=== PATIENT | male | born 1940 | race Caucasian/White ===

== ENCOUNTER 2019-06-04 07:19 | Outpatient (CLI) | payer MEDICARE, SELFPAY ==
[2019-06-04 08:23] LABS: Anion Gap 11.6 mmol/L (7-16); Blood Urea Nitrogen 45 mg/dL (7-18); Calcium 9.6 mg/dL (8.5-10.1); Carbon Dioxide 28 mmol/L (21-32); Chloride 111 mmol/L (98-108); Estimated Glomerular Filt Rate 35; Glucose 118 mg/dL (70-99); Osmolality Calculated 314 mOsm/kg (285-295); Potassium 4.6 mmol/L (3.5-5.1); Sodium 146 mmol/L (136-145)
== END 2019-06-04 07:20 | disposition home or self-care (01) ==
LOC: CHSLAB 07:21
PROVIDERS: PCP Internal Medicine; Visit Provider Internal Medicine
DX: R79.89 Other specified abnormal findings of blood chemistry (principal)
CPT/HCPCS: 36415; 80048

== ENCOUNTER 2019-07-26 07:07 | Outpatient (CLI) | payer MEDICARE, SELFPAY ==
[2019-07-26 07:21] LABS: Appearance Urine Clear (Clear); Basophils Absolute Auto 0.04 K/mm3 (0.00-0.10); Basophils Percent Auto 0.6 % (0.0-1.0); Bilirubin Urine Negative (Negative); Color Urine Yellow (Yellow); Eosinophils Absolute Auto 0.22 K/mm3 (0.02-0.50); Glucose Urine UA Negative (Negative); Hematocrit 38.5 % (37.0-46.0); Hemoglobin 12.8 g/dL (12.4-15.3); Immature Granulocyte Absolute 0.05 K/mm3 (0.00-0.00); Immature Granulocyte Percent A 0.7 % (0.0-0.0); Ketones Urine Negative (Negative); Leukocyte Esterase Ur Negative LEU/UL (Negative); Lymphocytes Absolute Auto 1.95 K/mm3 (1.10-4.50); Lymphocytes Percent Auto 26.8 % (18.0-42.0); Mean Corpuscular HGB Conc 33.2 g/dL (32.0-36.0); Mean Corpuscular Hemoglobin 31.3 pg (27.0-31.0); Mean Corpuscular Volume 94.1 fL (78.0-102.0); Monocytes Absolute Auto 0.58 K/mm3 (0.10-0.90); Neutrophils Absolute Auto 4.4 K/mm3 (1.7-7.2); Neutrophils Percent Auto 60.9 % (50.0-70.0); Nitrate Urine Negative (Negative); Platelet Count Result 162 K/mm3 (150-420); Protein Urine 3+ (Negative); Red Blood Count 4.09 M/mm3 (4.70-6.10); Red Cell Distribution Width 14.6 % (11.6-14.4); Specific Grav Ur >= 1.030 (1.010-1.020); Urobilinogen Urine 0.2 mg/dL (0.2-1.0); White Blood Count 7.3 K/mm3 (4.8-10.8); pH Urine 5.5 (5.0-8.0)
[2019-07-26 07:28] LABS: Hemoglobin A1C 6.7 % (<5.7)
[2019-07-26 07:30] LABS: Add Urine Microscopic? YES; Bacteria Urine Trace /hpf; Blood Urine Trace-Intact (Negative); RBC Urine 0-2 /hpf (0-2); Squamous Epithelial Cell Urine Occasional /hpf (Few); WBC Urine 0-3 /hpf (0-3)
[2019-07-26 07:40] LABS: Creatinine Urine 109.13 mg/dL (40-278)
[2019-07-26 08:12] LABS: MALB Creatinine Ratio 366.5 mg/g (0-30); Microalbumin Urine Random > 400.0 mg/L
[2019-07-26 08:24] LABS: Alanine Aminotransferase 24 U/L (16-63); Albumin Level 3.2 g/dL (3.4-5.0); Alkaline Phosphatase 69 U/L (46-116); Anion Gap 11.5 mmol/L (7-16); Aspartate Amino Transferase 15 U/L (15-37); Bilirubin,Total 0.3 mg/dL (0.00-1.00); Blood Urea Nitrogen 36 mg/dL (7-18); Calcium 8.9 mg/dL (8.5-10.1); Carbon Dioxide 26 mmol/L (21-32); Chloride 114 mmol/L (98-108); Cholesterol 123 mg/dL (0-200); Estimated Glomerular Filt Rate 34; Ferritin 209 ng/mL (26-388); Glucose 105 mg/dL (70-99); HDL Direct 48 mg/dL (40-60); Iron 67 ug/dL (65-175); LDL Cholesterol Calculated 60 mg/dL (<130); Osmolality Calculated 312 mOsm/kg (285-295); Percent Iron Saturation 25 % (12-57); Potassium 4.5 mmol/L (3.5-5.1); Sodium 147 mmol/L (136-145); Triglycerides 74 mg/dL (0-150)
== END 2019-07-26 07:08 | disposition home or self-care (01) ==
LOC: CHSLAB 07:10
PROVIDERS: PCP Internal Medicine; Visit Provider Internal Medicine
DX: D50.9 Iron deficiency anemia, unspecified (principal); E11.65 Type 2 diabetes mellitus with hyperglycemia
CPT/HCPCS: 36415; 80053; 80061; 81001; 82043; 82728; 83036; 83540; 83550; 85025

== ENCOUNTER 2019-09-22 12:21 | Emergency (ER) | payer MEDICARE, SELFPAY ==
[2019-09-22 12:45] VITALS: BP 170/93; PULSE 66; RESP 16; TEMP 37.1; O2SAT 94
--- NOTE | 2019-09-22 12:55 | ED.EXTPRO ---
HPI - Extremity Problem General Chief complaint: Extremity Problem,Nontraumatic Stated complaint: L shoulder pain Source: patient Mode of arrival: ambulatory Limitations: no limitations History of Present Illness HPI Narrative: This 79-year-old has had discomfort in his left shoulder for the last several months. One week ago and got to the point where he had difficulty raising his arm. But over the last week he has been doing passive range of motion and has gotten full range of motion back. His pain is also dramatically decreased. This morning he noticed bruising in the anterior arm. Yesterday he worked in the [employer]. He denies new or unusual pain. He has not had this before. No numbness or tingling or weakness in his left arm. He denies history of bruising other than his forearms. Related Data Home Medications Medication Instructions Recorded Confirmed carvedilol 25 mg tablet 25 mg PO BID tablet 05/21/19 09/22/19 finasteride 5 mg tablet 5 mg PO DAILY 05/21/19 09/22/19 insulin aspart U-100 100 unit/mL 30 unit SUB-Q TID ml 05/21/19 09/22/19 (3 mL) subcutaneous pen insulin glargine 100 unit/mL 100 unit SUB-Q DAILY 05/21/19 09/22/19 subcutaneous solution losartan 100 mg tablet 100 mg PO DAILY 05/21/19 09/22/19 simvastatin 40 mg tablet 40 mg PO DAILY 05/21/19 09/22/19 tamsulosin 0.4 mg capsule 0.4 mg PO DAILY 05/21/19 09/22/19 Allergies Allergy/AdvReac Type Severity Reaction Status Date / Time No Known Allergies Allergy Unknown Verified 08/20/19 14:06 Review of Systems Musculoskeletal: Musculoskeletal: Reports no additional musculoskeletal complaints Hematologic/Lymphatic: Hematologic/Lymphatic: Reports no additional hematologic/lymphatic complaints [facility] Past Medical History Medical History COSME (dyspnea on exertion) Essential hypertension Hypersomnia VINCENT on CPAP PAD (peripheral artery disease) 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, 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 There is a meniscal shaped abrupt marking of where the bruising stops just above the biceps tendon Extrem: Other: there is minor tenderness over the left proximal 3rd of the left arm. He is tender over the lower anterior 1/3. He has equal abduction internal and external rotation of the left shoulder. There is no swelling. There is no tenderness of left forearm wrist or hand. He has 5+ biceps strength left. The biceps tendon and muscle is intact by palpatio Course Course Emergency Course: Patient is sure that he had some bleeding in the left proximal arm that has resulted bruising in the distal arm. He was encouraged to avoid exertion with this left arm, to return if he has new symptoms and to follow-up with Dr. Evans 3-5 days Vital Signs Vital signs: Vital Signs Temperature 37.1 C 09/22/19 12:45 Pulse Rate 66 09/22/19 12:45 Respiratory Rate 16 09/22/19 12:45 Blood Pressure 170/93 H 09/22/19 12:45 Pulse Oximetry 94 09/22/19 12:45 Temperature 37.1 C 09/22/19 12:45 Pulse Rate 66 09/22/19 12:45 Respiratory Rate 16 09/22/19 12:45 Blood Pressure 170/93 H 09/22/19 12:45 Pulse Oximetry 94 09/22/19 12:45 Discharge Plan
[2019-09-22 13:14] VITALS: PULSE 70; RESP 16; O2SAT 98
== END 2019-09-22 13:18 | disposition home or self-care (01) ==
PROVIDERS: Emergency Provider Family Medicine; PCP Internal Medicine
DX: S40.012A Contusion of left shoulder, initial encounter (principal)
CPT/HCPCS: 99281; 99282

== ENCOUNTER 2019-12-20 07:17 | Outpatient (CLI) | payer MEDICARE, SELFPAY ==
[2019-12-20 07:31] LABS: Appearance Urine Clear (Clear); Basophils Absolute Auto 0.08 K/mm3 (0.00-0.10); Bilirubin Urine Negative (Negative); Color Urine Yellow (Yellow); Eosinophils Absolute Auto 0.23 K/mm3 (0.02-0.50); Glucose Urine UA Negative (Negative); Hematocrit 41.8 % (37.0-46.0); Hemoglobin 13.4 g/dL (12.4-15.3); Immature Granulocyte Absolute 0.04 K/mm3 (0.00-0.00); Immature Granulocyte Percent A 0.5 % (0.0-0.0); Ketones Urine Negative (Negative); Leukocyte Esterase Ur Negative (Negative); Lymphocytes Absolute Auto 2.79 K/mm3 (1.10-4.50); Mean Corpuscular HGB Conc 32.1 g/dL (32.0-36.0); Mean Corpuscular Hemoglobin 30.9 pg (27.0-31.0); Mean Corpuscular Volume 96.5 fL (78.0-102.0); Mean Platelet Volume 10.6 fl (8.7-11.0); Monocytes Absolute Auto 0.56 K/mm3 (0.10-0.90); Monocytes Percent Auto 7.2 % (2.0-11.0); Neutrophils Absolute Auto 4.1 K/mm3 (1.7-7.2); Neutrophils Percent Auto 52.3 % (50.0-70.0); Nitrate Urine Negative (Negative); Platelet Count Result 170 K/mm3 (150-420); Protein Urine 2+ (Negative); Red Blood Count 4.33 M/mm3 (4.70-6.10); Red Cell Distribution Width 13.2 % (11.6-14.4); Specific Grav Ur >= 1.030 (1.010-1.020); Urobilinogen Urine 0.2 mg/dL (0.2-1.0); White Blood Count 7.8 K/mm3 (4.8-10.8); pH Urine 5.5 (5.0-8.0)
[2019-12-20 07:36] LABS: Add Urine Microscopic? YES; Blood Urine Trace-Intact (Negative); RBC Urine 0-2 /hpf (0-2); Squamous Epithelial Cell Urine Occasional /hpf (Few); WBC Urine 0-3 /hpf (0-3)
[2019-12-20 07:37] LABS: Bacteria Urine Trace /hpf
[2019-12-20 07:43] LABS: Hemoglobin A1C 6.9 % (<5.7)
[2019-12-20 07:46] LABS: Creatinine Urine 74.79 mg/dL (40-278)
[2019-12-20 08:24] LABS: MALB Creatinine Ratio 534.8 mg/g (0-30); Microalbumin Urine Random > 400.0 mg/L
[2019-12-20 09:18] LABS: Alanine Aminotransferase 28 U/L (16-63); Albumin Level 3.3 g/dL (3.4-5.0); Alkaline Phosphatase 86 U/L (46-116); Anion Gap 9 mmol/L (8-16); Aspartate Amino Transferase 11 U/L (15-37); Bilirubin,Total 0.3 mg/dL (0.00-1.00); Blood Urea Nitrogen 55 mg/dL (7-18); Calcium 9.3 mg/dL (8.5-10.1); Carbon Dioxide 24 mmol/L (21-32); Chloride 112 mmol/L (98-108); Cholesterol 138 mg/dL (0-200); Creatine Kinase 87 U/L (39-308); Estimated Glomerular Filt Rate 26; Ferritin 355 ng/mL (26-388); Free T3 2.29 pg/mL (2.18-3.98); Free T4 Free Thyroxine 1.03 ng/dL (0.76-1.46); Glucose 190 mg/dL (70-99); HDL Direct 41 mg/dL (40-60); Iron 74 ug/dL (65-175); LDL Cholesterol Calculated 60 mg/dL (<130); Osmolality Calculated 320 mOsm/kg (285-295); Percent Iron Saturation 31 % (12-57); Potassium 5.1 mmol/L (3.5-5.1); Prostate Specific Antigen 4.9 ng/mL (< OR = 4.0); Sodium 145 mmol/L (136-145); Thyroid Stimulating Hormone 1.57 uIU/mL (0.36-3.74); Total Protein 6.1 g/dL (6.4-8.2); Triglycerides 185 mg/dL (0-150)
== END 2019-12-20 07:18 | disposition home or self-care (01) ==
LOC: CHSLAB 07:20
PROVIDERS: PCP Internal Medicine; Visit Provider Internal Medicine
DX: I12.9 Hypertensive chronic kidney disease with stage 1 through stage 4 chronic kidney disease, or unspecified chronic kidney disease (principal); E11.22 Type 2 diabetes mellitus with diabetic chronic kidney disease; N18.4 Chronic kidney disease, stage 4 (severe); E78.2 Mixed hyperlipidemia; E04.2 Nontoxic multinodular goiter; D50.9 Iron deficiency anemia, unspecified; Z12.5 Encounter for screening for malignant neoplasm of prostate
CPT/HCPCS: 36415; 80053; 80061; 81001; 82043; 82550; 82728; 83036; 83540; 83550; 84153; 84439; 84443; 84481; 85025; G0103

== ENCOUNTER 2020-03-21 07:27 | Outpatient (CLI) | payer MEDICARE, SELFPAY ==
--- NOTE | ~2020-03-21 | CT_ITS ---
EXAMINATION: CT abdomen pelvis wo con DATE: 03/21/2020 08:40 INDICATION: Prostate cancer TECHNIQUE: Computed tomography (CT) of the abdomen and pelvis was performed without intravenous contr ast. Automated exposure control and iterative reconstruction technique were employed. Exam dose: 140 1.15 mGy-cm total exam DLP. COMPARISON: None. FINDINGS: There is mild discoid atelectasis or scarring in the lower lung zones. Normal heart size. Coronary artery calcifications. No pericardial or pleural effusion. Status post cholecystectomy. No bile duct or pancreatic duct dilatation. No hepatic or pancreatic space-occupying mass lesion or pancreatic calcification. There are calcified splenic granulomas. Normal splenic size. Normal morphology of the adrenal glands. No renal mass lesion is evident on this limited noncontrast examination. No urinary tract calculus or hydroureteronephrosis. There is atherosclerotic calcification of the abdominal aorta, celiac, superior mesenteric and renal arteries as well as iliac arteries. No abdominal aortic aneurysm. No intraperitoneal or retroperitoneal or pelvic mass lesion or adenopathy or ascites is evident. There is prostate enlargement. The urinary bladder appears unremarkable. Normal appendix. Numerous diverticula of the left and right colon; no CT evidence of diverticulitis. No bowel obstruct ion, bowel wall thickening, pneumatosis or intraperitoneal free air. Anterolateral right upper quadrant fat-containing abdominal wall hernia. Small fat-containing umbilical hernia. Diffuse idiopathic skeletal hyperostosis of the thoracic spine. Prominent multilevel degenerative dis ease of the lumbar and cervical spine. No suspicious osteolytic or osteoblastic lesions. IMPRESSION: Status post cholecystectomy Prostate enlargement Diverticulosis of left and right colon Right upper quadrant fat-containing abdominal wall hernia Small fat-containing umbilical hernia Reviewed, dictated and finalized at [facility]. Reviewed, dictated and finalized at [facility]. 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
[2020-03-21 08:15] LABS: Estimated Glomerular Filt Rate 20
== END 2020-03-21 07:28 | disposition home or self-care (01) ==
PROVIDERS: PCP Internal Medicine; Visit Provider Urology
DX: C61 Malignant neoplasm of prostate (principal); Z90.49 Acquired absence of other specified parts of digestive tract; N40.0 Benign prostatic hyperplasia without lower urinary tract symptoms; K57.90 Diverticulosis of intestine, part unspecified, without perforation or abscess without bleeding; K43.9 Ventral hernia without obstruction or gangrene; K42.9 Umbilical hernia without obstruction or gangrene
CPT/HCPCS: 74176

== ENCOUNTER 2020-06-02 07:41 | Outpatient (CLI) | payer MEDICARE, SELFPAY ==
[2020-06-02 08:02] LABS: Hemoglobin 12.1 g/dL (12.4-15.3)
--- NOTE | 2020-06-02 09:16 | ECG_ITS ---
SINUS BRADYCARDIA BORDERLINE ST-T WAVE ABNORMALITY- INFERIOR LEADS BASELINE WANDER- II, III, V5 BORDERLINE ECG Electronically Signed On 06-02-2020 15:13:06 CDT by Levi CASE
[2020-06-02 09:57] LABS: Anion Gap 7 mmol/L (8-16); Blood Urea Nitrogen 60 mg/dL (7-18); Carbon Dioxide 22 mmol/L (21-32); Chloride 116 mmol/L (98-108); Estimated Glomerular Filt Rate 22; Glucose 129 mg/dL (70-99); Osmolality Calculated 318 mOsm/kg (285-295); Potassium 5.7 mmol/L (3.5-5.1); Sodium 145 mmol/L (136-145)
== END 2020-06-02 07:42 | disposition home or self-care (01) ==
PROVIDERS: Anesthesiology; PCP Internal Medicine; Visit Provider Urology
DX: E11.9 Type 2 diabetes mellitus without complications (principal); D64.9 Anemia, unspecified; C61 Malignant neoplasm of prostate; I10 Essential (primary) hypertension; Z01.818 Encounter for other preprocedural examination
CPT/HCPCS: 36415; 80048; 85014; 85018; 87086; 93005

== ENCOUNTER → 2020-06-07 01:19 | Outpatient (CLI) | payer MEDICARE, SELFPAY ==
[2020-06-07 20:53] LABS: SARS-CoV-2 RNA PCR Negative
== END ==
PROVIDERS: PCP Internal Medicine; Visit Provider Urology
DX: Z01.812 Encounter for preprocedural laboratory examination (principal); Z20.822 Contact with and (suspected) exposure to COVID-19
CPT/HCPCS: C9803; U0003; U0005

== ENCOUNTER 2020-06-10 01:23 | Day surgery (SDC) | payer MEDICARE, SELFPAY ==
[2020-05-30 12:03] VITALS: BMI 31.1
--- NOTE | 2020-06-10 09:00 | WPDANESEPPF ---
Anes - Initial Pre Proc Eval Procedure: Operation Date: 06/10/20 10:15 Proposed Procedures p Insertion SpaceOAR Hydrogel System - Macho William MD Date/Time: 06/10/20 09:00 Surgeon: Macho William MD Pre Op Diagnosis: Prostate CA Patient Data Age: 79 Gender: M Height: 1.91 m Weight: 113 kg Allergies Allergy/AdvReac Type Severity Reaction Status Date / Time No Known Allergies Allergy Unknown Verified 06/10/20 09:05 Home Medications Medication Instructions Recorded Confirmed Type carvedilol 25 mg tablet 25 mg PO BID tablet 05/21/19 06/10/20 History finasteride 5 mg tablet 5 mg PO DAILY 05/21/19 06/10/20 History insulin aspart U-100 100 unit/mL 10 unit SUB-Q TID PRN ml 05/21/19 06/10/20 History (3 mL) subcutaneous pen losartan 100 mg tablet 100 mg PO QAM 05/21/19 06/10/20 History simvastatin 40 mg tablet 40 mg PO DAILY 05/21/19 06/10/20 History tamsulosin 0.4 mg capsule 0.4 mg PO DAILY 05/21/19 06/10/20 History cilostazol 50 mg tablet 50 mg PO BID #180 tablet 08/24/19 06/10/20 Rx insulin glargine 100 unit/mL 50 unit SUB-Q QPM ml 12/17/19 06/10/20 History subcutaneous solution albuterol sulfate 2 puff INHALATION Q4-6H PRN 05/30/20 06/10/20 History aspirin [Aspir-81] 81 mg PO DAILY 05/30/20 06/10/20 History ferrous sulfate 325 mg PO DAILY 05/30/20 06/10/20 History hydralazine 10 mg PO BID 05/30/20 06/10/20 History multivitamin [Multiple Vitamin] 1 tablet PO DAILY 05/30/20 06/10/20 History Patient hx anesthesia problems: none Family hx anesthesia problems: none PMFSH Past Medical History Medical History (Updated 06/10/20 @ 09:02 by Shar Bermudez MD) Arthritis COPD (chronic obstructive pulmonary disease) COSME (dyspnea on exertion) Dyslipidemia Edema of both legs Essential hypertension Hypersomnia Obesity VINCENT on CPAP PAD (peripheral artery disease) Prostate CA 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, with longterm current use of insulin pump Venous insufficiency of right lower extremity Ventricular ectopic beats Surgical History Surgical History History of cataract extraction History of cholecystectomy Family History Family History Father Family history of coronary artery disease Mother Family history of coronary artery disease Social History Social History Smoking packs per day: 3 Smoking cigarettes per day: 60.0 Years smoked: 15 Smoking pack-years: 45.00 Smoking status: Former smoker Smoking end date: 08/14/85 Alcohol intake: current Drinks per week: 1 Substance use: never Living arrangements: with family Additional living arrangements comments: Spiritual care concerns: No Anes - Eval Final PreProcedure Day of Procedure 06/10/20 09:00 Patient weight: obese Heart: regular rate and rhythm Lungs: clear to auscultation and normal air movement Airway: Mallampati scale class II Neurological: alert and oriented Last oral intake: >/= 8 hours ASA classification: III Emergent: no Anesthetic plan: proceed Anesthesia type and monitoring: general GIVS and LMA Informed Consent: The patient's anesthetic plan and its attendant risks and benefits were discussed with the patient/family/POA. Questions were solicited and answers provided to the satisfaction of the patient/family/POA.
[2020-06-10] MEDS: LACTATED RINGERS 1,000 ML 30 ML IV CONT (09:25)
[2020-06-10 09:27] VITALS: BP 149/54; PULSE 45; RESP 18; TEMP 36.5; O2SAT 99; BMI 31.2
[2020-06-10 09:27] LABS: Glucose Point of Care 76 (65-105)
[2020-06-10 09:44] LABS: Potassium 4.8 mmol/L (3.4-5.0)
--- NOTE | 2020-06-10 10:18 | WPDHPUPDATE1 ---
History and Physical Update Update Date/Time: 06/10/20 10:18 History and Physical has been reviewed, including an updated exam of the patient. There are NO changes in the patient's condition. Risks, benefits, and alternatives have been discussed and questions answered. Patient agrees to proceed with procedure. Proceed with space oar
--- NOTE | 2020-06-10 11:23 | PM.PROC ---
Procedure Note - Detailed Date of procedure: 06/10/20 Pre-op diagnosis: Prostate CA Post-op diagnosis: same Procedure performed: Transrectal ultrasound with space Oar placement Description of procedure: Patient is taken to the operative suite and correctly identified. Once anesthesia was obtained was placed in dorsal lithotomy position and prepped and draped usual sterile fashion. Transrectal ultrasound was then performed with the prostate visualized in both sagittal and transverse planes. Spinal needle was inserted into the perineum into the plane between the prostate and the rectum. Aspiration revealed no blood. 1 cc of saline was injected and there was good separation of the plane between the prostate and rectum. The space Oar mixture was then injected. Again there was very good separation with lifting of the prostate off the rectum. This was visualized in both planes. Patient tolerated procedure well without any complications taken recovery stable condition. Patient will follow-up a month's time after his radiation therapy is completed Anesthesia: MERISSAA Surgeon: Macho William MD Drains: No Packing: No Pathology: none sent Complications: No immediate complications Condition: stable Disposition: PACU
[2020-06-10 11:27] VITALS: BP 118/51; PULSE 42; RESP 16; O2SAT 95
[2020-06-10 11:55] VITALS: BP 139/52; PULSE 43; RESP 16; O2SAT 96
[2020-06-10 14:00] LABS: Glucose Point of Care 70 (65-105)
== END 2020-06-10 12:08 | disposition home or self-care (01) ==
PROVIDERS: PCP Internal Medicine; Visit Provider Urology
PROC: (CPT 55874; principal; 2020-06-10 10:15)
DX: C61 Malignant neoplasm of prostate (principal); J44.9 Chronic obstructive pulmonary disease, unspecified; I10 Essential (primary) hypertension; E11.51 Type 2 diabetes mellitus with diabetic peripheral angiopathy without gangrene; I87.2 Venous insufficiency (chronic) (peripheral); E66.9 Obesity, unspecified; Z68.31 Body mass index [BMI] 31.0-31.9, adult; Z96.41 Presence of insulin pump (external) (internal); Z79.82 Long term (current) use of aspirin; Z79.51 Long term (current) use of inhaled steroids; Z79.4 Long term (current) use of insulin; Z87.891 Personal history of nicotine dependence
CPT/HCPCS: 55874; 36415; 82948; 84132; A9270; C1889; J2405; J2704; J3010; J7120

== ENCOUNTER 2020-06-17 07:56 | Outpatient (CLI) | payer MEDICARE, SELFPAY ==
--- NOTE | ~2020-06-17 | MR_ITS ---
EXAMINATION: MR pelvis wo con INDICATION: Prostate cancer TECHNIQUE: Coronal SSFSE ARC, Axial and Coronal 2D FIESTA FatSat, Axial 3D T2 Cube, Axial SSFSE BH AR C, Axial 3D DualEcho BH, Axial SSFSE-IR Alvaro, Axial DWI b=600, Axial LAVA ARC, FAT:Cor LAVA-FLEX COMPARISON: CT, 03/21/2020 CONTRAST: None FINDINGS: There is an area of decreased T2 signal intensity with associated restricted diffusion in t he peripheral zone of the right prostate, likely corresponding to patient's known malignancy. There a re no pathologically enlarged pelvic lymph nodes. Postbiopsy material situated between the rectum and prostate. The bladder is normal. There are no dilated loops of bowel. IMPRESSION: 1. No evidence of metastatic disease. Signal abnormality in the right peripheral zone of the prostate likely reflects known malignancy. Reviewed, dictated and finalized at location [facility]. IMPRESSION: 1. No evidence of metastatic disease. Signal abnormality in the right periphera l zone of the prostate likely reflects known malignancy.
== END 2020-06-17 07:57 | disposition home or self-care (01) ==
LOC: ANHIMG 07:58
PROVIDERS: PCP Internal Medicine; Visit Provider Radiology Radiation Oncology
DX: C61 Malignant neoplasm of prostate (principal)
CPT/HCPCS: 72195

== ENCOUNTER 2020-07-17 07:55 | Outpatient (CLI) | payer MEDICARE, SELFPAY ==
[2020-07-17 08:24] LABS: Basophils Absolute Auto 0.03 K/mm3 (0.00-0.10); Basophils Percent Auto 0.7 % (0.0-1.0); Eosinophils Percent Auto 2.4 % (1.0-6.0); Hematocrit 34.2 % (37.0-46.0); Hemoglobin 11.2 g/dL (12.4-15.3); Immature Granulocyte Absolute 0.02 K/mm3 (0.00-0.00); Immature Granulocyte Percent A 0.5 % (0.0-0.0); Lymphocytes Absolute Auto 0.75 K/mm3 (1.10-4.50); Lymphocytes Percent Auto 18.3 % (18.0-42.0); Mean Corpuscular HGB Conc 32.7 g/dL (32.0-36.0); Mean Corpuscular Hemoglobin 31.7 pg (27.0-31.0); Mean Corpuscular Volume 96.9 fL (78.0-102.0); Mean Platelet Volume 11.1 fl (8.7-11.0); Monocytes Absolute Auto 0.39 K/mm3 (0.10-0.90); Monocytes Percent Auto 9.5 % (2.0-11.0); Neutrophils Absolute Auto 2.8 K/mm3 (1.7-7.2); Neutrophils Percent Auto 68.6 % (50.0-70.0); Platelet Count Result 105 K/mm3 (150-420); Red Blood Count 3.53 M/mm3 (4.70-6.10); Red Cell Distribution Width 13.6 % (11.6-14.4); White Blood Count 4.1 K/mm3 (4.8-10.8)
[2020-07-17 09:20] LABS: Appearance Urine Clear (Clear); Bilirubin Urine Negative (Negative); Color Urine Yellow (Yellow); Glucose Urine UA Negative (Negative); Hemoglobin A1C 6.3 % (<5.7); Ketones Urine Negative (Negative); Leukocyte Esterase Ur Negative LEU/UL (Negative); Nitrate Urine Negative (Negative); Protein Urine 3+ (Negative); Specific Grav Ur >= 1.030 (1.010-1.020); Urobilinogen Urine 0.2 mg/dL (0.2-1.0); pH Urine 5.5 (5.0-8.0)
[2020-07-17 09:28] LABS: Creatinine Urine 92.01 mg/dL (40-278); Sodium Urine Random 85 mmol/L (20-110); Total Protein Urine Random 229.3 mg/dL (0.0-11.9); Ur Ttl Prot Creatinine Ratio 2.49 mg/mg (0-0.20)
[2020-07-17 09:29] LABS: Alanine Aminotransferase 24 U/L (16-63); Albumin Level 3.2 g/dL (3.4-5.0); Alkaline Phosphatase 70 U/L (46-116); Anion Gap 10 mmol/L (8-16); Aspartate Amino Transferase 12 U/L (15-37); Bilirubin,Total 0.3 mg/dL (0.00-1.00); Blood Urea Nitrogen 49 mg/dL (7-18); Calcium 8.7 mg/dL (8.5-10.1); Carbon Dioxide 22 mmol/L (21-32); Chloride 115 mmol/L (98-108); Cholesterol 111 mg/dL (0-200); Creatine Kinase 124 U/L (39-308); Estimated Glomerular Filt Rate 26; Ferritin 267 ng/mL (26-388); Free T3 2.09 pg/mL (2.18-3.98); Free T4 Free Thyroxine 0.99 ng/dL (0.76-1.46); Glucose 99 mg/dL (70-99); HDL Direct 45 mg/dL (40-60); Iron 58 ug/dL (65-175); LDL Cholesterol Calculated 53 mg/dL (<130); Osmolality Calculated 317 mOsm/kg (285-295); Percent Iron Saturation 24 % (12-57); Phosphorus 4.1 mg/dL (2.6-4.7); Potassium 4.7 mmol/L (3.5-5.1); Sodium 147 mmol/L (136-145); Thyroid Stimulating Hormone 1.33 uIU/mL (0.36-3.74); Total Protein 5.9 g/dL (6.4-8.2); Triglycerides 63 mg/dL (0-150)
[2020-07-17 09:40] LABS: Add Urine Microscopic? YES; Blood Urine Trace-lysed (Negative); WBC Urine 0-3 /hpf (0-3)
[2020-07-17 09:41] LABS: Bacteria Urine 1+ /hpf; Mucus Urine Few /lpf; Squamous Epithelial Cell Urine Few /hpf (Few)
[2020-07-17 09:42] LABS: Erythrocyte Sedimentation Rate 35 mm/hr (0-20)
[2020-07-17 10:46] LABS: MALB Creatinine Ratio 434.7 mg/g (0-30); Microalbumin Urine Random > 400.0 mg/L
[2020-07-17 11:40] LABS: Eosinophil Urine 0 % (0-0)
[2020-07-20 03:18] LABS: Kappa\\Lambda Light Chains 1.63 (0.26-1.65); Lambda Light Chain 33.5 mg/L (5.7-26.3)
[2020-07-20 11:41] LABS: Complement Total CH50 >60 U/mL (31-60)
[2020-07-20 18:10] LABS: Parathyroid Intact 140 pg/mL (14-64)
[2020-07-21 18:46] LABS: Complement C3 113 mg/dL (82-185)
== END 2020-07-17 07:56 | disposition home or self-care (01) ==
LOC: CHSLAB 07:58
PROVIDERS: PCP Internal Medicine; Visit Provider Internal Medicine Nephrology
DX: E04.2 Nontoxic multinodular goiter (principal); I12.9 Hypertensive chronic kidney disease with stage 1 through stage 4 chronic kidney disease, or unspecified chronic kidney disease; N18.32 Chronic kidney disease, stage 3b; E11.22 Type 2 diabetes mellitus with diabetic chronic kidney disease; E11.65 Type 2 diabetes mellitus with hyperglycemia; E78.2 Mixed hyperlipidemia; D50.9 Iron deficiency anemia, unspecified
CPT/HCPCS: 36415; 80053; 80061; 81001; 82043; 82550; 82570; 82728; 83036; 83540; 83550; 83883; 83970; 84100; 84156; 84300; 84439; 84443; 84481; 85025; 85652; 85999; 86038; 86160; 86162; 86334

== ENCOUNTER 2020-07-21 08:16 | Outpatient (CLI) | payer MEDICARE, SELFPAY ==
[2020-07-25 20:52] LABS: Albumin 83 %; Creat 24 Hr 1.37 g/24 h (0.50-2.15); Measured Kappa Chains 7.98 mg/dL (<2.00); Pro/Creat Ratio 3292 mg/g creat (<=114); Total Kappa Chains 135.66 mg/24 h; Total Lambda Chains 59.5 mg/24 h
== END 2020-07-21 08:17 | disposition home or self-care (01) ==
LOC: CHSLAB 08:18
PROVIDERS: PCP Internal Medicine; Visit Provider Internal Medicine Nephrology
DX: N18.32 Chronic kidney disease, stage 3b (principal)
CPT/HCPCS: 86335

== ENCOUNTER 2020-07-29 08:43 | Outpatient (CLI) | payer MEDICARE, SELFPAY ==
--- NOTE | ~2020-07-29 | US_ITS ---
US retroperitoneal comp 07/29/2020 09:28 Procedure: Realtime transabdominal ultrasound of the kidneys and bladder. Indication: Chronic kidney disease stage III. History of prostate cancer. Comparison: No prior studies for comparison. Findings: Renal echotexture is normal bilaterally without hydronephrosis, contour deforming mass or r enal calculus. The right kidney measures 9.1 cm and left kidney measures 11.8 cm. Bladder within nor mal limits. Impression: 1: Unremarkable renal ultrasound. No stones, masses or hydronephrosis. Reviewed, dictated and finalized at location [facility]. Impression: 1: Unremarkable renal ultrasound. No stones, masses or hydronephrosis.
== END 2020-07-29 08:44 | disposition home or self-care (01) ==
LOC: CHSIMG 08:45
PROVIDERS: PCP Internal Medicine; Visit Provider Internal Medicine Nephrology
DX: N18.32 Chronic kidney disease, stage 3b (principal)
CPT/HCPCS: 76770

== ENCOUNTER 2020-10-29 08:10 | Outpatient (CLI) | payer MEDICARE, SELFPAY ==
[2020-10-29 08:27] LABS: Basophils Absolute Auto 0.04 K/mm3 (0.00-0.10); Basophils Percent Auto 0.8 % (0.0-1.0); Eosinophils Absolute Auto 0.15 K/mm3 (0.02-0.50); Eosinophils Percent Auto 2.9 % (1.0-6.0); Hematocrit 33.3 % (37.0-46.0); Immature Granulocyte Absolute 0.04 K/mm3 (0.00-0.00); Immature Granulocyte Percent A 0.8 % (0.0-0.0); Lymphocytes Absolute Auto 0.77 K/mm3 (1.10-4.50); Lymphocytes Percent Auto 15.1 % (18.0-42.0); Mean Corpuscular Hemoglobin 32.6 pg (27.0-31.0); Mean Corpuscular Volume 98.8 fL (78.0-102.0); Mean Platelet Volume 10.6 fl (8.7-11.0); Monocytes Percent Auto 7.8 % (2.0-11.0); Neutrophils Absolute Auto 3.7 K/mm3 (1.7-7.2); Neutrophils Percent Auto 72.6 % (50.0-70.0); Platelet Count Result 126 K/mm3 (150-420); Red Blood Count 3.37 M/mm3 (4.70-6.10); Red Cell Distribution Width 13.4 % (11.6-14.4); White Blood Count 5.1 K/mm3 (4.8-10.8)
[2020-10-29 08:34] LABS: Add Urine Microscopic? YES; Appearance Urine Clear (Clear); Bilirubin Urine Negative (Negative); Blood Urine Negative (Negative); Color Urine Light Yellow (Yellow); Glucose Urine UA Negative (Negative); Ketones Urine Negative (Negative); Leukocyte Esterase Ur Negative (Negative); Nitrate Urine Negative (Negative); Protein Urine 3+ (Negative); Specific Grav Ur 1.025 (1.010-1.020); Urobilinogen Urine 0.2 mg/dL (0.2-1.0); pH Urine 5.5 (5.0-8.0)
[2020-10-29 08:41] LABS: Bacteria Urine Trace /hpf; RBC Urine None seen /hpf (0-2); Squamous Epithelial Cell Urine Rare /hpf (Few); WBC Urine None seen /hpf (0-3)
[2020-10-29 08:45] LABS: Hemoglobin A1C 6.4 % (<5.7)
[2020-10-29 09:01] LABS: Creatinine Urine 102.05 mg/dL (40-278)
[2020-10-29 09:20] LABS: Alanine Aminotransferase 26 U/L (16-63); Albumin Level 3.2 g/dL (3.4-5.0); Alkaline Phosphatase 74 U/L (46-116); Anion Gap 7 mmol/L (8-16); Aspartate Amino Transferase 13 U/L (15-37); Bilirubin,Total 0.3 mg/dL (0.00-1.00); Blood Urea Nitrogen 42 mg/dL (7-18); Carbon Dioxide 26 mmol/L (21-32); Chloride 114 mmol/L (98-108); Cholesterol 118 mg/dL (0-200); Creatine Kinase 87 U/L (39-308); Estimated Glomerular Filt Rate 27; Ferritin 353 ng/mL (26-388); Glucose 82 mg/dL (70-99); HDL Direct 46 mg/dL (40-60); Iron 53 ug/dL (65-175); LDL Cholesterol Calculated 53 mg/dL (<130); Osmolality Calculated 313 mOsm/kg (285-295); Percent Iron Saturation 23 % (12-57); Potassium 4.7 mmol/L (3.5-5.1); Sodium 147 mmol/L (136-145); Total Protein 5.8 g/dL (6.4-8.2); Triglycerides 93 mg/dL (0-150)
[2020-10-29 09:48] LABS: MALB Creatinine Ratio 391.9 mg/g (0-30); Microalbumin Urine Random > 400.0 mg/L
== END 2020-10-29 08:11 | disposition home or self-care (01) ==
LOC: CHSLAB 08:12
PROVIDERS: PCP Internal Medicine; Visit Provider Internal Medicine
DX: E78.2 Mixed hyperlipidemia (principal); I12.9 Hypertensive chronic kidney disease with stage 1 through stage 4 chronic kidney disease, or unspecified chronic kidney disease; N18.4 Chronic kidney disease, stage 4 (severe); E11.65 Type 2 diabetes mellitus with hyperglycemia; D64.9 Anemia, unspecified
CPT/HCPCS: 36415; 80053; 80061; 81001; 82043; 82550; 82728; 83036; 83540; 83550; 85025

== ENCOUNTER 2020-11-07 08:51 | Outpatient (CLI) | payer MEDICARE, SELFPAY ==
[2020-11-07 09:11] LABS: Creatinine Urine 47.42 mg/dL (40-278)
[2020-11-07 09:24] LABS: Ur Ttl Prot Creatinine Ratio 5.27 mg/mg (0-0.20)
[2020-11-07 09:25] LABS: Total Protein Urine Random > 250.0 mg/dL (0.0-11.9)
[2020-11-07 09:59] LABS: Albumin Level 3.3 g/dL (3.4-5.0); Anion Gap 7 mmol/L (8-16); Blood Urea Nitrogen 46 mg/dL (7-18); Calcium 9.1 mg/dL (8.5-10.1); Carbon Dioxide 27 mmol/L (21-32); Chloride 113 mmol/L (98-108); Estimated Glomerular Filt Rate 28; Glucose 131 mg/dL (70-99); Osmolality Calculated 317 mOsm/kg (285-295); Phosphorus 4.3 mg/dL (2.6-4.7); Potassium 4.9 mmol/L (3.5-5.1); Sodium 147 mmol/L (136-145)
== END 2020-11-07 08:52 | disposition home or self-care (01) ==
LOC: CHSLAB 08:52
PROVIDERS: PCP Internal Medicine; Visit Provider Internal Medicine Nephrology
DX: N18.32 Chronic kidney disease, stage 3b (principal)
CPT/HCPCS: 36415; 80069; 82570; 84156

== ENCOUNTER 2020-11-13 09:42 | Outpatient (CLI) | payer MEDICARE, SELFPAY ==
--- NOTE | ~2020-11-13 | XR_ITS ---
EXAMINATION: XR chest 2V DATE: 11/13/2020 10:04 INDICATION: COPD presenting with dyspnea. TECHNIQUE: PA and lateral views of the chest were obtained. COMPARISON: Chest radiograph dated 11/27/2018 FINDINGS: Unchanged mild linear bibasilar atelectasis/scarring. No new airspace opacities, pulmonary edema, ple ural effusion or pneumothorax. The cardiomediastinal silhouette is normal. Mild to moderate thoracic spondylosis with bridging osteophytes at multiple levels consistent with diffuse idiopathic skeletal hyperostosis (DISH). IMPRESSION: 1. Unchanged mild bibasilar atelectasis/scarring. No acute cardiopulmonary disease. Reviewed, dictated and finalized at location [facility]. IMPRESSION: 1. Unchanged mild bibasilar atelectasis/scarring. No acute cardiopulmonary dise ase.
[2020-11-13 10:05] VITALS: PULSE 48; O2SAT 98
[2020-11-13 10:13] VITALS: PULSE 57; O2SAT 96
--- NOTE | 2020-11-13 10:24 | HOMEO2EVAL ---
Evaluation was performed at [facility] [place] Home Oxygen Evaluation RC: Home Oxygen (O2) Evaluation Start: 11/13/20 10:17 Freq: Status: Active Protocol: RPE Activity Type Activity Date Activity User E-Sign Co-Sign Detail Recorded Client Recorded Date Recorded By Document 11/13/20 10:05 BENNETT [id number] 11/13/20 10:24 SJB Document 11/13/20 10:13 SJB [id number] 11/13/20 10:24 SJB 11/13/20 11/13/20 10:05 10:13 Home O2 Evaluation Test Phase Resting Exercise Oxygen Delivery Room Air Room Air Pulse Oximetry (90-100 %) 98 96 Pulse Rate (60-100 beats/min) 48 L 57 L Activity Tolerance Good Rating of Perceived Dyspnea (PD) +1 Mild, Noticeable to the Participant but Not to an Observer Rate of Perceived Exertion (PE) 12 Ambulation Distance (feet) 675 Home Oxygen Evaluation Comments WILL BEGIN WALK PT WALKED PUSHING W/C ON ROOM AIR. WALKED APPROX 675 FT FAIRLY QUICKLY. AFTER 6 MINUTES OF THE WALK THE PT COMPLAINED OF SWEATING AND FEELING LIKE HIS BLOOD SUGAR DROPPED. HE HAD NOT ATE YET TODAY. PT HAD A SEAT AND SOMETHING TO EAT/DRINK AND FELT FINE. OTHERWISE SP02S WERE VERY GOOD DURING WALK. HR RANGED FROM 48-57. Treatment Charges O2 Evaluation - Outpatient
== END 2020-11-13 09:43 | disposition home or self-care (01) ==
PROVIDERS: PCP Internal Medicine; Visit Provider Internal Medicine
DX: R06.00 Dyspnea, unspecified (principal)
CPT/HCPCS: 71046; 94060; 94618; 94726; 94729

== ENCOUNTER 2020-11-25 10:05 | Outpatient (CLI) | payer MEDICARE, SELFPAY ==
[2020-11-25 11:12] LABS: Albumin Level 3.3 g/dL (3.4-5.0); Anion Gap 9 mmol/L (8-16); Blood Urea Nitrogen 47 mg/dL (7-18); Carbon Dioxide 27 mmol/L (21-32); Chloride 112 mmol/L (98-108); Estimated Glomerular Filt Rate 23; Glucose 128 mg/dL (70-99); Lactate Dehydrogenase 164 U/L (85-227); Osmolality Calculated 320 mOsm/kg (285-295); Potassium 4.7 mmol/L (3.5-5.1); Sodium 148 mmol/L (136-145)
[2020-11-25 11:20] LABS: Creatinine Urine 92.66 mg/dL (40-278); Total Protein Urine Random 234.5 mg/dL (0.0-11.9); Ur Ttl Prot Creatinine Ratio 2.53 mg/mg (0-0.20)
== END 2020-11-25 10:06 | disposition home or self-care (01) ==
LOC: CHSLAB 10:07
PROVIDERS: PCP Internal Medicine; Visit Provider Internal Medicine Nephrology
DX: N18.4 Chronic kidney disease, stage 4 (severe) (principal); D69.6 Thrombocytopenia, unspecified
CPT/HCPCS: 36415; 80069; 82570; 83615; 84156

== ENCOUNTER 2020-12-11 07:39 | Outpatient (CLI) | payer MEDICARE, SELFPAY ==
[2020-12-11 08:26] LABS: Anion Gap 9 mmol/L (8-16); Blood Urea Nitrogen 62 mg/dL (7-18); Calcium 8.7 mg/dL (8.5-10.1); Carbon Dioxide 26 mmol/L (21-32); Chloride 112 mmol/L (98-108); Estimated Glomerular Filt Rate 22; Glucose 111 mg/dL (70-99); Osmolality Calculated 322 mOsm/kg (285-295); Potassium 4.8 mmol/L (3.5-5.1); Sodium 147 mmol/L (136-145)
== END 2020-12-11 07:40 | disposition home or self-care (01) ==
LOC: CHSLAB 07:41
PROVIDERS: PCP Internal Medicine; Visit Provider Internal Medicine
DX: I12.9 Hypertensive chronic kidney disease with stage 1 through stage 4 chronic kidney disease, or unspecified chronic kidney disease (principal); N18.4 Chronic kidney disease, stage 4 (severe)
CPT/HCPCS: 36415; 80048

== ENCOUNTER 2021-05-06 07:45 | Outpatient (CLI) | payer MEDICARE, SELFPAY ==
[2021-05-06 09:53] LABS: Anion Gap 9 mmol/L (8-16); Blood Urea Nitrogen 53 mg/dL (7-18); Calcium 9.4 mg/dL (8.5-10.1); Carbon Dioxide 25 mmol/L (21-32); Chloride 110 mmol/L (98-108); Estimated Glomerular Filt Rate 22; Glucose 98 mg/dL (70-99); Osmolality Calculated 312 mOsm/kg (285-295); Potassium 4.6 mmol/L (3.5-5.1); Sodium 144 mmol/L (136-145)
== END 2021-05-06 07:46 | disposition home or self-care (01) ==
LOC: CHSLAB 07:47
PROVIDERS: PCP Internal Medicine; Visit Provider Internal Medicine
DX: I10 Essential (primary) hypertension (principal)
CPT/HCPCS: 36415; 80048

== ENCOUNTER 2021-05-25 16:07 | Emergency (ER) | payer MEDICARE, SELFPAY ==
--- NOTE | ~2021-05-25 | CT_ITS ---
EXAMINATION: CT brain wo con DATE: 05/25/2021 17:11 INDICATION: Generalized headache and weakness. TECHNIQUE: Computed tomography (CT) of the head was performed without intravenous contrast. The mA wa s adjusted according to patient size. Iterative reconstruction technique was employed. The dose-lengt h product was 681.00 mGy-cm. COMPARISON: None FINDINGS: No acute intracranial hemorrhage or extra-axial fluid collection. No hydrocephalus, mass, or herniation. No acute ischemic infarct. Unremarkable dural venous sinus attenuation. No acute osseous abnormality. The aerated spaces are clear. Mild atrophy. Mild chronic white matter change. Atherosclerotic intracranial calcifications. IMPRESSION: No acute intracranial process. Reviewed, dictated and finalized at [facility].
--- NOTE | ~2021-05-25 | XR_ITS ---
EXAMINATION: XR chest 1V portable DATE: 05/25/2021 17:11 INDICATION: Palpitations. Weakness. TECHNIQUE: A single frontal view of the chest was obtained. COMPARISON: Chest 2 views 11/13/2020, CT abdomen and pelvis 03/21/2020 FINDINGS: There is mild atelectasis versus scarring in the lower lung zones. No pleural effusion or p neumothorax. The heart size is normal. IMPRESSION: 1. Mild atelectasis versus scarring in the lower lung zones. Reviewed, dictated and finalized at location [facility].
--- NOTE | 2021-05-25 16:27 | ECG_ITS ---
Measurements Intervals [place] Rate: 51 P: 5 NM: 156 QRS: -9 QRSD: 112 T: 0 QT: 418 QTc: 385 Interpretive Statements SINUS BRADYCARDIA LOW QRS VOLTAGE IN EXTREMITY LEADS [QRS DEFLECTION < 0.5 mV IN LIMB LEADS] NONSPECIFIC T-WAVE ABNORMALITY ABNORMAL ECG Electronically Signed On 05-26-2021 17:49:11 CDT by Charles Lake M.D.
[2021-05-25 16:34] VITALS: BP 141/53; PULSE 51; RESP 20; TEMP 36.2; O2SAT 96
[2021-05-25] MEDS: SODIUM CHLORIDE 0.9% IV 1,000 ML 999 ML IV CONT (16:56)
[2021-05-25 16:57] LABS: Basophils Absolute Auto 0.04 K/mm3 (0.00-0.10); Basophils Percent Auto 0.7 % (0.0-1.0); Eosinophils Absolute Auto 0.13 K/mm3 (0.02-0.50); Eosinophils Percent Auto 2.4 % (1.0-6.0); Hematocrit 30.7 % (37.0-46.0); Hemoglobin 9.8 g/dL (12.4-15.3); Immature Granulocyte Absolute 0.02 K/mm3 (0.00-0.00); Immature Granulocyte Percent A 0.4 % (0.0-0.0); Lymphocytes Percent Auto 16.9 % (18.0-42.0); Mean Corpuscular HGB Conc 31.9 g/dL (32.0-36.0); Mean Corpuscular Hemoglobin 31.8 pg (27.0-31.0); Mean Corpuscular Volume 99.7 fL (78.0-102.0); Mean Platelet Volume 10.5 fl (8.7-11.0); Monocytes Absolute Auto 0.47 K/mm3 (0.10-0.90); Monocytes Percent Auto 8.8 % (2.0-11.0); Neutrophils Absolute Auto 3.8 K/mm3 (1.7-7.2); Neutrophils Percent Auto 70.8 % (50.0-70.0); Platelet Count Result 126 K/mm3 (150-420); Red Blood Count 3.08 M/mm3 (4.70-6.10); Red Cell Distribution Width 13.6 % (11.6-14.4); White Blood Count 5.3 K/mm3 (4.8-10.8)
[2021-05-25 17:14] LABS: Alanine Aminotransferase 21 U/L (16-63); Albumin Level 3.2 g/dL (3.4-5.0); Alkaline Phosphatase 63 U/L (46-116); Anion Gap 8 mmol/L (8-16); Aspartate Amino Transferase 14 U/L (15-37); Bilirubin,Total 0.4 mg/dL (0.00-1.00); Blood Urea Nitrogen 75 mg/dL (7-18); Calcium 8.9 mg/dL (8.5-10.1); Carbon Dioxide 23 mmol/L (21-32); Chloride 113 mmol/L (98-108); Estimated CRCL calculation 23 ml/min; Estimated Glomerular Filt Rate 18; Ethanol < 3 mg/dL (0-6); Glucose 130 mg/dL (70-99); Osmolality Calculated 322 mOsm/kg (285-295); Potassium 4.6 mmol/L (3.5-5.1); Sodium 144 mmol/L (136-145); Total Protein 6.3 g/dL (6.4-8.2); Troponin I 17.1 ng/L (0.00-60.4)
--- NOTE | 2021-05-25 17:43 | ED.ARRPALP ---
HPI - Arrhythmia/Palpitations General Chief Complaint: Dizziness Stated Complaint: pulse in head Time Seen by Provider: 05/25/21 16:09 Source: patient, RN notes reviewed and old records reviewed Mode of arrival: ambulatory Limitations: no limitations History of Present Illness complaint: skipped beats and palpitations Onset (ago): day(s) (30) Duration: now resolved Severity: mild Context: occurred during exertion Associated symptoms: shortness of breath (chronic, mild.) Treatments prior to arrival: beta-mikel (pt is on carvedilol with pulse usually in the 50s.) Related Data Home Medications Medication Instructions Recorded Confirmed carvedilol 25 mg tablet 25 mg PO BID tablet 05/21/19 12/15/20 finasteride 5 mg tablet 5 mg PO DAILY 05/21/19 12/15/20 insulin aspart U-100 100 unit/mL 10 unit SUB-Q TID PRN ml 05/21/19 12/15/20 (3 mL) subcutaneous pen losartan 100 mg tablet 100 mg PO QAM 05/21/19 12/15/20 simvastatin 40 mg tablet 40 mg PO DAILY 05/21/19 12/15/20 tamsulosin 0.4 mg capsule 0.4 mg PO DAILY 05/21/19 12/15/20 insulin glargine 100 unit/mL 50 unit SUB-Q QPM ml 12/17/19 12/15/20 subcutaneous solution albuterol sulfate 2 puff INHALATION Q4-6H PRN 05/30/20 12/15/20 aspirin 81 mg PO DAILY 05/30/20 12/15/20 ferrous sulfate 325 mg PO DAILY 05/30/20 12/15/20 multivitamin 1 tablet PO DAILY 05/30/20 12/15/20 hydralazine 50 mg tablet 50 mg PO BID tablet 12/15/20 12/15/20 cilostazol 50 mg PO BID 05/25/21 05/25/21 furosemide 20 mg PO DAILY 05/25/21 05/25/21 Allergies Allergy/AdvReac Type Severity Reaction Status Date / Time No Known Allergies Allergy Unknown Verified 12/15/20 13:07 Review of Systems Review of Systems: All systems reviewed & are unremarkable except as noted in HPI and below PMFSH Past Medical History Medical History Arthritis COPD (chronic obstructive pulmonary disease) COSME (dyspnea on exertion) Dyslipidemia Edema of both legs Essential hypertension Hypersomnia Obesity VINCENT on CPAP PAD (peripheral artery disease) Prostate CA 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, 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 Venous insufficiency of right lower extremity Ventricular ectopic beats Surgical History Surgical History History of cataract extraction History of cholecystectomy Family History Family History Father Family history of coronary artery disease Mother Family history of coronary artery disease Social History Social History Smoking packs per day: 3 Smoking cigarettes per day: 60.0 Years smoked: 15 Smoking pack-years: 45.00 Smoking status: Former smoker Smoking end date: 08/14/85 Alcohol intake: current Drinks per week: 1 Substance use: never Additional living arrangements comments: Spiritual care concerns: No Exam Const: General: no acute distress and alert Nutritional Appearance: well nourished Orientation/consciousness: patient oriented x3 Limitations: no limitations HENMT: Head: normal to inspection Ears: external ears normal, TM's normal bilaterally and EAC's normal Mouth: Yes moist mucous membranes Eyes: Conjunctivae: conjunctivae normal Pupils: Equal, round and reactive pupils present EOM: EOMs intact bilaterally Neck: Neck: normal visual inspection and no lymphadenopathy Chest: Chest palpation & inspection: normal inspection of the chest Resp: Effort & Inspection: normal respiratory effort Auscultation: clear to auscultation bilaterally Cardio: Rate: regular rate and bradycardic Rhythm: regular rhythm GI: GI Palp: Yes Soft to palpation and No Tenderness to palpation present (GI) Auscultation: normal bowel sounds : General: Yes no CVA tenderness Male General Exam: Yes normal external exam
[2021-05-25 17:48] LABS: Add Urine Microscopic? YES; Appearance Urine Clear (Clear); Bilirubin Urine Negative (Negative); Blood Urine Negative (Negative); Color Urine Light Yellow (Yellow); Glucose Urine UA Negative (Negative); Ketones Urine Negative (Negative); Leukocyte Esterase Ur Negative (Negative); Nitrate Urine Negative (Negative); Protein Urine 2+ (Negative); Urobilinogen Urine 0.2 mg/dL (0.2-1.0)
[2021-05-25 17:56] LABS: Bacteria Urine None seen /hpf; RBC Urine 0-2 /hpf (0-2); Squamous Epithelial Cell Urine None seen /hpf (Few); WBC Urine 0-3 /hpf (0-3)
[2021-05-25 18:00] LABS: Amphetamine Screen Urine Negative (Negative); Barbiturate Screen Urine Negative (Negative); Benzodiazepines Screen Urine Negative (Negative); Cannabinoid Screen Urine Negative (Negative); Cocaine Screen Urine Negative (Negative); Methadone Screen Urine Negative (Negative); Opiate Screen Urine Negative (Negative); Phencyclidine Screen Urine Negative (Negative)
[2021-05-25 18:49] VITALS: BP 162/55; PULSE 51; RESP 20; TEMP 36.3; O2SAT 96
== END 2021-05-25 18:50 | disposition home or self-care (01) ==
PROVIDERS: Emergency Provider Emergency Medicine; PCP Internal Medicine
DX: R00.2 Palpitations (principal); Z79.899 Other long term (current) drug therapy; J44.9 Chronic obstructive pulmonary disease, unspecified; E78.5 Hyperlipidemia, unspecified; I10 Essential (primary) hypertension; E11.9 Type 2 diabetes mellitus without complications; Z79.4 Long term (current) use of insulin; Z87.891 Personal history of nicotine dependence
CPT/HCPCS: 36415; 70450; 71045; 80053; 80307; 81001; 84484; 85025; 93005; 96360; 99284; J7030

== ENCOUNTER 2021-06-01 09:26 | Outpatient (CLI) | payer MEDICARE, SELFPAY ==
--- NOTE | ~2021-06-01 | US_ITS ---
EXAMINATION: US carotid duplex BI DATE: 06/01/2021 10:07 INDICATION: Carotid stenosis TECHNIQUE: Grayscale, color Doppler, and pulsed Doppler images of the cervical carotid arteries were obtained. The degree of vessel stenosis is placed in one of the following categories: normal, <50%, 5 0-69%, >=70% but less than near-occlusion, near-occlusion, or total occlusion. Note that percent sten osis relative to normal distal artery lumen diameter is indirectly measured from velocity measurement s as described by Zohaib, et al. Radiology 2003; 229:340-346. COMPARISON: None. FINDINGS: RIGHT: The right common carotid artery (CCA) peak systolic velocity (PSV) is 108 cm/s. The right internal ca rotid artery (ICA) PSV is 111 cm/s. The right ICA end-diastolic velocity (EDV) is 16 cm/s. The right ICA/CCA PSV ratio is 1.0. Grayscale and color Doppler images yield an estimate of <50% diameter reduc tion from plaque in the ICA. The external carotid artery (ECA) PSV is 162 cm/s. There is antegrade fl ow in the right vertebral artery. LEFT: The left CCA PSV is 97 cm/s. The left ICA PSV is 105 cm/s. The left ICA EDV is 21 cm/s. The left ICA/ CCA PSV ratio is 1.1. Grayscale and color Doppler images yield an estimate of <50% diameter reduction from plaque in the ICA. The ECA PSV is 232 cm/s. There is antegrade flow in the left vertebral arter y. IMPRESSION: 1. <50% stenosis in the right internal carotid artery. 2. <50% stenosis in the left internal carotid artery. Reviewed, dictated and finalized at location [facility].
[2021-06-01 09:42] LABS: Basophils Absolute Auto 0.04 K/mm3 (0.00-0.10); Basophils Percent Auto 0.8 % (0.0-1.0); Eosinophils Absolute Auto 0.13 K/mm3 (0.02-0.50); Eosinophils Percent Auto 2.7 % (1.0-6.0); Hematocrit 32.5 % (37.0-46.0); Hemoglobin 10.3 g/dL (12.4-15.3); Immature Granulocyte Absolute 0.01 K/mm3 (0.00-0.00); Immature Granulocyte Percent A 0.2 % (0.0-0.0); Immature Reticulocyte Fraction 14.4 % (2.0-16.52); Lymphocytes Absolute Auto 0.94 K/mm3 (1.10-4.50); Lymphocytes Percent Auto 19.5 % (18.0-42.0); Mean Corpuscular HGB Conc 31.7 g/dL (32.0-36.0); Mean Corpuscular Hemoglobin 31.6 pg (27.0-31.0); Mean Corpuscular Volume 99.7 fL (78.0-102.0); Mean Platelet Volume 10.4 fl (8.7-11.0); Monocytes Absolute Auto 0.42 K/mm3 (0.10-0.90); Monocytes Percent Auto 8.7 % (2.0-11.0); Neutrophils Absolute Auto 3.3 K/mm3 (1.7-7.2); Neutrophils Percent Auto 68.1 % (50.0-70.0); Platelet Count Result 137 K/mm3 (150-420); Red Blood Count 3.26 M/mm3 (4.70-6.10); Red Cell Distribution Width 14.3 % (11.6-14.4); Reticulocyte Percent 1.05 % (0.50-1.50); Reticulocytes Absolute 0.03 M/mm3 (0.02-0.1); White Blood Count 4.8 K/mm3 (4.8-10.8)
[2021-06-01 09:43] LABS: Occult Blood Negative (Negative)
[2021-06-01 09:43] LABS: Occult Blood Negative (Negative)
[2021-06-01 09:43] LABS: Occult Blood Negative (Negative)
[2021-06-01 09:51] LABS: Creatinine Urine 100.24 mg/dL (40-278); Ur Ttl Prot Creatinine Ratio 1.43 mg/mg (0-0.20)
[2021-06-01 10:57] LABS: Albumin Level 3.4 g/dL (3.4-5.0); Anion Gap 8 mmol/L (8-16); Blood Urea Nitrogen 68 mg/dL (7-18); Calcium 9.1 mg/dL (8.5-10.1); Carbon Dioxide 25 mmol/L (21-32); Chloride 116 mmol/L (98-108); Estimated Glomerular Filt Rate 21; Ferritin 283 ng/mL (26-388); Glucose 57 mg/dL (70-99); Iron 60 ug/dL (65-175); Osmolality Calculated 325 mOsm/kg (285-295); Phosphorus 4.4 mg/dL (2.6-4.7); Potassium 5.1 mmol/L (3.5-5.1); Sodium 149 mmol/L (136-145); Vitamin B12 911 pg/mL (193-986)
[2021-06-03 19:50] LABS: Red Blood Cell Folate 762 ng/mL RBC (>280)
[2021-06-04 09:09] LABS: Parathyroid Intact 171 pg/mL (14-64)
== END 2021-06-01 09:27 | disposition home or self-care (01) ==
LOC: CHSIMG 09:28
PROVIDERS: PCP Internal Medicine; Visit Provider Internal Medicine Nephrology
DX: R51.9 Headache, unspecified (principal); I65.29 Occlusion and stenosis of unspecified carotid artery; N18.4 Chronic kidney disease, stage 4 (severe); D69.6 Thrombocytopenia, unspecified; D64.9 Anemia, unspecified
CPT/HCPCS: 36415; 80069; 82272; 82570; 82607; 82728; 82747; 83540; 83970; 84156; 85025; 85046; 93880

== ENCOUNTER 2021-06-06 08:08 | Outpatient (CLI) | payer MEDICARE, SELFPAY ==
--- NOTE | ~2021-06-06 | MR_ITS ---
EXAMINATION: MR brain/brain stem wo con DATE: 06/06/2021 09:41 INDICATION: headaches TECHNIQUE: Magnetic resonance imaging (MRI) of the brain and brainstem was performed without intraven ous contrast. Sequences included sagittal and axial T1-weighted SE, axial diffusion-weighted FS EPI A SSET, axial T2*-weighted GRE, axial T2-weighted FLAIR Propeller, and axial T2-weighted Propeller. Pos tcontrast axial and coronal T1-weighted SE was obtained. Apparent diffusion coefficient (ADC) maps we re created. COMPARISON: None. FINDINGS: No abnormal restricted diffusion to suggest acute ischemic infarct. No MRI evidence of hemorrhage or extra-axial collection. No suspicious foci of susceptibility to suggest prior intraparenchymal hemorr maile. Mild scattered white matter hyperintensities. Mild generalized parenchymal volume loss. Ventric les are not enlarged. Basilar cisterns are patent. Bilateral lens replacements. Normal flow voids are preserved. Aerated spaces are clear. IMPRESSION: 1. Mild chronic white matter changes, otherwise normal MR brain findings. Reviewed, dictated and finalized at location [facility].
== END 2021-06-06 08:09 | disposition home or self-care (01) ==
PROVIDERS: PCP Internal Medicine; Visit Provider Internal Medicine
DX: R51.9 Headache, unspecified (principal); I65.29 Occlusion and stenosis of unspecified carotid artery
CPT/HCPCS: 70551

== ENCOUNTER 2021-06-09 08:36 | Outpatient (CLI) | payer MEDICARE, SELFPAY ==
--- NOTE | 2021-07-02 11:44 | WPDHOLTEREM ---
Holter/Event Monitor Holter/Event Monitor Date of procedure: 06/09/21 Holter/Event Procedure: Event Monitor Indications: Palpitations Conclusion: 1. 17 days event monitor between 06/09/21-07/02/21. There are 40 available transmissions for analysis. 2. Underlying rhythm is sinus rhythm. HR range 38-120 bpm; average HR 57 bpm. HR at 38 bpm was on 06/13/21 at 00:19. 3. There are occasional premature supraventricular complexes with total burden of 1%. No supraventricular tachycardia. 4. There are frequent premature ventricular complexes with total burden of 11%. No ventricular tachycardia. 5. No significant pauses greater than 2 seconds. 6. Patient reports 6 episodes of symptoms of skipped beat, heart racing which demonstrate sinus rhythm, HR range 55-66 bpm with 3 out of 6 episodes with PVC's.
== END 2021-06-09 08:37 | disposition home or self-care (01) ==
LOC: CHSCARD 08:38
PROVIDERS: PCP Internal Medicine; Visit Provider Internal Medicine
DX: R00.2 Palpitations (principal)
CPT/HCPCS: 93270

== ENCOUNTER 2021-06-17 07:51 | Outpatient (CLI) | payer MEDICARE, SELFPAY ==
[2021-06-17 08:14] LABS: Creatinine Urine 96.34 mg/dL (40-278); Sodium Urine Random 60 mmol/L (20-110)
[2021-06-17 08:24] LABS: Albumin Level 3.4 g/dL (3.4-5.0); Anion Gap 7 mmol/L (8-16); Blood Urea Nitrogen 66 mg/dL (7-18); Calcium 9.3 mg/dL (8.5-10.1); Carbon Dioxide 24 mmol/L (21-32); Chloride 112 mmol/L (98-108); Estimated Glomerular Filt Rate 19; Glucose 65 mg/dL (70-99); Osmolality Calculated 313 mOsm/kg (285-295); Phosphorus 4.5 mg/dL (2.6-4.7); Potassium 5.4 mmol/L (3.5-5.1); Sodium 143 mmol/L (136-145)
[2021-06-19 12:06] LABS: Parathyroid Intact 150 pg/mL (14-64)
== END 2021-06-17 07:52 | disposition home or self-care (01) ==
LOC: CHSLAB 07:54
PROVIDERS: PCP Internal Medicine; Visit Provider Internal Medicine Nephrology
DX: I12.9 Hypertensive chronic kidney disease with stage 1 through stage 4 chronic kidney disease, or unspecified chronic kidney disease (principal); N18.4 Chronic kidney disease, stage 4 (severe)
CPT/HCPCS: 36415; 80069; 82570; 83970; 84300

== ENCOUNTER 2021-07-08 19:50 | Emergency (ER) | payer MEDICARE, SELFPAY ==
--- NOTE | ~2021-07-08 | XR_ITS ---
EXAMINATION: XR chest 1V portable Exam Date/Time: 07/08/2021 20:45 CDT HISTORY: SOB with weakness Comparison: 05/25/2021. RESULT: Lines, tubes, and devices: None. Lungs and pleura: Senescent changes, otherwise clear. Cardiomediastinal silhouette: Stable cardiomediastinal silhouette. Other: No acute osseous or upper abdominal finding. IMPRESSION: No acute cardiopulmonary process. Reviewed, dictated and finalized at location K.
[2021-07-08 20:05] VITALS: BP 169/57; PULSE 60; PULSE 61; RESP 24; TEMP 36.7; O2SAT 96
--- NOTE | 2021-07-08 20:28 | ECG_ITS ---
Measurements Intervals [place] Rate: 58 P: 40 [place]: 180 QRS: -46 QRSD: 106 T: 69 QT: 394 QTc: 390 Interpretive Statements SINUS BRADYCARDIA VENTRICULAR PREMATURE COMPLEXES LEFT AXIS DEVIATION BASELINE ARTIFACT- I, III, AVR, AVL, V4 BORDERLINE ECG Electronically Signed On 07-09-2021 6:35:22 CDT by Levi Garcia D.O.
[2021-07-08] MEDS: FUROSEMIDE INJ 100 MG/10 ML VIAL 80 MG IV PUSH (20:41)
[2021-07-08 20:43] LABS: Basophils Absolute Auto 0.03 K/mm3 (0.00-0.10); Basophils Percent Auto 0.7 % (0.0-1.0); Eosinophils Absolute Auto 0.13 K/mm3 (0.02-0.50); Hemoglobin 9.6 g/dL (12.4-15.3); Immature Granulocyte Absolute 0.01 K/mm3 (0.00-0.00); Immature Granulocyte Percent A 0.2 % (0.0-0.0); Lymphocytes Absolute Auto 0.78 K/mm3 (1.10-4.50); Lymphocytes Percent Auto 17.7 % (18.0-42.0); Mean Platelet Volume 10.6 fl (8.7-11.0); Monocytes Absolute Auto 0.48 K/mm3 (0.10-0.90); Monocytes Percent Auto 10.9 % (2.0-11.0); Neutrophils Percent Auto 67.5 % (50.0-70.0); Platelet Count Result 136 K/mm3 (150-420); Red Cell Distribution Width 14.1 % (11.6-14.4); White Blood Count 4.4 K/mm3 (4.8-10.8)
[2021-07-08 21:02] LABS: Alanine Aminotransferase 17 U/L (16-63); Albumin Level 3.4 g/dL (3.4-5.0); Alkaline Phosphatase 70 U/L (46-116); Anion Gap 7 mmol/L (8-16); Aspartate Amino Transferase 12 U/L (15-37); Bilirubin,Total 0.3 mg/dL (0.00-1.00); Blood Urea Nitrogen 71 mg/dL (7-18); Calcium 8.8 mg/dL (8.5-10.1); Carbon Dioxide 22 mmol/L (21-32); Chloride 110 mmol/L (98-108); Estimated CRCL calculation 23 ml/min; Estimated Glomerular Filt Rate 19; Glucose 134 mg/dL (70-99); Osmolality Calculated 310 mOsm/kg (285-295); Potassium 6.2 mmol/L (3.5-5.1); Sodium 139 mmol/L (136-145); Total Protein 6.5 g/dL (6.4-8.2); Troponin I 12.6 ng/L (0.00-60.4)
[2021-07-08 21:17] LABS: Add Urine Microscopic? YES; Appearance Urine Clear (Clear); Bilirubin Urine Negative (Negative); Blood Urine Negative (Negative); Color Urine Light Yellow (Yellow); Glucose Urine UA Negative (Negative); Ketones Urine Negative (Negative); Leukocyte Esterase Ur Negative (Negative); Nitrate Urine Negative (Negative); Protein Urine 1+ (Negative); Urobilinogen Urine 0.2 mg/dL (0.2-1.0); pH Urine 5.5 (5.0-8.0)
[2021-07-08 21:22] VITALS: BP 165/66; PULSE 56; RESP 20; O2SAT 97
[2021-07-08 21:22] LABS: Bacteria Urine Trace /hpf; RBC Urine 0-2 /hpf (0-2); Squamous Epithelial Cell Urine Rare /hpf (Few); WBC Urine 0-3 /hpf (0-3)
[2021-07-08] MEDS: DEXTROSE 50% 25 GM/50 ML SYRINGE IV PUSH ×2 (22:08→23:32)
[2021-07-08] MEDS: INSULIN HUMAN REGULAR (*BKC) 100 UNITS/ML 11 UNITS IV PUSH (22:09)
[2021-07-08] MEDS: SODIUM CHLORIDE 0.9% IV 500 ML 999 ML IV CONT (22:11)
[2021-07-08] MEDS: SODIUM CHLORIDE 0.9% IV 1,000 ML 150 ML IV CONT (22:38)
[2021-07-08 23:22] LABS: Alanine Aminotransferase 18 U/L (16-63); Albumin Level 3.2 g/dL (3.4-5.0); Alkaline Phosphatase 66 U/L (46-116); Anion Gap 7 mmol/L (8-16); Aspartate Amino Transferase 13 U/L (15-37); Bilirubin,Total 0.3 mg/dL (0.00-1.00); Blood Urea Nitrogen 72 mg/dL (7-18); Calcium 8.7 mg/dL (8.5-10.1); Carbon Dioxide 22 mmol/L (21-32); Chloride 112 mmol/L (98-108); Estimated CRCL calculation 23 ml/min; Estimated Glomerular Filt Rate 19; Glucose 68 mg/dL (70-99); Osmolality Calculated 311 mOsm/kg (285-295); Sodium 141 mmol/L (136-145); Total Protein 6.1 g/dL (6.4-8.2)
[2021-07-08 23:24] VITALS: BP 166/55; PULSE 60; RESP 20; O2SAT 97
--- NOTE | 2021-07-08 23:28 | ED.GENADULT ---
HPI - General Adult General Chief complaint: Unspecified Stated complaint: SWELLING IN LEGS Time Seen by Provider: 07/08/21 19:54 Source: patient, family and RN notes reviewed Mode of arrival: ambulatory Limitations: no limitations History of Present Illness MD complaint: bilateral leg edema to knees x 1 day. no acute SOB or chest pain Onset (ago): day(s) (1) Location: lower extremity Radiation: non-radiation Severity: moderate Pain Consistency: other (pain-free) Relieving factors: none Exacerbating factors: none Associated symptoms: denies other symptoms Related Data Home Medications Medication Instructions Recorded Confirmed carvedilol 25 mg tablet 25 mg PO BID 05/21/19 07/08/21 finasteride 5 mg tablet 5 mg PO DAILY 05/21/19 07/08/21 insulin aspart U-100 100 unit/mL 10 unit subcut TID PRN 05/21/19 07/08/21 (3 mL) subcutaneous pen (Novolog Hyperglycemia Flexpen U-100 Insulin aspart) losartan 100 mg tablet 100 mg PO QAM 05/21/19 07/08/21 tamsulosin 0.4 mg capsule 0.8 mg PO DAILY 05/21/19 07/08/21 albuterol sulfate 90 mcg/actuation 2 puff inhalation Q4-6H PRN Dyspnea 05/30/20 07/08/21 aerosol inhaler aspirin 81 mg tablet,delayed 81 mg PO DAILY 05/30/20 07/08/21 release ferrous sulfate 325 mg (65 mg 325 mg PO DAILY 05/30/20 07/08/21 iron) capsule,extended release multivitamin 1 tablet PO DAILY 05/30/20 07/08/21 cilostazol 50 mg tablet 50 mg PO BID 05/25/21 07/08/21 furosemide 20 mg tablet 20 mg PO DAILY 05/25/21 07/08/21 amlodipine 5 mg tablet 5 mg PO BID 06/15/21 07/08/21 insulin detemir U-100 100 unit/mL 50 unit subcut DAILY 07/08/21 07/08/21 (3 mL) subcutaneous pen (Levemir FlexTouch U-100 Insulin) Allergies Allergy/AdvReac Type Severity Reaction Status Date / Time No Known Allergies Allergy Unknown Verified 06/15/21 13:19 Review of Systems Review of Systems: All systems reviewed & are unremarkable except as noted in HPI and below [facility] Past Medical History Medical History Arthritis COPD (chronic obstructive pulmonary disease) COSME (dyspnea on exertion) Dyslipidemia Edema of both legs Essential hypertension Hypersomnia Obesity VINCENT on CPAP PAD (peripheral artery disease) Prostate CA 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, 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 Venous insufficiency of right lower extremity Ventricular ectopic beats Surgical History Surgical History History of cataract extraction History of cholecystectomy Family History Family History Father Family history of coronary artery disease Mother Family history of coronary artery disease Social History Social History Smoking packs per day: 3 Smoking cigarettes per day: 60.0 Years smoked: 15 Smoking pack-years: 45.00 Smoking status: Former smoker Smoking end date: 08/14/85 Alcohol intake: current Drinks per week: 1 Substance use: never Additional living arrangements comments: Spiritual care concerns: No Exam Const: General: cooperative and no acute distress Nutritional Appearance: well nourished Orientation/consciousness: patient oriented x3 Limitations: no limitations HENMT: Head: normocephalic and atraumatic Ears: hearing grossly normal bilaterally, external ears normal, TM's normal bilaterally and EAC's normal General nose exam: Normal external nose present and Normal nares present Face and sinus: normal facial exam and sinuses nontender Mouth: Yes Normal oral and palatal mucosa present, Yes lip normal, Yes tongue normal, Yes oropharynx normal and Yes moist mucous membranes Throat: posterior oropharynx normal Eyes: General: appearance normal, both eyes and all related structures Visual Mcpherson: normal visual mcpherson by confrontation Alignment and Posi
[2021-07-08 23:54] VITALS: BP 157/89; PULSE 60; RESP 20; TEMP 36.6; O2SAT 96
== END 2021-07-08 23:55 | disposition home or self-care (01) ==
PROVIDERS: Emergency Provider Emergency Medicine; PCP Internal Medicine
DX: R60.0 Localized edema (principal); E87.5 Hyperkalemia; E11.51 Type 2 diabetes mellitus with diabetic peripheral angiopathy without gangrene; I73.9 Peripheral vascular disease, unspecified; I87.2 Venous insufficiency (chronic) (peripheral); I10 Essential (primary) hypertension; J44.9 Chronic obstructive pulmonary disease, unspecified; G47.33 Obstructive sleep apnea (adult) (pediatric); E78.5 Hyperlipidemia, unspecified; C61 Malignant neoplasm of prostate; M19.90 Unspecified osteoarthritis, unspecified site; Z79.4 Long term (current) use of insulin; Z96.41 Presence of insulin pump (external) (internal); Z87.891 Personal history of nicotine dependence
CPT/HCPCS: 36415; 71045; 80053; 81001; 84484; 85025; 93005; 96361; 96374; 96375; 96376; 99284; J1815; J1940; J7030; J7040

== ENCOUNTER 2021-07-17 12:48 | Inpatient (IN) | payer MEDICARE, SELFPAY ==
[2021-07-17] VITALS (8 sets, daily range): BP systolic 146–168; BP diastolic 54–73; PULSE 44–50; RESP 18–20; TEMP 36.3–36.4; O2SAT 96–99; BMI 32.5
--- NOTE | ~2021-07-17 | CT_ITS ---
EXAMINATION: CT abdomen pelvis wo con DATE: 07/17/2021 15:51 INDICATION: Lower abdominal pain and tightness. TECHNIQUE: Computed tomography (CT) of the abdomen and pelvis was performed without intravenous contr ast. Automated exposure control and iterative reconstruction technique were employed. The dose-length product was 1339.18 mGy-cm. COMPARISON: CT abdomen and pelvis 03/21/2020 FINDINGS: The visualized portions of the lung bases demonstrate small pleural effusions and mild atel ectasis and chronic lung disease. There is a 4 mm nodule in right lower lobe, probably benign. There is honeycombing in paraspinal right lower lobe. The heart size is normal. There are coronary artery c alcifications. There is a small pericardial effusion. The liver is normal. Calcifications in the sple en are consistent with old granulomatous disease. There are changes of cholecystectomy. The pancreas and adrenal glands are normal. There is mild atrophy of the kidneys. The prostate is mildly enlarged. There are brachytherapy seeds in the prostate. There is diverticulosis of the colon without evidence of diverticulitis. The appendix is normal. There is a ventral hernia containing fat in right upper q uadrant. There is a small volume of ascites. There are no pathologically enlarged lymph nodes. There is severe lumbar spondylosis. IMPRESSION: 1. Small volume of ascites. 2. Small pleural effusions. 3. Small pericardial effusion. 4. Ventral hernia containing fat in right upper quadrant. Reviewed, dictated and finalized at location A.
--- NOTE | ~2021-07-17 | NM_ITS ---
EXAMINATION: NM lyssa stress w perfusion DATE: 07/20/2021 12:08 INDICATION: Chest pain. TECHNIQUE: Rest images were obtained following intravenous administration of 10.6 mCi Tc99m tetrofosm in (Myoview). The patient was infused intravenously with Lexiscan (regadenoson). Then, 34.5 mCi Tc99m tetrofosmin (Myoview) was administered intravenously, and stress images were obtained. Data was denita nstructed into short axis and horizontal and vertical long axis SPECT images. Gated SPECT images were also obtained. COMPARISON: CT abdomen and pelvis 07/17/2021, myocardial perfusion imaging 01/16/2018 FINDINGS: There is a moderate-sized, mild, fixed defect involving apical to basal inferior wall of le ft ventricle. There is subdiaphragmatic activity and attenuation artifact affecting the inferior wall . No reversible perfusion defect to suggest ischemia. There is no segmental wall motion abnormality. Left ventricular ejection fraction measures 56%. IMPRESSION: 1. No definite infarct or ischemia. The fixed defect in the inferior wall is likely secondary to jj fact from subdiaphragmatic activity and body attenuation. 2. Normal left ventricular ejection fraction measuring 56%. Reviewed, dictated and finalized at location A. IMPRESSION: 1. No definite infarct or ischemia. The fixed defect in the inferior wall is li [place] secondary to artifact from subdiaphragmatic activity and body attenuation. 2. Normal left ventricular ejection fraction measuring 56%.
--- NOTE | ~2021-07-17 | XR_ITS ---
EXAMINATION: XR chest 1V portable DATE: 07/20/2021 05:50 INDICATION: Shortness of breath. TECHNIQUE: A single frontal view of the chest was obtained. COMPARISON: Chest 2 views 07/17/2021 FINDINGS: There is mild atelectasis versus scarring at the lung bases. No pleural effusion or pneumot horax. The heart size is normal. IMPRESSION: 1. Mild atelectasis versus scarring at the lung bases. Reviewed, dictated and finalized at location A.
--- NOTE | ~2021-07-17 | XR_ITS ---
EXAMINATION: XR chest 2V DATE: 07/17/2021 13:32 INDICATION: Shortness of breath. Fluid retention. TECHNIQUE: Frontal and lateral views of the chest were obtained. COMPARISON: Chest single view 07/08/2021, CT abdomen and pelvis 03/21/2020 FINDINGS: There is no pneumonia or pneumothorax. There are tiny pleural effusions. The heart size is normal. IMPRESSION: 1. Tiny pleural effusions. Reviewed, dictated and finalized at location A. IMPRESSION: 1. Tiny pleural effusions.
--- NOTE | 2021-07-17 13:04 | ECG_ITS ---
Measurements Intervals [place] Rate: 45 P: 26 OH: 185 QRS: -21 QRSD: 126 T: 48 QT: 418 QTc: 363 Interpretive Statements SINUS BRADYCARDIA WITH OCCASIONAL VENTRICULAR PREMATURE COMPLEXES MODERATE INTRAVENTRICULAR CONDUCTION DELAY [110+ ms QRS DURATION] ABNORMAL ECG COMPARED TO ECG 07/08/2021 20:42:31 INTRAVENTRICULAR CONDUCTION DELAY NOW PRESENT Electronically Signed On 07-17-2021 17:18:21 CDT by Miguel Ángel Covarrubias M.D.
[2021-07-17 13:20] LABS: Basophils Percent Auto 0.8 % (0.2-1.2); Eosinophils Absolute Auto 0.1 K/mm3 (0-0.3); Eosinophils Percent Auto 1.9 % (0-4.4); Hematocrit 33.4 % (42.0-52.0); Hemoglobin 10.3 g/dL (14.0-18.0); Immature Granulocyte Absolute 0.02 K/mm3 (0.00-0.031); Immature Granulocyte Percent A 0.4 % (0-0.5); Lymphocytes Absolute Auto 0.78 K/mm3 (0.9-3.2); Lymphocytes Percent Auto 14.9 % (18.3-44.2); Mean Corpuscular HGB Conc 30.8 g/dl (32-36); Mean Corpuscular Hemoglobin 31.6 pg (26-34); Mean Corpuscular Volume 102.5 fl (80-100); Mean Platelet Volume 10.4 fl (7.4-10.4); Monocytes Absolute Auto 0.5 K/mm3 (0.1-0.6); Neutrophils Absolute Auto 3.8 K/mm3 (1.3-6.7); Platelet Count Result 132 k/mm3 (150-375); Red Blood Count 3.26 M/mm3 (4.6-6.20); Red Cell Distribution Width 14.4 % (11.5-14.5); White Blood Count 5.2 K/mm3 (4.5-10.0)
[2021-07-17 13:31] LABS: Alanine Aminotransferase 16 U/L (6-50); Albumin Level 3.9 g/dL (3.5-5.1); Alkaline Phosphatase 60 U/L (38-126); Anion Gap 7 mmol/L (8-16); Aspartate Amino Transferase 21 U/L (17-59); Bilirubin,Total 0.5 mg/dL (0.2-1.3); Blood Urea Nitrogen 62 mg/dL (9-20); Calcium 9.1 mg/dL (8.4-10.2); Carbon Dioxide 22 mmol/L (22-30); Chloride 118 mmol/L (98-107); Estimated CRCL calculation 30 ml/min; Estimated Glomerular Filt Rate 25; Glucose 66 mg/dL (65-110); INR 1.3; Potassium 5.5 mmol/L (3.4-5.0); Prothrombin Time 15.3 Seconds (11.1-14.7); Sodium 147 mmol/L (137-145)
[2021-07-17 13:32] LABS: Partial Thromboplastin Time 30.6 SECONDS (22.3-36.8)
[2021-07-17 13:43] LABS: NT Pro B Type Natriuretic Pept 838 pg/mL (5-100); Troponin I 0.016 ng/mL (0.000-0.034)
--- NOTE | 2021-07-17 14:11 | ED.SOB ---
HPI - SOB/Dyspnea General Chief Complaint: Shortness of Breath/Dyspnea Stated Complaint: ABD SWELLING Time Seen by Provider: 07/17/21 13:57 History of Present Illness HPI Narrative: 80 y/o male presents to the ER today for worsening shortness of breath over the past 3-4 weeks. He feels like he has fluid retention. He says his abdomen has been getting larger. He has had swelling in his legs. He denies any cough or chest congestion. No fever or chills. He denies having any chest pain. No n/v/d. He complains that he is not urinating very much. He is able to void but only having small amounts. He does not feel like his bladder is full or distended. He is established with Dr. Garcia for cardiology. He has CKD and sees Dr. Arredondo for nephrology. Related Data Home Medications Medication Instructions Recorded Confirmed carvedilol 25 mg tablet 25 mg PO BID 05/21/19 07/08/21 finasteride 5 mg tablet 5 mg PO DAILY 05/21/19 07/08/21 insulin aspart U-100 100 unit/mL 10 unit subcut TID PRN 05/21/19 07/08/21 (3 mL) subcutaneous pen (Novolog Hyperglycemia Flexpen U-100 Insulin aspart) losartan 100 mg tablet 100 mg PO QAM 05/21/19 07/08/21 tamsulosin 0.4 mg capsule 0.8 mg PO DAILY 05/21/19 07/08/21 albuterol sulfate 90 mcg/actuation 2 puff inhalation Q4-6H PRN Dyspnea 05/30/20 07/08/21 aerosol inhaler aspirin 81 mg tablet,delayed 81 mg PO DAILY 05/30/20 07/08/21 release ferrous sulfate 325 mg (65 mg 325 mg PO DAILY 05/30/20 07/08/21 iron) capsule,extended release multivitamin 1 tablet PO DAILY 05/30/20 07/08/21 cilostazol 50 mg tablet 50 mg PO BID 05/25/21 07/08/21 furosemide 20 mg tablet 20 mg PO DAILY 05/25/21 07/08/21 amlodipine 5 mg tablet 5 mg PO BID 06/15/21 07/08/21 insulin detemir U-100 100 unit/mL 50 unit subcut DAILY 07/08/21 07/08/21 (3 mL) subcutaneous pen (Levemir FlexTouch U-100 Insulin) Allergies Allergy/AdvReac Type Severity Reaction Status Date / Time No Known Allergies Allergy Unknown Verified 06/15/21 13:19 Review of Systems Constitutional: Constitutional: Denies chills, Denies fatigue and Denies fever(s) Eyes: Eyes: Denies no additional eye complaints, Denies change in vision and Denies photophobia ENT: Denies dizziness Cardiovascular: Cardiovascular: Denies chest pain, Denies rapid heart rate and Reports slow heart rate Respiratory: Respiratory: Denies cough, Reports dyspnea and Denies wheezing Gastrointestinal: Gastrointestinal: Denies diarrhea, Denies nausea and Denies vomiting Genitourinary: Genitourinary: Reports as per HPI Musculoskeletal: Musculoskeletal: Denies back pain, Denies myalgias and Denies arthralgias Neurologic: Denies vertigo, Denies dizziness, Denies syncope and Denies headache(s) Psychiatric: Psychiatric: Denies anxiety and Denies depression Endocrine: Endocrine: Denies fatigue Hematologic/Lymphatic: Hematologic/Lymphatic: Denies easy bleeding and Denies easy bruising PMFSH Past Medical History Medical History Arthritis COPD (chronic obstructive pulmonary disease) COSME (dyspnea on exertion) Dyslipidemia Edema of both legs Essential hypertension Hypersomnia Obesity VINCENT on CPAP PAD (peripheral artery disease) Prostate CA 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
--- NOTE | 2021-07-17 15:46 | PM.CNCAR ---
Assessment and Plan Assessment and plan (1) COSME (dyspnea on exertion): Code(s): R06.00 - Dyspnea, unspecified Status: Acute Assessment and Plan: Obtain echo. Will need to diurese with Lasix 40 mg IV daily, but monitor kidney function and electrolytes. (2) VINCENT on CPAP: Code(s): G47.33 - Obstructive sleep apnea (adult) (pediatric); Z99.89 - Dependence on other enabling machines and devices Status: Acute (3) Essential hypertension: Code(s): I10 - Essential (primary) hypertension Status: Acute Assessment and Plan: High. Decrease Coreg 3.125 mg BID due to bradycardia. Increase Hydralazine 50 mg TID. (4) Dyslipidemia: Code(s): E78.5 - Hyperlipidemia, unspecified Status: Acute Assessment and Plan: On Pravastatin. (5) Generalized abdominal fullness: Code(s): R19.8 - Other specified symptoms and signs involving the digestive system and abdomen Status: Acute Assessment and Plan: Hospitalist will check abdominal CT scan. (6) Bradycardia: Code(s): R00.1 - Bradycardia, unspecified Status: Acute Assessment and Plan: Due to Carvedilol. History of Present Illness History of Present Illness Consult date/time: 07/17/21 15:46 Reason for consult: Bradycardia. 80 yr old man who is my regular cardiology patient presents to ER due to sob. He has a history of diastolic dysfunction VINCENT on CPAP, PAD, hypertension, dyslipidemia, DM, CKD stage III-IV. Reports in recent weeks he noted progressive COSME walking from one room to the next and increased abdominal girth and some edema of legs. He has COSME at walking about 1 block. He also has sciatica and limited by left hip pain. He is wearing compression stockings. Denies chest pain, sob, orthopnea, PND. CARDIOVASCULAR PROCEDURES ECHO/MUGA: Echo (EF 55-60%, mild LVH, grade II diastolic dysfunction.) - 12/11/2017 ELECTROPHYSIOLOGY: 06/09/21 17 days event monitor shows sinus rhythm, HR range 38-120 bpm; average 57 bpm, HR at 38 bpm was at 00:19; 1% PAC's and 11% PVC's. 05/25/21 EKG: Sinus bradycardia at 51 bpm, low voltage in limb leads. 06/02/20 EKG: Sinus bradycardia, borderline ST-T wave in inferior leads. Holter (24 Hour monitor: Sinus rhythm, HR range 38-83 bpm; average 52 bpm; 234 PAC's, 10 bigeminy, 3 trigeminy, 27 couplets; 2,048 PVC's, 5 couplets, 145 trigeminy.) - 12/06/2017 STRESS TESTS: MPI (Lexiscan myoview: Negative for ischemia.) - 01/16/2018 VASCULAR: 06/01/21 Carotid duplex: <50% stenosis bilaterally. PRAVIN (PRAVIN normal bilaterally.) - 02/03/2018 Ao w/ Runoff CTA (Mild scattered arterial sclerosis without stenosis.) - 12/16/2017 Carotid Duplex (<50% bilateral ICA; minimal plaques.) - 12/09/2017 OTHERS: 11/13/20 PFT: Mild obstruction. Sleep Study (At least mod VINCENT.) - 01/16/2018 Reason For Visit: ABD SWELLING Review of Systems Review of Systems: All systems reviewed & are unremarkable except as noted in HPI and below Constitutional: Constitutional: Reports as per HPI, Denies chills, Reports fatigue and Denies fever(s) Cardiovascular: Cardiovascular: Reports as per HPI, Denies chest pain, Denies irregular heart rhythm, Reports leg edema and Denies lightheadedness Respiratory: Respiratory: Reports as per HPI and Reports dyspnea on exertion Gastrointestinal: Gastrointestinal: Reports as per HPI, Denies abdominal pain and Reports bloating Genitourinary: Genitourinary: Reports as per HPI and Denies dysuria Musculoskeletal: Musculoskeletal: Reports as per HPI Neurologic: Reports as per HPI, Denies dizziness and Denies syncope [facility]LY [facility], [facility] Past Medical History Medical History Arthritis COPD (chronic obstructive pulmonary disease) COSME (dyspnea on exertion) Dyslipidemia Edema of both legs Essential hypertension Hypersomnia Obesity VINCENT on CPAP PAD (peripheral artery disease) Prostate CA 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, with l
--- NOTE | 2021-07-17 16:54 | ADMGEN ---
This patient, Zach Kasper, was admitted to Medical Room 347-. Patient/family oriented to hospital policies and general routines including ID bracelet, bed and alarms, visiting hours, pain management, procedures, bathroom and other care routines, personal items, smoking policy, room service/diet, and visiting hours. Information on how to activate the Rapid Response Team has been discussed. Patient/Family are encouraged to report perceived risks to care and to ask questions if they do not understand what they are told or what they should do.
[2021-07-17 16:58] LABS: Glucose Point of Care 79 mg/dl (65-105)
--- NOTE | 2021-07-17 17:02 | PM.IMHP ---
H&P: HPI History of Present Illness Date/Time: 07/17/21 17:02 Chief Complaint: Shortness of breath Narrative: Mr. Kasper is a 72-year-old gentleman who presented emergency room with complaints of increasing shortness breath over last month. Patient states that at 1st he was only having dyspnea on exertion and over the last few days he has noticed that he is unable to dress himself without becoming short of breath. Patient denies any chest discomfort, lightheadedness, dizziness, syncopal, or near syncopal episodes. Patient denies any palpitations. Patient states he does feel extremely fluid and feels like his abdomen is larger than normal. Patient states that he does have edema to bilateral lower extremities, but has not changed recently. Patient states he does wear compression stockings to help with the edema. Patient states he believes he has gained 10 lb over the last month, although he is unsure. Patient states that he did see his primary care provider recently with these complaints, and his Proscar as well as cilostazol were both discontinued. Patient states he has had no change in status since the discontinuation of these medications. Patient states he does have a known history of bradycardia his heart rate typically runs in the 50s. Patient's CT also has a known history of COPD and had been on Trelegy MDI in the past, but he discussed with his doctor he not feel that it was helping any so he stopped the medication. Patient has a known history of COPD, hypertension, obstructive sleep apnea, peripheral arterial disease, hypertension, diabetes mellitus, and chronic kidney disease. Patient states he does follow with Dr. Arredondo for his chronic kidney disease. Last echo Doppler was performed at outside facility was performed on 12/30/2017 that showed left ventricular size is normal, left ventricular systolic function was normal with left ventricular hypertrophy. Review of Systems Review of Systems: A 12 point review of systems was completed patient all pertinent positive and negative per HPI the remainder are unremarkable. 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 Venous insufficiency of right lower extremity Ventricular ectopic beats Surgical History Surgical History History of cataract extraction History of cholecystectomy Family History Family History Father Family history of coronary artery disease Mother Family history of coronary artery disease Coronary artery disease Social History Social History Smoking packs per day: 3 Smoking cigarettes per day: 60.0 Years smoked: 15 Smoking pack-years: 45.00 Smoking status: Former smoker Smoking end date: 08/14/85 Alcohol intake: current Drinks per week: 1 Substance use: never Additional living arrangements comments: Spiritual care concerns: No Meds Home Medications and Allergies Home Medications Medication Instructions Recorded Confirmed Type carvedilol 25 mg tablet 25 mg PO BID 05/21/19 07/08/21 History finasteride 5 mg tablet 5 mg PO DAILY 05/21/19 07/08/21 History insulin aspart U-100 100 unit/mL 10 unit subcut TID PRN 05/21/19 07/08/21 History (3 mL) subcutaneous pen (Novolog Hyperglycemia Flexpen U-100 Insulin aspart) losartan 100 mg tablet 100 mg PO QAM 05/21/19 07/08/21 History tamsulosin 0.4 mg capsule 0.8 mg PO DAILY 05/21/19 07/08/21 History albuterol sulfate 90
[2021-07-17 20:00] LABS: Anion Gap 5 mmol/L (8-16); Blood Urea Nitrogen 65 mg/dL (9-20); Calcium 8.8 mg/dL (8.4-10.2); Carbon Dioxide 22 mmol/L (22-30); Chloride 118 mmol/L (98-107); Estimated CRCL calculation 30 ml/min; Estimated Glomerular Filt Rate 25; Glucose 139 mg/dL (65-110); Potassium 5.8 mmol/L (3.4-5.0); Sodium 145 mmol/L (137-145)
[2021-07-17 20:25] LABS: Glucose Point of Care 138 mg/dl (65-105)
[2021-07-17] MEDS: CALCIUM GLUC 1,000 MG/NS 50 ML 1,000 MG/50 ML BAG 100 MG IVPB (22:07)
[2021-07-17] MEDS: SODIUM POLYSTYRENE SULFONONATE 15 GM/60 ML BTL 30 GM PO (22:07)
[2021-07-18] VITALS (16 sets, daily range): BP systolic 124–200; BP diastolic 45–80; PULSE 46–66; RESP 16–22; TEMP 36.2–37.2; O2SAT 93–96
--- NOTE | 2021-07-18 | ECHO_ITS ---
Patient Info Name: Zach Kasper Age: 80 years : 1940 Gender: Male Ht: 74 in Wt: 254 lbs BSA: 2.48 m2 HR: 54 bpm BP: 170 / 80 mmHg Technical Quality: Poor Exam Date: 07/18/2021 8:34 AM Exam Location: [facility] Pulmonary Exam Room: 347 Patient Status: Inpatient Admit Date: 07/17/2021 Staff Ordering Physician: Levi Garcia DO Jack Tamp Operator: Leticia Del Cid RDCS Attending Provider: Azam Johnson MD Referring Physician: Jose MCKINNON; Exam Type: CA echo dop color flow w con Study Info Indications - SANTY HX/O CKD Complete two-dimensional, color flow and Doppler transthoracic echocardiogram is performed with contrast to opacify the left ventricle and to improve the deliniation of the left ventricle endocardial borders. Contrast/Agitated Saline Contrast/Ag. Saline: Definity Amount: 2.00 ml Administered By: Leticia Del Cid [facility] Existing IV Access: Yes IV Access Condition: patent with no signs of infiltration Reason for Poor Study: patient body habitus Summary 1. Left ventricular chamber dimension is moderately enlarged. 2. Definity contrast administered improved wall motion interpretation. 3. Left ventricular systolic function is normal, estimated at 55-60%. 4. The left ventricular diastolic function is grade I diastolic dysfunction. 5. E/e' 14 is mildly elevated. 6. Left atrial chamber dimension is mildly enlarged. 7. Right atrial chamber dimension is mildly enlarged. 8. There is mild aortic valve sclerosis. 9. Moderate pulmonary hypertension, estimated pulmonary arterial systolic pressure is 55 mmHg. 10. Dilated inferior vena cava with >50% collapse upon inspiration consistent with elevated right atrial pressure, 10 mmHg. 11. There is small circumferential pericardial effusion. Left Ventricle E/e' 14 is mildly elevated. Definity contrast administered improved wall motion interpretation. Left ventricular chamber dimension is moderately enlarged. Left ventricular systolic function is normal, estimated at 55-60%. The left ventricular diastolic function is grade I diastolic dysfunction. Right Ventricle Right ventricular chamber dimension is normal. Right ventricular systolic function is normal. Left Atria Left atrial chamber dimension is mildly enlarged. Right Atria Right atrial chamber dimension is mildly enlarged. Aortic Valve The aortic valve is trileaflet. There is mild aortic valve sclerosis. There is no aortic valve stenosis. There is no aortic valve regurgitation. Pulmonic Valve There is no pulmonic regurgitation. Mitral Valve There is no mitral valve stenosis. There is no mitral valve regurgitation. Tricuspid Valve There is no tricuspid valve regurgitation. Moderate pulmonary hypertension, estimated pulmonary arterial systolic pressure is 55 mmHg. Pericardium/Pleural There is small circumferential pericardial effusion. Inferior Vena Cava Dilated inferior vena cava with >50% collapse upon inspiration consistent with elevated right atrial pressure, 10 mmHg. Aorta The aortic root size at the sinus of Valsalva is normal. Left Ventricular Outflow Tract Name Value Normal LVOT 2D LVOT Diameter
[2021-07-18 05:23] LABS: Basophils Percent Auto 0.8 % (0.2-1.2); Eosinophils Absolute Auto 0.1 K/mm3 (0-0.3); Eosinophils Percent Auto 2.3 % (0-4.4); Hematocrit 31.8 % (42.0-52.0); Hemoglobin 9.8 g/dL (14.0-18.0); Immature Granulocyte Absolute 0.01 K/mm3 (0.00-0.031); Immature Granulocyte Percent A 0.2 % (0-0.5); Lymphocytes Absolute Auto 0.73 K/mm3 (0.9-3.2); Lymphocytes Percent Auto 15.1 % (18.3-44.2); Mean Corpuscular HGB Conc 30.8 g/dl (32-36); Mean Corpuscular Hemoglobin 31.5 pg (26-34); Mean Corpuscular Volume 102.3 fl (80-100); Mean Platelet Volume 10.4 fl (7.4-10.4); Monocytes Absolute Auto 0.5 K/mm3 (0.1-0.6); Monocytes Percent Auto 11.2 % (2.6-8.5); Neutrophils Absolute Auto 3.4 K/mm3 (1.3-6.7); Neutrophils Percent Auto 70.4 % (45.5-73.1); Platelet Count Result 126 k/mm3 (150-375); Red Blood Count 3.11 M/mm3 (4.6-6.20); Red Cell Distribution Width 14.3 % (11.5-14.5); White Blood Count 4.8 K/mm3 (4.5-10.0)
[2021-07-18 05:38] LABS: Alanine Aminotransferase 17 U/L (6-50); Albumin Level 3.4 g/dL (3.5-5.1); Alkaline Phosphatase 61 U/L (38-126); Anion Gap 5 mmol/L (8-16); Aspartate Amino Transferase 20 U/L (17-59); Bilirubin,Total 0.4 mg/dL (0.2-1.3); Blood Urea Nitrogen 61 mg/dL (9-20); Carbon Dioxide 20 mmol/L (22-30); Chloride 122 mmol/L (98-107); Estimated CRCL calculation 30 ml/min; Estimated Glomerular Filt Rate 25; Glucose 115 mg/dL (65-110); Magnesium 2.9 mg/dL (1.6-2.3); Phosphorus 4.1 mg/dL (2.5-4.5); Potassium 5.5 mmol/L (3.4-5.0); Sodium 147 mmol/L (137-145)
[2021-07-18] MEDS: SODIUM POLYSTYRENE SULFONONATE 15 GM/60 ML BTL 30 GM PO (06:36)
[2021-07-18 07:35] LABS: Glucose Point of Care 127 mg/dl (65-105)
--- NOTE | 2021-07-18 07:48 | PM.PNCARD ---
Progress Note: A&P Assessment and Plan (1) COSME (dyspnea on exertion): Code(s): R06.00 - Dyspnea, unspecified Status: Acute Assessment and Plan: Obtain echo. Will need to diurese with Lasix 40 mg IVx1, and on Lasix 20 mg PO daily, but monitor kidney function and electrolytes. He has hyperkalemia related to CKD and Losartan. Consider adding HCTZ and decreasing Losartan. Nephrology consulted. (2) Bradycardia: Code(s): R00.1 - Bradycardia, unspecified Status: Acute Assessment and Plan: Probably due to beta blockade. Decrease Coreg 3.125 mg BID. (3) Essential hypertension: Code(s): I10 - Essential (primary) hypertension Status: Acute Assessment and Plan: High. Increase Hydralazine 50 mg TID. (4) Dyslipidemia: Code(s): E78.5 - Hyperlipidemia, unspecified Status: Acute Assessment and Plan: On Pravastatin. Subjective Date/time seen: 07/18/21 07:48 Reports COSME with walking to restroom. No chest pains. Exam Const: General: cooperative, healthy appearing and comfortable Nutritional Appearance: obese Resp: Auscultation: clear to auscultation bilaterally, no crackles, no rales, no rhonchi and no wheezes Cardio: Jugular venous distension: no JVD Rate: bradycardic Rhythm: regular rhythm Heart sounds: no murmurs Peripheral pulses: dorsalis pedis present GI: GI Palp: No abdominal tenderness and Yes Soft to palpation Neuro: General: oriented to person, oriented to place and oriented to time Extrem: Right lower extremity: edema Left lower extremity: edema Other: Trace to mild edema of legs Objective Data Vital Signs Vital Signs: Vital Signs - 24 hr 07/17/21 12:59 07/17/21 14:15 07/17/21 14:52 Temperature 97.3 F L Pulse Rate 49 L 44 L 50 L Respiratory Rate 20 18 Blood Pressure 155/54 H 165/67 H Pulse Oximetry 96 99 Oxygen Delivery Room Air Room Air 07/17/21 16:02 07/17/21 16:06 07/17/21 16:57 Temperature 97.3 F L Pulse Rate 49 L 46 L Respiratory Rate 18 20 Blood Pressure 168/63 H 146/64 H Pulse Oximetry 99 99 96 Oxygen Delivery Room Air 07/17/21 19:35 07/17/21 20:00 07/17/21 20:00 Temperature 97.6 F Pulse Rate 45 L 48 L Respiratory Rate 18 Blood Pressure 155/73 H Pulse Oximetry 97 Oxygen Delivery Room Air 07/18/21 00:00 07/18/21 00:43 07/18/21 04:00 Temperature 97.8 F Pulse Rate 50 L 50 L 46 L Respiratory Rate 18 Blood Pressure 158/70 H Pulse Oximetry 96 Oxygen Delivery 07/18/21 05:43 07/18/21 06:32 Temperature 97.2 F L Pulse Rate 48 L 48 L Respiratory Rate 16 Blood Pressure 170/80 H Pulse Oximetry 96 Oxygen Delivery Intake/Output Intake/Output: Intake & Output 07/15/21 07/16/21 07/17/21 07/18/21 23:59 23:59 23:59 23:59 Intake Total 290 300 Output Total 425 Balance -135 300 Meds/Results Medications: Active Medications Generic Name Dose Route Start Last Admin Trade Name Freq PRN Reason Stop Dose Admin Albuterol 2 puff 07/18/21 05:52 Albuterol Sulfate (*Sp) Aerosol 1 Puff INHALATION Q4-6H PRN Dyspnea Amlodipine Besylate 5 mg 07/18/21 09:00 Amlodipine Besylate 5 Mg Tablet PO DAILY [facility] Aspirin 81 mg 07/18/21 09:00 Aspirin 81 Mg Enteric Tablet PO DAILY [facility] Carvedilol 3.125 mg 07/18/21 08:00 Carvedilol 3.125 Mg Tablet PO BIDWM [facility] Enoxaparin Sodium 40 mg 07/18/21 09:00 Enoxaparin 40 Mg/0.4 Ml Syringe SUB-Q DAILY [facility] Ferrous Sulfate 324 mg 07/18/21 08:00 Ferrous Sulfate 324 Mg Tablet PO DAILY@0800 [facility] Finasteride 5 mg 07/18/21 09:00 Finasteride 5 Mg Tablet PO DAILY [facility] Furosemide 20 mg 07/18/21 09:00 Furosemide 20 Mg Tablet PO DAILY [facility] Hydralazine HCl 50 mg 07/18/21 08:00 Hydralazine Hcl 50 Mg Tablet PO Q8HR [facility] Insulin Glargine 50 units 07/18/21 09:00 Insulin Glargine (*Bkc) 100 Units/Ml SUB-Q 08/17/21 08:59 DA
[2021-07-18] MEDS: INSULIN GLARGINE (*BKC) 100 UNITS/ML 50 UNITS SUB-Q (08:11)
[2021-07-18] MEDS: FUROSEMIDE INJ 40 MG/4 ML VIAL IV PUSH (08:13)
[2021-07-18] MEDS: FINASTERIDE 5 MG TABLET PO (08:14)
[2021-07-18] MEDS: hydrALAZINE HCL 50 MG TABLET PO ×3 (08:14→20:16)
[2021-07-18] MEDS: ENOXAPARIN 40 MG/0.4 ML SYRINGE SUB-Q (08:14)
[2021-07-18] MEDS: FERROUS SULFATE 324 MG TABLET PO (08:14)
[2021-07-18] MEDS: ASPIRIN 81 MG ENTERIC TABLET PO (08:15)
[2021-07-18] MEDS: TAMSULOSIN HCL 0.4 MG CAPSULE 0.8 MG PO (08:15)
[2021-07-18] MEDS: amLODIPine BESYLATE 5 MG TABLET PO (08:16)
[2021-07-18] MEDS: carvediloL 3.125 MG TABLET PO ×2 (08:16→17:08)
[2021-07-18] MEDS: PRAVASTATIN SODIUM 20 MG TABLET 40 MG PO (08:16)
[2021-07-18] MEDS: MULTIVITAMINS THERAPEUTIC TAB (*BKC) 1 TABLET PO (08:16)
[2021-07-18] MEDS: LOSARTAN POTASSIUM 100 MG TABLET PO (08:16)
--- NOTE | 2021-07-18 08:30 | PM.IMPN ---
Progress Note: A&P Assessment and Plan (1) COSME (dyspnea on exertion): Code(s): R06.00 - Dyspnea, unspecified Status: Acute Assessment and Plan: Etiology of shortness of breath is not quite clear at this time. Patient is not hypoxic on room air. Patient's chest x-ray does show tiny pleural effusion. Cardiology as well as Nephrology have been consult and appreciate further recommendations. Cardiology has requested an echo Doppler performed. Cardiology did also state that possible Lasix may need to be given. Would like input from Nephrology since patient is hypernatremia neck at this time. Patient's CT of abdomen and pelvis did show honeycombing in the paraspinal right lower lobe which could be indicative of idiopathic pulmonary fibrosis. If no other etiology can be found pulmonology may need to be consulted for further recommendations. Cardiology had ordered 1 dose of furosemide 40 mg IV, transition to 20 mg daily oral (2) Generalized abdominal fullness: Code(s): R19.8 - Other specified symptoms and signs involving the digestive system and abdomen Status: Acute Assessment and Plan: Patient did have a CT of the abdomen and pelvis performed that showed small volume ascites, small pleural effusions, and small pericardial effusion. (3) COPD (chronic obstructive pulmonary disease): Code(s): J44.9 - Chronic obstructive pulmonary disease, unspecified Status: Acute Assessment and Plan: Patient states he had been on trilogy MDI previously, but did stop because he did not feel any benefit from it. Patient did have PFT performed on 11/19/2020 that showed mild obstructive lung defect with insignificant response to bronchodilator. (4) VINCENT on CPAP: Code(s): G47.33 - Obstructive sleep apnea (adult) (pediatric); Z99.89 - Dependence on other enabling machines and devices Status: Acute Assessment and Plan: Will continue with patient's home CPAP. (5) Bradycardia: Code(s): R00.1 - Bradycardia, unspecified Status: Acute Assessment and Plan: Cardiology has been consult and appreciate further recommendations. Pending TSH with reflex drawn to evaluate for hypothyroidism. Cardiology decreased Coreg to 3.125 mg b.i.d. cardiology also recommended decreasing losartan and adding hydrochlorothiazide pending from Nephrology (6) Chronic kidney disease: Code(s): N18.9 - Chronic kidney disease, unspecified Status: Acute Assessment and Plan: Nephrology has been consult and appreciate further recommendations. Patient's creatinine is improved from previous laboratories. (7) Hyperkalemia: Code(s): E87.5 - Hyperkalemia Status: Acute Assessment and Plan: Monitor serum electrolytes Nephrology has been consulted (8) Anemia: Code(s): D64.9 - Anemia, unspecified Status: Acute Assessment and Plan: Orders for an iron panel, folate and B12 Monitor hemoglobin. Patient seems baseline appears to be 12 (9) Hypernatremia: Code(s): E87.0 - Hyperosmolality and hypernatremia Status: Acute Assessment and Plan: Nephrology has been consulted, monitor serum electrolytes (10) Hypermagnesemia: Code(s): E83.41 - Hypermagnesemia Status: Acute Assessment and Plan: Continue to monitor Subjective Date/time seen: 07/18/21 08:30 Interval history: Patient is alert and oriented this morning. Significant other at bedside. Patient denies any chest pain or shortness of breath. He is not on oxygen supplementation. Patient did receive 40 mg of IV furosemide with good urinary output. Patient continues to have 1+ pitting edema to bilateral lower extremities right greater than left. Patient reports that his right leg is significantly large and any other due to steel plate implant. Cardiology has been consulted for further evaluation, pending echocardiogram. Patient will be transition 20 mg of furose
[2021-07-18 08:51] LABS: Iron 44 ug/dL (49-181)
[2021-07-18] MEDS: PERFLUTREN LIPID MICROSPHERES 1.5 ML VIAL DILUTED TO 10 ML TOTAL VOLUME IV PUSH (08:55)
--- NOTE | 2021-07-18 08:56 | IVDEFINITY ---
Prior to administration of IV Definity the patient was educated on the risks and benefits of the imaging enhancing agent including potential adverse side effects. The patient verbalized understanding. Allergies were verified. No exclusion criteria were identified and at least one of the following inclusion criteria were met: 1) physician request, 2) patient technically difficult to image (per the [place] [employer] guidelines of two or more segments not discernable within the apical view), or 3) questionable left ventricular function. ?
[2021-07-18 09:00] LABS: Percent Iron Saturation 17 % (20-50)
[2021-07-18 11:31] LABS: Glucose Point of Care 123 mg/dl (65-105)
--- NOTE | 2021-07-18 12:11 | P.CONNP_ITS ---
Assessment and Plan Assessment and plan (1) Chronic kidney disease, stage IV (severe): Code(s): N18.4 - Chronic kidney disease, stage 4 (severe) Status: Acute Assessment and Plan: * baseline creatinine seems to run ~ 2.2 - 2.8mg/dl in the last year * however, it has been as high as 3.3mg/d in the past * based on outpatient evaluation, this is due to hypertension and diabetes with some contributions from age and VINCENT * continue to follow in the context of diuresis (2) COSME (dyspnea on exertion): Code(s): R06.00 - Dyspnea, unspecified Status: Acute Assessment and Plan: * partly related to volume overload but imaging also suggests pulmonary fibrosis present which could be a contributing factor * continue diuresis as tolerated * Cardiology recommendations noted * Echo pending (3) Hypernatremia: Code(s): E87.0 - Hyperosmolality and hypernatremia Status: Acute Assessment and Plan: * this is present in the context of mild fluid overload * agree with potenttial options of HCTZ or perhaps chlorthaldone use * this may help with LE edema and decrease sodium level (since both are thiazide diuretics) * increasing free water intake may also help improve sodium but could worsen volume status.... (4) Hyperkalemia: Code(s): E87.5 - Hyperkalemia Status: Acute Assessment and Plan: * as noted by admission labs * would expect use of loop diuretics (and thiazide diuretics) to help control * add low potassium to diet * seems reasonable to decrease ARB and add thiazide diuretic to see if that helps (5) Bradycardia: Code(s): R00.1 - Bradycardia, unspecified Status: Acute Assessment and Plan: * medication adjustments noted Cardiology * follow trend of pulse/heart rate (6) Essential hypertension: Code(s): I10 - Essential (primary) hypertension Status: Chronic Assessment and Plan: * known chronic issue * BP running on this high side currently * consider titrating hydralazine dose (7) Diabetes: Code(s): E11.9 - 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s Status: Chronic Assessment and Plan: * follow accuchecks * glycemic control Will continue to follow. History of Present Illness Reason for Consult Consult date: 07/18/21 Reason for consult: chronic renal failure Chief Complaint Chief complaint: CHF, CKD, Hyperkalemia, Fluid Overload History of Present Illness Narrative: The patient is 72-year-old male with a past medical history as outlined below who presented to [facility] Emergency room due to shortness of breath. The patient states that he has been having issues and problems with shortness of breath over last month. Initially, the shortness of breath was only with exertional activities but over the last few days he has noticed that he is having shortness of breath with simple activities of daily living as well as at rest. He reports no chest pain, lightheadedness, dizziness, or palpitations. Furthermore, he does also feel that he has more fluid on him than usual p articularly in his abdominal area as it seems to be somewhat more distended than usual. He does have bilateral lower extremity edema but this does not appear to be significantly different than baseline. He thinks that he may have gained about 10 lb over the last month he has not completely sure any believes this is all fluid weight. For all these reasons, he presented to the ER for further evaluation Workup and evaluation yeni
--- NOTE | 2021-07-18 12:11 | PM.CNNEP ---
Assessment and Plan Assessment and plan (1) Chronic kidney disease, stage IV (severe): Code(s): N18.4 - Chronic kidney disease, stage 4 (severe) Status: Acute Assessment and Plan: baseline creatinine seems to run ~ 2.2 - 2.8mg/dl in the last year however, it has been as high as 3.3mg/d in the past based on outpatient evaluation, this is due to hypertension and diabetes with some contributions from age and VINCENT continue to follow in the context of diuresis (2) COSME (dyspnea on exertion): Code(s): R06.00 - Dyspnea, unspecified Status: Acute Assessment and Plan: partly related to volume overload but imaging also suggests pulmonary fibrosis present which could be a contributing factor continue diuresis as tolerated Cardiology recommendations noted Echo pending (3) Hypernatremia: Code(s): E87.0 - Hyperosmolality and hypernatremia Status: Acute Assessment and Plan: this is present in the context of mild fluid overload agree with potenttial options of HCTZ or perhaps chlorthaldone use this may help with LE edema and decrease sodium level (since both are thiazide diuretics) increasing free water intake may also help improve sodium but could worsen volume status.... (4) Hyperkalemia: Code(s): E87.5 - Hyperkalemia Status: Acute Assessment and Plan: as noted by admission labs would expect use of loop diuretics (and thiazide diuretics) to help control add low potassium to diet seems reasonable to decrease ARB and add thiazide diuretic to see if that helps (5) Bradycardia: Code(s): R00.1 - Bradycardia, unspecified Status: Acute Assessment and Plan: medication adjustments noted Cardiology follow trend of pulse/heart rate (6) Essential hypertension: Code(s): I10 - Essential (primary) hypertension Status: Chronic Assessment and Plan: known chronic issue BP running on this high side currently consider titrating hydralazine dose (7) Diabetes: Code(s): E11.9 - 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s Status: Chronic Assessment and Plan: follow accuchecks glycemic control Will continue to follow. History of Present Illness Reason for Consult Consult date: 07/18/21 Reason for consult: chronic renal failure Chief Complaint Chief complaint: CHF, CKD, Hyperkalemia, Fluid Overload History of Present Illness Narrative: The patient is 72-year-old male with a past medical history as outlined below who presented to [facility] Emergency room due to shortness of breath. The patient states that he has been having issues and problems with shortness of breath over last month. Initially, the shortness of breath was only with exertional activities but over the last few days he has noticed that he is having shortness of breath with simple activities of daily living as well as at rest. He reports no chest pain, lightheadedness, dizziness, or palpitations. Furthermore, he does also feel that he has more fluid on him than usual particularly in his abdominal area as it seems to be somewhat more distended than usual. He does have bilateral lower extremity edema but this does not appear to be significantly different than baseline. He thinks that he may have gained about 10 lb over the last month he has not completely sure any believes this is all fluid weight. For all these reasons, he presented to the ER for further evaluation Workup and evaluation emergency room demonstrated the patient to be hemodynamically stable and routine blood tests demonstrated that his renal function was actually relatively stable in comparison to his last ER visit. His chemistry was significant though for mild hypernatremia and a mildly elevated potassium level. Given his electrolyte abnormalities and concerns that his symptoms may be related to a CHF exacerbation if not just simple volume overload
[2021-07-18] MEDS: hydroCHLOROthiazide 25 MG TABLET PO (14:56)
[2021-07-18 16:50] LABS: Glucose Point of Care 125 mg/dl (65-105)
[2021-07-18 20:45] LABS: Glucose Point of Care 139 mg/dl (65-105)
[2021-07-19] VITALS (12 sets, daily range): BP systolic 162–174; BP diastolic 59–76; PULSE 43–81; RESP 16–20; TEMP 36.3–36.5; O2SAT 95–97
[2021-07-19] MEDS: hydrALAZINE HCL 20 MG/ML VIAL 10 MG IV PUSH (00:54)
--- NOTE | 2021-07-19 02:15 | ECG_ITS ---
Measurements Intervals [place] Rate: 51 P: 58 [place]: 181 QRS: -25 QRSD: 100 T: 0 QT: 406 QTc: 377 Interpretive Statements SINUS BRADYCARDIA WITH OCCASIONAL VENTRICULAR PREMATURE COMPLEXES BORDERLINE LEFT AXIS DEVIATION [QRS AXIS < -20] NEW LINE NONSPECIFIC ST T-WAVE CHANGES NO CHANGE COMPARED TO PRIOR TRACING Electronically Signed On 07-19-2021 8:58:38 CDT by Evelyne Ba M.D.
[2021-07-19] MEDS: MORPHINE SULFATE (*CRX) 2 MG/ML INJ 1 MG IV PUSH (02:30)
[2021-07-19 02:40] LABS: Anion Gap 6 mmol/L (8-16); Blood Urea Nitrogen 56 mg/dL (9-20); Calcium 8.9 mg/dL (8.4-10.2); Carbon Dioxide 21 mmol/L (22-30); Chloride 117 mmol/L (98-107); Estimated CRCL calculation 31 ml/min; Estimated Glomerular Filt Rate 26; Glucose 78 mg/dL (65-110); Potassium 4.4 mmol/L (3.4-5.0); Sodium 144 mmol/L (137-145)
[2021-07-19 02:54] LABS: Troponin I 0.064 ng/mL (0.000-0.034)
[2021-07-19] MEDS: hydrALAZINE HCL 50 MG TABLET PO ×3 (05:29→21:41)
[2021-07-19 07:32] LABS: Glucose Point of Care 81 mg/dl (65-105)
--- NOTE | 2021-07-19 08:01 | PM.PNCARD ---
Progress Note: A&P Assessment and Plan (1) COSME (dyspnea on exertion): Code(s): R06.00 - Dyspnea, unspecified Status: Acute Assessment and Plan: Echo shows EF 55-60%, grade I diastolic dysfunction (E/e' 14), mod pulm hypertension with RVSP 55 mmHg. Received one dose of Lasix 40 mg IV, and on Lasix 20 mg PO daily, but monitor kidney function and electrolytes. He has hyperkalemia related to CKD and Losartan. Increase Losartan 50 mg daily and HCTZ 50 mg daily to control BP. Nephrology following. Slight troponin elevation of .06 and .07 which could be due to hypertension with CKD, diastolic dysfunction, or new CAD since stress test in 2018. Obtain [place] in AM. (2) Bradycardia: Code(s): R00.1 - Bradycardia, unspecified Status: Acute Assessment and Plan: Stable, mainly more bradycardic in 40's bpm while sleeping which is OK. Probably due to beta blockade. Decreased Coreg 3.125 mg BID. (3) Essential hypertension: Code(s): I10 - Essential (primary) hypertension Status: Chronic Assessment and Plan: High. On Hydralazine 50 mg TID, increase Losartan 50 mg daily and increase HCTZ 50 mg daily. (4) Dyslipidemia: Code(s): E78.5 - Hyperlipidemia, unspecified Status: Acute Assessment and Plan: On Pravastatin. Subjective Date/time seen: 07/19/21 08:01 Reports COSME improving. No chest pains. Exam Const: General: cooperative, healthy appearing and comfortable Nutritional Appearance: obese Resp: Auscultation: clear to auscultation bilaterally, no crackles, no rales, no rhonchi and no wheezes Cardio: Jugular venous distension: no JVD Rate: bradycardic Rhythm: regular rhythm Heart sounds: no murmurs Peripheral pulses: dorsalis pedis present GI: GI Palp: No abdominal tenderness and Yes Soft to palpation Neuro: General: oriented to person, oriented to place and oriented to time Extrem: Right lower extremity: edema Left lower extremity: edema Other: Trace to mild edema of legs Objective Data Vital Signs Vital Signs: Vital Signs - 24 hr 07/18/21 12:00 07/18/21 16:00 07/18/21 16:10 Temperature 97.9 F 98.9 F Pulse Rate 60 65 Respiratory Rate 16 16 Blood Pressure 124/45 L 197/58 H 160/70 H Pulse Oximetry 96 93 Oxygen Delivery 07/18/21 12:00 07/18/21 16:00 07/18/21 20:00 Temperature 98.0 F Pulse Rate 53 L 58 L 61 Respiratory Rate 22 H Blood Pressure 200/63 H Pulse Oximetry 96 Oxygen Delivery 07/18/21 20:00 07/18/21 20:00 07/18/21 20:33 Temperature Pulse Rate 65 Respiratory Rate Blood Pressure Pulse Oximetry 96 Oxygen Delivery Room Air Room Air 07/18/21 20:15 07/18/21 20:45 07/18/21 22:30 Temperature 98.0 F Pulse Rate 61 Respiratory Rate 22 H Blood Pressure 200/63 H 180/72 H 183/58 H Pulse Oximetry 96 Oxygen Delivery 07/18/21 23:42 07/18/21 23:43 07/19/21 00:00 Temperature Pulse Rate 47 L Respiratory Rate Blood Pressure 180/60 H 178/56 H Pulse Oximetry Oxygen Delivery 07/19/21 02:00 07/19/21 02:15 07/19/21 04:00 Temperature Pulse Rate 52 L 43 L Respiratory Rate 20 Blood Pressure 173/62 H 173/62 H Pulse Oximetry 97 Oxygen Delivery 07/19/21 05:27 Temperature 97.6 F Pulse Rate 50 L Respiratory Rate 18 Blood Pressure 166/59 H Pulse Oximetry 97 Oxygen Delivery Intake/Output Intake/Output: Intake & Output 07/16/21 07/17/21 07/18/21 07/19/21 23:59 23:59 23:59 23:59 Intake Total 290 2420 550 Output Total 425 Balance -135 2420 550 Meds/Results Medications: Active Medications Generic Name Dose Route Start Last Admin Trade Name Freq PRN Reason Stop Dose Admin Albuterol 2 puff 07/18/21 05:52 Albuterol Sulfate (*Sp) Aerosol 1 Puff INHALATION Q4-6H PRN Dyspnea Amlodipine Besylate 5 mg 07/18/21 09:00 07/18/21 08:16 Amlodipine Besylate 5 Mg Tablet PO 5 mg DAILY [facility] Administratio
--- NOTE | 2021-07-19 08:06 | PM.IMPN ---
Progress Note: A&P Assessment and Plan (1) COSME (dyspnea on exertion): Code(s): R06.00 - Dyspnea, unspecified Status: Acute Assessment and Plan: Etiology of shortness of breath is not quite clear at this time. Patient is not hypoxic on room air. Patient's chest x-ray does show tiny pleural effusion. Cardiology as well as Nephrology have been consult and appreciate further recommendations. Cardiology has requested an echo Doppler performed. Cardiology did also state that possible Lasix may need to be given. Would like input from Nephrology since patient is hypernatremia neck at this time. Patient's CT of abdomen and pelvis did show honeycombing in the paraspinal right lower lobe which could be indicative of idiopathic pulmonary fibrosis. If no other etiology can be found pulmonology may need to be consulted for further recommendations. Cardiology had ordered 1 dose of furosemide 40 mg IV, transition to 20 mg daily oral Hydrochlorothiazide has been initiated patient would benefit from a pulmonary function test on an outpatient basis-he should follow with a employee communications coordinator (2) Generalized abdominal fullness: Code(s): R19.8 - Other specified symptoms and signs involving the digestive system and abdomen Status: Acute Assessment and Plan: Patient did have a CT of the abdomen and pelvis performed that showed small volume ascites, small pleural effusions, and small pericardial effusion. (3) COPD (chronic obstructive pulmonary disease): Code(s): J44.9 - Chronic obstructive pulmonary disease, unspecified Status: Acute Assessment and Plan: Patient states he had been on trilogy MDI previously, but did stop because he did not feel any benefit from it. Patient did have PFT performed on 11/19/2020 that showed mild obstructive lung defect with insignificant response to bronchodilator. patient was strongly encouraged to follow with a employee communications coordinator as an outpatient patient is and receive a PFT (4) VINCENT on CPAP: Code(s): G47.33 - Obstructive sleep apnea (adult) (pediatric); Z99.89 - Dependence on other enabling machines and devices Status: Acute Assessment and Plan: Will continue with patient's home CPAP. (5) Bradycardia: Code(s): R00.1 - Bradycardia, unspecified Status: Acute Assessment and Plan: Cardiology has been consult and appreciate further recommendations. Pending TSH with reflex drawn to evaluate for hypothyroidism. Cardiology decreased Coreg to 3.125 mg b.i.d. cardiology also recommended decreasing losartan and adding hydrochlorothiazide pending from Nephrology (6) Chronic kidney disease: Code(s): N18.9 - Chronic kidney disease, unspecified Status: Acute Assessment and Plan: Nephrology has been consult and appreciate further recommendations. Patient's creatinine is improved from previous laboratories. (7) Hyperkalemia: Code(s): E87.5 - Hyperkalemia Status: Acute Assessment and Plan: Monitor serum electrolytes Nephrology has been consulted (8) Anemia: Code(s): D64.9 - Anemia, unspecified Status: Acute Assessment and Plan: Orders for an iron panel, folate and B12 Monitor hemoglobin. Patient seems baseline appears to be 12 (9) Hypernatremia: Code(s): E87.0 - Hyperosmolality and hypernatremia Status: Acute Assessment and Plan: Nephrology has been consulted, monitor serum electrolytes (10) Hypermagnesemia: Code(s): E83.41 - Hypermagnesemia Status: Acute Assessment and Plan: Continue to monitor Subjective Date/time seen: 07/19/21 08:06 Interval history: Patient doing well this morning. Oxygen. Continues have bilateral lower extremity edema. Potassium WNL. Cord was decreased by Cardiology yesterday. Hydrochlorothiazide 50 mg daily initiated. Losartan and hydralazine continued. Patient's blood pressure is mildly elevated. Although he
[2021-07-19 08:23] LABS: Basophils Percent Auto 0.4 % (0.2-1.2); Eosinophils Absolute Auto 0.1 K/mm3 (0-0.3); Eosinophils Percent Auto 1.9 % (0-4.4); Hematocrit 32.2 % (42.0-52.0); Hemoglobin 10.1 g/dL (14.0-18.0); Immature Granulocyte Absolute 0.01 K/mm3 (0.00-0.031); Immature Granulocyte Percent A 0.2 % (0-0.5); Lymphocytes Absolute Auto 0.78 K/mm3 (0.9-3.2); Lymphocytes Percent Auto 14.9 % (18.3-44.2); Mean Corpuscular HGB Conc 31.4 g/dl (32-36); Mean Corpuscular Volume 101.9 fl (80-100); Mean Platelet Volume 11.6 fl (7.4-10.4); Monocytes Absolute Auto 0.6 K/mm3 (0.1-0.6); Monocytes Percent Auto 10.7 % (2.6-8.5); Neutrophils Absolute Auto 3.8 K/mm3 (1.3-6.7); Neutrophils Percent Auto 71.9 % (45.5-73.1); Platelet Count Result 129 k/mm3 (150-375); Red Blood Count 3.16 M/mm3 (4.6-6.20); White Blood Count 5.2 K/mm3 (4.5-10.0)
[2021-07-19 08:29] LABS: Alanine Aminotransferase 17 U/L (6-50); Albumin Level 3.4 g/dL (3.5-5.1); Alkaline Phosphatase 63 U/L (38-126); Anion Gap 4 mmol/L (8-16); Aspartate Amino Transferase 19 U/L (17-59); Bilirubin,Total 0.4 mg/dL (0.2-1.3); Blood Urea Nitrogen 56 mg/dL (9-20); Carbon Dioxide 22 mmol/L (22-30); Chloride 117 mmol/L (98-107); Estimated CRCL calculation 31 ml/min; Estimated Glomerular Filt Rate 26; Glucose 78 mg/dL (65-110); Potassium 4.4 mmol/L (3.4-5.0); Sodium 143 mmol/L (137-145)
[2021-07-19] MEDS: ENOXAPARIN 40 MG/0.4 ML SYRINGE SUB-Q (08:47)
[2021-07-19] MEDS: amLODIPine BESYLATE 5 MG TABLET PO (08:48)
[2021-07-19] MEDS: hydroCHLOROthiazide 25 MG TABLET 50 MG PO (08:48)
[2021-07-19] MEDS: carvediloL 3.125 MG TABLET PO ×2 (08:48→16:27)
[2021-07-19] MEDS: FERROUS SULFATE 324 MG TABLET PO (08:48)
[2021-07-19] MEDS: ASPIRIN 81 MG ENTERIC TABLET PO (08:48)
[2021-07-19] MEDS: PRAVASTATIN SODIUM 20 MG TABLET 40 MG PO (08:49)
[2021-07-19] MEDS: FINASTERIDE 5 MG TABLET PO (08:49)
[2021-07-19] MEDS: FUROSEMIDE 20 MG TABLET PO (08:49)
[2021-07-19] MEDS: MULTIVITAMINS THERAPEUTIC TAB (*BKC) 1 TABLET PO (08:49)
[2021-07-19] MEDS: TAMSULOSIN HCL 0.4 MG CAPSULE 0.8 MG PO (08:50)
[2021-07-19] MEDS: INSULIN GLARGINE (*BKC) 100 UNITS/ML 50 UNITS SUB-Q (08:52)
[2021-07-19 11:44] LABS: Glucose Point of Care 134 mg/dl (65-105)
--- NOTE | 2021-07-19 12:57 | PM.PNNEP ---
Progress Note: A&P Assessment and Plan (1) Chronic kidney disease, stage IV (severe): Code(s): N18.4 - Chronic kidney disease, stage 4 (severe) Status: Acute Assessment and Plan: baseline creatinine seems to run ~ 2.2 - 2.8mg/dl in the last year however, it has been as high as 3.3mg/d in the past based on outpatient evaluation, this is due to hypertension and diabetes with some contributions from age and VINCENT continue to follow in the context of diuresis (2) COSME (dyspnea on exertion): Code(s): R06.00 - Dyspnea, unspecified Status: Acute Assessment and Plan: partly related to volume overload but imaging also suggests pulmonary fibrosis present which could be a contributing factor continue diuresis as tolerated Cardiology recommendations noted - stress test tomorrow Echo results reviewed (3) Hypernatremia: Code(s): E87.0 - Hyperosmolality and hypernatremia Status: Acute Assessment and Plan: resolved this is present in the context of mild fluid overload follow trend for now noted addition of HCTZ to BP regiment -- this may partially help hypernatremia.... (4) Hyperkalemia: Code(s): E87.5 - Hyperkalemia Status: Acute Assessment and Plan: as noted by admission labs would expect use of loop diuretics (and thiazide diuretics) to help control add low potassium to diet (5) Bradycardia: Code(s): R00.1 - Bradycardia, unspecified Status: Acute Assessment and Plan: medication adjustments noted Cardiology follow trend of pulse/heart rate (6) Essential hypertension: Code(s): I10 - Essential (primary) hypertension Status: Chronic Assessment and Plan: known chronic issue BP running on this high side currently consider titrating hydralazine dose (7) Diabetes: Code(s): E11.9 - 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s Status: Chronic Assessment and Plan: follow accuchecks glycemic control Will continue to follow. Subjective Date/time seen: 07/19/21 12:57 He seems to be doing better; some mild SOB present but has improved in comparison to admission; BP medication adjustments noted by Cardiology; stress test ordered for tomorrow as well; at bedside and we discussed the situation. Exam Narrative: General: WD/WN male in NAD Heart: normal S1 and S2; no rub Lungs: clear but decreased at bases Abdomen: soft, nontender, nondistended, positive bowel sounds Extremities: no cyanosis or clubbing; 1+ edema Skin: warm and dry Objective Data Vital Signs Vital Signs: Vital Signs Temp Pulse Resp BP Pulse Ox O2 Del Method 07/19/21 12:00 55 L 07/19/21 08:00 81 07/19/21 08:00 Room Air 07/19/21 05:27 36.4 C 50 L 18 166/59 H 97 07/19/21 04:00 43 L 07/19/21 02:15 52 L 20 173/62 H 97 07/19/21 02:00 173/62 H 07/19/21 00:00 47 L 07/18/21 23:43 178/56 H 07/18/21 23:42 180/60 H 07/18/21 22:30 183/58 H 07/18/21 20:45 180/72 H 07/18/21 20:15 36.7 C 61 22 H 200/63 H 96 07/18/21 20:33 96 Room Air 07/18/21 20:00 Room Air 07/18/21 20:00 65 07/18/21 20:00 36.7 C 61 22 H 200/63 H 96 07/18/21 16:00 58 L 07/18/21 16:10 160/70 H 07/18/21 16:00 37.2 C 65 16 197/58 H 93 Intake/Output Intake/Output: Intake & Output 07/16/21 07/17/21 07/18/21 07/19/21 23:59 23:59 23:59 23:59 Intake Total 290 2420 1030 Output Total 425 Balance -135 2420 1030 Meds/Results Medications: Active Medications Generic Name Dose Route Start Last Admin Trade Name Freq PRN Reason Stop Dose Admin Albuterol 2 puff 07/18/21 05:52 Albuterol Sulfate (*Sp) Aerosol 1 Puff INHALATION Q4-6H PRN Dyspnea Amlodipine Besylate 5 mg 07/18/21 09:00 07/19/21 08:48 Amlodipine Besylate 5 Mg Tablet PO 5 mg DAILY
--- NOTE | 2021-07-19 12:57 | P.PNNP_ITS ---
Progress Note: A&P Assessment and Plan (1) Chronic kidney disease, stage IV (severe): Code(s): N18.4 - Chronic kidney disease, stage 4 (severe) Status: Acute Assessment and Plan: * baseline creatinine seems to run ~ 2.2 - 2.8mg/dl in the last year * however, it has been as high as 3.3mg/d in the past * based on outpatient evaluation, this is due to hypertension and diabetes with some contributions from age and VINCENT * continue to follow in the context of diuresis (2) COSME (dyspnea on exertion): Code(s): R06.00 - Dyspnea, unspecified Status: Acute Assessment and Plan: * * partly related to volume overload but imaging also suggests pulmonary fibrosis present which could be a contributing factor * continue diuresis as tolerated * Cardiology recommendations noted - stress test tomorrow * Echo results reviewed (3) Hypernatremia: Code(s): E87.0 - Hyperosmolality and hypernatremia Status: Acute Assessment and Plan: * resolved * this is present in the context of mild fluid overload * follow trend for now * noted addition of HCTZ to BP regiment -- this may partially help hypernatremia.... (4) Hyperkalemia: Code(s): E87.5 - Hyperkalemia Status: Acute Assessment and Plan: * as noted by admission labs * would expect use of loop diuretics (and thiazide diuretics) to help control * add low potassium to diet (5) Bradycardia: Code(s): R00.1 - Bradycardia, unspecified Status: Acute Assessment and Plan: * medication adjustments noted Cardiology * follow trend of pulse/heart rate (6) Essential hypertension: Code(s): I10 - Essential (primary) hypertension Status: Chronic Assessment and Plan: * known chronic issue * BP running on this high side currently * consider titrating hydralazine dose (7) Diabetes: Code(s): E11.9 - 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s Status: Chronic Assessment and Plan: * follow accuchecks * glycemic control Will continue to follow. Subjective Date/time seen: 07/19/21 12:57 He seems to be doing better; some mild SOB present but has improved in comparison to admission; BP medication adjustments noted by Cardiology; stress test ordered for tomorrow as well; at bedside and we discussed the situation. Exam Narrative: General: WD/WN male in NAD Heart: normal S1 and S2; no rub Lungs: clear but decreased at bases Abdomen: soft, nontender, nondistended, positive bowel sounds Extremities: no cyanosis or clubbing; 1+ edema Skin: warm and dry Objective Data Vital Signs Vital Signs: Vital Signs Temp Pulse Resp BP Pulse Ox O2 Del Method 07/19/21 12:00 55 L 07/19/21 08:00 81 07/19/21 08:00 Room Air 07/19/21 05:27 36.4 C 50 L 18 166/59 H 97 07/19/21 04:00 43 L 07/19/21 02:15 52 L 20 173/62 H 97 07/19/21 02:00 173/62 H 07/19/21 00:00 47 L 07/18/21 23:43 178/56 H 07/18/21 23:42 180/60 H 07/18/21 22:30 183/58 H 07/18/21 20:45 180/72 H 07/18/21 20:15 36.7 C 61 22 H 200/63 H 96 07/18/21 20:33 96 Room Air 07/18/21 20:00 Room Air 07/18/21 20:00 65 07/18/21 2
[2021-07-19 16:30] LABS: Glucose Point of Care 98 mg/dl (65-105)
[2021-07-19 20:45] LABS: Glucose Point of Care 123 mg/dl (65-105)
--- NOTE | 2021-07-19 21:12 | PCRCNOTE ---
Patient does not have his home CPAP unit with him. States he is compliant with it at home but does not travel with it. [employer] explained the importance of wearing the CPAP at night regardless of location / travel, especially bringing it to the hospital when he is ill. Spoke with [place] Fry APN and we D/C'd the VINCENT study since the patient does not have his CPAP machine with him and he has already had an outpatient sleep study in the sleep center. If deemed necessary, the [facility]nea[facility] can be ordered for tomorrow night.
[2021-07-19] MEDS: ACETAMINOPHEN 325 MG TABLET 650 MG PO (23:30)
[2021-07-20] VITALS: PULSE 51
[2021-07-20 04:00] VITALS: PULSE 43
[2021-07-20] MEDS: hydrALAZINE HCL 50 MG TABLET PO (05:00)
[2021-07-20 05:28] VITALS: BP 158/80; PULSE 55; RESP 16; TEMP 36.6; O2SAT 96
[2021-07-20 05:44] LABS: Basophils Percent Auto 0.5 % (0.2-1.2); Eosinophils Absolute Auto 0.1 K/mm3 (0-0.3); Eosinophils Percent Auto 1.3 % (0-4.4); Hematocrit 31.7 % (42.0-52.0); Hemoglobin 10.1 g/dL (14.0-18.0); Immature Granulocyte Absolute 0.02 K/mm3 (0.00-0.031); Immature Granulocyte Percent A 0.3 % (0-0.5); Lymphocytes Absolute Auto 0.88 K/mm3 (0.9-3.2); Lymphocytes Percent Auto 14.3 % (18.3-44.2); Mean Corpuscular HGB Conc 31.9 g/dl (32-36); Mean Corpuscular Volume 100.3 fl (80-100); Monocytes Absolute Auto 0.8 K/mm3 (0.1-0.6); Neutrophils Absolute Auto 4.3 K/mm3 (1.3-6.7); Neutrophils Percent Auto 70.6 % (45.5-73.1); Platelet Count Result 130 k/mm3 (150-375); Red Blood Count 3.16 M/mm3 (4.6-6.20); Red Cell Distribution Width 13.8 % (11.5-14.5); White Blood Count 6.2 K/mm3 (4.5-10.0)
[2021-07-20 05:58] LABS: Alanine Aminotransferase 15 U/L (6-50); Albumin Level 3.4 g/dL (3.5-5.1); Alkaline Phosphatase 62 U/L (38-126); Anion Gap 6 mmol/L (8-16); Aspartate Amino Transferase 17 U/L (17-59); Bilirubin,Total 0.6 mg/dL (0.2-1.3); Blood Urea Nitrogen 50 mg/dL (9-20); Calcium 8.9 mg/dL (8.4-10.2); Carbon Dioxide 22 mmol/L (22-30); Chloride 115 mmol/L (98-107); Estimated CRCL calculation 30 ml/min; Estimated Glomerular Filt Rate 25; Glucose 52 mg/dL (65-110); Magnesium 2.3 mg/dL (1.6-2.3); Sodium 143 mmol/L (137-145)
[2021-07-20 06:02] LABS: Glucose Point of Care 56 mg/dl (65-105)
[2021-07-20] MEDS: DEXTROSE 50% 25 GM/50 ML SYRINGE IV PUSH (06:30)
[2021-07-20] MEDS: ACETAMINOPHEN 325 MG TABLET 650 MG PO (06:30)
--- NOTE | 2021-07-20 06:57 | P.PNNP_ITS ---
Progress Note: A&P Assessment and Plan (1) Chronic kidney disease, stage IV (severe): Code(s): N18.4 - Chronic kidney disease, stage 4 (severe) Status: Acute Assessment and Plan: * baseline creatinine seems to run ~ 2.2 - 2.8mg/dl in the last year * however, it has been as high as 3.3mg/d in the past * based on outpatient evaluation, this is due to hypertension and diabetes with some contributions from age and VINCENT * his creatinine seems to be relatively stable considering the diuresis. (2) COSME (dyspnea on exertion): Code(s): R06.00 - Dyspnea, unspecified Status: Acute Assessment and Plan: * Shortness of breath. * partly related to volume overload . In addition echocardiogram shows moderate pulmonary hypertension and chest x-ray consistent with pulmonary fibrosis. * continue diuresis as tolerated * Cardiology recommendations noted - stress test today. (3) Hypernatremia: Code(s): E87.0 - Hyperosmolality and hypernatremia Status: Acute Assessment and Plan: * resolved (4) Hyperkalemia: Code(s): E87.5 - Hyperkalemia Status: Acute Assessment and Plan: * Resolved (5) Bradycardia: Code(s): R00.1 - Bradycardia, unspecified Status: Acute Assessment and Plan: * medication adjustments noted Cardiology * follow trend of pulse/heart rate (6) Essential hypertension: Code(s): I10 - Essential (primary) hypertension Status: Chronic Assessment and Plan: * known chronic issue * systolic running between 150 and 180. * He is currently on amlodipine 5, hydrochlorothiazide 50, losartan 50, and hydralazine 75 Q 8. the hydralazine was just increased yesterday so we will see how this works. (7) Diabetes: Code(s): E11.9 - 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s Status: Chronic Assessment and Plan: * On Accu-Cheks and sliding-scale insulin. * Hospitalist managing this. Subjective Date/time seen: 07/20/21 06:57 Interval history: patient feels better today. He has been getting up to the bathroom with less shortness of breath with exertion. He says that his knee hurt him yesterday so he stayed in bed pretty much the whole day. Exam Narrative: General: WD/WN male in NAD Heart: normal S1 and S2; no rub or gallop Lungs: clear but decreased at bases Abdomen: soft, nontender, nondistended, positive bowel sounds Extremities: no cyanosis or clubbing; 1+ edema Skin: no rash or subcu nodules Objective Data Vital Signs Vital Signs: Vital Signs - 24 hr 07/19/21 08:00 07/19/21 08:00 07/19/21 12:00 Temperature Pulse Rate 81 55 L Respiratory Rate Blood Pressure Pulse Oximetry Oxygen Delivery Room Air 07/19/21 14:10 07/19/21 16:27 07/19/21 16:00 Temperature 36.5 C Pulse Rate 52 L 64 54 L Respiratory Rate 16 Blood Pressure 174/61 H Pulse Oximetry 95 Oxygen Delivery 07/19/21 20:17 07/19/21 20:00 07/20/21 00:00 Temperature 36.3 C L Pulse Rate 57 L 71 51 L Respiratory Rate 16 Blood Pressure 162/76 H Pulse Oximetry 95 Oxygen Delivery 07/20/21 05:28
--- NOTE | 2021-07-20 06:57 | PM.PNNEP ---
Progress Note: A&P Assessment and Plan (1) Chronic kidney disease, stage IV (severe): Code(s): N18.4 - Chronic kidney disease, stage 4 (severe) Status: Acute Assessment and Plan: baseline creatinine seems to run ~ 2.2 - 2.8mg/dl in the last year however, it has been as high as 3.3mg/d in the past based on outpatient evaluation, this is due to hypertension and diabetes with some contributions from age and VINCENT his creatinine seems to be relatively stable considering the diuresis. (2) COSME (dyspnea on exertion): Code(s): R06.00 - Dyspnea, unspecified Status: Acute Assessment and Plan: Shortness of breath. partly related to volume overload . In addition echocardiogram shows moderate pulmonary hypertension and chest x-ray consistent with pulmonary fibrosis. continue diuresis as tolerated Cardiology recommendations noted - stress test today. (3) Hypernatremia: Code(s): E87.0 - Hyperosmolality and hypernatremia Status: Acute Assessment and Plan: resolved (4) Hyperkalemia: Code(s): E87.5 - Hyperkalemia Status: Acute Assessment and Plan: Resolved (5) Bradycardia: Code(s): R00.1 - Bradycardia, unspecified Status: Acute Assessment and Plan: medication adjustments noted Cardiology follow trend of pulse/heart rate (6) Essential hypertension: Code(s): I10 - Essential (primary) hypertension Status: Chronic Assessment and Plan: known chronic issue systolic running between 150 and 180. He is currently on amlodipine 5, hydrochlorothiazide 50, losartan 50, and hydralazine 75 Q 8. the hydralazine was just increased yesterday so we will see how this works. (7) Diabetes: Code(s): E11.9 - 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s Status: Chronic Assessment and Plan: On Accu-Cheks and sliding-scale insulin. Hospitalist managing this. Subjective Date/time seen: 07/20/21 06:57 Interval history: patient feels better today. He has been getting up to the bathroom with less shortness of breath with exertion. He says that his knee hurt him yesterday so he stayed in bed pretty much the whole day. Exam Narrative: General: WD/WN male in NAD Heart: normal S1 and S2; no rub or gallop Lungs: clear but decreased at bases Abdomen: soft, nontender, nondistended, positive bowel sounds Extremities: no cyanosis or clubbing; 1+ edema Skin: no rash or subcu nodules Objective Data Vital Signs Vital Signs: Vital Signs - 24 hr 07/19/21 08:00 07/19/21 08:00 07/19/21 12:00 Temperature Pulse Rate 81 55 L Respiratory Rate Blood Pressure Pulse Oximetry Oxygen Delivery Room Air 07/19/21 14:10 07/19/21 16:27 07/19/21 16:00 Temperature 36.5 C Pulse Rate 52 L 64 54 L Respiratory Rate 16 Blood Pressure 174/61 H Pulse Oximetry 95 Oxygen Delivery 07/19/21 20:17 07/19/21 20:00 07/20/21 00:00 Temperature 36.3 C L Pulse Rate 57 L 71 51 L Respiratory Rate 16 Blood Pressure 162/76 H Pulse Oximetry 95 Oxygen Delivery 07/20/21 05:28 07/20/21 04:00 Temperature 36.6 C Pulse Rate 55 L 43 L Respiratory Rate 16 Blood Pressure 158/80 H Pulse Oximetry 96 Oxygen Delivery Intake/Output Intake/Output: Intake & Output 07/17/21 07/18/21 07/19/21 07/20/21 23:59 23:59 23:59 23:59 Intake Total 290 2420 2200 200 Output Total 425 150 900 Balance -135 2420 2050 -700 Meds/Results Medications: Active Medications Generic Name Dose Route Start Last Admin Trade Name Freq PRN Reason Stop Dose Admin Acetaminophen 650 mg 07/19/21 22:13 07/20/21 06:30 Acetaminophen 325 Mg Tablet PO 650 mg Q6H PRN Administration Mild Pain (1-3) or Fever Albuterol 2 puff 07/18/21 05:52 Albuterol Sulfate (*Sp) Aerosol 1 Puff INHALATION Q4-6H PRN Dyspnea Amlodipine Besyl
[2021-07-20 07:49] LABS: Glucose Point of Care 79 mg/dl (65-105)
--- NOTE | 2021-07-20 07:53 | PM.PNCARD ---
Progress Note: A&P Assessment and Plan (1) COSME (dyspnea on exertion): Code(s): R06.00 - Dyspnea, unspecified Status: Acute Assessment and Plan: Echo shows EF 55-60%, grade I diastolic dysfunction (E/e' 14), mod pulm hypertension with RVSP 55 mmHg. Received one dose of Lasix 40 mg IV, and on Lasix 20 mg PO daily, but monitor kidney function and electrolytes. He has hyperkalemia related to CKD and Losartan. Increase Losartan 50 mg daily and HCTZ 50 mg daily to control BP. Nephrology following. Slight troponin elevation of .06 and .07 which could be due to hypertension with CKD, diastolic dysfunction, or new CAD since stress test in 2018. Obtain WEMS today. If OK, may d/c home and f/u with me in 1-2 weeks. (2) Bradycardia: Code(s): R00.1 - Bradycardia, unspecified Status: Acute Assessment and Plan: Stable, mainly more bradycardic in 40's bpm while sleeping which is OK. Probably due to beta blockade. Decreased Coreg 3.125 mg BID. (3) Essential hypertension: Code(s): I10 - Essential (primary) hypertension Status: Chronic Assessment and Plan: High but better. Increase Hydralazine 75 mg TID. (4) Dyslipidemia: Code(s): E78.5 - Hyperlipidemia, unspecified Status: Acute Assessment and Plan: On Pravastatin. Subjective Date/time seen: 07/20/21 07:53 He has less COSME and less abdominal fullness. No chest pains. Exam Const: General: cooperative, healthy appearing and comfortable Nutritional Appearance: obese Resp: Auscultation: clear to auscultation bilaterally, no crackles, no rales, no rhonchi and no wheezes Cardio: Jugular venous distension: no JVD Rate: bradycardic Rhythm: regular rhythm Heart sounds: no murmurs Peripheral pulses: dorsalis pedis present GI: GI Palp: No abdominal tenderness and Yes Soft to palpation Neuro: General: oriented to person, oriented to place and oriented to time Extrem: Right lower extremity: edema Left lower extremity: edema Other: Trace to mild edema of legs Objective Data Vital Signs Vital Signs: Vital Signs - 24 hr 07/19/21 08:00 07/19/21 08:00 07/19/21 12:00 Temperature Pulse Rate 81 55 L Respiratory Rate Blood Pressure Pulse Oximetry Oxygen Delivery Room Air 07/19/21 14:10 07/19/21 16:27 07/19/21 16:00 Temperature 97.7 F Pulse Rate 52 L 64 54 L Respiratory Rate 16 Blood Pressure 174/61 H Pulse Oximetry 95 Oxygen Delivery 07/19/21 20:17 07/19/21 20:00 07/20/21 00:00 Temperature 97.3 F L Pulse Rate 57 L 71 51 L Respiratory Rate 16 Blood Pressure 162/76 H Pulse Oximetry 95 Oxygen Delivery 07/20/21 05:28 07/20/21 04:00 Temperature 97.8 F Pulse Rate 55 L 43 L Respiratory Rate 16 Blood Pressure 158/80 H Pulse Oximetry 96 Oxygen Delivery Intake/Output Intake/Output: Intake & Output 07/17/21 07/18/21 07/19/21 07/20/21 23:59 23:59 23:59 23:59 Intake Total 290 2420 2200 200 Output Total 425 150 900 Balance -135 2420 2050 -700 Meds/Results Medications: Active Medications Generic Name Dose Route Start Last Admin Trade Name Freq PRN Reason Stop Dose Admin Acetaminophen 650 mg 07/19/21 22:13 07/20/21 06:30 Acetaminophen 325 Mg Tablet PO 650 mg Q6H PRN Administration Mild Pain (1-3) or Fever Albuterol 2 puff 07/18/21 05:52 Albuterol Sulfate (*Sp) Aerosol 1 Puff INHALATION Q4-6H PRN Dyspnea Amlodipine Besylate 5 mg 07/18/21 09:00 07/19/21 08:48 Amlodipine Besylate 5 Mg Tablet PO 5 mg DAILY TYLER Administration Aspirin 81 mg 07/18/21 09:00 07/19/21 08:48 Aspirin 81 Mg Enteric Tablet PO 81 mg DAILY TYLER Administration Carvedilol 3.125 mg 07/18/21 08:00 07/19/21 16:27 Carvedilol 3.125 Mg Tablet PO 3.125 mg BIDWM TYLER Administration Dextrose 12.5 gm 07/20/21 06:08 07/20/21 06:30 Dextrose 50% 25 Gm/50 Ml Syringe IV PUSH 12.5 gm PRN PRN A
[2021-07-20 08:00] VITALS: PULSE 57
--- NOTE | 2021-07-20 08:00 | EST_ITS ---
Patient Info Name: Zach Kasper Age: 80 years : 1940 Gender: Male Ht: 74 in Wt: 253 lbs BSA: 2.48 m2 HR: 58 bpm BP: 169 / 67 mmHg Heart Rhythm: Sinus Rhythm Exam Date: 07/20/2021 11:05 AM Exam Location: [facility] Stress Patient Status: Inpatient Admit Date: 07/18/2021 Staff Ordering Physician: Levi Garcia DO Attending Provider: Azam Johnson MD Exercise Technologist: Tara Burch CT Exercise Physician: Levi Garcia DO Exam Type: CA stress lyssa w NM Study Info Indications R06.00 - Dyspnea, unspecified A regadenoson stress test was performed. Summary 1. 1. Negative lexiscan stress test for ischemic ST changes by ECG criteria. 2. 2. Baseline hypertension. 3. 3. Nuclear scan to follow and will be reported separately. Please correlate with it. 4. 4. Patient informed of the above results. Protocol: Lexiscan Stress ECG Details Stage: REST Duration (min): 4 min : 5 sec HR (bpm): 58 SBP (mmHg): 169 DBP (mmHg): 67 Stage: REST Duration (min): 11 min : 4 sec HR (bpm): 64 SBP (mmHg): 169 DBP (mmHg): 67 Stage: STAGE 1 Duration (min): 0 min : 59 sec HR (bpm): 65 SBP (mmHg): 169 DBP (mmHg): 67 Stage: RECOVERY Duration (min): 1 min : 0 sec HR (bpm): 66 SBP (mmHg): 173 DBP (mmHg): 58 Stage: RECOVERY Duration (min): 2 min : 0 sec HR (bpm): 67 SBP (mmHg): 173 DBP (mmHg): 58 Stage: RECOVERY Duration (min): 3 min : 0 sec HR (bpm): 67 SBP (mmHg): 179 DBP (mmHg): 62 Stage: RECOVERY Duration (min): 3 min : 3 sec HR (bpm): 65 SBP (mmHg): 179 DBP (mmHg): 62 Rest HR: 64 bpm Peak HR: 71 bpm Rest Sys BP: 169 mmHg Peak Sys BP: 179 mmHg Max Pred HR: 142 bpm % Max Pred HR: 50 % Target HR: 121 bpm Max RPP: 12,709 bpm*mmHg Termination Reason: Completed protocol Cardiac Symptoms: Shortness of breath Total Time: 1 min : 0 sec Rest Menezes BP: 67 mmHg Peak Menezes BP: 62 mmHg Total Dose: 0.4 mg Resting ECG Sinus rhythm, PVC's. Stress ECG No ST changes. Arrhythmias None. Report Signatures
[2021-07-20 08:19] VITALS: O2SAT 95
[2021-07-20 09:32] LABS: Glucose Point of Care 73 mg/dl (65-105)
[2021-07-20] MEDS: ENOXAPARIN 40 MG/0.4 ML SYRINGE SUB-Q (09:33)
--- NOTE | 2021-07-20 09:38 | PM.DS ---
DS: Admitting Diagnosis Discharge Date 07/20/2021 Admitting Diagnosis Acute dyspnea related to COPD VINCENT Bradycardia CKD DS: Discharge Diagnosis Discharge Diagnosis (1) COSME (dyspnea on exertion): Code(s): R06.00 - Dyspnea, unspecified Status: Acute Assessment and Plan: Etiology of shortness of breath is not quite clear at this time. Patient is not hypoxic on room air. Patient's chest x-ray does show tiny pleural effusion. Cardiology as well as Nephrology have been consult and appreciate further recommendations. Cardiology has requested an echo Doppler performed. Cardiology did also state that possible Lasix may need to be given. Would like input from Nephrology since patient is hypernatremia neck at this time. Patient's CT of abdomen and pelvis did show honeycombing in the paraspinal right lower lobe which could be indicative of idiopathic pulmonary fibrosis. If no other etiology can be found pulmonology may need to be consulted for further recommendations. Cardiology had ordered 1 dose of furosemide 40 mg IV, transition to 20 mg daily oral Hydrochlorothiazide has been initiated patient would benefit from a pulmonary function test on an outpatient basis-he should follow with a public health doctor (2) Generalized abdominal fullness: Code(s): R19.8 - Other specified symptoms and signs involving the digestive system and abdomen Status: Acute Assessment and Plan: Patient did have a CT of the abdomen and pelvis performed that showed small volume ascites, small pleural effusions, and small pericardial effusion. (3) COPD (chronic obstructive pulmonary disease): Code(s): J44.9 - Chronic obstructive pulmonary disease, unspecified Status: Acute Assessment and Plan: Patient states he had been on trilogy MDI previously, but did stop because he did not feel any benefit from it. Patient did have PFT performed on 11/19/2020 that showed mild obstructive lung defect with insignificant response to bronchodilator. patient was strongly encouraged to follow with a public health doctor as an outpatient patient is and receive a PFT (4) VINCENT on CPAP: Code(s): G47.33 - Obstructive sleep apnea (adult) (pediatric); Z99.89 - Dependence on other enabling machines and devices Status: Acute Assessment and Plan: Will continue with patient's home CPAP. (5) Bradycardia: Code(s): R00.1 - Bradycardia, unspecified Status: Acute Assessment and Plan: Cardiology has been consult and appreciate further recommendations. Pending TSH with reflex drawn to evaluate for hypothyroidism. Cardiology decreased Coreg to 3.125 mg b.i.d. cardiology also recommended decreasing losartan and adding hydrochlorothiazide pending from Nephrology (6) Chronic kidney disease: Code(s): N18.9 - Chronic kidney disease, unspecified Status: Acute Assessment and Plan: Nephrology has been consult and appreciate further recommendations. Patient's creatinine is improved from previous laboratories. (7) Hyperkalemia: Code(s): E87.5 - Hyperkalemia Status: Acute Assessment and Plan: Monitor serum electrolytes Nephrology has been consulted (8) Anemia: Code(s): D64.9 - Anemia, unspecified Status: Acute Assessment and Plan: Orders for an iron panel, folate and B12 Monitor hemoglobin. Patient seems baseline appears to be 12 (9) Hypernatremia: Code(s): E87.0 - Hyperosmolality and hypernatremia Status: Acute Assessment and Plan: Nephrology has been consulted, monitor serum electrolytes (10) Hypermagnesemia: Code(s): E83.41 - Hypermagnesemia Status: Acute Assessment and Plan: Continue to monitor DS: Summary Hospital Course Reason for hospitalization: Acute dyspnea R/T COPD CKD stage 4 Hypernatremia Hyperkalemia Bradycardia Hypertension Hospital Course: Mr. Kasper is a 72-year-old gentleman has a known
[2021-07-20 12:00] VITALS: PULSE 66
[2021-07-20] MEDS: FUROSEMIDE 20 MG TABLET PO (12:12)
[2021-07-20] MEDS: hydroCHLOROthiazide 25 MG TABLET 50 MG PO (12:13)
[2021-07-20] MEDS: LOSARTAN POTASSIUM 50 MG TABLET PO (12:13)
[2021-07-20] MEDS: MULTIVITAMINS THERAPEUTIC TAB (*BKC) 1 TABLET PO (12:13)
[2021-07-20] MEDS: ASPIRIN 81 MG ENTERIC TABLET PO (12:13)
[2021-07-20] MEDS: carvediloL 3.125 MG TABLET PO (12:15)
[2021-07-20] MEDS: FINASTERIDE 5 MG TABLET PO (12:15)
[2021-07-20] MEDS: amLODIPine BESYLATE 5 MG TABLET PO (12:15)
[2021-07-20] MEDS: PRAVASTATIN SODIUM 20 MG TABLET 40 MG PO (12:15)
[2021-07-20] MEDS: TAMSULOSIN HCL 0.4 MG CAPSULE 0.8 MG PO (12:15)
[2021-07-20] MEDS: FERROUS SULFATE 324 MG TABLET PO (12:16)
[2021-07-20] MEDS: LIDOCAINE 5% PATCH 1 PATCH TRANSDERM (12:18)
[2021-07-22 06:10] LABS: Red Blood Cell Folate 821 ng/mL RBC (>280)
== END 2021-07-20 14:50 | disposition home or self-care (01) | DRG 191 ==
LOC: ANHED 15:55 → ANH3MED 16:09
PROVIDERS: Emergency Medicine; Internal Medicine; Nurse Practitioner Adult Health; Admitting Provider Chiropractor; Emergency Provider Nurse Practitioner Family; PCP Internal Medicine; Visit Provider Nurse Practitioner Family
DX: J44.9 Chronic obstructive pulmonary disease, unspecified (principal); N18.4 Chronic kidney disease, stage 4 (severe); E87.0 Hyperosmolality and hypernatremia; I50.30 Unspecified diastolic (congestive) heart failure; I13.0 Hypertensive heart and chronic kidney disease with heart failure and stage 1 through stage 4 chronic kidney disease, or unspecified chronic kidney disease; R00.1 Bradycardia, unspecified; E78.5 Hyperlipidemia, unspecified; G47.33 Obstructive sleep apnea (adult) (pediatric); E66.9 Obesity, unspecified; Z85.46 Personal history of malignant neoplasm of prostate; E11.51 Type 2 diabetes mellitus with diabetic peripheral angiopathy without gangrene; I87.2 Venous insufficiency (chronic) (peripheral); Z87.891 Personal history of nicotine dependence; Z79.899 Other long term (current) drug therapy; Z79.4 Long term (current) use of insulin; Z82.49 Family history of ischemic heart disease and other diseases of the circulatory system; E87.5 Hyperkalemia; D64.9 Anemia, unspecified; E83.41 Hypermagnesemia
CPT/HCPCS: 36415; 71045; 71046; 74176; 78452; 80048; 80053; 82607; 82747; 82948; 83540; 83550; 83735; 83880; 84100; 84443; 84484; 85025; 85610; 85730; 93005; 93017; 96365; 96372; 96375; 99285; A9270; A9502; C8929; G0378; J0360; J0610; J1650; J1815; J1940; J2270; J2785; Q9957

== ENCOUNTER 2021-07-29 07:30 | Outpatient (CLI) | payer MEDICARE, SELFPAY ==
[2021-07-29 08:02] LABS: Albumin Level 3.2 g/dL (3.4-5.0); Anion Gap 6 mmol/L (8-16); Blood Urea Nitrogen 63 mg/dL (7-18); Calcium 9.1 mg/dL (8.5-10.1); Carbon Dioxide 25 mmol/L (21-32); Chloride 111 mmol/L (98-108); Estimated Glomerular Filt Rate 20; Glucose 105 mg/dL (70-99); Osmolality Calculated 312 mOsm/kg (285-295); Phosphorus 4.6 mg/dL (2.6-4.7); Potassium 4.5 mmol/L (3.5-5.1); Sodium 142 mmol/L (136-145)
== END 2021-07-29 07:31 | disposition home or self-care (01) ==
LOC: CHSLAB 07:32
PROVIDERS: PCP Internal Medicine; Visit Provider Internal Medicine Nephrology
DX: N18.4 Chronic kidney disease, stage 4 (severe) (principal)
CPT/HCPCS: 36415; 80069

== ENCOUNTER 2021-08-10 16:01 | Outpatient (CLI) | payer MEDICARE, SELFPAY ==
[2021-08-10 16:15] LABS: Basophils Absolute Auto 0.05 K/mm3 (0.00-0.10); Basophils Percent Auto 0.8 % (0.0-1.0); Eosinophils Absolute Auto 0.13 K/mm3 (0.02-0.50); Hematocrit 36.2 % (37.0-46.0); Hemoglobin 11.7 g/dL (12.4-15.3); Immature Granulocyte Absolute 0.02 K/mm3 (0.00-0.00); Immature Granulocyte Percent A 0.3 % (0.0-0.0); Lymphocytes Absolute Auto 1.13 K/mm3 (1.10-4.50); Lymphocytes Percent Auto 17.3 % (18.0-42.0); Mean Corpuscular HGB Conc 32.3 g/dL (32.0-36.0); Mean Corpuscular Hemoglobin 31.8 pg (27.0-31.0); Mean Corpuscular Volume 98.4 fL (78.0-102.0); Mean Platelet Volume 10.1 fl (8.7-11.0); Monocytes Absolute Auto 0.54 K/mm3 (0.10-0.90); Monocytes Percent Auto 8.2 % (2.0-11.0); Neutrophils Absolute Auto 4.7 K/mm3 (1.7-7.2); Neutrophils Percent Auto 71.4 % (50.0-70.0); Platelet Count Result 180 K/mm3 (150-420); Red Blood Count 3.68 M/mm3 (4.70-6.10); Red Cell Distribution Width 13.3 % (11.6-14.4); White Blood Count 6.6 K/mm3 (4.8-10.8)
[2021-08-10 16:51] LABS: Anion Gap 8 mmol/L (8-16); Blood Urea Nitrogen 63 mg/dL (7-18); Calcium 9.6 mg/dL (8.5-10.1); Carbon Dioxide 26 mmol/L (21-32); Chloride 110 mmol/L (98-108); Estimated Glomerular Filt Rate 20; Glucose 78 mg/dL (70-99); NT Pro B Type Natriuretic Pept 172 pg/mL (0-450); Osmolality Calculated 315 mOsm/kg (285-295); Potassium 4.6 mmol/L (3.5-5.1); Sodium 144 mmol/L (136-145)
== END 2021-08-10 16:02 | disposition home or self-care (01) ==
LOC: CHSLAB 16:02
PROVIDERS: PCP Internal Medicine; Visit Provider Internal Medicine
DX: N18.4 Chronic kidney disease, stage 4 (severe) (principal); R60.0 Localized edema; R06.02 Shortness of breath
CPT/HCPCS: 36415; 80048; 83880; 85025

== ENCOUNTER 2021-09-09 07:36 | Outpatient (CLI) | payer MEDICARE, SELFPAY ==
[2021-09-09 08:09] LABS: Basophils Absolute Auto 0.06 K/mm3 (0.00-0.10); Eosinophils Percent Auto 3.4 % (1.0-6.0); Hematocrit 34.8 % (37.0-46.0); Hemoglobin 11.1 g/dL (12.4-15.3); Immature Granulocyte Absolute 0.09 K/mm3 (0.00-0.00); Immature Granulocyte Percent A 1.5 % (0.0-0.0); Lymphocytes Absolute Auto 1.06 K/mm3 (1.10-4.50); Lymphocytes Percent Auto 18.2 % (18.0-42.0); Mean Corpuscular HGB Conc 31.9 g/dL (32.0-36.0); Mean Corpuscular Hemoglobin 31.2 pg (27.0-31.0); Mean Corpuscular Volume 97.8 fL (78.0-102.0); Mean Platelet Volume 10.7 fl (8.7-11.0); Monocytes Absolute Auto 0.52 K/mm3 (0.10-0.90); Monocytes Percent Auto 8.9 % (2.0-11.0); Neutrophils Absolute Auto 3.9 K/mm3 (1.7-7.2); Platelet Count Result 181 K/mm3 (150-420); Red Blood Count 3.56 M/mm3 (4.70-6.10); Red Cell Distribution Width 12.8 % (11.6-14.4); White Blood Count 5.8 K/mm3 (4.8-10.8)
[2021-09-09 09:29] LABS: Anion Gap 8 mmol/L (8-16); Blood Urea Nitrogen 71 mg/dL (7-18); Calcium 9.2 mg/dL (8.5-10.1); Carbon Dioxide 25 mmol/L (21-32); Chloride 108 mmol/L (98-108); Estimated Glomerular Filt Rate 22; Glucose 130 mg/dL (70-99); Osmolality Calculated 314 mOsm/kg (285-295); Potassium 4.7 mmol/L (3.5-5.1); Sodium 141 mmol/L (136-145)
== END 2021-09-09 07:37 | disposition home or self-care (01) ==
LOC: CHSLAB 07:37
PROVIDERS: PCP Internal Medicine; Visit Provider Internal Medicine
DX: D64.9 Anemia, unspecified (principal); N18.4 Chronic kidney disease, stage 4 (severe)
CPT/HCPCS: 36415; 80048; 85025

== ENCOUNTER 2021-10-15 07:54 | Outpatient (CLI) | payer MEDICARE, SELFPAY ==
[2021-10-15 08:11] LABS: Basophils Absolute Auto 0.06 K/mm3 (0.00-0.10); Basophils Percent Auto 1.1 % (0.0-1.0); Eosinophils Absolute Auto 0.22 K/mm3 (0.02-0.50); Eosinophils Percent Auto 3.9 % (1.0-6.0); Hematocrit 34.1 % (37.0-46.0); Hemoglobin 11.3 g/dL (12.4-15.3); Immature Granulocyte Absolute 0.04 K/mm3 (0.00-0.00); Immature Granulocyte Percent A 0.7 % (0.0-0.0); Lymphocytes Percent Auto 17.6 % (18.0-42.0); Mean Corpuscular HGB Conc 33.1 g/dL (32.0-36.0); Mean Corpuscular Hemoglobin 32.6 pg (27.0-31.0); Mean Corpuscular Volume 98.3 fL (78.0-102.0); Mean Platelet Volume 10.3 fl (8.7-11.0); Monocytes Absolute Auto 0.48 K/mm3 (0.10-0.90); Monocytes Percent Auto 8.5 % (2.0-11.0); Neutrophils Absolute Auto 3.9 K/mm3 (1.7-7.2); Neutrophils Percent Auto 68.2 % (50.0-70.0); Platelet Count Result 167 K/mm3 (150-420); Red Blood Count 3.47 M/mm3 (4.70-6.10); Red Cell Distribution Width 13.7 % (11.6-14.4); White Blood Count 5.7 K/mm3 (4.8-10.8)
[2021-10-15 08:17] LABS: Creatinine Urine 79.06 mg/dL (40-278); Total Protein Urine Random 52.5 mg/dL (0.0-11.9); Ur Ttl Prot Creatinine Ratio 0.66 mg/mg (0-0.20)
[2021-10-15 08:35] LABS: Albumin Level 3.5 g/dL (3.4-5.0); Anion Gap 8 mmol/L (8-16); Blood Urea Nitrogen 87 mg/dL (7-18); Calcium 9.5 mg/dL (8.5-10.1); Carbon Dioxide 26 mmol/L (21-32); Chloride 109 mmol/L (98-108); Estimated Glomerular Filt Rate 23; Glucose 116 mg/dL (70-99); Osmolality Calculated 323 mOsm/kg (285-295); Potassium 4.2 mmol/L (3.5-5.1); Sodium 143 mmol/L (136-145)
[2021-10-15 11:17] LABS: Phosphorus 5.2 mg/dL (2.6-4.7)
[2021-10-18 13:27] LABS: Parathyroid Intact 79 pg/mL (14-64)
== END 2021-10-15 07:55 | disposition home or self-care (01) ==
LOC: CHSLAB 07:57
PROVIDERS: PCP Internal Medicine; Visit Provider Internal Medicine Nephrology
DX: N18.4 Chronic kidney disease, stage 4 (severe) (principal)
CPT/HCPCS: 36415; 80069; 82570; 83970; 84156; 85025

== ENCOUNTER 2021-11-13 08:02 | Outpatient (CLI) | payer MEDICARE, SELFPAY ==
[2021-11-13 08:11] LABS: Basophils Absolute Auto 0.05 K/mm3 (0.00-0.10); Eosinophils Percent Auto 3.8 % (1.0-6.0); Hemoglobin 10.8 g/dL (12.4-15.3); Immature Granulocyte Absolute 0.03 K/mm3 (0.00-0.00); Immature Granulocyte Percent A 0.6 % (0.0-0.0); Lymphocytes Absolute Auto 0.86 K/mm3 (1.10-4.50); Lymphocytes Percent Auto 16.4 % (18.0-42.0); Mean Corpuscular HGB Conc 31.8 g/dL (32.0-36.0); Mean Corpuscular Hemoglobin 31.4 pg (27.0-31.0); Mean Corpuscular Volume 98.8 fL (78.0-102.0); Mean Platelet Volume 10.1 fl (8.7-11.0); Monocytes Absolute Auto 0.47 K/mm3 (0.10-0.90); Neutrophils Absolute Auto 3.6 K/mm3 (1.7-7.2); Neutrophils Percent Auto 69.2 % (50.0-70.0); Platelet Count Result 153 K/mm3 (150-420); Red Blood Count 3.44 M/mm3 (4.70-6.10); Red Cell Distribution Width 13.5 % (11.6-14.4); White Blood Count 5.2 K/mm3 (4.8-10.8)
[2021-11-13 08:24] LABS: Anion Gap 4 mmol/L (8-16); Blood Urea Nitrogen 70 mg/dL (7-18); Calcium 9.3 mg/dL (8.5-10.1); Carbon Dioxide 29 mmol/L (21-32); Chloride 111 mmol/L (98-108); Estimated Glomerular Filt Rate 20; Glucose 150 mg/dL (70-99); Osmolality Calculated 321 mOsm/kg (285-295); Potassium 4.9 mmol/L (3.5-5.1); Sodium 144 mmol/L (136-145)
[2021-11-13 08:25] LABS: Hemoglobin A1C 6.4 % (<5.7)
== END 2021-11-13 08:03 | disposition home or self-care (01) ==
LOC: CHSLAB 08:04
PROVIDERS: PCP Internal Medicine; Visit Provider Internal Medicine
DX: D64.0 Hereditary sideroblastic anemia (principal); N18.4 Chronic kidney disease, stage 4 (severe); E11.9 Type 2 diabetes mellitus without complications
CPT/HCPCS: 36415; 80048; 83036; 85025

== ENCOUNTER 2021-12-21 15:54 | Outpatient (CLI) | payer MEDICARE, SELFPAY ==
--- NOTE | ~2021-12-21 | CT_ITS ---
EXAMINATION: CT abdomen pelvis wo con DATE: 12/21/2021 16:48 INDICATION: Hematuria. TECHNIQUE: Computed tomography (CT) of the abdomen and pelvis was performed without intravenous contr ast. Automated exposure control and iterative reconstruction technique were employed. The dose-length product was 1173.49 mGy-cm. COMPARISON: CT abdomen and pelvis 07/17/2021 FINDINGS: The visualized portions of the lung bases demonstrate mild atelectasis. There is honeycombi ng in paraspinal right lower lobe. No pleural effusion. The heart size is normal. There are coronary artery calcifications. There are calcifications of aortic valve. There is a chronic small pericardial effusion. The liver is normal. There are changes of cholecystectomy. Calcifications in the spleen ar e consistent with old granulomatous disease. The pancreas and adrenal glands are normal. There is cor tical thinning of the kidneys. There are vascular calcifications at the junior of the kidneys. There is no urolithiasis. The prostate is mildly enlarged. There are brachytherapy seeds in the prostate. The bladder is not well distended. There is diffuse bladder wall thickening. There is diverticulosis of the colon without evidence of diverticulitis. The appendix is normal. There are no dilated loops of b owel. There are no pathologically enlarged lymph nodes. There is a right-sided ventral hernia contain ing fat. There is no free intraperitoneal fluid. There is severe lumbar spondylosis. IMPRESSION: 1. Chronic diffuse bladder wall thickening, which may be secondary to chronic outlet obstruction from the mildly enlarged prostate. Reviewed, dictated and finalized at location A. H CASE POLISHER IMPRESSION: 1. Chronic diffuse bladder wall thickening, which may be secondary to chronic o utlet obstruction from the mildly enlarged prostate.
== END 2021-12-21 15:55 | disposition home or self-care (01) ==
LOC: CHSIMG 15:59
PROVIDERS: PCP Internal Medicine; Visit Provider Internal Medicine
DX: R31.0 Gross hematuria (principal)
CPT/HCPCS: 74176

== ENCOUNTER 2021-12-22 07:36 | Outpatient (CLI) | payer MEDICARE, SELFPAY ==
[2021-12-22 08:34] LABS: Cholesterol 127 mg/dL (0-200); HDL Direct 41 mg/dL (40-60); LDL Cholesterol Calculated 69 mg/dL (<130); Triglycerides 83 mg/dL (0-150)
== END 2021-12-22 07:37 | disposition home or self-care (01) ==
LOC: CHSLAB 07:38
PROVIDERS: PCP Internal Medicine; Visit Provider Internal Medicine Cardiovascular Disease
DX: E78.5 Hyperlipidemia, unspecified (principal)
CPT/HCPCS: 36415; 80061

== ENCOUNTER 2022-05-27 07:56 | Outpatient (CLI) | payer MEDICARE, SELFPAY ==
[2022-05-27 08:18] LABS: Hematocrit 31.5 % (37.0-46.0); Hemoglobin 10.3 g/dL (12.4-15.3); Mean Corpuscular HGB Conc 32.7 g/dL (32.0-36.0); Mean Corpuscular Hemoglobin 32.5 pg (27.0-31.0); Mean Corpuscular Volume 99.4 fL (78.0-102.0); Platelet Count Result 143 K/mm3 (150-420); Red Blood Count 3.17 M/mm3 (4.70-6.10); Red Cell Distribution Width 13.3 % (11.6-14.4); White Blood Count 4.6 K/mm3 (4.8-10.8)
[2022-05-27 09:12] LABS: Albumin Level 3.4 g/dL (3.4-5.0); Anion Gap 10 mmol/L (8-16); Blood Urea Nitrogen 78 mg/dL (7-18); Calcium 8.9 mg/dL (8.5-10.1); Carbon Dioxide 24 mmol/L (21-32); Chloride 115 mmol/L (98-108); Estimated Glomerular Filt Rate 22; Glucose 79 mg/dL (70-99); Osmolality Calculated 330 mOsm/kg (285-295); Phosphorus 4.9 mg/dL (2.6-4.7); Potassium 4.7 mmol/L (3.5-5.1); Sodium 149 mmol/L (136-145)
[2022-05-27 09:23] LABS: Creatinine Urine 66.51 mg/dL (40-278); Total Protein Urine Random 104.7 mg/dL (0.0-11.9); Ur Ttl Prot Creatinine Ratio 1.57 mg/mg (0-0.20)
[2022-05-31 12:10] LABS: Vitamin D 25 Hydroxy 34 ng/mL (30-100)
[2022-05-31 17:18] LABS: Parathyroid Intact 130 pg/mL (14-64)
== END 2022-05-27 07:57 | disposition home or self-care (01) ==
LOC: CHSLAB 07:58
PROVIDERS: PCP Internal Medicine; Visit Provider Internal Medicine Nephrology
DX: N18.4 Chronic kidney disease, stage 4 (severe) (principal); E21.1 Secondary hyperparathyroidism, not elsewhere classified; R60.0 Localized edema
CPT/HCPCS: 36415; 80069; 82306; 82570; 83970; 84156; 85027

== ENCOUNTER 2022-06-11 08:39 | Outpatient (CLI) | payer MEDICARE, SELFPAY ==
[2022-06-11 09:49] LABS: Prostate Specific Antigen 0.2 ng/mL (< OR = 4.0)
== END 2022-06-11 08:40 | disposition home or self-care (01) ==
LOC: CHSLAB 08:41
PROVIDERS: PCP Internal Medicine; Visit Provider Urology
DX: C61 Malignant neoplasm of prostate (principal)
CPT/HCPCS: 36415; 84153

== ENCOUNTER 2022-06-24 11:06 | Emergency (ER) | payer MEDICARE, SELFPAY ==
[2022-06-24 11:17] VITALS: PULSE 64; RESP 18; TEMP 36.7; O2SAT 97
[2022-06-24 12:32] LABS: Appearance Urine Cloudy (Clear); Bacteria Urine 2+ /hpf; Bilirubin Urine Negative (Negative); Blood Urine Negative (Negative); Color Urine Yellow (Yellow); Glucose Urine UA Negative (Negative); Ketones Urine Negative (Negative); Leukocyte Esterase Ur 2+ LEU/UL (Negative); Nitrate Urine Positive (Negative); Non Pathogenic Casts 0-2; Protein Urine 2+ mg/dL (Negative); RBC Urine 0-2 /hpf (0-2); Specific Grav Ur 1.013 (1.001-1.035); Squamous Epithelial Cell Urine None seen /hpf (Few); Urobilinogen Urine 0.2 mg/dL (<2.0); WBC Urine >100 /hpf; pH Urine 5.5 (5.0-9.0)
[2022-06-24 12:42] LABS: Add Urine Microscopic? YES
--- NOTE | 2022-06-24 13:56 | ED.MALEGU ---
HPI - Male Genitourinary General Chief complaint: Urogenital-Male Stated complaint: i think i have a kidney stone Time Seen by Provider: 06/24/22 11:52 History of Present Illness HPI Narrative: Patient is a 81-year-old male who presents ER with some back pain. Left side. Began today. No radiation. No nausea or vomiting. Has urinary frequency. Patient recently finished Augmentin for a UTI. No dysuria or hematuria. Denies fevers or chills or sweats. Back pain is aching in nature. No numbness or tingling in the arms or legs. No saddle anesthesia. Related Data Home Medications Medication Instructions Recorded Confirmed finasteride 5 mg tablet 5 mg PO DAILY 05/21/19 06/21/22 tamsulosin 0.4 mg capsule 0.8 mg PO DAILY 05/21/19 06/21/22 albuterol sulfate 90 mcg/actuation 2 puff inhalation Q4-6H PRN Dyspnea 05/30/20 06/21/22 aerosol inhaler aspirin 81 mg tablet,delayed 81 mg PO DAILY 05/30/20 06/21/22 release ferrous sulfate 325 mg (65 mg 325 mg PO DAILY 05/30/20 06/21/22 iron) capsule,extended release multivitamin 1 tablet PO DAILY 05/30/20 06/21/22 furosemide 20 mg tablet 20 mg PO DAILY 05/25/21 06/21/22 insulin detemir U-100 100 unit/mL 50 unit subcut DAILY 07/08/21 06/21/22 (3 mL) subcutaneous pen (Levemir FlexTouch U-100 Insulin) Allergies Allergy/AdvReac Type Severity Reaction Status Date / Time No Known Allergies Allergy Unknown Verified 06/24/22 11:06 Review of Systems Constitutional: Constitutional: Denies chills, Denies fatigue and Denies fever(s) Gastrointestinal: Gastrointestinal: Denies abdominal pain, Denies nausea and Denies vomiting Genitourinary: Genitourinary: Denies hematuria, Denies dysuria and Reports urinary frequency Musculoskeletal: Musculoskeletal: Reports back pain Neurologic: Denies focal weakness and Denies numbness PMFSH Past Medical History Medical History Arthritis Chronic kidney disease COPD (chronic obstructive pulmonary disease) COSME (dyspnea on exertion) Dyslipidemia Edema of both legs Essential hypertension Hypersomnia Obesity VINCENT on CPAP PAD (peripheral artery disease) Prostate CA 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, with fci current use of insulin pump Venous insufficiency of right lower extremity Ventricular ectopic beats Surgical History Surgical History History of cataract extraction History of cholecystectomy Family History Family History Father Family history of coronary artery disease Mother Family history of coronary artery disease Coronary artery disease Social History Social History Smoking packs per day: 3 Smoking cigarettes per day: 60.0 Years smoked: 25 Smoking pack-years: 75.00 Smoking status: Former smoker Smoking end date: 02/14/87 Alcohol intake: former Drinks per week: 1 Substance use: former Lack of Transportation: No Lack of Food: Never True Current Housing: I Have Housing Concerned About Future Housing: No Difficulty Paying Gas/Electric Bills: No Difficulty Paying for Meds: No Currently Unemployed: No Education: High School Diploma/GED Living arrangements: with family Additional living arrangements comments: Gender identity (if verbalized by the patient): Male Spiritual care concerns: No Exam Narrative: GENERAL: Well-appearing, well-nourished, and in no acute distress. HEAD: Normocephalic, atraumatic. ENT: Mucous membranes moist. CHEST: Clear to auscultation. No respiratory distress. HEART: Regular rate and rhythm. Normal peripheral pulses. ABDOMEN: Soft, nontender, nondistended. Back: No reproducible midline tenderness tenderness of the T/L-spine. There is bilateral paraspinal muscular tenderness in the low back around L
[2022-06-24 14:15] VITALS: BP 154/66; PULSE 53; RESP 17; O2SAT 98
== END 2022-06-24 14:17 | disposition home or self-care (01) ==
PROVIDERS: Emergency Provider Emergency Medicine; PCP Internal Medicine; Referring Provider Hospitalist
DX: N39.0 Urinary tract infection, site not specified (principal); M54.9 Dorsalgia, unspecified; I12.9 Hypertensive chronic kidney disease with stage 1 through stage 4 chronic kidney disease, or unspecified chronic kidney disease; E11.22 Type 2 diabetes mellitus with diabetic chronic kidney disease; N18.9 Chronic kidney disease, unspecified; Z79.4 Long term (current) use of insulin; Z79.82 Long term (current) use of aspirin; Z87.891 Personal history of nicotine dependence
CPT/HCPCS: 81001; 87077; 87086; 87186; 99283

== ENCOUNTER 2022-07-22 07:22 | Outpatient (CLI) | payer MEDICARE, SELFPAY ==
[2022-07-22 07:43] LABS: Appearance Urine Clear (Clear); Basophils Absolute Auto 0.05 K/mm3 (0.00-0.10); Bilirubin Urine Negative (Negative); Blood Urine Negative (Negative); Color Urine Light Yellow (Yellow); Eosinophils Absolute Auto 0.19 K/mm3 (0.02-0.50); Eosinophils Percent Auto 3.9 % (1.0-6.0); Glucose Urine UA Negative (Negative); Hematocrit 31.9 % (37.0-46.0); Hemoglobin 10.1 g/dL (12.4-15.3); Immature Granulocyte Absolute 0.02 K/mm3 (0.00-0.00); Immature Granulocyte Percent A 0.4 % (0.0-0.0); Ketones Urine Negative (Negative); Leukocyte Esterase Ur Negative (Negative); Lymphocytes Percent Auto 22.4 % (18.0-42.0); Mean Corpuscular HGB Conc 31.7 g/dL (32.0-36.0); Mean Corpuscular Hemoglobin 31.9 pg (27.0-31.0); Mean Corpuscular Volume 100.6 fL (78.0-102.0); Mean Platelet Volume 10.4 fl (8.7-11.0); Monocytes Absolute Auto 0.45 K/mm3 (0.10-0.90); Monocytes Percent Auto 9.2 % (2.0-11.0); Neutrophils Absolute Auto 3.1 K/mm3 (1.7-7.2); Neutrophils Percent Auto 63.1 % (50.0-70.0); Nitrate Urine Negative (Negative); Platelet Count Result 135 K/mm3 (150-420); Protein Urine 2+ (Negative); Red Blood Count 3.17 M/mm3 (4.70-6.10); Red Cell Distribution Width 13.2 % (11.6-14.4); Specific Grav Ur 1.025 (1.010-1.020); Urobilinogen Urine 0.2 mg/dL (0.2-1.0); White Blood Count 4.9 K/mm3 (4.8-10.8)
[2022-07-22 07:47] LABS: Add Urine Microscopic? YES; Bacteria Urine Rare /hpf; RBC Urine None seen /hpf (0-2); WBC Urine None seen /hpf (0-3)
[2022-07-22 07:51] LABS: Hemoglobin A1C 6.1 % (<5.7)
[2022-07-22 07:55] LABS: Creatinine Urine 72.35 mg/dL (40-278)
[2022-07-22 07:56] LABS: MALB Creatinine Ratio 552.8 mg/g (0-30); Microalbumin Urine Random > 400.0 mg/L
[2022-07-22 08:40] LABS: Alanine Aminotransferase 20 U/L (16-63); Albumin Level 3.4 g/dL (3.4-5.0); Alkaline Phosphatase 67 U/L (46-116); Anion Gap 7 mmol/L (8-16); Aspartate Amino Transferase 15 U/L (15-37); Bilirubin,Total 0.3 mg/dL (0.00-1.00); Blood Urea Nitrogen 72 mg/dL (7-18); Calcium 9.1 mg/dL (8.5-10.1); Carbon Dioxide 25 mmol/L (21-32); Chloride 113 mmol/L (98-108); Cholesterol 124 mg/dL (0-200); Estimated Glomerular Filt Rate 22; Ferritin 317 ng/mL (26-388); Free T3 1.92 pg/mL (2.18-3.98); Free T4 Free Thyroxine 1.08 ng/dL (0.76-1.46); Glucose 66 mg/dL (70-99); HDL Direct 47 mg/dL (40-60); Iron 51 ug/dL (65-175); LDL Cholesterol Calculated 66 mg/dL (<130); Osmolality Calculated 319 mOsm/kg (285-295); Potassium 4.7 mmol/L (3.5-5.1); Sodium 145 mmol/L (136-145); Total Protein 6.5 g/dL (6.4-8.2); Triglycerides 57 mg/dL (0-150); Uric Acid 8.2 mg/dL (3.5-7.2); Vitamin B12 1075 pg/mL (193-986)
== END 2022-07-22 07:23 | disposition home or self-care (01) ==
PROVIDERS: PCP Internal Medicine; Visit Provider Internal Medicine
DX: D50.9 Iron deficiency anemia, unspecified (principal); N18.4 Chronic kidney disease, stage 4 (severe); E78.2 Mixed hyperlipidemia; E11.65 Type 2 diabetes mellitus with hyperglycemia; E79.0 Hyperuricemia without signs of inflammatory arthritis and tophaceous disease; D64.9 Anemia, unspecified; E04.2 Nontoxic multinodular goiter; R82.90 Unspecified abnormal findings in urine
CPT/HCPCS: 36415; 80053; 80061; 81001; 82043; 82607; 82728; 83036; 83540; 84439; 84443; 84481; 84550; 85025; 87086

== ENCOUNTER 2022-07-27 09:18 | Outpatient (CLI) | payer MEDICARE, SELFPAY ==
--- NOTE | 2022-07-27 11:00 | NEURO_ITS ---
Impression: # Complains of left upper extremity decreased strength and numbness. # Left Carpal Tunnel Syndrome. # Needle/EMG exam revealed decreased motor unit potentials proximally but no fibrillations. # Clinical correlation recommended. Nerve Conduction Studies Anti Sensory Summary Table Stim Site NR Peak (ms) P-T Amp (?V) Site1 Site2 Delta-P (ms) Dist (cm) Giuseppe (m/s) Left Median Anti Sensory (2-3nd Digit) Wrist 5.8 15.0 Wrist 2-3nd Digit 5.8 14.0 24 Wrist 5.9 13.5 Wrist 2-3nd Digit 5.8 14.0 24 Left Radial Anti Sensory (Base 1st Digit) Wrist 2.2 12.8 Wrist Base 1st Digit 2.2 0.0 Left Ulnar Anti Sensory (5th Digit) Wrist 2.9 8.9 Wrist 5th Digit 2.9 14.0 48 Motor Summary Table Stim Site NR Onset (ms) O-P Amp (mV) Site1 Site2 Delta-0 (ms) Dist (cm) Giuseppe (m/s) Left Median Motor (Abd Poll Brev) Wrist 5.4 1.5 Elbow Wrist 7.0 32.0 46 Elbow 12.4 1.3 Left Ulnar Motor (Abd Dig Minimi) Wrist 3.2 3.2 A Elbow Wrist 7.6 34.0 45 A Elbow 10.8 1.9 F Wave Studies NR F-Lat (ms) L-R F-Lat (ms) Left Median (Mrkrs) (Abd Poll Brev) 36.46 Left Ulnar (Mrkrs) (Abd Dig Min) 36.27 EMG Side Muscle Nerve Root Ins Act Fibs Amp Dur Recrt Comment Left 1stDorInt Ulnar C8-T1 Nml Nml Nml >12ms Reduced Left Ext Indicis Radial (Post Int) C7-8 Nml Nml Nml >12ms Reduced Left Ext Digitorum Radial (Post Int) C7-8 Nml Nml Nml >12ms Reduced Left BrachioRad Radial C5-6 Nml Nml Nml >12ms Reduced Left PronatorTeres Median C6-7 Nml Nml Nml >12ms Reduced Left Abd Poll Brev Median C8-T1 Nml Nml Nml >12ms Reduced Left ABD Dig Min Ulnar C8-T1 Nml Nml Nml >12ms Reduced Left Biceps Musculocut C5-6 Nml Nml Nml >12ms Reduced Left Triceps Radial C6-7-8 Nml Nml Nml >12ms Reduced Left Deltoid Axillary C5-6 Nml Nml Nml >12ms Reduced MTDD
== END 2022-07-27 09:19 | disposition home or self-care (01) ==
LOC: ANHNEURO 09:19
PROVIDERS: PCP Internal Medicine; Visit Provider Internal Medicine
DX: G56.02 Carpal tunnel syndrome, left upper limb (principal); G56.22 Lesion of ulnar nerve, left upper limb
CPT/HCPCS: 95886; 95909

== ENCOUNTER 2022-08-06 08:02 | Outpatient (CLI) | payer MEDICARE, SELFPAY ==
[2022-08-06 08:27] LABS: Hematocrit 30.6 % (37.0-46.0); Hemoglobin 9.8 g/dL (12.4-15.3); Mean Corpuscular Hemoglobin 31.7 pg (27.0-31.0); Mean Platelet Volume 9.8 fl (8.7-11.0); Platelet Count Result 158 K/mm3 (150-420); Red Blood Count 3.09 M/mm3 (4.70-6.10); Red Cell Distribution Width 13.1 % (11.6-14.4); White Blood Count 5.6 K/mm3 (4.8-10.8)
[2022-08-06 08:33] LABS: Creatinine Urine 78.67 mg/dL (40-278); Total Protein Urine Random 94.4 mg/dL (0.0-11.9)
[2022-08-06 09:15] LABS: Albumin Level 3.3 g/dL (3.4-5.0); Anion Gap 10 mmol/L (8-16); Blood Urea Nitrogen 68 mg/dL (7-18); Calcium 8.8 mg/dL (8.5-10.1); Carbon Dioxide 22 mmol/L (21-32); Chloride 112 mmol/L (98-108); Estimated Glomerular Filt Rate 22; Glucose 93 mg/dL (70-99); Osmolality Calculated 317 mOsm/kg (285-295); Phosphorus 4.6 mg/dL (2.6-4.7); Potassium 4.4 mmol/L (3.5-5.1); Sodium 144 mmol/L (136-145)
[2022-08-11 19:33] LABS: Parathyroid Intact 136 pg/mL (14-64)
== END 2022-08-06 08:03 | disposition home or self-care (01) ==
LOC: CHSLAB 08:04
PROVIDERS: PCP Internal Medicine; Visit Provider Internal Medicine Nephrology
DX: R60.0 Localized edema (principal); N18.4 Chronic kidney disease, stage 4 (severe)
CPT/HCPCS: 36415; 80069; 82570; 83970; 84156; 85027

== ENCOUNTER 2022-09-06 07:28 | Outpatient (CLI) | payer MEDICARE, SELFPAY ==
--- NOTE | 2022-09-06 07:51 | ECG_ITS ---
Measurements Intervals [place] Rate: 57 P: 56 NC: 183 QRS: 21 QRSD: 118 T: 55 QT: 397 QTc: 388 Interpretive Statements SINUS BRADYCARDIA BASELINE WANDER- II, III, AVR, AVL, AVF BORDERLINE ECG COMPARED TO ECG 07/19/2021 02:24:05 NO SIGNIFICANT CHANGES Electronically Signed On 09-06-2022 8:37:49 CDT by Levi Garcia D.O.
[2022-09-06 08:09] LABS: Anion Gap 8 mmol/L (8-16); Blood Urea Nitrogen 80 mg/dL (7-18); Carbon Dioxide 24 mmol/L (21-32); Chloride 114 mmol/L (98-108); Estimated Glomerular Filt Rate 19; Glucose 126 mg/dL (70-99); Osmolality Calculated 328 mOsm/kg (285-295); Potassium 4.9 mmol/L (3.5-5.1); Sodium 146 mmol/L (136-145)
== END 2022-09-06 07:29 | disposition home or self-care (01) ==
LOC: CHSLAB 07:30
PROVIDERS: PCP Internal Medicine; Visit Provider Orthopaedic Surgery
DX: Z01.818 Encounter for other preprocedural examination (principal); R00.1 Bradycardia, unspecified
CPT/HCPCS: 36415; 80048; 93005

== ENCOUNTER 2022-09-17 07:32 | Outpatient (CLI) | payer MEDICARE, SELFPAY ==
[2022-09-17 08:06] LABS: Creatinine Urine 70.82 mg/dL (40-278); Sodium Urine Random 90 mmol/L (20-110)
[2022-09-17 08:18] LABS: Albumin Level 3.7 g/dL (3.4-5.0); Anion Gap 9 mmol/L (8-16); Blood Urea Nitrogen 77 mg/dL (7-18); Calcium 8.9 mg/dL (8.5-10.1); Carbon Dioxide 24 mmol/L (21-32); Chloride 113 mmol/L (98-108); Estimated Glomerular Filt Rate 19; Glucose 82 mg/dL (70-99); Osmolality Calculated 324 mOsm/kg (285-295); Phosphorus 4.9 mg/dL (2.6-4.7); Sodium 146 mmol/L (136-145)
== END 2022-09-17 07:33 | disposition home or self-care (01) ==
LOC: CHSLAB 07:34
PROVIDERS: PCP Internal Medicine; Visit Provider Internal Medicine Nephrology
DX: N18.4 Chronic kidney disease, stage 4 (severe) (principal)
CPT/HCPCS: 36415; 80069; 82570; 84300

== ENCOUNTER 2022-12-20 08:12 | Outpatient (CLI) | payer MEDICARE, SELFPAY ==
[2022-12-20 08:25] LABS: Hematocrit 32.6 % (37.0-46.0); Hemoglobin 10.5 g/dL (12.4-15.3); Mean Corpuscular HGB Conc 32.2 g/dL (32.0-36.0); Mean Corpuscular Hemoglobin 32.1 pg (27.0-31.0); Mean Corpuscular Volume 99.7 fL (78.0-102.0); Mean Platelet Volume 9.7 fl (8.7-11.0); Platelet Count Result 176 K/mm3 (150-420); Red Blood Count 3.27 M/mm3 (4.70-6.10); Red Cell Distribution Width 13.6 % (11.6-14.4)
[2022-12-20 08:34] LABS: Creatinine Urine 65.37 mg/dL (40-278); Total Protein Urine Random 99.4 mg/dL (0.0-11.9); Ur Ttl Prot Creatinine Ratio 1.52 mg/mg (0-0.20)
[2022-12-20 09:03] LABS: Albumin Level 3.4 g/dL (3.4-5.0); Anion Gap 10 mmol/L (8-16); Blood Urea Nitrogen 77 mg/dL (7-18); Calcium 9.4 mg/dL (8.5-10.1); Carbon Dioxide 23 mmol/L (21-32); Chloride 112 mmol/L (98-108); Estimated Glomerular Filt Rate 18; Glucose 59 mg/dL (70-99); Osmolality Calculated 321 mOsm/kg (285-295); Phosphorus 4.5 mg/dL (2.6-4.7); Potassium 5.8 mmol/L (3.5-5.1); Sodium 145 mmol/L (136-145)
[2022-12-22 10:27] LABS: Vitamin D 25 Hydroxy 32 ng/mL (30-100)
[2022-12-22 18:48] LABS: Parathyroid Intact 123 pg/mL (14-64)
== END 2022-12-20 08:13 | disposition home or self-care (01) ==
LOC: CHSLAB 08:14
PROVIDERS: PCP Internal Medicine; Visit Provider Internal Medicine Nephrology
DX: N18.4 Chronic kidney disease, stage 4 (severe) (principal); E21.1 Secondary hyperparathyroidism, not elsewhere classified; R60.0 Localized edema
CPT/HCPCS: 36415; 80069; 82306; 82570; 83970; 84156; 85027

== ENCOUNTER 2022-12-31 07:08 | Outpatient (CLI) | payer MEDICARE, SELFPAY ==
[2022-12-31 07:25] LABS: Appearance Urine Clear (Clear); Bilirubin Urine Negative (Negative); Blood Urine Negative (Negative); Color Urine Light Yellow (Yellow); Glucose Urine UA Negative (Negative); Ketones Urine Negative (Negative); Leukocyte Esterase Ur Negative LEU/UL (Negative); Nitrate Urine Negative (Negative); Protein Urine 2+ (Negative); Urobilinogen Urine 0.2 mg/dL (0.2-1.0); pH Urine 5.5 (5.0-8.0)
[2022-12-31 07:31] LABS: Add Urine Microscopic? YES; Bacteria Urine Trace /hpf; RBC Urine None seen /hpf (0-2); WBC Urine None seen /hpf (0-3)
[2022-12-31 07:33] LABS: Hemoglobin A1C 6.6 % (<5.7)
[2022-12-31 07:37] LABS: Creatinine Urine 85.75 mg/dL (40-278)
[2022-12-31 07:43] LABS: MALB Creatinine Ratio 466.4 mg/g (0-30); Microalbumin Urine Random > 400.0 mg/L
[2022-12-31 08:18] LABS: Cholesterol 122 mg/dL (0-200); Creatine Kinase 83 U/L (39-308); Ferritin 390 ng/mL (26-388); HDL Direct 48 mg/dL (40-60); Iron 51 ug/dL (65-175); LDL Cholesterol Calculated 62 mg/dL (<130); Triglycerides 62 mg/dL (0-150)
== END 2022-12-31 07:09 | disposition home or self-care (01) ==
LOC: CHSLAB 07:11
PROVIDERS: PCP Internal Medicine; Visit Provider Internal Medicine
DX: E78.2 Mixed hyperlipidemia (principal); E11.65 Type 2 diabetes mellitus with hyperglycemia; D50.9 Iron deficiency anemia, unspecified
CPT/HCPCS: 36415; 80061; 81001; 82043; 82550; 82728; 83036; 83540

== ENCOUNTER 2023-01-03 11:36 | Outpatient (CLI) | payer MEDICARE, SELFPAY ==
--- NOTE | ~2023-01-03 | US_ITS ---
US arterial ankle brachial ind INDICATION: Peripheral arterial disease. TECHNIQUE: Segmental pressures and plethysmographic and Doppler waveforms of the brachial and lower e xtremity arteries were obtained. COMPARISON: None. FINDINGS: Right and left brachial artery pressures of 158 mm Hg and 154 mm Hg, respectively, are concordant (no rmal difference <= 30 mmHg). The right ankle-brachial index (PRAVIN) is 0.82 (normal >= 0.9-1.0). The right great toe-brachial index (TBI) is 0.63 (normal >= 0.60). The left PRAVIN is 1.04. The left TBI is 0.68. IMPRESSION: 1. Diminished right ankle-brachial index measuring 0.82, consistent with mild peripheral arterial dis ease. Reviewed, dictated and finalized at location B. RNMENT GUARD IMPRESSION: 1. Diminished right ankle-brachial index measuring 0.82, consistent with mild p eripheral arterial disease.
== END 2023-01-03 11:37 | disposition home or self-care (01) ==
PROVIDERS: PCP Internal Medicine; Visit Provider Internal Medicine
DX: I73.9 Peripheral vascular disease, unspecified (principal)
CPT/HCPCS: 93922

== ENCOUNTER 2023-04-07 07:36 | Outpatient (CLI) | payer MEDICARE, SELFPAY ==
[2023-04-07 07:53] LABS: Hematocrit 29.4 % (37.0-46.0); Hemoglobin 9.6 g/dL (12.4-15.3); Mean Corpuscular HGB Conc 32.7 g/dL (32.0-36.0); Mean Corpuscular Hemoglobin 32.1 pg (27.0-31.0); Mean Corpuscular Volume 98.3 fL (78.0-102.0); Mean Platelet Volume 10.4 fl (8.7-11.0); Platelet Count Result 154 K/mm3 (150-420); Red Blood Count 2.99 M/mm3 (4.70-6.10); Red Cell Distribution Width 14.3 % (11.6-14.4); White Blood Count 4.9 K/mm3 (4.8-10.8)
[2023-04-07 07:59] LABS: Creatinine Urine 84.85 mg/dL (40-278); Total Protein Urine Random 77.7 mg/dL (0.0-11.9); Ur Ttl Prot Creatinine Ratio 0.92 mg/mg (0-0.20)
[2023-04-07 08:39] LABS: Albumin Level 3.3 g/dL (3.4-5.0); Anion Gap 12 mmol/L (8-16); Blood Urea Nitrogen 80 mg/dL (7-18); Calcium 8.6 mg/dL (8.5-10.1); Carbon Dioxide 22 mmol/L (21-32); Chloride 112 mmol/L (98-108); Estimated Glomerular Filt Rate 16; Glucose 122 mg/dL (70-99); Osmolality Calculated 327 mOsm/kg (285-295); Phosphorus 5.4 mg/dL (2.6-4.7); Potassium 4.5 mmol/L (3.5-5.1); Sodium 146 mmol/L (136-145)
[2023-04-09 13:44] LABS: Parathyroid Intact 181 pg/mL (14-64)
[2023-04-10 04:42] LABS: Vitamin D 25 Hydroxy 35 ng/mL (30-100)
== END 2023-04-07 07:37 | disposition home or self-care (01) ==
LOC: CHSLAB 07:38
PROVIDERS: PCP Internal Medicine; Visit Provider Internal Medicine Nephrology
DX: R60.0 Localized edema (principal); N18.4 Chronic kidney disease, stage 4 (severe); E21.1 Secondary hyperparathyroidism, not elsewhere classified
CPT/HCPCS: 36415; 80069; 82306; 82570; 83970; 84156; 85027

== ENCOUNTER 2023-06-01 07:22 | Outpatient (CLI) | payer MEDICARE, SELFPAY ==
[2023-06-01 07:41] LABS: Basophils Absolute Auto 0.03 K/mm3 (0.00-0.10); Basophils Percent Auto 0.7 % (0.0-1.0); Eosinophils Absolute Auto 0.16 K/mm3 (0.02-0.50); Hematocrit 29.8 % (37.0-46.0); Hemoglobin 9.3 g/dL (12.4-15.3); Immature Granulocyte Absolute 0.02 K/mm3 (0.00-0.00); Immature Granulocyte Percent A 0.5 % (0.0-0.0); Lymphocytes Absolute Auto 0.93 K/mm3 (1.10-4.50); Lymphocytes Percent Auto 23.1 % (18.0-42.0); Mean Corpuscular HGB Conc 31.2 g/dL (32-36); Mean Corpuscular Hemoglobin 31.2 pg (27.0-31.0); Mean Platelet Volume 10.3 fl (8.7-11.0); Monocytes Absolute Auto 0.41 K/mm3 (0.10-0.90); Monocytes Percent Auto 10.2 % (2.0-11.0); Neutrophils Absolute Auto 2.48 K/mm3 (1.70-7.20); Neutrophils Percent Auto 61.5 % (50.0-70.0); Platelet Count Result 131 K/mm3 (150-420); Red Blood Count 2.98 M/mm3 (4.70-6.10); Red Cell Distribution Width 13.6 % (11.6-14.4)
[2023-06-01 07:53] LABS: Hemoglobin A1C 5.9 % (<5.7)
[2023-06-01 07:56] LABS: Creatinine Urine 76.05 mg/dL (40-278)
[2023-06-01 08:00] LABS: MALB Creatinine Ratio 441.5 mg/g (0-30); Microalbumin Urine Random 335.8 mg/L
[2023-06-01 08:31] LABS: Alanine Aminotransferase 23 U/L (16-63); Albumin Level 3.4 g/dL (3.4-5.0); Alkaline Phosphatase 67 U/L (46-116); Anion Gap 9 mmol/L (4-12); Aspartate Amino Transferase 13 U/L (15-37); Bilirubin,Total 0.3 mg/dL (0.00-1.00); Blood Urea Nitrogen 91 mg/dL (7-18); Calcium 8.7 mg/dL (8.5-10.1); Carbon Dioxide 23 mmol/L (21-32); Chloride 115 mmol/L (98-108); Estimated Glomerular Filt Rate 16; Ferritin 590 ng/mL (26-388); Glucose 74 mg/dL (70-99); Iron 69 ug/dL (65-175); Osmolality Calculated 331 mOsm/kg (285-295); Potassium 5.2 mmol/L (3.5-5.1); Sodium 147 mmol/L (136-145)
== END 2023-06-01 07:23 | disposition home or self-care (01) ==
LOC: CHSLAB 07:24
PROVIDERS: PCP Internal Medicine; Visit Provider Internal Medicine
DX: E11.65 Type 2 diabetes mellitus with hyperglycemia (principal); D50.9 Iron deficiency anemia, unspecified
CPT/HCPCS: 36415; 80053; 82043; 82728; 83036; 83540; 85025

== ENCOUNTER 2023-06-27 08:40 | Outpatient (CLI) | payer MEDICARE, SELFPAY ==
--- NOTE | ~2023-06-27 | US_ITS ---
EXAMINATION: US venous doppler LE RT DATE: 06/27/2023 09:08 INDICATION: Localized right lower limb swelling TECHNIQUE: Grayscale ultrasound images without and with compression and Doppler ultrasound images of the right lower extremity veins were obtained. COMPARISON: None. FINDINGS: The visualized portions of right common femoral vein, profunda (deep) femoral vein, femoral vein, pop liteal vein, posterior tibial veins, peroneal veins, gastrocnemius vein and greater saphenous vein ou tflow are patent. IMPRESSION: 1. No deep venous thrombosis in the right lower limb. Reviewed, dictated and finalized at location B.
== END 2023-06-27 08:41 | disposition home or self-care (01) ==
LOC: CHSIMG 08:41
PROVIDERS: PCP Internal Medicine; Visit Provider Internal Medicine Cardiovascular Disease
DX: R60.0 Localized edema (principal)
CPT/HCPCS: 93971

== ENCOUNTER 2023-09-14 06:55 | Outpatient (CLI) | payer MEDICARE, SELFPAY ==
[2023-09-14 07:22] LABS: Appearance Urine Clear (Clear); Bilirubin Urine Negative (Negative); Blood Urine Negative (Negative); Color Urine Light Yellow (Yellow); Glucose Urine UA Negative (Negative); Hematocrit 29.9 % (37.0-46.0); Hemoglobin 9.7 g/dL (12.4-15.3); Ketones Urine Negative (Negative); Leukocyte Esterase Ur Negative (Negative); Mean Corpuscular HGB Conc 32.4 g/dL (32-36); Mean Corpuscular Hemoglobin 32.1 pg (27.0-31.0); Mean Platelet Volume 10.8 fl (8.7-11.0); Nitrate Urine Negative (Negative); Platelet Count Result 138 K/mm3 (150-420); Protein Urine 2+ (Negative); Red Blood Count 3.02 M/mm3 (4.70-6.10); Red Cell Distribution Width 13.4 % (11.6-14.4); Specific Grav Ur 1.025 (1.010-1.020); Urobilinogen Urine 0.2 mg/dL (0.2-1.0); White Blood Count 4.9 K/mm3 (4.8-10.8)
[2023-09-14 07:25] LABS: Creatinine Urine 77.24 mg/dL (40-278); Ur Ttl Prot Creatinine Ratio 1.07 mg/mg (0-0.20)
[2023-09-14 07:32] LABS: Add Urine Microscopic? YES; Bacteria Urine Rare /hpf; RBC Urine None seen /hpf (0-2); WBC Urine None seen /hpf (0-3)
[2023-09-14 07:59] LABS: Albumin Level 3.5 g/dL (3.4-5.0); Anion Gap 9 mmol/L (4-12); Blood Urea Nitrogen 79 mg/dL (7-18); Carbon Dioxide 23 mmol/L (21-32); Chloride 113 mmol/L (98-108); Cholesterol 109 mg/dL (0-200); Creatine Kinase 51 U/L (39-308); Estimated Glomerular Filt Rate 17; Ferritin 590 ng/mL (26-388); Glucose 75 mg/dL (70-99); HDL Direct 43 mg/dL (40-60); Iron 68 ug/dL (65-175); LDL Cholesterol Calculated 55 mg/dL (<130); Osmolality Calculated 322 mOsm/kg (285-295); Phosphorus 5.7 mg/dL (2.6-4.7); Potassium 4.8 mmol/L (3.5-5.1); Sodium 145 mmol/L (136-145); Triglycerides 57 mg/dL (0-150)
[2023-09-15 14:18] LABS: Parathyroid Intact 110 pg/mL (16-77)
[2023-09-16 03:09] LABS: Vitamin D 25 Hydroxy 38 ng/mL (30-100)
== END 2023-09-14 06:56 | disposition home or self-care (01) ==
LOC: CHSLAB 06:56
PROVIDERS: PCP Internal Medicine; Visit Provider Internal Medicine Nephrology
DX: R60.0 Localized edema (principal); E21.1 Secondary hyperparathyroidism, not elsewhere classified; N18.4 Chronic kidney disease, stage 4 (severe); D50.9 Iron deficiency anemia, unspecified; E11.65 Type 2 diabetes mellitus with hyperglycemia; E78.2 Mixed hyperlipidemia
CPT/HCPCS: 36415; 80061; 80069; 81001; 82306; 82550; 82570; 82728; 83036; 83540; 83970; 84156; 85027

== ENCOUNTER 2023-12-15 08:14 | Outpatient (CLI) | payer MEDICARE, SELFPAY ==
[2023-12-15 08:28] LABS: Basophils Absolute Auto 0.04 K/mm3 (0.00-0.10); Basophils Percent Auto 0.8 % (0.0-1.0); Eosinophils Absolute Auto 0.15 K/mm3 (0.02-0.50); Hematocrit 29.7 % (37.0-46.0); Hemoglobin 9.6 g/dL (12.4-15.3); Immature Granulocyte Absolute 0.02 K/mm3 (0.00-0.00); Immature Granulocyte Percent A 0.4 % (0.0-0.0); Lymphocytes Absolute Auto 1.18 K/mm3 (1.10-4.50); Lymphocytes Percent Auto 23.3 % (18.0-42.0); Mean Corpuscular HGB Conc 32.3 g/dL (32-36); Mean Corpuscular Hemoglobin 32.7 pg (27.0-31.0); Mean Platelet Volume 10.1 fl (8.7-11.0); Monocytes Absolute Auto 0.52 K/mm3 (0.10-0.90); Monocytes Percent Auto 10.3 % (2.0-11.0); Neutrophils Absolute Auto 3.15 K/mm3 (1.70-7.20); Neutrophils Percent Auto 62.2 % (50.0-70.0); Platelet Count Result 129 K/mm3 (150-420); Red Blood Count 2.94 M/mm3 (4.70-6.10); Red Cell Distribution Width 13.9 % (11.6-14.4); White Blood Count 5.1 K/mm3 (4.8-10.8)
[2023-12-15 09:06] LABS: Hemoglobin A1C 5.3 % (<5.7)
[2023-12-15 09:19] LABS: Anion Gap 11 mmol/L (4-12); Blood Urea Nitrogen 91 mg/dL (7-18); Calcium 9.4 mg/dL (8.5-10.1); Carbon Dioxide 22 mmol/L (21-32); Chloride 115 mmol/L (98-108); Estimated Glomerular Filt Rate 15; Ferritin 701 ng/mL (26-388); Glucose 84 mg/dL (70-99); Iron 77 ug/dL (65-175); Osmolality Calculated 333 mOsm/kg (285-295); Potassium 5.5 mmol/L (3.5-5.1); Sodium 148 mmol/L (136-145)
== END 2023-12-15 08:15 | disposition home or self-care (01) ==
PROVIDERS: PCP Internal Medicine; Visit Provider Internal Medicine
DX: D50.9 Iron deficiency anemia, unspecified (principal); E11.65 Type 2 diabetes mellitus with hyperglycemia
CPT/HCPCS: 36415; 80048; 82728; 83036; 83540; 85025

== ENCOUNTER 2024-01-10 07:22 | Outpatient (CLI) | payer MEDICARE, SELFPAY ==
[2024-01-10 07:35] LABS: Hematocrit 28.5 % (37.0-46.0); Hemoglobin 9.2 g/dL (12.4-15.3); Mean Corpuscular HGB Conc 32.3 g/dL (32-36); Mean Corpuscular Hemoglobin 32.1 pg (27.0-31.0); Mean Corpuscular Volume 99.3 fL (78.0-102.0); Mean Platelet Volume 9.8 fl (8.7-11.0); Platelet Count Result 131 K/mm3 (150-420); Red Blood Count 2.87 M/mm3 (4.70-6.10); Red Cell Distribution Width 14.1 % (11.6-14.4); White Blood Count 6.8 K/mm3 (4.8-10.8)
[2024-01-10 07:43] LABS: Total Protein Urine Random 77.3 mg/dL (0.0-11.9); Ur Ttl Prot Creatinine Ratio 0.93 mg/mg (0-0.20)
[2024-01-10 08:05] LABS: Albumin Level 3.6 g/dL (3.4-5.0); Anion Gap 9 mmol/L (4-12); Blood Urea Nitrogen 87 mg/dL (7-18); Calcium 9.2 mg/dL (8.5-10.1); Carbon Dioxide 23 mmol/L (21-32); Chloride 113 mmol/L (98-108); Estimated Glomerular Filt Rate 15; Glucose 101 mg/dL (70-99); Osmolality Calculated 326 mOsm/kg (285-295); Phosphorus 5.4 mg/dL (2.6-4.7); Potassium 5.2 mmol/L (3.5-5.1); Sodium 145 mmol/L (136-145)
[2024-01-11 14:02] LABS: Parathyroid Intact 111 pg/mL (16-77)
[2024-01-12 04:09] LABS: Vitamin D 25 Hydroxy 42 ng/mL (30-100)
== END 2024-01-10 07:23 | disposition home or self-care (01) ==
PROVIDERS: PCP Internal Medicine; Visit Provider Internal Medicine Nephrology
DX: E21.1 Secondary hyperparathyroidism, not elsewhere classified (principal); N18.4 Chronic kidney disease, stage 4 (severe); R60.0 Localized edema
CPT/HCPCS: 36415; 80069; 82306; 82570; 83970; 84156; 85027

== ENCOUNTER 2024-01-24 07:52 | Outpatient (CLI) | payer MEDICARE, SELFPAY ==
[2024-01-24 09:16] LABS: Anion Gap 11 mmol/L (4-12); Blood Urea Nitrogen 92 mg/dL (7-18); Calcium 9.3 mg/dL (8.5-10.1); Carbon Dioxide 22 mmol/L (21-32); Chloride 112 mmol/L (98-108); Estimated Glomerular Filt Rate 16; Glucose 72 mg/dL (70-99); Osmolality Calculated 327 mOsm/kg (285-295); Sodium 145 mmol/L (136-145)
== END 2024-01-24 07:53 | disposition home or self-care (01) ==
PROVIDERS: PCP Internal Medicine; Visit Provider Internal Medicine
DX: N18.4 Chronic kidney disease, stage 4 (severe) (principal)
CPT/HCPCS: 36415; 80048

== ENCOUNTER 2024-04-30 11:24 | Outpatient (CLI) | payer MEDICARE, SELFPAY ==
[2024-04-30 11:43] LABS: Basophils Percent Auto 0.8 % (0.2-1.2); Eosinophils Absolute Auto 0.1 K/mm3 (0-0.3); Eosinophils Percent Auto 2.1 % (0-4.4); Hematocrit 28.1 % (42.0-52.0); Hemoglobin 8.8 g/dL (14.0-18.0); Immature Granulocyte Absolute 0.02 K/mm3 (0.00-0.031); Immature Granulocyte Percent A 0.4 % (0-0.5); Lymphocytes Absolute Auto 0.97 K/mm3 (0.9-3.2); Lymphocytes Percent Auto 18.7 % (18.3-44.2); Mean Corpuscular HGB Conc 31.3 g/dl (32-36); Mean Corpuscular Hemoglobin 31.8 pg (26-34); Mean Corpuscular Volume 101.4 fl (80-100); Mean Platelet Volume 10.5 fl (7.4-10.4); Monocytes Absolute Auto 0.4 K/mm3 (0.1-0.6); Monocytes Percent Auto 8.3 % (2.6-8.5); Neutrophils Absolute Auto 3.6 K/mm3 (1.3-6.7); Neutrophils Percent Auto 69.7 % (45.5-73.1); Platelet Count Result 128 k/mm3 (150-375); Red Blood Count 2.77 M/mm3 (4.6-6.20); Red Cell Distribution Width 13.6 % (11.5-14.5); White Blood Count 5.2 K/mm3 (4.5-10.0)
[2024-04-30 12:27] LABS: Iron 76 ug/dL (49-181)
[2024-04-30 12:29] LABS: Alanine Aminotransferase 17 U/L (6-50); Albumin Level 4.1 g/dL (3.5-5.1); Alkaline Phosphatase 71 U/L (38-126); Anion Gap 10 mmol/L (4-12); Aspartate Amino Transferase 19 U/L (17-59); Bilirubin,Total 0.2 mg/dL (0.2-1.3); Blood Urea Nitrogen 77 mg/dL (9-20); Calcium 9.3 mg/dL (8.4-10.2); Carbon Dioxide 20 mmol/L (22-30); Chloride 116 mmol/L (98-107); Estimated Glomerular Filt Rate 15; Glucose 140 mg/dL (65-110); Lactate Dehydrogenase 170 U/L (120-246); Potassium 5.3 mmol/L (3.4-5.0); Sodium 146 mmol/L (137-145)
[2024-04-30 12:38] LABS: Percent Iron Saturation 31 % (20-50)
[2024-04-30 13:35] LABS: Folic Acid 17.3 ng/mL (2.76->20)
--- OUTSIDE RECORDS SUMMARY | 2024-04-30 14:01 | XMS_ITS | Encounter Summary ---
Author Organization [facility] Address [address] [place] [address] Care Team Providers Care Strategic Marketing Associate Name Role Phone Unavailable Primary Care Provider Unavailabl e Reason for Visit * Reason Comments Establish Care Encounter Details Date Type Department Care Team (Late st Contact Info) Description 04/30/2024 10:30 AM CDT Office Visit [facility] Oncology and Hematology - [place] [address] [facility] [address] [place] [address] Desean De MD [address] [facility] [address] [place] [address] Chronic anemia (Primary Dx) Social History Tobacco Use Types Packs/Day Years Used Date Smoking Tobacco: Never Smokeless Tobacco: Never Alcohol Use Standard Drinks/Week Comments Yes 0 (1 standard drink = 0.6 oz pur e alcohol) Occasionally Sex and Gender Information Value Date Recorded Sex Assigned at Not on file Legal Sex Male 1:21 PM APNS Gender Identity Not on file Sexual Orientation Not on file documented as of this encounter Last Filed Vital Signs Vital Sign Reading Time Taken Comments Blood Pressure 147/61 04/30/2024 10:49 AM CDT Pulse 59 04/30/2024 10:46 AM CDT Temperature 36.1 C (96.9 F) 04/30/2024 10:46 AM CDT Respiratory Rate 15 04/30/2024 10:46 AM CDT Oxygen Saturation 96% 04/30/2024 10:46 AM CDT Inhaled Oxygen Concentration - - Weight 98.6 kg (217 lb 6.4 oz) 04/30/2024 10:46 AM CDT Height 188 cm (6' 2 ) 04/30/2024 10:46 AM CDT Body Mass Index 27.91 04/30/2024 10:46 AM CDT documented in this encounter Progress Notes * Desean De MD - 04/30/2024 11:59 AM CDT Hematology-oncology consult Note Requesting Physician Tyron Arredondo MD Primary Care Physician No primary care provider on file. Problem list There is no problem list on file for this patient. Previous TREATMENT ? Measurable Disease ? Reason for Visit Zach Kasper is a 83 y.o. male who was referred for consultation for chronic anemia. History of present illness This is a pleasant 83-year-old male with history of diabetes, hypertension, hyperlipidemia and chronic kidney disease diagnosed in 2020. Patient also has a history of prostate cancer statuspost radiation therapy treatment in 2020. Is been complaining of tiredness and fatigue and feel cold all the time. He denies any bleeding including melena hematochezia. He is taking oral iron once a day. He denies being a vegetarian. He eats red meat infrequently. He lost 60 pound weight gradually.His last colonoscopy was 6 years ago. Patient labs from December 2023 showed hemoglobin of 9.2 withcreatinine of 3.8. He denies any other complaint. Past Medical History Past Medical History: Diagnosis Date Diabetes mellitus (CMS/HCC) Hyperlipidemia Hypertension Malignant neoplasm (CMS/HCC) Surgical History Past Surgical History: Procedure Laterality Date HX CATARACT REMOVAL HX CHOLECYSTECTOMY 1985 HX LEG SURGERY Right timothy in leg Medications Current Outpatient Medications Medication Sig Dispense Refill amLODIPine (NORVASC) 5 mg tablet Take 10 mg by mouth daily. furosemide (LASIX) 20 mg tablet Take 20 mg by mouth daily. hydroCHLOROthiazide 25 mg tablet Take 25 mg by mouth daily. losartan (COZAAR) 50 mg tablet Take 100 mg by mouth daily. tamsulosin (FLOMAX) 0.4 mg capsule Take 2 Capsules by mouth daily. albuterol sulfate HFA 90 mcg/actuation aerosol inhaler 2 Puffs by See Admin Instructions route see administration instructions. aspirin (ECOTRIN EC) 81 mg Tablet, Delayed Release (E.C.) Take 81 mg by mouth daily. carvediloL (COREG) 6.25 mg tablet Take 6.25 mg by mouth every 12 hours. ferrous sulfate 325 mg (65 mg iron) tablet Take 325 mg by mouth daily with breakfast. finasteride (PROSCAR) 5 mg tablet Take 5 mg by mouth daily. hydrALAZINE (APRESOLINE) 100 mg Tablet tablet Take 100 mg by mouth every 8 hours. Vit B Comp & C-Vit E-FA-Mere-Zn 0.4 mg Tablet Take by mouth daily. pravastatin (PRAVACHOL) 40 mg tablet Take 40 mg by mouth daily. No current facility-administered medications for this visit. Allergies No Known Allergies Immunizations: There is no immunization history on file for this patient. Family History Family History Problem Relation Name Age of Onset Heart Disease Father Heart Disease Mother Lung Cancer Brother Thyroid Cancer Sister Kidney Cancer Sister Lymphoma Sister No Known Problems Sister Social History Social History Tobacco Use Smoking status: Never Smokeless tobacco: Never Substance Use Topics Alcohol use: Yes Comment: Occasionally Review of Systems Constitutional: Patient did not mention fever; no night sweats; no anorexia; no weight loss; complain of tiredness and fatigue NEENT: Patient did not mention headache; no change in vision; no change in hearing; no sore throat;no dysphagia Respiratory: Patient did not mention shortness of breath; no pleuritic chest pain; no cough; no hemoptysis Cardiac: Patient did not mention cardiac-like chest pain; no palpitations; no orthopnea; no PND; noDOE GI: Patient did not mention abdominal pain; no nausea; no vomiting; no diarrhea; no hematochezia; no melena : Patient did not mention dysuria; no frequency; no hesitancy; no hematuria 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 No signs of infection or swelling. Eyes: PERRL, conjunctiva normal HEENT: Atraumatic, external ears normal, nose normal, oropharynx moist, no pharyngeal exudates. no sinus tenderness Neck- normal range of motion, no tenderness, supple Respiratory: No respiratory distress, normal breath sounds, no rales, no wheezing Cardiovascular: Normal rate, normal rhythm, no murmurs, no gallops, no rubs GI: Soft, nondistended, normal bowel sounds, nontender, no splenomegaly, no hepatomegaly, no mass, no rebound, no guarding : No costovertebral angle tenderness Musculoskeletal: No edema, no tenderness, no deformities. Back- no tenderness Integument: Well hydrated, no rash, Digits and nails inspection normal Lymphatic: No lymphadenopathy noted Neurologic: Alert & oriented x 3, CN 2-12 normal, normal motor function, normal sensory function, no focal deficits noted Psychiatric: Speech and behavior appropriate ? labs No results found for this or any previous visit (from the past 24 hours). Labs from December 2023 showed WBC 6.8 hemoglobin 9.2 platelet 131,000 MCV 99.3 creatinine 3.8 GFR 15 Pathology ? Imaging & Other Studies Performance Status? Assessment / Plan: ? Anemia of chronic kidney disease. Patient is a 83-year-old male with history of type 2 diabetes, hypertension, hyperlipidemia and prostate cancer status post radiation therapy in 2020. He developed kidney impairment after the radiation therapy for prostate cancer. Currently has been seen by Dr. Tyron Arredondo. Labs reviewed. Patient GFR is only 15. His anemia secondary to chronic kidney disease. Will order the workup for anemia that will include CBC with differential, CMP, erythropoietin level, iron studies, soluble transferrin receptor, methylmalonic acid and vitamin B12 level. We will start him on Procrit 20,000 units on a biweekly basis. He will continue oral iron once a day. I will discuss the labs with patient in couple of weeks. I have answered all the questions to patient and the satisfaction. Chronic kidney stage IV disease. He will follow-up with Dr. Arredondo. Hyperlipidemia. Patient is on Pravachol. Hypertension. He is on amlodipine and hydrochlorothiazide. Type 2 diabetes. This has been managed by primary care physician. Thank you very much for allowing me to participate in Zach Kasper's evaluation and management. Please feel free to contact if I can be of any further assistance in your patient???s care requiring hematology or oncology evaluation. Sincerely, ? ? Desean De M.D. cell TOBACCO COUNSELING He is not a tobacco/nicotine user. Desean De MD ,04/30/2024 11:59 AM ? Total time spent 60 minutes, two third of the total time spent counseling patient [id number]. CC:?Tyron Arredonod MD documented in this encounter Plan of Treatment Upcoming Encounters Date Type Department Care Team (Late st Contact Info) Description 05/08/2024 4:00 PM CDT Telephone Check Up [facility] Oncology and Hematology - [place] [address] [facility] [address] [place] [address] Desean De MD [address] [facility] [address] [place] [address] Scheduled Orders Name Type Priority Associated Diagnoses Orde r Schedule CBC WITH DIFFERENTIAL Lab Stat Chronic anemia Expected: 04/30/2024, Expires: 04/30/2025 COMPREHENSIVE METABOLIC PANEL Lab Stat Chronic anemia Expected: 04/30/2024, Expires: 04/30/2025 ERYTHROPOIETIN LEVEL Lab Routine Chronic anemia Expected: 04/30/2024, Expires: 04/30/2025 FERRITIN Lab Routine Chronic anemia Expected: 04/30/2024, Expires: 04/30/2025 IRON, TIBC, AND PERCENT SATURATION Lab Routine Chronic anemia Expected: 04/30/2024, Expires: 04/30/2025 LACTATE DEHYDROGENASE Lab Routine Chronic anemia Expected: 04/30/2024, Expires: 04/30/2025 METHYLMALONIC ACID Lab Routine Chronic anemia Expected: 04/30/2024, Expires: 04/30/2025 TRANSFERRIN RECEPTOR TFR SOLUBLE Lab Routine Chronic anemia Expected: 04/30/2024, Expires: 04/30/2025 VITAMIN B12 AND FOLATE Lab Routine Chronic anemia Expected: 04/30/2024, Expires: 04/30/2025 PROTEIN ELECTROPHORESIS W/REFLEX,SERUM Lab Routine Chronic anemia Expected: 04/30/2024, Expires: 04/30/2025 documented as of this encounter Visit Diagnoses Diagnosis Chronic anemia- Primary Anemia, unspecified documented in this encounter
--- OUTSIDE RECORDS SUMMARY | 2024-04-30 14:01 | XMS_ITS ---
Author Organization [facility] Address [address] [place], [place] [id number] Care Team Providers Care Call Center Operations Manager Name Role Phone Cristi Beth Primary Care Provider Unavailab FITO Chew Unavailable [phone] ALLERGIES No Known Allergies REASON FOR VISIT follow up chronic kidney disease and muliple other medical problems MEDICATIONS Medication SIG (Take, Route, Frequency, Duration) Notes Start Date End Date Status predniSONE 20 MG 1 tablet Orally Once a day Active Albuterol Sulfate HFA 108 (90 Base) MCG/ACT 1 puff as needed Inhalation every 4 hrs Active Torsemide 20 MG as directed Orally Active Aspirin 81 81 MG 1 tablet Orally Once a day Active Carvedilol 6.25 MG 1 tablet with food O rally Twice a day Active amLODIPine Besylate 10 MG 1 tablet Orally Once a day Active hydrALAZINE HCl 100 MG 1 tablet with aravind d Orally Twice a day Active Levemir FlexPen 100 UNIT/ML as directed Subcutaneous Act adan Finasteride 5 MG 1 tablet Orally Once a day Active Ferrous Sulfate 325 MG as directed Orally Active Fluticasone Furoate-Vilanterol 100-25 MCG/INH 1 puff Inhalation Once a day Active Amoxicillin-Pot Clavulanate 875-125 MG 1 tablet Orally every 12 hrs Active Multivitamin - 1 tablet Orally Once a day Active Folic Acid-Vit B6-Vit B12 0.8-50-0.1 MG as directed Orally Active IMMUNIZATIONS Vaccine Route Administration Date Status Comme nts Fluad HD syringe/medicare Unknown 03/01/2023 Refused SOCIAL HISTORY Tobacco Use: Social History Observation Description Date Details (start date - stop date) Never Smoker NA - NA Sex Assigned At : Social History Observation Description Sex Assigned At Unknown Tobacco use: Question Answer Notes Are you a: never smoker PROBLEMS Problem Type ICD Code Onset Dates Problem Status W/U Status Risk SNOMED Code Notes Problem Chronic kidney disease, stage 4 (severe) (N18.4) Active confirmed Chronic kid camden disease stage 4 (402258743) Problem 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) Active confirmed Anemia in chron ic kidney disease (291549463) Problem Hypertensive chronic kidney disease with stage 1 through stage 4 chronic kidney disease, or unspecified chronic kidney disease (I12.9) Active confirmed Chronic kidn ey disease due to hypertension (244803932773543) Problem Atherosclerotic heart disease of [place] coronary artery without angina pectoris (I25.10) Active confirmed Atherosclerotic heart disease of [place] coronary artery without angina pectoris (604789665399018) VITAL SIGNS Weight 233 lbs 03/01/2023 Blood pressure systolic 154 mm Hg 03/01/19 24 Blood pressure diastolic 60 mm Hg 024 Height 74 in 03/01/2023 BMI 29.91 kg/m2 03/01/2023 Encounters Encounter Location Date Provider Diagnosis [facility] [employer] [place], [place] [id number] 03/01/2023 FITO MCKENZIE Chronic kidney disea se, stage 4 (severe) N18.4 ; Anemia in chronic kidney disease D63.1 ; Hypertensive chronic kidney disease with stage 1 through stage 4 chronic kidney disease, or unspecified chronic kidney disease I12.9 and Atherosclerotic heart disease of [place] coronary artery without angina pectoris I25.10 ASSESSMENTS Encounter Date Diagnosis Assessment Notes Treatment Notes Treatment Clinical Notes Section Notes 03/01/2023 Chronic kidney disease, stage 4 (severe) (ICD-10 - N18.4) patient does have advanced renal dysfunction. Laboratory values are all noted. Patient is scheduled to return back home and follow-up with nephrology. 03/01/2023 Anemia in chronic kidney disease (ICD-10 - D63.1) Patient has anemia of chronic disease most likely due to chronic kidney disease and may recieve arnasep on Epogen shots periodically to target Hb 10-11gm and avoid transfusion. CBC will be frequently monitored and oral on IV Iron therapy will be given to maintain iron saturation above 20% or ferritin above 100.Patient explained to be complaint in FU. 03/01/2023 Hypertensive chronic kidney disease with stage 1 through stage 4 chronic kidney disease, or unspecified chronic kidney disease (ICD-10 - I12.9) Patient explained to limit intake of salt to less than 2 gm per day.The importance of keeping BP at or below 130/80 to prevent stroke, heart attacks, worsening kidney failure,blindnes s and loss of limbs was reviewed. Patient has been advised to adopt a diet rich in fruits,vegetable s,low fat diary products and reduced content of saturated and total fat. Patient has been counseled on compliance with medications. Drugs side effects have been discussed 03/01/2023 Atherosclerotic heart disease of [place] coronary artery without angina pectoris (ICD-10 - I25.10) Patient with a long-standing history of coronary artery disease and does follow-up with cardiology PLAN OF TREATMENT Medication Medication Name Sig Start Date Stop Date Notes amLODIPine Besylate 10 MG 1 tablet Orally Once a day hydrALAZINE HCl 100 MG 1 tablet with aravind d Orally Twice a day Treatment Notes Assessment Notes Chronic kidney disease, stage 4 (severe) patient does have advanced renal dysfunction. Laboratory values are all noted. Patient is scheduled to return back home and follow-up with nephrology. Anemia in chronic kidney disease Patient has anemia of chronic disease most likely due to chronic kidney disease and may recieve arnasep on Epogen shots periodically to target Hb 10-11gm and avoid transfusion. CBC will be frequently monitored and oral on IV Iron therapy will be given to maintain iron saturation above 20% or ferritin above 100.Patient explained to be complaint in FU. Hypertensive chronic kidney disease with stage 1 through stage 4 chronic kidney disease, or unspecified chronic kidney disease Patient explained to limit intake of teodoro t to less than 2 gm per day.The importance of keeping BP at or below 130/80 to prevent stroke, heart attacks, worsening kidney failure,blindness and loss of limbs was reviewed. Patient has been advised to adopt a diet rich in fruits,vegetables,low fat diary products and reduced content of saturated and total fat. Patient has been counseled on compliance with medications. Drugs side effects have been discussed Atherosclerotic heart diseas e of [place] coronary artery without angina pectoris Patient with a long-standing history of coronary artery disease and does follow-up with cardiology Next Appt Details Follow Up: prn, Reason: Progress Notes * Zach FONSECA GDOB:[birth year] (82 yo M)Acc No.[id number]:03/01/2023 progress note Patient: Zach FONSECA Provider: Fito Mckenzie MD :1940 Age:82 Y Sex:Male Date:03/01/2023 Address:[address] [place] [address] [address] [place] [address] Pcp:Cristi Beth Subjective: * Chief Complaints: * Follow up chronic kidney disease and muliple other medical problems * HPI: Nephrology: The patient is here for a f/u visit . The patient is an 82-year-old male with a long-standing history of hypertension. Patient has a history of known chronic renal insufficiency. Patient admitted to the hospital February 2023 with volume overload. Patient's diuretics were adjusted. Patient eventually was discharged to home. The patient has had extensive renal workup as an outpatient. [facility]. Patient states he has felt well since discharge from the hospital. Blood pressure has been under good control. The patient has been compliant with his diuretics as well as freewater restriction. The patient is being seen for all of the above.. * ROS: CONSTITUTIONAL: Denies fever, chills, change in weight. Admits no other constitutional symptoms. ENT: Denies s ore throat, cold, runny nose. Admits no other ENT symptoms. OPHTHALMOLOGY: Denies s easonal eye symptoms, dander related eye symptoms. Admits no other opthalmology symptoms. CARDIOLOGY: Denies c hest pain, shortness of breath, palpitations. Admits no other cardiology symptoms. RESPIRATORY: Admits n o other respiratory symptoms. Denies cough, chest pain. GASTROENTEROLOGY: Denies a bdominal pain, nausea, vomiting. Admits no other gastroenterology symptoms. GENITO - URINARY: Denies d ifficulty urinating, frequent urination, Urinary Urgency. Admits no other genito-urinary symptoms. ENDOCRINOLOGY: Denies d iabetes, Thyroid problems, Change in weight. Admits no other endocrinology symptoms. MUSCULOSKELETAL: Denies j oint pain, joint stiffness, joint swelling. Admits no other musculoskeletal symptoms. NEUROLOGY: Denies h eadache, Weakness, tingling, numbness. Admits no other neurology symptoms. DERMATOLOGY: Denies P ruritis, rash. Admits no other dermatology symptoms. PSYCHOLOGY: Denies d epression, anxiety, geoff. Admits no other psychology symptoms. ALLERGY: Denies i tchy eyes, ear symptoms. Admits no other allergy symptoms. * Medical History: * Surgical History: cholecystectomy Knee surgery * Hospitalization/Major Diagno stic Procedure: * Family History: Father: . Mother: . * Social History: Tobacco use Are you a: never smoker. Alcohol use: no. Recreational drug use: no. Place of Residence: live w/family. * Medications: TakingMultivitamin - Tablet 1 tablet Orally Once a day Levemir FlexPen 100 UNIT/ML Solution Pen-injector as directed Subcutaneous Finasteride 5 MG Tablet 1 tablet Orally Once a day Ferrous Sulfate 325 MG Capsule as directed Orally Carvedilol 6.25 MG Tablet 1 tablet with food Orally Twice a day Aspirin 81 81 MG Tablet Delayed Release 1 tablet Orally Once a day amLODIPine Besylate 10 MG Tablet 1 tablet Orally Once a day Albuterol Sulfate HFA 108 (90 Base) MCG/ACT Aerosol Solution 1 puff as needed Inhalation every 4 hrs Torsemide 20 MG Tablet as directed Orally predniSONE 20 MG Tablet 1 tablet Orally Once a day hydrALAZINE HCl 100 MG Tablet 1 tablet with food Orally Twice a day Folic Acid-Vit B6-Vit B12 0.8-50-0.1 MG Tablet as directed Orally Fluticasone Furoate-Vilanterol 100-25 MCG/INH Aerosol Powder Breath Activated 1 puff Inhalation Once a day Amoxicillin-Pot Clavulanate 875-125 MG Tablet 1 tablet Orally every 12 hrs Medication List reviewed and reconciled with the patientTaking Multivitamin - Tablet 1 tablet Orally Once a day Taking Levemir FlexPen 100 UNIT/ML Solution Pen-injector as directed Subcutaneous Taking Finasteride 5 MG Tablet 1 tablet Orally Once a day Taking Ferrous Sulfate 325 MG Capsule as directed Orally Taking Carvedilol 6.25 MG Tablet 1 tablet with food Orally Twice a day Taking Aspirin 81 81 MG Tablet Delayed Release 1 tablet Orally Once a day Taking amLODIPine Besylate 10 MG Tablet 1 tablet Orally Once a day Taking Albuterol Sulfate HFA 108 (90 Base) MCG/ACT Aerosol Solution 1 puff as needed Inhalation every 4 hrs Taking Torsemide 20 MG Tablet as directed Orally Taking predniSONE 20 MG Tablet 1 tablet Orally Once a day Taking hydrALAZINE HCl 100 MG Tablet 1 tablet with food Orally Twice a day Taking Folic Acid-Vit B6-Vit B12 0.8-50-0.1 MG Tablet as directed Orally Taking Fluticasone Furoate-Vilanterol 100-25 MCG/INH Aerosol Powder Breath Activated 1 puff Inhalation Once a day Taking Amoxicillin-Pot Clavulanate 875-125 MG Tablet 1 tablet Orally every 12 hrs Medication List reviewed and reconciled with the patient * Allergies: N.K.D.A.no[Allergies Verified] Objective: * Vitals: Wt: 233, BP:154/60, HR: 55, RR: 20, Ht: 74, BMI:29.91. * Physical Examination: GENERAL: General Appearance: well-appearing, no acute distress, well-developed, well nourished. Mental Status: alert and oriented x 3. HEENT: Head: normocephalic, atraumatic. Eyes: unremarkable, PERRLA, EOMI, conjunctiva clear. Nose: unremarkable, normal pink mucosa, no swelling. Throat: clear, no erythema or exudate. Mouth: unremarkable, moist mucus membranes. Ears: unremarkable,ear canals unremarkable, no gross hearing deficits. NECK: General: supple. Thyroid: unremarkable. Cervical lymph nodes: unremarkable. Carotid bruit: none. JVD: none. LUNGS: Auscultation: CTA bilaterally, no wheezing/rhonchi/rales. HEART: PMI: normal. Rhythm: regular. Murmurs: none. Heart sounds: normal S1S2. Rate: regular. ABDOMEN: General: soft. Tenderness: none. Liver, Spleen: not palpable. Bowel sounds: normoactive. Distention: none. BACK: Spine: unremarkable, no tenderness. ROM: FROM without pain. SKIN: General: no rash or skin lesions, no nodules, petechiae, purpura on inspection and palpation. LYMPH NODES: Cervical: none. Axillary: none. MUSCULOSKELETAL: General Apperance: no joint swelling, no tenderness, no redness, muscle tone normal, muscle mass normal. NEUROLOGICAL: Sensory: normal sensation. Motor: normal strength bilaterally. Reflexes: 2+ bilaterally and symmetric. Gait: normal. EXTREMITIES: Edema: none. Cyanosis: no. Clubbing: no. Assessment: * Assessment: 1. Chronic kidney disease, stage 4 (severe) - N18.4 (Primary) 2. Anemia in chronic kidney disease - D63.1 3. Hypertensive chronic kidney disease with stage 1 through stage 4 chronic kidney disease, or unspecified chronic kidney disease - I12.9 4. Atherosclerotic heart disease of [place] coronary artery without angina pectoris - I25.10 Plan: * Treatment: 2. Anemia in chronic kidney disease Notes: Patient has anemia of chronic disease most likely due to chronic kidney disease and may recieve arnasep on Epogen shots periodically to target Hb 10-11gm and avoid transfusion. CBC will be frequently monitored and oral on IV Iron therapy will be given to maintain iron saturation above 20% or ferritin above 100.Patient explained to be complaint in FU. 3. Hypertensive chronic kidney disease with stage 1 through stage 4 chronic kidney disease, or unspecified chronic kidney disease Continue hydrALAZINE HCl Tablet, 100 MG, 1 tablet with food, Orally, Twice a day; Continue amLODIPine Besylate Tablet, 10 MG, 1 tablet, Orally, Once a day. Notes: Patient explained to limit intake of salt to less than 2 gm per day.The importance of keeping BP at or below 130/80 to prevent stroke, heart attacks, worsening kidney failure,blindness and loss of limbs was reviewed. Patient has been advised to adopt a diet rich in fruits,vegetables,low fat diary products and reduced content of saturated and total fat. Patient has been counseled on compliance with medications. Drugs side effects have been discussed 4. Atherosclerotic heart disease of [place] coronary artery without angina pectoris Notes: Patient with a long-standing history of coronary artery disease and does follow-up with cardiology * Immunizations: Fluad HD syringe/medicare (Not administered - Refused: Patient decision) ?Immunization record has been reviewed and updated. * Procedure Codes: * Preventive Medicine: Counseling: BMI Care Goal Follow up: Above Normal BMI Follow-up Dietary management education, guidance, and counseling. BP Management FIRST HYPERTENSIVE BP READING FOLLOW-UP PLAN: Follow-up 1 month, PHYSICAL ACTIVITY RECOMMENDATION: Exercise education, DIETARY RECOMMENDATIONS: Diet education. Screening / Special Tests: Fall Risk Screening Fall Risk Assessment: No falls in the past year, Assessment: Performed, Plan of Care: Documented Patient should have clear walkaways and use non skid rugs. * Follow Up: prn * Images: * OR ORE CONTROLLER Sign off status: Completed true * Provider: Fito Mckenzie MD Date: 03/01/2023 History and Physical Notes * HPI (History of Present Illness) Category Sub-Category Detail Notes Category Not es Nephrology The patient is here for a f/u visit . The patient is an 82-year-old male with a long-standing history of hypertension. Patient has a history of known chronic renal insufficiency. Patient admitted to the hospital February 2023 with volume overload. Patient's diuretics were adjusted. Patient eventually was discharged to home. The patient has had extensive renal workup as an outpatient. [facility]. Patient states he has felt well since discharge from the hospital. Blood pressure has been under good control. The patient has been compliant with his diuretics as well as freewater restriction. The patient is being seen for all of the above. Physical Examination Category Sub-Category Detail Notes Section Note s HEENT Head: normocephalic,atraumatic Eyes: unremarkable, PERRLA , EOMI, conjunctiva clear Nose: unremarkable, normal pink mucosa, no swelling Throat: clear,no erythema or exudate Mouth: unremarkable, moist mucus membranes Ears: unremarkable,ear can als unremarkable, no gross hearing deficits NECK General: supple Thyroid: unremarkable Cervical lymph nodes: unremarkable Carotid bruit: none JVD: none EXTREMITIES Edema: none Cyanosis: no Clubbing: no BACK Spine: unremarkable, no tenderness ROM: FROM without pain HEART PMI: normal Rhythm: regular Murmurs: none Heart sounds: normal S1S2 Rate: regular ABDOMEN General: soft Tenderness: none Liver, Spleen: not palpable Bowel sounds: normoactive Distention: none NEUROLOGICAL Sensory: normal sensation Motor: normal strength bila terally Reflexes: 2+ bilaterally and s ymmetric Gait: normal MUSCULOSKELETAL General Apperance: no joint swel ling, no tenderness, no redness, muscle tone normal, muscle mass normal SKIN General: no rash or skin lesions, no nodules, petechiae, purpura on inspection and palpation GENERAL General Appearance: well-appeari ng, no acute distress, well-developed, well nourished Mental Status: alert and oriented x 3 LYMPH NODES Cervical: none Axillary: none LUNGS Auscultation: CTA bilaterally,no wheezing /rhonchi/rales
--- OUTSIDE RECORDS SUMMARY | 2024-04-30 14:01 | XMS_ITS | Clinical Summary ---
Author Organization [facility] Chris carlson Rosalinda Address [address] [place] [address] Care Team Providers Care Coder Name Role Phone Unavailable Primary Care Provider Unavailabl e Allergies No known active allergies Medications albuterol sulfate HFA 90 mcg/actuation aerosol inhaler 2 Puffs by See Admin Instructions route see administration instructions. Active amLODIPine (NORVASC) 5 mg tablet Take 10 mg by mouth daily. 2 Active aspirin (ECOTRIN EC) 81 mg Tablet, Delayed Release (E.C.) Take 81 mg by mouth daily. Active carvediloL (COREG) 6.25 mg tablet Take 6.25 mg by mouth every 12 hours. Active ferrous sulfate 325 mg (65 mg iron) tablet Take 325 mg by mouth daily with breakfast. Active finasteride (PROSCAR) 5 mg tablet Take 5 mg by mouth daily. Active furosemide (LASIX) 20 mg tablet Take 20 mg by mouth daily. 5 Active hydrALAZINE (APRESOLINE) 100 mg Tablet tablet Take 100 mg by mouth every 8 hours. Active hydroCHLOROthi azide 25 mg tablet Take 25 mg by mouth daily. 2 Active losartan (COZAAR) 50 mg tablet Take 100 mg by mouth daily. 2 Active Vit B Comp & C-Vit E-FA-Mere-Zn 0.4 mg Tablet Take by mouth daily. Active pravastatin (PRAVACHOL) 40 mg tablet Take 40 mg by mouth daily. Active tamsulosin (FLOMAX) 0.4 mg capsule Take 2 Capsules by mouth daily. 5 Active Active Problems No known active problems Encounters Date Type Department Care Team Description 04/30/2024 10:30 AM CDT Office Visit [facility] - [place] [place] [address] Desean De MD Chronic anemia (Primary Dx) from Last 3 Months Family History Medical History Relation Name Comments Lung Cancer Brother Heart Disease Father Heart Disease Mother Kidney Cancer Sister 1 Lymphoma Sister 1 Thyroid Cancer Sister 1 No Known Problems Sister 2 Relation Name Status Comments Brother Alive Father Mother Sister 1 Alive Sister 2 Alive Social History Tobacco Use Types Packs/Day Years Used Date Smoking Tobacco: Never Smokeless Tobacco: Never Alcohol Use Standard Drinks/Week Comments Yes 0 (1 standard drink = 0.6 oz pur e alcohol) Occasionally Sex and Gender Information Value Date Recorded Sex Assigned at Not on file 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 Gender Identity Not on file Sexual Orientation Not on file Last Filed Vital Signs Vital Sign Reading [...] Mass Index 27.91 04/30/2024 10:46 AM CDT Plan of Treatment Upcoming Encounters Date Type Department Care Team (Late st Contact Info) Description 05/08/2024 4:00 PM CDT Telephone Check Up [facility] - [place] [address] [place] [address] Desean De MD [address] [facility] [address] [place] [address] Health Maintenance Due Date Last Done Comments DIABETES ANNUAL FOOT EXAM 1960 DIABETES ANNUAL RETINAL EXAM 1960 DIABETES HBA1C Q 6 MONTHS 1960 DIABETES MICROALBUMIN ANNUAL SCREEN 1960 LDL CHOLESTEROL ANNUAL 1960 DTAP/TDAP/TD VACCINES (1 - Tdap) 1961 Traditional Medicare (ACO) Annual Wellness Visit 08/18 ZOSTER VACCINE (1 of 2) 1992 RSV VACCINE (60+ or ) (1 - 1-dose 75+ series) 2017 PNEUMOCOCCAL VACCINE 50+ YEARS (2 of 2 - PPSV23) 12/1010/15/2017 INFLUENZA VACCINE (#1) 2023 11/20/2020 Insurance MEDICARE PART A AND B
--- OUTSIDE RECORDS SUMMARY | 2024-04-30 14:01 | XMS_ITS | Clinical Summary ---
Author Organization [facility] Address [facility] [address] [place] [address] Care Team Providers Care Meeting Coordinator Name Role Phone Unavailable Primary Care Provider Unavailabl e Social History Tobacco Use Types Packs/Day Years Used Date Smoking Tobacco: Never Assessed Sex and Gender Information Value Date Recorded Sex Assigned at Not on file Legal Sex Male 1:23 PM CDT Gender Identity Not on file Sexual Orientation Not on file Plan of Treatment Health Maintenance Due Date Last Done Comments DTaP, Tdap and Td Vaccines ( 1 - Tdap) 1961 Zoster Vaccines (1 of 2) 1992 Annual Medicare Wellness Visit 08/19/2007 Pneumococcal Vaccine: 65+ Ye ars (1 of 1 - PCV) 08/19/2007 RSV Immunization or 60+ Years (1 - 1-dose 75+ series) 2017 COVID-19 Vaccine (2023-2 5 season) 2023 Influenza Adult (#1) 2023 Meningococcal B Vaccine Aged Out No l onger eligible based on patient's age to complete this topic Meningococcal Vaccine Aged Out No rosa hank eligible based on patient's age to complete this topic RSV Immunizations Under 20 Months Aged Out No longer eligible based on patient's age to complete this topic Insurance MEDICARE [facility]
--- OUTSIDE RECORDS SUMMARY | 2024-04-30 14:02 | XMS_ITS | Patient Health Record ---
Author Organization [facility] Address [address] [place], [place] [address] Care Team Providers Care Medical Research Scientist Name Role Phone Cristi Beth Primary Care Provider Unavailab ISAIAS Chew Unavailable [phone] ALLERGIES No Known Allergies REASON FOR REFERRAL No Information MEDICATIONS Medication SIG (Take, Route, Frequency, Duration) Notes Start Date End Date Status predniSONE 20 MG 1 tablet Orally Once a day Active Albuterol Sulfate HFA 108 (90 Base) MCG/ACT 1 puff as needed Inhalation every 4 hrs Active Torsemide 20 MG as directed Orally Active amLODIPine Besylate 10 MG 1 tablet Orally Once a day Active hydrALAZINE HCl 100 MG 1 tablet with aravind d Orally Twice a day Active Levemir FlexPen 100 UNIT/ML as directed Subcutaneous Act adan Fluticasone Furoate-Vilanterol 100-25 MCG/INH 1 puff Inhalation Once a day Active Finasteride 5 MG 1 tablet Orally Once a day Active Amoxicillin-Pot Clavulanate 875-125 MG 1 tablet Orally every 12 hrs Active Multivitamin - 1 tablet Orally Once a day Active Folic Acid-Vit B6-Vit B12 0.8-50-0.1 MG as directed Orally Active Aspirin 81 81 MG 1 tablet Orally Once a day Active Ferrous Sulfate 325 MG as directed Orally Active Carvedilol 6.25 MG 1 tablet with food O rally Twice a day Active IMMUNIZATIONS Vaccine Route Administration Date Status [...] W/U Status Risk SNOMED Code Notes Problem 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) Active confirmed Anemia in chron ic kidney disease (125215780) Problem 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 Diabetic renal disease (288825316) Problem Hypertensive chronic kidney disease with stage 1 through stage 4 chronic kidney disease, or unspecified chronic kidney disease (I12.9) Active confirmed Chronic kidn ey disease due to hypertension (304373518014148) Problem Atherosclerotic heart disease of [place] coronary artery without angina pectoris (I25.10) Active confirmed Atherosclerotic heart disease of [place] coronary artery without angina pectoris (365375326929721) Problem Chronic kidney disease, stage 4 (severe) (N18.4) Active confirmed Chronic kid cam[place] disease stage 4 (517155779) Problem Essential hypertension (I10) Active confirmed Essential hypertension (42988724) PLAN OF TREATMENT No Information Insurance Providers Payer Name Payer Address Payer Phone Subscriber Number Group Number Insured Name Patient Relationship to Insured Coverage Start Date Coverage End Date Medicare [address] [place] [phone] [id number] Zach Kasper Self - patient is the insured [facility] Insurance [place] [address] [place] [id number] Zach Kasper Self - patient is the insured MEDICAL (GENERAL) HISTORY Medical History History ICD Code Hypertension Hypercholesterolemia COPD Surgical History Surgery Date(Month/Year) cholecystectomy Knee surgery
--- OUTSIDE RECORDS SUMMARY | 2024-04-30 14:02 | XMS_ITS | Clinical Summary ---
Author Organization [facility] Address [address] [place] [address] Phone Care Team Providers Care Clinical Research Scientist Name Role Phone Kermit Otero MD Primary Care Provider [phone] Allergies No known active allergies Medications Medication Sig Dispensed Refills Start Date End Date Status cilostazol (PLETAL) 50 MG tablet Take 50 mg by mouth 2 (two) times a day 06/17/2020 Active finasteride (PROSCAR) 5 MG tablet 06/09/2020 Active NovoLOG FLEXPEN 100 UNIT/ML injection INJECT 10 UNITS SUBCUTAENOUSLY WITH EACH MEAL THREE TIMES A DAY 05/08/2020 Active Lantus SoloStar 100 UNIT/ML injection 06/27/2020 Active tamsulosin (FLOMAX) 0.4 MG 24 hr capsule 07/02/2020 Active ferrous sulfate 325 (65 Fe) MG tablet Take 325 mg by mouth 1 (one) time each day with breakfast Active aspirin 81 MG chewable tablet Chew 81 mg 1 (one) time each day Active Multiple Vitamin (multivitamin) capsule Take 1 capsule by mouth 1 (one) time each day Active furosemide (LASIX) 20 MG tablet Take 20 mg by mouth 1 (one) time each day 11/13/2020 Active albuterol HFA (PROVENTIL HFA) 108 (90 Base) MCG/ACT inhaler INHALE 1 TO 2 PUFFS BY MOUTH EVERY 4 TO 6 HOURS NEEDED 11/06/2020 Active amLODIPine (NORVASC) 5 MG tablet Take 5 mg by mouth 1 (one) time each day 09/04/2021 Active hydrALAZINE (APRESOLINE) 25 MG tablet TAKE 3 TABLETS BY MOUTH EVERY 8 HOURS 07/20/2021 Active hydroCHLOROthiazid e (HYDRODIURIL) 25 MG tablet TAKE 2 TABLETS BY MOUTH IN THE MORNING 07/20/2021 Active losartan (COZAAR) 50 MG tablet Take 50 mg by mouth 1 (one) time each day in the morning 07/20/2021 Active pravastatin (PRAVACHOL) 40 MG tablet Take 40 mg by mouth 1 (one) time each day 09/02/2021 Active carvedilol (COREG) 3.125 MG tablet Take 3.125 mg by mouth 2 (two) times a day with meals 07/20/2021 Active Active Problems Problem Noted Date Diagnosed Date Thrombocytopenia 11/20/2020 Stage 3b chronic kidney disease 07/16/2020 Systolic hypertension 07/16/2020 Type 2 diabetes mellitus wit h diabetic chronic kidney disease 07/16/2020 Other and unspecified hyperlipidemia 07/16/2020 Chronic kidney disease, Stage IV (severe) 2020 Immunizations Name Administration Dates Next Due Influenza TIV (IM) 11/20/2020 Pneumococcal Conjugate 13-Valent 10/15/2017 Family History Medical History Relation Comments Kidney disease Neg Hx Social History Tobacco Use Types Packs/Day Years Used Date Smoking Tobacco: Former Smokeless Tobacco: Never Alcohol Use Standard Drinks/Week Comments Yes 0 (1 standard drink = 0.6 oz pur e alcohol) rare Sex and Gender Information Value Date Recorded Sex Assigned at Not on file Gender Identity Not on file Sexual Orientation Not on file Last Filed Vital Signs Vital Sign Reading Time Taken Comments Blood Pressure 126/70 10/21/2021 9:07 AM CDT Pulse 72 10/21/2021 9:07 AM CDT Temperature 36.1 C (96.9 F) 10/21/2021 9:07 AM CDT Respiratory Rate - - Oxygen Saturation - - Inhaled Oxygen Concentration - - Weight 104 kg (230 lb) 10/21/2021 9:07 AM CDT Height 190.5 cm (6' 3 ) 10/21/2021 9:07 AM CDT Body Mass Index 28.75 10/21/2021 9:07 AM CDT Plan of Treatment Health Maintenance Due Date Last Done Comments Diabetic Foot Exam 1950 Ophthalmology Exam 1950 Pneumococcal PPSV23/PCV13 65 + Years / High and Highest Risk (2 of 4 - PPSV23 or PCV20) 12/10/2017 10/15/2017 Influenza Vaccine (#1) 2023 11/20/2020 Care Teams Clinical Research Scientist Relationship Specialty Start Date End Date Kermit Otero MD [address] [place] [address] PCP - General Internal Medicine 06/10/20
[2024-05-01 09:27] LABS: Protein, Total 5.9 g/dL (6.1-8.1)
[2024-05-02 07:43] LABS: Abnormal Protein Band 1 0.2 g/dL (NONE DETECTED); Albumin 3.7 g/dL (3.8-4.8); Alpha 1 Globulin 0.3 g/dL (0.2-0.3); Alpha 2 Globulin 0.6 g/dL (0.5-0.9); Beta 1 Globulin 0.3 g/dL (0.4-0.6); Gamma Globulin 0.8 g/dL (0.8-1.7)
[2024-05-02 14:14] LABS: Erythropoietin (EPO) 14.6 mIU/mL (2.6-18.5)
[2024-05-02 15:49] LABS: Methylmalonic Acid 271 nmol/L (85-423)
[2024-05-03 13:38] LABS: Soluble Transferrin Receptor 1.01 mg/L (0.76-1.76)
== END 2024-04-30 11:25 | disposition home or self-care (01) ==
LOC: ANHLAB 11:25
PROVIDERS: PCP Internal Medicine; Visit Provider Internal Medicine Hematology & Oncology
DX: D64.9 Anemia, unspecified (principal)
CPT/HCPCS: 36415; 80053; 82607; 82668; 82728; 82746; 83540; 83550; 83615; 83921; 84155; 84165; 84238; 85025

== ENCOUNTER 2024-05-17 07:36 | Outpatient (CLI) | payer MEDICARE, SELFPAY ==
--- OUTSIDE RECORDS SUMMARY | 2024-05-17 07:40 | XMS_ITS | Clinical Summary ---
Author Organization [facility] Chris carlson Rosalinda Address [address] [place] [address] Care Team Providers Care Hot Dip Tinning Supervisor Name Role Phone Unavailable Primary Care Provider [...] Encounters Date Type Department Care Team Description 05/15/[address] [facility] and H[facility]ology - [place] [address] [place] [address] Desean De MD Chronic anemia (Primary Dx) 05/08/2024 4:00 PM CDT Telephone Check Up [facility] [address] [place] [address] Desean De MD Chronic anemia (Primary Dx); Anemia in stage 4 chronic kidney disease (CMS/HCC) 05/07/[address] [facility] [address] [place] [address] Desean De MD 05/02/2024 External Device Data STL ABSTRACTION Provider, Abstract 05/02/2024 External Device Data STL ABSTRACTION Provider, Abstract 05/02/[address] [facility] [address] [place] [address] Desean De MD 05/01/2024 External Device Data STL ABSTRACTION Provider, Abstract 04/30/2024 10:30 AM CDT Office Visit [facility] [address] [place] [address] Desean De MD Chronic anemia (Primary Dx) [...] on file Legal Sex Male 1:21 PM SWIMMER Gender Identity Not on file Sexual Orientation [...] Care Team (Late st Contact Info) Description 11/09/2024 11:45 AM CDT Office [facility]ology - [place] [address] [facility] [address] [place] [address] Desean De MD [address] [facility] [address] [place] [address] Health Maintenance Due Date Last [...] PPSV23) 12/1010/15/2017 INFLUENZA VACCINE (#1) 2023 11/20/2020 Procedures Procedure Name Priority Date/Time Associated Diagnosis Comments COMPREHENSIVE METABOLIC PANEL Routine 04/30/2024 4:11 PM CDT METHYLMALONIC ACID Routine 04/30/2024 11 :18 AM CDT from Last 3 Months Results * COMPREHENSIVE METABOLIC PANEL (04/30/2024 4:11 PM CDT) Blood us Desean De MD CHEMISTRY ORDERABLES Final Resu lt * METHYLMALONIC ACID (04/30/2024 11:18 AM CDT) Blood [facility] Gabrielle De MD CHEMISTRY ORDERABLES Final Resu lt from Last 3 Months Insurance MEDICARE PART A AND B
--- OUTSIDE RECORDS SUMMARY | 2024-05-17 07:40 | XMS_ITS ---
Author Organization [facility] Address [address] [place], [place] [id number] Care Team Providers Care Pocket Maker Name Role Phone Cristi Beth Primary Care Provider Unavailab FITO Chew Unavailable [phone] ALLERGIES No Known Allergies REASON FOR VISIT [...] confirmed Chronic kid camden disease stage 4 (627221230) Problem 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) Active confirmed Anemia in chron ic kidney disease (547839519) Problem Hypertensive chronic kidney disease with stage 1 through stage 4 chronic kidney disease, or unspecified chronic kidney disease (I12.9) Active confirmed Chronic kidn ey disease due to hypertension (745594048646402) Problem Atherosclerotic heart disease of [place] coronary artery without angina pectoris (I25.10) Active confirmed Atherosclerotic heart disease of [place] coronary artery without angina pectoris (712537977891192) VITAL SIGNS Weight 233 lbs 03/01/2023 Blood pressure systolic 154 mm Hg 03/01/19 24 Blood pressure diastolic 60 mm Hg 024 Height 74 in 03/01/2023 BMI 29.91 kg/m2 03/01/2023 Encounters Encounter Location Date Provider Diagnosis [facility] [employer] [place], [place] [id number] 03/01/2023 FITO MCKENZIE Chronic kidney disea se, stage 4 (severe) N18.4 ; Anemia in chronic kidney disease D63.1 ; Hypertensive chronic kidney disease with stage 1 through stage 4 chronic kidney disease, or unspecified chronic kidney disease I12.9 and Atherosclerotic heart disease of [place] coronary artery without angina pectoris I25.10 ASSESSMENTS [...] been discussed 03/01/2023 Atherosclerotic heart disease of [place] coronary artery without angina pectoris (ICD-10 - [...] been discussed Atherosclerotic heart diseas e of [place] coronary artery without angina pectoris Patient with a long-standing history of coronary artery disease and does follow-up with cardiology Next Appt Details Follow Up: prn, Reason: Progress Notes * Zach FONSECA GDOB:[birth year] (82 yo M)Acc No.[id number]:03/01/2023 progress note Patient: Zach FONSECA Provider: Fito Mckenzie MD :1940 Age:82 Y Sex:Male Date:03/01/2023 Address:[address] [place] [address] [address] [place] [address] Pcp:Cristi Beth Subjective: * Chief Complaints: * [...] as an outpatient. Patient follows up with surface lay out technician. Patient states he has felt well since [...] - I12.9 4. Atherosclerotic heart disease of [place] coronary artery without angina pectoris - I25.10 [...] been discussed 4. Atherosclerotic heart disease of [place] coronary artery without angina pectoris Notes: Patient [...] * Follow Up: prn * Images: * RANCE POLICY CLERK Sign off status: Completed true * Provider: [...] as an outpatient. Patient follows up with surface lay out technician. Patient states he has felt well since [...]
--- OUTSIDE RECORDS SUMMARY | 2024-05-17 07:40 | XMS_ITS | Clinical Summary ---
Author Organization [facility] Address Count includes the [facility] [place] [address] Care Team Providers Care Metal Polisher Name Role Phone Unavailable Primary Care Provider [...] - 1-dose 75+ series) 2017 COVID-19 Vaccine ( - 2023-2 5 season) 2023 Meningococcal B Vaccine Aged Out No l onger eligible based on patient's age to complete this topic Meningococcal Vaccine Aged Out No rosa hank eligible based on patient's age to complete this topic RSV Immunizations Under 20 Months Aged Out No longer eligible based on patient's age to complete this topic Insurance MEDICARE Network [employer] Address: [facility] [address] [place] [address] [facility]
--- OUTSIDE RECORDS SUMMARY | 2024-05-17 07:40 | XMS_ITS | Clinical Summary ---
Author Organization [facility] Address [address] [place] [address] Phone Care Team Providers Care Material Handling Technician Name Role Phone Kermit Otero MD Primary Care Provider [phone] Allergies No known active allergies Medications Medication [...] Influenza Vaccine (#1) 2023 11/20/2020 Care Teams Material Handling Technician Relationship Specialty Start Date End Date Kermit Otero MD [address] [place] [address] PCP - General Internal Medicine 06/10/20
--- OUTSIDE RECORDS SUMMARY | 2024-05-17 07:40 | XMS_ITS | Patient Health Record ---
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 Diabetic renal disease (213849474) Problem Hypertensive chronic kidney disease with stage 1 through stage 4 chronic kidney disease, or unspecified chronic kidney disease (I12.9) Active confirmed Chronic kidn ey disease due to hypertension (909203437052154) Problem Atherosclerotic heart disease of [place] coronary artery without angina pectoris (I25.10) Active confirmed Atherosclerotic heart disease of [place] coronary artery without angina pectoris (855445097453793) Problem Chronic kidney disease, stage 4 (severe) (N18.4) Active confirmed Chronic kid cam[place] disease stage 4 (566360756) Problem Essential hypertension (I10) Active confirmed Essential hypertension (03620391) PLAN OF TREATMENT No Information Insurance Providers Payer Name Payer Address Payer Phone Subscriber Number Group Number Insured Name Patient Relationship to Insured Coverage Start Date Coverage End Date Medicare [address] [place] [phone] [id number] Zach Kasper Self - patient is the insured [facility] Insurance [place] [address] [place] [id number] Zach Kasper Self - patient is the insured MEDICAL (GENERAL) HISTORY Medical History History ICD Code Hypertension Hypercholesterolemia COPD Surgical History Surgery Date(Month/Year) cholecystectomy Knee surgery
--- OUTSIDE RECORDS SUMMARY | 2024-05-17 07:40 | XMS_ITS | Data Portability ---
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 He fairly symptomatic and has failed conservative treatment today. He is to the point where he would like to consider surgical intervention. I discussed this with him risks, benefits, limitations, and alternatives. Unfortunately he has had this for years and I told him not everybody gets complete relief and sometimes relieved results to bed along upon how much it is compressed and how long it has been compressed so he knows is a chance he will get a relief. We will proceed per his request discussed risks benefits limitations and alternatives in detail. sol Not available 08/12/2022 10:59:46 Plan of Treatment Reminders Order Date Submit Date Provider Last Modified By Organization Details Last Modified Time Details Appointments None recorded. Lab BMP, serum or plasma - Please fax results to DX hypertensio n 2022 023 GISELLE In-Office Order, Internal Use Only DO Not Attach Compendium DO Not Attach Compendium, Do Not Delete/merge, [id number] 09:41:25 Referral None recorded. Procedures None recorded. Surgeries None recorded. Imaging electrocard iogram - Please fax results to [phone] 4 DX hypertensio n 2022 023 [email or web address] In-Office Order, Internal Use Only DO Not Attach Compendium DO Not Attach Compendium, Do Not Delete/merge, [id number] 11:12:27 XR, hand 2022 023 [email or web address] [facility], [address], [place], [address], 3 10:52:13 Medication Orders None recorded. Patient TargetsNo targets recorded. Patient InstructionsNo instructions recorded. Reason for Referral None Reported. Results Created Date Observation Date Name Description Value Unit Range Abnormal Flag Note LastModifiedBy Organization Detail LastModifiedTime 08/06/1907/27/2022 elect romyo gram + nerve condu ction study No observ ation record ed. [email or web address] Not Available 2022 14:57:51 08/11/19 XR, hand No observ ation record ed. [email or web address] [facility] [address], [place], [address], 08/10/2022 10:52:12 09/07/19 23 09/06/2022 elect rocar diogr am No observ ation record ed. [email or web address] ([facility]) [address] [place] [address], [address], 09/06/2022 11:12:13 Result Notes None recorded. Problems Name Problem SNOMED Code Status Onset Date Resolution Date Notes Provider Name and Address Organization Details Recorded Time Pain of left hand 3959849970676 03 Active 2022 ODILIA Church, [employer] [facility] [facility] [employer] 3 09:51:02 Carpal tunnel syndrome of left wrist 7963824616310 02 Active 2022 Lui Ordoñez MD [address], [place] [address], [place], [address] , [place] [facility] [facility] [employer] 3 10:51:18 Ulnar nerve entrapment at elbow 375720020 Active 2022 Lui Ordoñez MD [address], [facility] [address], [place], [address], [facility] [employer] [facility] 10:51:30 Problem Notes None recorded. Procedures Surgical History Date Name Laterality Status Provider Name and Address Organization Details Recorded Time procedure on gallbladder completed Destiny Rice ANNAKushal [facility] [employer] [facility] 08/10/2022 09:49:24 procedure on lower leg completed Destiny Rice Kushal [facility] [employer] [facility] 08/10/2022 09:49:34 Imaging Results Imaging Date Name Status LastModified by Organization Details LastModified Time 07/27/2022 electromyogram + nerve conduction study completed [email or web address] Information not available 08/05/2022 14:57:51 08/10/2022 XR, hand completed [email or web address] [facility] [address], [place], [address], 08/10/2022 10:52:12 09/06/2022 electrocardiogram completed [email or web address] [facility] (Cardiopulmonar y Services) [address] [place], [address], 09/06/2022 11:12:13 Procedure Notes None recorded. Medical Equipment None Reported. Allergies No known drug allergies Medications Name Sig Start Date Stop Date Status Note LastModified by Organization Details LastModified Time carvedilol 6.25 mg tablet TAKE 1 TABLET BY MOUTH EVERY 12 HOURS WITH MEAL/FOOD active Not Available Not Available No t Available pravastatin 40 mg tablet TAKE 1 TABLET BY MOUTH EVERY DAY active Not Available Not Available No t Available hydrochlorot hiazide 50 mg tablet TAKE 1 TABLET BY MOUTH IN THE MORNING active Not Available Not Available Not Available hydralazine 25 mg tablet TAKE 3 TABLET BY MOUTH 3 TIMES PER DAY WITH FOOD active Not Available Not Available No t Available amlodipine 5 mg tablet TAKE 1 TABLET BY MOUTH EVERY DAY active Not Available Not Available No t Available ciprofloxaci n 500 mg tablet TAKE 1 TABLET BY MOUTH EVERY 12 HOURS active Not Available Not Available No t Available carvedilol 3.125 mg tablet TAKE 1 TABLET BY MOUTH TWICE A DAY WITH FOOD active Not Available Not Available No t Available tamsulosin 0.4 mg capsule TAKE 2 CAPSULES BY MOUTH EVERY DAY active Not Available Not Available No t Available mupirocin 2 % topical ointment APPLY TO AFFECTED AREA 3 TIMES A DAY active Not Available Not Available Not Available furosemide 20 mg tablet TAKE 1 TABLET BY MOUTH EVERY DAY DIRECTED active Not Available Not Available No t Available gabapentin 100 mg capsule TAKE 1 CAPSULE BY MOUTH EVERY DAY active Not Available Not Available No t Available losartan 100 mg tablet TAKE 1 TABLET BY MOUTH EVERY DAY active Not Available Not Available No t Available finasteride 5 mg tablet TAKE 1 TABLET BY MOUTH EVERY DAY active Not Available Not Available No t Available amoxicillin 500 mg-potassium clavulanate 125 mg tablet TAKE 1 TABLET BY MOUTH EVERY 12 HOURS active Not Available Not Available No t Available Novolog FlexPen U-100 Insulin aspart 100 unit/mL (3 mL) subcutaneous INJECT 10 UNITS SUBCUTAENOU SLY WITH EACH MEAL THREE TIMES A DAY active Not Available Not Available No t Available Levemir FlexTouch U-100 Insulin 100 unit/mL (3 mL) subcutaneous pen INJECT 50 UNITS BY SUBCUTANEOU S ROUTE EVERY DAY AT SUPPER active Not Available Not Available No t Available Tresiba FlexTouch U-100 insulin 100 unit/mL (3 mL) subcutaneous pen INJECT 50 UNITS BY SUBCUTANEOU S ROUTE AT SUPPER active Not Available Not Available No t Available FreeStyle Jesus 2 Sensor kit USE DIRECTED. 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 None [email or web address] Information not available 08/10/2022 Sex: Unknown Functional Status None recorded. Mental Status None recorded. Family History Relationship Description Onset Age of this Age Resolved Age Notes LastModified by Organization Details LastModified Time Father Heart disease [email or web address] Not available 2022 09:48:34 Mother Heart disease [email or web address] Not available 2022 09:48:34 Mother Hypertensive disorder [email or web address] Not available 2022 09:49:00 Maternal Grandmother Family history of malignant neoplasm [email or web address] Not available 2022 09:48:46 Medical History Condition Response ARTHRITIS Y DIABETES, TYPE Y CANCER: SPECIFY Y Past Encounters Encounter ID Performer Location Encounter Start Date Encounter Closed Date Diagnosis/Indication Diagnosis SNOMED-CT Code Diagnosis ICD10 Code Diagnosis Note [id number] Lui Ordoñez MD [facility] [address] [place] [address] 08/10/2022 09:21:33 08/10/2022 10:10:46 Pain of left hand 3837062655 25416 M79.642 Carpal arturo leonardo syndrome of left wrist 5682215279 94216 G56.02 patient has weakness of his thenar muscles positive EMG and with the weakness and atrophy of the muscles he is not a candidate for conservati ve treatment he should just go straight to surgical decompress ion I will set him up with Dr. Harmon for surgery of the carpal and cubital tunnel on the left Ulnar nerv e entrapment at elbow 245987096 G56.22 patient has significan t atrophy of the ulnar intrinsics he needs an ulnar nerve decompress ion I will set him up to see Dr. Harmon for surgery [id number] Mario Harmon MD [facility] 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 8094852704 33194 G56.02 Pain of left hand 323925 4401 80581 M79.642 Pre-surger y evaluation 209986070 Z01.818 Health Concerns Section Related Observation LastModified by Organization Ritika astorga LastModified Time None Recorded Concern Status LastModified by Organization Details LastModified Time None Recorded Advance Directives Directive None Recorded Payers Encounter Date Sequence Insurance Name Policy Number Policy Martell Covered Member ID Martell Member ID Guarantor Name 08/10/2022 1 [place] Zach Kasper [id number] Zach Kasper 08/10/2022 2 [employer] [place] [employer] (MEDICARE SUPPLEMENT) Zach Kasper [id number] Zach Kasper 08/12/2022 1 [place] Zach Kasper [id number] Zach Kasper 08/12/2022 2 [employer] [place] (MEDICARE SUPPLEMENT) Zach Kasper [id number] Zach Kasper Notes Date Note Type Note Provider Name and Address Organization Details Recorded Time 08/10/2022 text/html patient is referred in today for severe carpal and cubital tunnel symptoms with numbness and weakness of his left hand just starting to have similar symptoms in the right hand but not advanced. Patient started B6 which has helped some. Patient has been having the symptoms now for probably a year or more had a nerve conduction study showing carpal tunnel syndrome showed decreased motor unit potentials in the left hand as well Lui Ordoñez MD [address], [place] [address], [place], [address], [employer] 08/10/2022 10:52:40 08/12/2022 text/html Patient returns left elbow and hand pain. He has carpal and cubital tunnel. He was sent over by Dr. Ordoñez for surgical treatment is Dr. Qureshi is leaving the practice. Mario Harmon MD [address], [facility] [address], [place], [address], [employer] 08/12/2022 11:00:06
[2024-05-17 07:52] LABS: Hematocrit 28.7 % (37.0-46.0); Hemoglobin 8.8 g/dL (12.4-15.3); Mean Corpuscular HGB Conc 30.7 g/dL (32-36); Mean Corpuscular Hemoglobin 31.2 pg (27.0-31.0); Mean Corpuscular Volume 101.8 fL (78.0-102.0); Mean Platelet Volume 10.3 fl (8.7-11.0); Platelet Count Result 129 K/mm3 (150-420); Red Blood Count 2.82 M/mm3 (4.70-6.10); Red Cell Distribution Width 13.5 % (11.6-14.4); White Blood Count 4.9 K/mm3 (4.8-10.8)
[2024-05-17 08:01] LABS: Creatinine Urine 79.61 mg/dL (40-278); Total Protein Urine Random 74.7 mg/dL (0.0-11.9); Ur Ttl Prot Creatinine Ratio 0.94 mg/mg (0-0.20)
[2024-05-17 08:16] LABS: Albumin Level 3.8 g/dL (3.4-5.0); Anion Gap 12 mmol/L (4-12); Blood Urea Nitrogen 91 mg/dL (7-18); Calcium 9.3 mg/dL (8.5-10.1); Carbon Dioxide 22 mmol/L (21-32); Chloride 115 mmol/L (98-108); Estimated Glomerular Filt Rate 14; Glucose 77 mg/dL (70-99); Osmolality Calculated 335 mOsm/kg (285-295); Phosphorus 5.2 mg/dL (2.6-4.7); Potassium 5.4 mmol/L (3.5-5.1); Sodium 149 mmol/L (136-145)
[2024-05-18 14:03] LABS: Parathyroid Intact 85 pg/mL (16-77)
[2024-05-19 01:33] LABS: Vitamin D 25 Hydroxy 53 ng/mL (30-100)
== END 2024-05-17 07:37 | disposition home or self-care (01) ==
LOC: CHSLAB 07:38
PROVIDERS: PCP Internal Medicine; Visit Provider Internal Medicine Nephrology
DX: E21.1 Secondary hyperparathyroidism, not elsewhere classified (principal); N18.4 Chronic kidney disease, stage 4 (severe); R60.0 Localized edema
CPT/HCPCS: 36415; 80069; 82306; 82570; 83970; 84156; 85027

== ENCOUNTER 2024-07-12 07:21 | Outpatient (CLI) | payer MEDICARE, SELFPAY ==
--- OUTSIDE RECORDS SUMMARY | 2024-07-12 07:29 | XMS_ITS | Data Portability ---
Author Organization [place] - [facility] [employer], Main Office Address [address] [place] [address] Care Team Providers Care Multi Media Specialist Name Role Phone AYDIN CEJA Primary Care [...] DO Not Attach Compendium, Do Not Delete/merge, 26662 09:41:25 Referral None recorded. Procedures None recorded. Surgeries None recorded. Imaging electrocard iogram - Please fax results to DX hypertensio n 2022 023 [email or web address] In-Office Order, Internal Use Only DO Not Attach Compendium DO Not Attach Compendium, Do Not Delete/merge, [id number] 11:12:27 XR, hand 2022 023 [email or web address] [facility], [address], [place], [address], 3 10:52:13 Medication Orders None recorded. Patient TargetsNo targets recorded. Patient InstructionsNo instructions recorded. Reason for Referral None Reported. Results Created Date Observation Date Name Description Value Unit Range Abnormal Flag Note LastModifiedBy Organization Detail LastModifiedTime 08/06/1907/27/2022 elect romyo gram + nerve condu ction study No observ ation record ed. [email or web address] Not Available 2022 14:57:51 08/11/19 XR, hand No observ ation record ed. [email or web address] [facility] [address], [place], [address], 08/10/2022 10:52:12 09/07/19 23 09/06/2022 elect rocar diogr am No observ ation record ed. [email or web address] ([facility]) [address] [place] [address], [address], 09/06/2022 11:12:13 Result Notes None recorded. Problems Name Problem SNOMED Code Status Onset Date Resolution Date Notes Provider Name and Address Organization Details Recorded Time Pain of left hand 0381253490444 03 Active 2022 ODILIA Church, [employer] [facility] [employer] [facility] [employer] 3 09:51:02 Carpal tunnel syndrome of left wrist 9495628851208 02 Active 2022 Lui Ordoñez MD [address], [place] [address], [place], [address] , [place] [facility] [employer] [facility] [employer] 3 10:51:18 Ulnar nerve entrapment at elbow 710070650 Active 2022 Lui Ordoñez MD [address], [address], [place], [address], [facility] [employer] [facility] 10:51:30 Problem Notes None recorded. Procedures Surgical History Date Name Laterality Status Provider Name and Address Organization Details Recorded Time procedure on gallbladder completed DOILIA Church [facility] [employer] [facility] 08/10/2022 09:49:24 procedure on lower leg completed Destiny Rice [facility] [employer] [facility] 08/10/2022 09:49:34 Imaging Results None recorded. Procedure Notes None recorded. 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 Functional Status Question Answer Note LastModified by Organization D etails LastModified Time What is your level of alcohol consumption? None [email or web address] Information not available 08/10/2022 Mental Status None recorded. Family History Relationship Description Onset Age of this Age Resolved Age Notes LastModified by Organization Details LastModified Time Father Heart disease [email or web address] Not available 2022 09:48:34 Mother Heart disease Not available 2022 09:48:34 Mother Hypertensive disorder [email or web address] Not available 2022 09:49:00 Maternal Grandmother Family history of malignant neoplasm [email or web address] Not available 2022 09:48:46 Medical History Condition Response ARTHRITIS Y DIABETES, TYPE Y CANCER: SPECIFY Y Past Encounters Encounter ID Performer Location Encounter Start Date Encounter Closed Date Diagnosis/Indication Diagnosis SNOMED-CT Code Diagnosis ICD10 Code Diagnosis Note [id number] Lui Ordoñez MD [facility] [place] [address] [place] [address] 08/10/2022 09:21:33 08/10/2022 10:10:46 Pain of left hand 0425032992 27878 M79.642 Carpal arturo leonardo syndrome of left wrist 7077585384 92393 G56.02 patient has weakness of his thenar muscles positive EMG and with the weakness and atrophy of the muscles he is not a candidate for conservati ve treatment he should just go straight to surgical decompress ion I will set him up with Dr. Harmon for surgery of the carpal and cubital tunnel on the left Ulnar nerv e entrapment at elbow 329777607 G56.22 patient has significan t atrophy of the ulnar intrinsics he needs an ulnar nerve decompress ion I will set him up to see Dr. Harmon for surgery [id number] Mario Harmon MD [facility] [place] [address] [facility] [address] [place] [address] 08/12/2022 08:52:55 08/12/2022 11:31:10 Ulnar nerve entrapment at elbow 423886612 G56.22 Carpal arturo leonardo syndrome of left wrist 3840396594 42140 G56.02 Pain of left hand 998378 5617 94147 M79.642 Pre-surger y evaluation 447990578 Z01.818 Health Concerns Section Related Observation LastModified by Organization Detai ls LastModified Time None Recorded Concern Status LastModified by Organization Details LastModified Time None Recorded Advance Directives Directive None Recorded Payers Encounter Date Sequence Insurance Name Policy Number Policy Martell Covered Member ID Martell Member ID Guarantor Name 08/10/2022 1 [place] Zach Kasper [id number] Zach Kasper 08/10/2022 2 [employer] [place] [employer] (MEDICARE SUPPLEMENT) Zach Kasper [id number] Zach Kasper 08/12/2022 1 [place] Zach Kasper [id number] Zach Kasper 08/12/2022 2 [employer] [place] [employer] (MEDICARE SUPPLEMENT) Zach Kasper [id number] Zach Kasper Notes Date Note Type Note [...] as well Lui Ordoñez MD [address], [facility] [address], [place], [address], [facility] [employer] [facility] 08/10/2022 10:52:40 08/12/2022 text/html Patient returns left elbow and hand pain. He has carpal and cubital tunnel. He was sent over by Dr. Ordoñez for surgical treatment is Dr. Qureshi is leaving the practice. Mario Harmon MD [address], [facility] [address], [place], [address], [employer] [facility] 08/12/2022 11:00:06
--- OUTSIDE RECORDS SUMMARY | 2024-07-12 07:29 | XMS_ITS | Clinical Summary ---
Author Organization [facility] Address [address] [place] [address] Phone Care Team Providers Care News Specialist Name Role Phone Kermit Otero MD Primary Care Provider [phone] Allergies No known active allergies Medications cilostazol (PLETAL) 50 MG tablet Take 50 mg by mouth 2 (two) times a day 1 Active finasteride (PROSCAR) 5 MG tablet 1 Active [employer] FLEXPEN 100 UNIT/ML injection INJECT 10 UNITS SUBCUTAENOUSLY WITH EACH MEAL THREE TIMES A DAY 1 Active Lantus SoloStar 100 UNIT/ML injection 1 Active tamsulosin (FLOMAX) 0.4 MG 24 hr capsule 1 Active ferrous sulfate 325 (65 Fe) MG [...] by mouth 1 (one) time each day 1 Active albuterol HFA (PROVENTIL HFA) 108 (90 Base) MCG/ACT inhaler INHALE 1 TO 2 PUFFS BY MOUTH EVERY 4 TO 6 HOURS NEEDED 1 Active amLODIPine (NORVASC) 5 MG tablet Take 5 mg by mouth 1 (one) time each day 2 Active hydrALAZINE (APRESOLINE) 25 MG tablet TAKE 3 TABLETS BY MOUTH EVERY 8 HOURS 2 Active hydroCHLOROthi azide (HYDRODIURIL) 25 MG tablet TAKE 2 TABLETS BY MOUTH IN THE MORNING 2 Active losartan (COZAAR) 50 MG tablet Take 50 mg by mouth 1 (one) time each day in the morning 2 Active pravastatin (PRAVACHOL) 40 MG tablet Take 40 mg by mouth 1 (one) time each day 2 Active carvedilol (COREG) 3.125 MG tablet Take 3.125 mg by mouth 2 (two) times a day with meals 2 Active Active Problems Problem Noted Date Diagnosed Date Thrombocytopenia 11/20/2020 Stage 3b chronic kidney disease 07/16/2020 Systolic hypertension 07/16/2020 Type 2 diabetes mellitus wit h diabetic chronic kidney disease 07/16/2020 Other and unspecified hyperlipidemia 07/16/2020 Chronic kidney disease, Stage IV (severe) 2020 Immunizations Immunization Administration Dates Next Due Influenza TIV (IM) [...] at Not on file Legal Sex Male 8:49 AM MDT Gender Identity Not on file Sexual Orientation [...] 9:07 AM CDT Height 190.5 cm (6' 3) 10/21/2021 9:07 AM CDT Body Mass Index 28.75 10/21/2021 9:07 AM CDT Plan of Treatment Health Maintenance Due Date Last Done Comments Pneumococcal PPSV23/PCV13 65 + Years / Low and Medium Risk (2 of 3 - PPSV23) 10/15/2018 10/15/2017 Influenza Vaccine (Season Ended) 2024 11/21/19 21 Insurance MEDICARE [facility] Care Teams News Specialist Relationship Specialty Start Date End Date Kermit Otero MD [address] [place] [address] PCP - General Internal Medicine 06/10/20
--- OUTSIDE RECORDS SUMMARY | 2024-07-12 07:29 | XMS_ITS | Clinical Summary ---
Author Organization [facility] Chris carlson Rosalinda Address [address] [place] [address] Care Team Providers Care Adjunct Professor Of Law Name Role Phone Unavailable Primary Care Provider [...] Encounters Date Type Department Care Team Description 07/09/2024 Orders Only [facility] Oncology and Hematology - Faustino [address] [place] [address] Desean De MD Chronic anemia 07/05/2024 External Device Data STL ABSTRACTION Provider, Abstract 07/04/2024 External Device Data STL ABSTRACTION Provider, Abstract 07/03/2024 External Device Data STL ABSTRACTION Provider, Abstract 07/03/2024 Orders Only [facility] Oncology and Hematology - Faustino [address] [place] [address] Desean De MD 06/26/2024 Orders Only [facility] Oncology and Hematology - Faustino [address] [place] [address] Desean De MD 06/25/2024 Orders Only [facility] Oncology and Hematology - Faustino [address] [place] [phone] Desean De MD Chronic anemia 06/11/2024 Orders Only [facility] Oncology and Hematology - Faustino [address] [place] [address] Desean De MD Chronic anemia 06/04/2024 Orders Only [facility] Oncology and Hematology - Faustino [address] [place] [address] Desean De MD 05/28/2024 Orders Only [facility] Oncology and Hematology - Faustino [address] [place] [address] Desean De MD Chronic anemia 05/17/2024 Orders Only [facility] Oncology and Hematology - Faustino [address] [place] [address] Desean De MD 05/15/2024 Orders Only [facility] Oncology and Hematology - Faustino [address] [place] [address] Desean De MD Chronic anemia (Primary Dx) 05/08/2024 4:00 PM CDT Telephone Check Up [facility] Oncology and Hematology - Faustino [address] [place] [address] Desean De MD Chronic anemia (Primary Dx); Anemia in stage 4 chronic kidney disease (CMS/HCC) 05/07/2024 Orders Only [facility] Oncology and Hematology - Faustino [address] [place] [address] Desean De MD 05/02/2024 External Device Data STL ABSTRACTION Provider, Abstract 05/02/2024 External Device Data STL ABSTRACTION Provider, Abstract 05/02/2024 Orders Only [facility] Oncology and Hematology [facility] [address] [place] [address] Desean De MD 05/01/2024 External Device Data STL ABSTRACTION Provider, Abstract 04/30/2024 10:30 AM CDT Office Visit [facility] Oncology and Hematology [facility] [address] [place] [address] Desean De MD Chronic anemia (Primary Dx) [...] on file Legal Sex Male 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 Gender Identity Not on file Sexual Orientation [...] 10:46 AM CDT Height 188 cm (6' 2) 04/30/2024 10:46 AM CDT Body Mass Index 27.91 04/30/2024 10:46 AM CDT Plan of Treatment Upcoming Encounters Date Type Department Care Team (Late st Contact Info) Description 11/09/2024 11:45 AM CDT Office Visit [facility] Oncology and Hematology - Faustino [address] [facility] [address] [place] [address] Desean De MD [address] [facility] [address] [place] [address] Health Maintenance Due Date Last Done Comments DIABETES ANNUAL FOOT EXAM 1960 DIABETES ANNUAL RETINAL EXAM 1960 DIABETES HBA1C Q 6 MONTHS 1960 DIABETES MICROALBUMIN ANNUAL SCREEN 1960 LDL CHOLESTEROL ANNUAL 1960 DTAP/TDAP/TD VACCINES (1 - Tdap) 1961 ZOSTER VACCINE (1 of 2) 1992 RSV VACCINE (60+ or ) (1 - 1-dose 75+ series) 2017 PNEUMOCOCCAL VACCINE 50+ YEARS (2 of 2 - PPSV23) 12/1010/15/2017 INFLUENZA VACCINE (#1) 2023 11/20/2020 Procedures Procedure Name Priority Date/Time Associated Diagnosis Comments CBC WITH DIFFERENTIAL Routine 06/29/2024 12:15 PM CDT CBC WITH AUTODIFFERENTIAL Routine 2024 2:40 PM CDT CBC MIXED CELL DIFFERENTIAL Routine 05/15 12:17 PM CDT CBC MIXED CELL DIFFERENTIAL Routine 03/2024 3:05 PM CDT COMPREHENSIVE METABOLIC PANEL Routine 04/30/2024 4:11 PM CDT METHYLMALONIC ACID Routine 04/30/2024 11 :18 AM CDT from Last 3 Months Results * CBC WITH DIFFERENTIAL (06/29/2024 12:15 PM CDT) Blood us Desean De MD HEMATOLOGY ORDERABLES Final Res ult * CBC WITH AUTODIFFERENTIAL (06/15/2024 2:40 PM CDT) Blood us Desean De MD HEMATOLOGY ORDERABLES Final Res ult * CBC MIXED CELL DIFFERENTIAL (06/01/2024 12:17 PM CDT) Only the most recent of2 resultswithin the time period is included. Blood us Desean De MD HEMATOLOGY ORDERABLES Final Res ult * COMPREHENSIVE METABOLIC PANEL (04/30/2024 4:11 PM CDT) Blood Result [facility] us Desean De MD CHEMISTRY ORDERABLES Final Resu lt * METHYLMALONIC ACID (04/30/2024 11:18 AM CDT) Blood Result [facility] us Desean De MD CHEMISTRY ORDERABLES Final Resu lt from Last 3 [place] [address] MEDICARE PART A AND B
--- OUTSIDE RECORDS SUMMARY | 2024-07-12 07:30 | XMS_ITS | Patient Health Record ---
Author Organization [facility] Address [address] [place], [place] [address] Care Team Providers Care Valance Cutter Name Role Phone Cristi Beth Primary Care Provider Unavailab ISAIAS Chew Unavailable [phone] Allergies No Known Allergies Reason For Referral No Information Medications Medication SIG (Take, Route, Frequency, Duration) Notes [...] food O rally Twice a day Active Immunizations Vaccine Route Administration Date Status Comme nts Fluad HD syringe/medicare Unknown 03/01/2023 Refused Social History Tobacco Use: Social History Observation Description Date Details (start date - stop date) Never Smoker NA - NA Tobacco use: Question Answer Notes Are you a: never smoker Problems Problem Type SNOMED Code ICD Code Onset Dates Problem Status W/U Status Risk Notes Problem Anemia in chronic kidney disease (508226277) 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) Active confirmed Problem Diabetic renal disease (556127624) 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 Problem Chronic kidney disease due to hypertension (441708129595893) Hypertensive chronic kidney disease with stage 1 through stage 4 chronic kidney disease, or unspecified chronic kidney disease (I12.9) Active confirmed Problem Atherosclerotic heart disease of [place] coronary artery without angina pectoris (688655598146266) Atherosclerotic heart disease of [place] coronary artery without angina pectoris (I25.10) Active confirmed Problem Chronic kidney disease stage 4 (012534272) Chronic kidney disease, stage 4 (severe) (N18.4) Active confirmed Problem Essential hypertension (66090303) Essential hypertension (I10) Active confirmed Plan Of Treatment No Information Insurance Providers Payer Name Payer Address Payer Phone Subscriber Number Group Number Insured Name Patient Relationship to Insured Coverage Start Date Coverage End Date Medicare [address] [place] [phone] [id number] Zach Kasper Self - patient is the insured [facility] Insurance Wy [address] [place] [id number] Zach Kasper Self - patient is the insured Medical (General) History Medical History History ICD Code Hypertension Hypercholesterolemia COPD Surgical History Surgery Date(Month/Year) cholecystectomy Knee surgery
--- OUTSIDE RECORDS SUMMARY | 2024-07-12 07:30 | XMS_ITS | Encounter Summary ---
Author Organization [facility] EDUARDO Mcclain Arthena Address [address] [place] [address] Care Team Providers Care Employee Benefits Administrator Name Role Phone Unavailable Primary Care Provider Unavailabl e Encounter Details Date Type Department Care Team (Late st Contact Info) Description 07/09/2024 Orders Only [facility] Oncology and Hematology - Faustino [address] [place] [address] Desean De MD [facility] [address] [place] [address] Chronic anemia Social History Tobacco Use Types Packs/Day Years Used Date Smoking Tobacco: Never Smokeless Tobacco: Never Alcohol Use Standard Drinks/Week Comments Yes 0 (1 standard drink = 0.6 oz pur e alcohol) Occasionally Sex and Gender Information Value Date Recorded Sex Assigned at Not on file 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
[2024-07-12 08:00] LABS: Add Urine Microscopic? YES; Appearance Urine Clear (Clear); Basophils Absolute Auto 0.06 K/mm3 (0.00-0.10); Basophils Percent Auto 1.3 % (0.0-1.0); Bilirubin Urine Negative (Negative); Blood Urine Negative (Negative); Color Urine Light Yellow (Yellow); Eosinophils Absolute Auto 0.11 K/mm3 (0.02-0.50); Eosinophils Percent Auto 2.5 % (1.0-6.0); Glucose Urine UA Negative (Negative); Hematocrit 32.2 % (37.0-46.0); Hemoglobin 9.8 g/dL (12.4-15.3); Immature Granulocyte Absolute 0.01 K/mm3 (0.00-0.00); Immature Granulocyte Percent A 0.2 % (0.0-0.0); Ketones Urine Negative (Negative); Leukocyte Esterase Ur Negative LEU/UL (Negative); Lymphocytes Absolute Auto 1.14 K/mm3 (1.10-4.50); Lymphocytes Percent Auto 25.6 % (18.0-42.0); Mean Corpuscular HGB Conc 30.4 g/dL (32-36); Mean Corpuscular Hemoglobin 31.1 pg (27.0-31.0); Mean Corpuscular Volume 102.2 fL (78.0-102.0); Mean Platelet Volume 11.2 fl (8.7-11.0); Monocytes Absolute Auto 0.45 K/mm3 (0.10-0.90); Monocytes Percent Auto 10.1 % (2.0-11.0); Neutrophils Absolute Auto 2.69 K/mm3 (1.70-7.20); Neutrophils Percent Auto 60.3 % (50.0-70.0); Nitrate Urine Negative (Negative); Platelet Count Result 131 K/mm3 (150-420); Protein Urine 2+ (Negative); Red Blood Count 3.15 M/mm3 (4.70-6.10); Urobilinogen Urine 0.2 mg/dL (0.2-1.0); White Blood Count 4.5 K/mm3 (4.8-10.8); pH Urine 5.5 (5.0-8.0)
[2024-07-12 08:07] LABS: Bacteria Urine Trace /hpf; RBC Urine None seen /hpf (0-2); Squamous Epithelial Cell Urine Few /hpf (Few); WBC Urine None seen /hpf (0-3)
[2024-07-12 08:20] LABS: Creatinine Urine 65.7 mg/dL
[2024-07-12 08:30] LABS: Alanine Aminotransferase 14 U/L (6-50); Albumin Level 3.7 g/dL (3.5-5.1); Alkaline Phosphatase 63 U/L (38-126); Anion Gap 7 mmol/L (4-12); Aspartate Amino Transferase 18 U/L (17-59); Bilirubin,Total 0.4 mg/dL (0.2-1.3); Blood Urea Nitrogen 71 mg/dL (9-20); Calcium 9.4 mg/dL (8.4-10.2); Carbon Dioxide 19 mmol/L (22-30); Chloride 119 mmol/L (98-107); Cholesterol 96 mg/dL (0-200); Creatine Kinase 39 U/L (55-170); Estimated Glomerular Filt Rate 18; HDL Direct 41 mg/dL; Iron 78 ug/dL (49-181); LDL Cholesterol Calculated 45 mg/dL (<130); Osmolality Calculated 318 mOsm/kg (285-295); Potassium 5.3 mmol/L (3.4-5.0); Sodium 145 mmol/L (137-145); Total Protein 6.1 g/dL (6.3-8.2); Triglycerides 49 mg/dL (<150)
[2024-07-12 08:37] LABS: Glucose 57 mg/dL (65-110)
[2024-07-12 08:46] LABS: Free T4 Free Thyroxine 1.35 ng/dL (0.78-2.19)
[2024-07-12 09:17] LABS: Microalbumin Urine Random > 400.0 mg/L (0-16.7)
[2024-07-12 09:18] LABS: MALB Creatinine Ratio 608.8 mg/g (0-30)
[2024-07-12 09:44] LABS: Hemoglobin A1C 5.2 % (<5.7)
[2024-07-12 12:41] LABS: Free T3 2.74 pg/mL (2.18-3.98)
== END 2024-07-12 07:22 | disposition home or self-care (01) ==
LOC: CHSLAB 07:25
PROVIDERS: PCP Internal Medicine; Visit Provider Internal Medicine
DX: E11.65 Type 2 diabetes mellitus with hyperglycemia (principal); E78.2 Mixed hyperlipidemia; E03.9 Hypothyroidism, unspecified; N39.0 Urinary tract infection, site not specified; D50.9 Iron deficiency anemia, unspecified
CPT/HCPCS: 36415; 80053; 80061; 81001; 82043; 82550; 82728; 83036; 83540; 84439; 84443; 84481; 85025

== ENCOUNTER 2024-07-26 07:25 | Outpatient (CLI) | payer MEDICARE, SELFPAY ==
--- NOTE | ~2024-07-26 | US_ITS ---
EXAMINATION: US carotid duplex BI DATE: 07/26/2024 07:49 INDICATION: Carotid bruits TECHNIQUE: Grayscale, color Doppler, and pulsed Doppler images of the cervical carotid arteries were obtained. The degree of vessel stenosis is placed in one of the following categories: normal, <50%, 5 0-69%, >=70% but less than near-occlusion, near-occlusion, or total occlusion. Note that percent sten osis relative to normal distal artery lumen diameter is indirectly measured from velocity measurement s as described by Zohaib, et al. Radiology 2003; 229:340-346. Notes: Normal: Peak systolic velocity <125 centimeters/sec and no plaque <50%. Peak systolic velocity <125 ( EDV <40; ICA/CCA PSV ratio <2.0; used these factors only a tandem lesions or low cardiac output or co ntralateral disease) 50-69 %: PSV 125-230 (EDV 40-100; ratio 2-4) >= 70% but less than near occlusion: PSV greater than 230 (EDV > 100; ratio> 4.0) Near Occlusion: PSV that is variable; markedly narrowed lumen Occlusion: Absent flow on color/spectral Doppler and no lumen on bruce scale. COMPARISON: None. FINDINGS: RIGHT: The right common carotid artery (CCA) peak systolic velocity (PSV) is 121 cm/s. The right internal ca rotid artery (ICA) PSV is 186 cm/s. The right ICA end-diastolic velocity (EDV) is 37 cm/s. The right ICA/CCA PSV ratio is 1.5. The external carotid artery (ECA) PSV is 215 cm/s. There is antegrade flow in the right vertebral artery. LEFT: The left CCA PSV is 103 cm/s. The left ICA PSV is 136 cm/s. The left ICA EDV is 37 cm/s. The left ICA /CCA PSV ratio is 1.3. The ECA PSV is 483 cm/s. There is antegrade flow in the left vertebral artery . IMPRESSION: 1. 50-69% stenosis in the right internal carotid artery by sonographic criteria. 2. 50-69% stenosis in the left internal carotid artery by sonographic criteria. Reviewed, dictated and finalized at location [] IMPRESSION: 1. 50-69% stenosis in the right internal carotid artery by sonographic criteria . 2. 50-69% stenosis in the left internal carotid artery by sonographic criteria.
--- OUTSIDE RECORDS SUMMARY | 2024-07-26 07:28 | XMS_ITS | Data Portability ---
Author Organization [place] [facility] Main Office Address [address] [place] [address] Care Team Providers Care Underwear Cutter Name Role Phone AYDIN CEJA Primary Care [...] or plasma - Please fax results to [phone] DX hypertensio n 2022 023 GISELLE In-Office Order, Internal Use Only DO Not Attach Compendium DO Not Attach Compendium, Do Not Delete/merge, [address] 09:41:25 Referral None recorded. Procedures None recorded. Surgeries None recorded. Imaging electrocard iogram - Please fax results to DX hypertensio n 2022 023 [email or web address] In-Office Order, Internal Use Only DO Not Attach Compendium DO Not Attach Compendium, Do Not Delete/merge, 56077 11:12:27 XR, hand 2022 023 [email or web address] [facility], [address], [place], [address], 3 10:52:13 Medication Orders None recorded. Patient TargetsNo targets recorded. Patient InstructionsNo instructions recorded. Reason for Referral None Reported. Results Created Date Observation Date Name Description Value Unit Range Abnormal Flag Note LastModifiedBy Organization Detail LastModifiedTime 08/06/1907/27/2022 elect romyo gram + nerve condu ction study No observ ation record ed. [email or web address] Not Available 2022 14:57:51 08/11/19 XR, hand No observ ation record ed. [email or web address] [facility] [address], [place], [address], 08/10/2022 10:52:12 09/07/19 23 09/06/2022 elect rocar diogr am No observ ation record ed. [facility] ([facility] [address] [place] [address], [address], 09/06/2022 11:12:13 Result Notes None recorded. Problems Name Problem SNOMED Code Status Onset Date Resolution Date Notes Provider Name and Address Organization Details Recorded Time Pain of left hand 7102803725278 03 Active 2022 ODILIA Church, [facility] [employer] 3 09:51:02 Carpal tunnel syndrome of left wrist 5757614775461 02 Active 2022 Lui Ordoñez MD [address], [place] [address], [place], [address] , [place] [facility] [employer] 3 10:51:18 Ulnar nerve entrapment at elbow 772982706 Active 2022 Lui Ordoñez MD [address], [place], [address], [facility] [employer] [facility] 10:51:30 Problem Notes None recorded. Procedures Surgical History Date Name Laterality Status Provider Name and Address Organization Details Recorded Time procedure on gallbladder completed ODILIA Church [facility] [employer] [facility] 08/10/2022 09:49:24 procedure on lower leg completed Destiny Rice [facility] [employer] [facility] 08/10/2022 09:49:34 Imaging Results None recorded. 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 Functional Status Question Answer Note LastModified by Organization D etails LastModified Time What is your level of alcohol consumption? None [email or web address] Information not available 08/10/2022 Mental Status None recorded. Family History Relationship Description Onset Age of this Age Resolved Age Notes LastModified by Organization Details LastModified Time Father Heart disease [email or web address] Not available 2022 09:48:34 Mother Heart disease [email or web address] Not available 2022 09:48:34 Mother Hypertensive disorder [email or web address] Not available 2022 09:49:00 Maternal Grandmother Family history of malignant neoplasm [email or web address] Not available 2022 09:48:46 Medical History Condition Response DIABETES, TYPE Y CANCER: SPECIFY Y ARTHRITIS Y Past Encounters Encounter ID Performer Location Encounter Start Date Encounter Closed Date Diagnosis/Indication Diagnosis SNOMED-CT Code Diagnosis ICD10 Code Diagnosis Note [id number] Lui Ordoñez MD [facility] [place] [address] [place] [address] 08/10/2022 09:21:33 08/10/2022 10:10:46 Pain of left hand 2946313799 94776 M79.642 Carpal arturo leonardo syndrome of left wrist 2290218815 71011 G56.02 patient has weakness of his thenar muscles positive EMG and with the weakness and atrophy of the muscles he is not a candidate for conservati ve treatment he should just go straight to surgical decompress ion I will set him up with Dr. Harmon for surgery of the carpal and cubital tunnel on the left Ulnar nerv e entrapment at elbow 672026334 G56.22 patient has significan t atrophy of the ulnar intrinsics he needs an ulnar nerve decompress ion I will set him up to see Dr. Harmon for surgery [id number] Mario Harmon MD [facility] 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 5752736298 31685 G56.02 Pain of left hand 397375 7681 23238 M79.642 Pre-surger y evaluation 227090291 Z01.818 Health Concerns Section Related Observation LastModified by Organization Detai ls LastModified Time None Recorded Concern Status LastModified by Organization Details LastModified Time None Recorded Advance Directives Directive None Recorded Payers Insurance Date Sequence Insurance Name Policy Number Policy Martell Covered Member ID Martell Member ID Guarantor Name 09/10/2022 1 [place] Zach Kasper [id number] Zach Kasper 09/10/2022 2 [employer] (MEDICARE SUPPLEMENT) Zach Kasper [id number] Zach Kasper Notes Date Note Type Note [...] left hand as well Lui Ordoñez MD [address] [place] [address], [address] [place], [address], Angry Citizen [facility] 08/10/2022 10:52:40 08/12/2022 text/html Patient returns left elbow and hand pain. He has carpal and cubital tunnel. He was sent over by Dr. Ordoñez for surgical treatment is Dr. Qureshi is leaving the practice. Mario Harmon MD [address], [place], [address], Angry Citizen [facility] 08/12/2022 11:00:06
--- OUTSIDE RECORDS SUMMARY | 2024-07-26 07:28 | XMS_ITS | Clinical Summary ---
Author Organization [facility] Minerva utibryon Address [address] [place] [address] Phone Care Team Providers Care Manager Pest Name Role Phone Kermit Otero MD Primary Care Provider [phone] Allergies No known active allergies Medications cilostazol [...] (Season Ended) 2024 11/21/19 21 Insurance MEDICARE [facility] INSURANCE Care Teams Manager Pest Relationship Specialty Start Date End Date Kermit Otero MD [address] [place] [address] PCP - General Internal Medicine 06/10/20
--- OUTSIDE RECORDS SUMMARY | 2024-07-26 07:28 | XMS_ITS | Clinical Summary ---
Author Organization [facility] Chris carlson Rosalinda Address [address] [place] [address] Care Team Providers Care Blueprint Trimmer Name Role Phone Unavailable Primary Care Provider [...] Encounters Date Type Department Care Team Description 07/23/2024 Orders Only [facility] Oncology and Hematology - Faustino [address] [place] [address] Desean De MD Chronic anemia 07/20/2024 Orders Only [facility] Oncology and Hematology - Faustino [address] [place] [address] Desean De MD 07/09/2024 Orders Only [facility] Oncology and Hematology - Faustino [address] [place] [address] Desean De MD Chronic anemia 07/05/2024 External Device Data STL ABSTRACTION Provider, Abstract 07/04/2024 External Device Data STL ABSTRACTION Provider, Abstract 07/03/2024 External Device Data STL ABSTRACTION Provider, Abstract 07/03/2024 Orders Only [facility] Oncology and Hematology - Faustino [address] [place] [address] Desean De MD 06/26/2024 Orders Only [facility] Oncology and Hematology - Faustino [address] [place] [address] Desean De MD 06/25/2024 Orders Only [facility] Oncology and Hematology - Faustino [address] [place] [address] Desean De MD Chronic anemia 06/11/2024 Orders Only [facility] Oncology and Hematology - Faustino [address] [place] [address] Desean De MD Chronic anemia 06/04/2024 Orders Only [facility] Oncology and Hematology - Faustino [address] [place] [address] Desean De MD 05/28/2024 Orders Only [facility] Oncology and Hematology - Faustino [address] [place] [address] Desean De MD Chronic anemia 05/17/2024 Orders Only [facility] Oncology and Hematology - Faustino [address] [place] [address] Desean De MD 05/15/2024 Orders Only [facility] Oncology and Hematology - Faustino [address] [place] [address] Desean De MD Chronic anemia (Primary Dx) 05/08/2024 4:00 PM CDT Telephone Check Up [facility] Oncology and Hematology [facility] [address] [place] [address] Desean De MD Chronic anemia (Primary Dx); Anemia in stage 4 chronic kidney disease (CMS/HCC) 05/07/2024 Orders Only [facility] Oncology and Hematology - Faustino [address] [place] [address] Desean De MD 05/02/2024 External Device Data STL ABSTRACTION Provider, Abstract 05/02/2024 External Device Data STL ABSTRACTION Provider, Abstract 05/02/2024 Orders Only [facility] Oncology and Hematology - Faustino [address] [place] [address] Desean De MD 05/01/2024 External Device Data STL ABSTRACTION Provider, Abstract 04/30/2024 10:30 AM CDT Office Visit [facility] Oncology and Hematology [facility] [address] [place] [address] Desean De MD Chronic anemia (Primary Dx) [...] on file 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 Gender Identity Not on file Sexual Orientation [...] Description 11/09/2024 11:45 AM CDT Office Visit [facility] Oncology and Hematology [facility] [address] [facility] [address] [place] [address] Desean De MD [address] [facility] [address] [place] [address] Health Maintenance Due Date Last [...] Associated Diagnosis Comments CBC WITH DIFFERENTIAL Routine 07/13/2024 11:52 AM CDT CBC WITH DIFFERENTIAL Routine 06/29/2024 12:15 PM CDT CBC WITH AUTODIFFERENTIAL Routine 2024 2:40 PM CDT CBC MIXED CELL DIFFERENTIAL Routine 05/15 12:17 PM CDT CBC MIXED CELL DIFFERENTIAL Routine 03/2024 3:05 PM CDT COMPREHENSIVE METABOLIC PANEL Routine 04/30/2024 4:11 PM CDT METHYLMALONIC ACID Routine 04/30/2024 11 :18 AM CDT from Last 3 Months Results * CBC WITH DIFFERENTIAL (07/13/2024 11:52 AM CDT) Only the most recent of2 resultswithin [...] METHYLMALONIC ACID (04/30/2024 11:18 AM CDT) Blood us Desean De MD CHEMISTRY ORDERABLES Final Resu lt from Last [address] [address] [place] [address] MEDICARE PART A AND B
--- OUTSIDE RECORDS SUMMARY | 2024-07-26 07:28 | XMS_ITS | Encounter Summary ---
Author Organization [facility] EDUARDO Mcclain [employer] Address [address] [place] [address] Care Team Providers Care Occupational Therapist Per Diem Name Role Phone Unavailable Primary Care Provider Unavailabl e Encounter Details Date Type Department Care Team (Late st Contact Info) Description 07/23/2024 Orders Only [facility] Oncology and Hematology - Faustino [address] [place] [address] [place] [address] [place], [place] [address] [address] [place] [address] Chronic anemia Social History Tobacco Use Types Packs/Day Years Used Date Smoking Tobacco: Never Smokeless Tobacco: Never Alcohol Use Standard Drinks/Week Comments Yes 0 (1 standard drink = 0.6 oz pur e alcohol) Occasionally Sex and Gender Information Value Date Recorded Sex Assigned at Not on file 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
--- OUTSIDE RECORDS SUMMARY | 2024-07-26 07:28 | XMS_ITS | Patient Health Record ---
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 Problem Chronic kidney disease due to hypertension (286208454509188) Hypertensive chronic kidney disease with stage 1 through stage 4 chronic kidney disease, or unspecified chronic kidney disease (I12.9) Active confirmed Problem Atherosclerotic heart disease of [place] coronary artery without angina pectoris (446264481696394) Atherosclerotic heart disease of [place] coronary artery without angina pectoris (I25.10) Active confirmed Problem Chronic kidney disease stage 4 (776666458) Chronic kidney disease, stage 4 (severe) (N18.4) Active confirmed Problem Essential hypertension (69349980) Essential hypertension (I10) Active confirmed Plan Of Treatment No Information Insurance Providers Payer Name Payer Address Payer Phone Subscriber Number Group Number Insured Name Patient Relationship to Insured Coverage Start Date Coverage End Date Medicare [address] [place] [phone] [id number] Zach Kasper Self - patient is the insured [facility] [place] [address] [place] [phone] [id number] Zach Kasper Self - patient is the insured Medical (General) History Medical History History ICD Code Hypertension Hypercholesterolemia COPD Surgical History Surgery Date(Month/Year) cholecystectomy Knee surgery
== END 2024-07-26 07:26 | disposition home or self-care (01) ==
LOC: CHSIMG 07:26
PROVIDERS: PCP Internal Medicine; Visit Provider Internal Medicine
DX: R09.89 Other specified symptoms and signs involving the circulatory and respiratory systems (principal); I65.23 Occlusion and stenosis of bilateral carotid arteries
CPT/HCPCS: 93880

== ENCOUNTER 2024-08-01 07:38 | Outpatient (CLI) | payer MEDICARE, SELFPAY ==
--- OUTSIDE RECORDS SUMMARY | 2024-08-01 07:43 | XMS_ITS | Patient Health Record ---
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 Problem Chronic kidney disease due to hypertension (291892397837093) Hypertensive chronic kidney disease with stage 1 through stage 4 chronic kidney disease, or unspecified chronic kidney disease (I12.9) Active confirmed Problem Atherosclerotic heart disease of [place] coronary artery without angina pectoris (211174310596629) Atherosclerotic heart disease of [place] coronary artery without angina pectoris (I25.10) Active confirmed Problem Chronic kidney disease stage 4 (614334760) Chronic kidney disease, stage 4 (severe) (N18.4) Active confirmed Problem Essential hypertension (20654363) Essential hypertension (I10) Active confirmed Plan Of Treatment No Information Insurance Providers Payer Name Payer Address Payer Phone Subscriber Number Group Number Insured Name Patient Relationship to Insured Coverage Start Date Coverage End Date Medicare [address] [place] [phone] [id number] Zach Kasper Self - patient is the insured [facility] Insurance [place] [address] [place] [id number] [phone] [id number] Zach Kasper Self - patient is the insured Medical (General) History Medical History History ICD Code Hypertension Hypercholesterolemia COPD Surgical History Surgery Date(Month/Year) cholecystectomy Knee surgery
--- OUTSIDE RECORDS SUMMARY | 2024-08-01 07:43 | XMS_ITS | Clinical Summary ---
Author Organization [facility] Address [address] [place] [address] Phone Care Team Providers Care Services Rep Name Role Phone Kermit Otero MD Primary Care Provider [phone] Allergies No known active allergies Medications cilostazol [...] (Season Ended) 2024 11/21/19 21 Insurance MEDICARE [facility] INSURANCE Care Teams Services Rep Relationship Specialty Start Date End Date Kermit Otero MD [address] [place] [address] PCP - General Internal Medicine 06/10/20
--- OUTSIDE RECORDS SUMMARY | 2024-08-01 07:43 | XMS_ITS | Data Portability ---
Author Organization [place] [facility], Main Office Address [address] [place] [address] Care Team Providers Care Dye Worker Name Role Phone AYDIN CEJA Primary Care [...] DO Not Attach Compendium, Do Not Delete/merge, [id number] 09:41:25 Referral None recorded. Procedures None recorded. Surgeries None recorded. Imaging electrocard iogram - Please fax results to [facility] n 2022 023 [email or web address] In-Office Order, Internal Use Only DO Not Attach Compendium DO Not Attach Compendium, Do Not Delete/merge, [id number] 3 11:12:27 XR, hand 2022 023 [email or web address] [facility] [place], [address], [place], [address], 3 10:52:13 Medication Orders None recorded. Patient TargetsNo targets recorded. Patient InstructionsNo instructions recorded. Reason for Referral None Reported. Results Created Date Observation Date Name Description Value Unit Range Abnormal Flag Note LastModifiedBy Organization Detail LastModifiedTime 08/06/1907/27/2022 elect romyo gram + nerve condu ction study No observ ation record ed. [email or web address] Not Available 2022 14:57:51 08/11/19 XR, hand No observ ation record ed. [email or web address] [facility] [place] [address], [place], [address], 08/10/2022 10:52:12 09/07/19 23 09/06/2022 elect rocar diogr am No observ ation record ed. [facility]) [address] [place] [address], [address], 09/06/2022 11:12:13 Result Notes None recorded. Problems Name Problem SNOMED Code Status Onset Date Resolution Date Notes Provider Name and Address Organization Details Recorded Time Pain of left hand 9331975822070 03 Active 2022 ODILIA Church, [employer] [facility] [employer] 3 09:51:02 Carpal tunnel syndrome of left wrist 6013869857078 02 Active 2022 Lui Ordoñez MD [address], [place] [address], [place], [address] [facility] [place] [facility] [employer] [employer] 3 10:51:18 Ulnar nerve entrapment at elbow 228003116 Active 2022 Lui Ordoñez MD [address], [place], [address], [facility] 10:51:30 Problem Notes None recorded. Procedures Surgical History Date Name Laterality Status Provider Name and Address Organization Details Recorded Time procedure on gallbladder completed ODILIA Church [facility] 08/10/2022 09:49:24 procedure on lower leg completed Destiny Rice [facility] 08/10/2022 09:49:34 Imaging Results None recorded. Procedure [...] Updated DateTime 08/10/2022 190.5 cm 28.7 kg/m2 673217.25 lucina ODILIA Church [facility] 08/10/2022 09:47:51 Date Recorded Body height Body mass index (BMI) Body weight Provider Name and Address Organization Details Last Updated DateTime 08/12/2022 187.96 cm 29.8 kg/m2 735366.43 lucina Zayra [place] [facility] 08/12/2022 09:03:36 Social History None recorded. Functional Status Question Answer Note LastModified by Organization D etails LastModified Time What is your level of alcohol consumption? None [email or web address] Information not available 08/10/2022 Mental Status None recorded. Family History Relationship Description Onset Age of this Age Resolved Age Notes LastModified by Organization Details LastModified Time Father Heart disease [email or web address] Not available 2022 09:48:34 Mother Heart disease Not available 2022 09:48:34 Mother Hypertensive disorder [email or web address] Not available 2022 09:49:00 Maternal Grandmother Family history of malignant neoplasm Not available 2022 09:48:46 Medical History Condition Response ARTHRITIS Y DIABETES, TYPE Y CANCER: SPECIFY Y Past Encounters Encounter ID Performer Location Encounter Start Date Encounter Closed Date Diagnosis/Indication Diagnosis SNOMED-CT Code Diagnosis ICD10 Code Diagnosis Note [id number] Lui Ordoñez MD [facility] [place] 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 Harmon for surgery of the carpal and cubital tunnel on the left Ulnar nerv e entrapment at elbow 172630464 G56.22 patient has significan t atrophy of the ulnar intrinsics he needs an ulnar nerve decompress ion I will set him up to see Dr. Harmon for surgery [id number] Mario Harmon MD [facility] [place] 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 0519487862 74161 G56.02 Pain of left hand 610888 0495 36439 M79.642 Pre-surger y evaluation 406210676 Z01.818 Health Concerns Section Related Observation LastModified by Organization Detai ls LastModified Time None Recorded Concern Status LastModified by Organization Details LastModified Time None Recorded Advance Directives Directive None Recorded Payers Insurance Date Sequence Insurance Name Policy Number Policy Martell Covered Member ID Martell Member ID Guarantor Name 09/10/2022 1 [place] Zach Kasper [id number] Zach Kasper 09/10/2022 2 [employer] (MEDICARE SUPPLEMENT) Zach Kasper [id number] Zach Kasper Notes Date Note Type Note [...] left hand as well Lui Ordoñez MD [address] [place] [address], [address] [place], [address], [employer] [facility] 08/10/2022 10:52:40 08/12/2022 text/html Patient returns left elbow and hand pain. He has carpal and cubital tunnel. He was sent over by Dr. Ordoñez for surgical treatment is Dr. Qureshi is leaving the practice. Mario Harmon MD [address], [place], [address], [employer] [facility] 08/12/2022 11:00:06
--- OUTSIDE RECORDS SUMMARY | 2024-08-01 07:43 | XMS_ITS | Encounter Summary ---
Author Organization [facility] Address [address] [place] [address] Care Team Providers Care Timber Hewer Name Role Phone Unavailable Primary Care Provider Unavailabl e Encounter Details Date Type Department Care Team (Late st Contact Info) Description 07/30/2024 Orders Only [facility] Hematology [place] [address] [address] [place] [address] Desean De MD [address] [facility] [employer] [address] [place] [address] Social History Tobacco Use Types Packs/Day Years Used Date Smoking Tobacco: Never Smokeless Tobacco: Never Alcohol Use Standard Drinks/Week Comments Yes 0 (1 standard drink = 0.6 oz pur e alcohol) Occasionally Sex and Gender Information Value Date Recorded Sex Assigned at Not on file 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 Gender Identity Not on file Sexual Orientation Not on file documented as of this encounter Plan of Treatment Upcoming Encounters Date Type Department Care Team (Late st Contact Info) Description 11/09/2024 11:45 AM CDT Office Visit [facility]ology [address] [place] [address] Desean De MD [address] [employer] [address] [place] [address] documented as of this encounter Procedures Procedure Name Priority Date/Time Associated Diagnosis Comments CBC WITH DIFFERENTIAL Routine 07/27/2024 2:14 PM CDT documented in this encounter Results * CBC WITH DIFFERENTIAL (07/27/2024 2:14 PM CDT) Blood us Desean De MD HEMATOLOGY ORDERABLES Final Res ult documented in this encounter Visit Diagnoses Not on filedocumented in this encounter
--- OUTSIDE RECORDS SUMMARY | 2024-08-01 07:43 | XMS_ITS | Clinical Summary ---
Author Organization [facility] Chris carlson Rosalinda Address [address] [place] [address] Care Team Providers Care Yarding Engineer Name Role Phone Unavailable Primary Care Provider [...] Encounters Date Type Department Care Team Description 07/30/2024 Orders Only [facility] Oncology and Hematology - [place] [address] [place] [address] Desean De MD 07/23/2024 Orders Only [facility] Hematology - [address] [place] [address] Desean De MD Chronic anemia 07/20/2024 Orders Only [facility] - [place] [address] [place] [address] Desean De MD 07/09/2024 Orders Only [facility] - [address] [place] [address] Desean De MD Chronic anemia 07/05/2024 External Device Data STL ABSTRACTION Provider, Abstract 07/04/2024 External Device Data STL ABSTRACTION Provider, Abstract 07/03/2024 External Device Data STL ABSTRACTION Provider, Abstract 07/03/2024 Orders Only [facility] - [place] [address] [place] [address] Desean De MD 06/26/2024 Orders Only [facility] - [address] [place] [address] Desean De MD 06/25/2024 Orders Only [facility] - [address] [place] [address] Desean De MD Chronic anemia 06/11/2024 Orders Only [facility] - [address] [place] [address] Desean De MD Chronic anemia 06/04/2024 Orders Only [facility] - [place] [address] [place] [address] Desean De MD 05/28/2024 Orders Only [facility] - [place] [address] [place] [address] Desean De MD Chronic anemia 05/17/2024 Orders Only [facility] On[facility] and Hematology - [address] [address] [place] [address] Desean De MD 05/15/2024 Orders Only [facility] Hematology - [address] [place] [address] Desean De MD Chronic anemia (Primary Dx) 05/08/2024 4:00 PM CDT Telephone Check Up [facility] - [address] [place] [phone] Desean De MD Chronic anemia (Primary Dx); Anemia in stage 4 chronic kidney disease (CMS/HCC) 05/07/2024 Orders Only [facility] and Hematology - [address] [place] [address] Desean De MD 05/02/2024 External Device Data STL ABSTRACTION Provider, Abstract 05/02/2024 External Device Data STL ABSTRACTION Provider, Abstract 05/02/2024 Orders Only [facility] and Hematology - [address] [place] [address] Desean De MD 05/01/2024 External Device Data STL ABSTRACTION Provider, Abstract from Last 3 Months Family History Medical [...] on file 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 [address] [place] [address] Desean De MD [address] [facility] [address] [place] [address] Health Maintenance Due Date Last [...] WITH DIFFERENTIAL Routine 07/27/2024 2:14 PM CDT CBC WITH DIFFERENTIAL Routine 07/13/2024 11:52 AM CDT CBC WITH DIFFERENTIAL Routine 06/29/2024 12:15 PM CDT CBC WITH AUTODIFFERENTIAL Routine 2024 2:40 PM CDT CBC MIXED CELL DIFFERENTIAL Routine 05/15 12:17 PM CDT CBC MIXED CELL DIFFERENTIAL Routine 03/2024 3:05 PM CDT from Last 3 Months Results * CBC WITH DIFFERENTIAL (07/27/2024 2:14 PM CDT) Only the most recent of3 resultswithin the time period is included. Blood [...] De MD HEMATOLOGY ORDERABLES Final Res ult from Last [address] [place] [address] MEDICARE PART A AND B
[2024-08-01 07:53] LABS: Basophils Absolute Auto 0.05 K/mm3 (0.00-0.10); Basophils Percent Auto 1.2 % (0.0-1.0); Eosinophils Percent Auto 2.4 % (1.0-6.0); Hematocrit 33.1 % (37.0-46.0); Hemoglobin 10.1 g/dL (12.4-15.3); Immature Granulocyte Absolute 0.01 K/mm3 (0.00-0.00); Immature Granulocyte Percent A 0.2 % (0.0-0.0); Lymphocytes Percent Auto 21.3 % (18.0-42.0); Mean Corpuscular HGB Conc 30.5 g/dL (32-36); Mean Corpuscular Hemoglobin 31.5 pg (27.0-31.0); Mean Corpuscular Volume 103.1 fL (78.0-102.0); Mean Platelet Volume 10.6 fl (8.7-11.0); Monocytes Absolute Auto 0.47 K/mm3 (0.10-0.90); Monocytes Percent Auto 11.1 % (2.0-11.0); Neutrophils Absolute Auto 2.69 K/mm3 (1.70-7.20); Neutrophils Percent Auto 63.8 % (50.0-70.0); Platelet Count Result 128 K/mm3 (150-420); Red Blood Count 3.21 M/mm3 (4.70-6.10); Red Cell Distribution Width 14.2 % (11.6-14.4); White Blood Count 4.2 K/mm3 (4.8-10.8)
[2024-08-01 08:27] LABS: Anion Gap 7 mmol/L (4-12); Blood Urea Nitrogen 78 mg/dL (9-20); Calcium 9.3 mg/dL (8.4-10.2); Carbon Dioxide 20 mmol/L (22-30); Chloride 119 mmol/L (98-107); Estimated Glomerular Filt Rate 16; Glucose 78 mg/dL (65-110); Osmolality Calculated 324 mOsm/kg (285-295); Sodium 146 mmol/L (137-145)
[2024-08-01 09:06] LABS: Potassium 6.1 mmol/L (3.4-5.0)
== END 2024-08-01 07:39 | disposition home or self-care (01) ==
PROVIDERS: PCP Internal Medicine; Visit Provider Internal Medicine Hematology & Oncology
DX: D64.9 Anemia, unspecified (principal)
CPT/HCPCS: 36415; 80048; 85025

== ENCOUNTER 2024-09-11 07:14 | Outpatient (CLI) | payer MEDICARE, SELFPAY ==
--- OUTSIDE RECORDS SUMMARY | 2024-09-11 07:19 | XMS_ITS | Data Portability ---
Author Organization [place] - [facility], Main Office Address [address] [place] [address] Care Team Providers Care Sheriff Sergeant Name Role Phone AYDIN CEJA Primary Care [...] or plasma - Please fax results to [phone] DX hypertensSociercise n 2022 023 GISELLE In-Office Order, Internal Use Only DO Not Attach Compendium DO Not Attach Compendium, Do Not Delete/merge, [id number] 09:41:25 Referral None recorded. Procedures None recorded. Surgeries None recorded. Imaging electrocard iogram - Please fax results to [phone] DX hypertensio n 2022 023 [email or web address] In-Office Order, Internal Use Only DO Not Attach Compendium DO Not Attach Compendium, Do Not Delete/merge, 89139 11:12:27 XR, hand 2022 023 [email or web address] [facility], [address], [place], [address], 10:52:13 Medication Orders None recorded. Patient TargetsNo targets recorded. Patient InstructionsNo instructions recorded. Reason for Referral None Reported. Results Created Date Observation Date Name Description Value Unit Range Abnormal Flag Note LastModifiedBy Organization Detail LastModifiedTime 08/06/1907/27/2022 elect romyo gram + nerve condu ction study No observ ation record ed. Not Available 2022 14:57:51 08/11/19 XR, hand No observ ation record ed. [email or web address] [facility] [address], [place], [address], 08/10/2022 10:52:12 09/07/19 23 09/06/2022 elect scarlett diogr am No observ ation record ed. [email or web address] ([facility] [address] [place] [address], [address], 09/06/2022 11:12:13 Result Notes None recorded. Problems Name Problem SNOMED Code Status Onset Date Resolution Date Notes Provider Name and Address Organization Details Recorded Time Pain of left hand 2803437060438 03 Active 2022 ODILIA Church null, [email or web address] 3 09:51:02 Carpal tunnel syndrome of left wrist 6837656928626 02 Active 2022 Lui Ordoñez MD [address] Formerly named [facility], [place], [address] , [employer] 3 10:51:18 Ulnar nerve entrapment at elbow 964621581 Active 2022 Lui Ordoñez MD [address], [place], [address], [facility] [employer] 10:51:30 Problem Notes None recorded. Procedures Surgical History Date Name Laterality Status Provider Name and Address Organization Details Recorded Time procedure on gallbladder completed ODILIA Church [place] [employer] [facility] [employer] [facility] 08/10/2022 09:49:24 procedure on lower leg completed Destiny Rice Kushal [facility] [employer] [facility] 08/10/2022 09:49:34 Imaging Results None recorded. 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 Functional Status Question Answer Note LastModified by Organization D etails LastModified Time What is your level of alcohol consumption? None Information not available 08/10/2022 Mental Status None recorded. Family History Relationship Description Onset Age of this Age Resolved Age Notes LastModified by Organization Details LastModified Time Father Heart disease [email or web address] Not available 2022 09:48:34 Mother Heart disease [email or web address] Not available 2022 09:48:34 Mother Hypertensive disorder [email or web address] Not available 2022 09:49:00 Maternal Grandmother Family history of malignant neoplasm [email or web address] Not available 2022 09:48:46 Medical History Condition Response ARTHRITIS Y DIABETES, TYPE Y CANCER: SPECIFY Y Past Encounters Encounter ID Performer Location Encounter Start Date Encounter Closed Date Diagnosis/Indication Diagnosis SNOMED-CT Code Diagnosis ICD10 Code Diagnosis Note [id number] Lui Ordoñez MD [facility] [place] 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 Harmon for surgery of the carpal and cubital tunnel on the left Ulnar nerv e entrapment at elbow 276674352 G56.22 patient has significan t atrophy of the ulnar intrinsics he needs an ulnar nerve decompress ion I will set him up to see Dr. Harmon for surgery [id number] Mario Harmon MD [facility] [place] 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 8970875987 82081 G56.02 Pain of left hand 800225 2945 45176 M79.642 Pre-surger y evaluation 360405207 Z01.818 Health Concerns Section Related Observation LastModified by Organization Detai ls LastModified Time None Recorded Concern Status LastModified by Organization Details LastModified Time None Recorded Advance Directives Directive None Recorded Payers Insurance Date Sequence Insurance Name Policy Number Policy Martell Covered Member ID Martell Member ID Guarantor Name 09/10/2022 1 [place] Zach Kasper [id number] Zach Kasper 09/10/2022 2 [employer] (MEDICARE SUPPLEMENT) Zach Kasper [id number] Zach Kasper
--- OUTSIDE RECORDS SUMMARY | 2024-09-11 07:19 | XMS_ITS | Clinical Summary ---
Author Organization [facility] Chris carlson Rosalinda Address [address] [place] [address] Care Team Providers Care Stereotype Caster Name Role Phone Unavailable Primary Care Provider [...] Encounters Date Type Department Care Team Description 09/03/2024 Orders Only [facility] Oncology and Hematology - [place] [address] [place] [address] Desean De MD Chronic anemia 08/29/2024 External Device Data STL ABSTRACTION Provider, Abstract 08/28/2024 External Device Data STL ABSTRACTION Provider, Abstract 08/20/2024 Orders Only [facility] Oncology and Hematology - [place] [address] [place] [address] Desean De MD Chronic anemia 08/14/2024 Orders Only [facility] Oncology and Hematology - [place] [address] [place] [address] Desean De MD 08/07/2024 Orders Only [facility] Oncology and Hematology - [place] [address] Desean De MD 08/06/2024 Orders Only [facility] Oncology and Hematology - [place] [address] [place] [address] Desean De MD Chronic anemia 07/31/2024 External Device Data STL ABSTRACTION Provider, Abstract 07/30/2024 Orders Only [facility] Oncology and Hematology - [place] [address] [place] [address] Desean De MD 07/23/2024 Orders Only [facility] Oncology and Hematology - [place] [address] [place] [address] Desean De MD Chronic anemia 07/20/2024 Orders Only [facility] Oncology and Hematology - [place] [address] [place] [address] Desean De MD 07/09/2024 Orders Only [facility] Oncology and Hematology - [place] [address] [place] [address] Desean De MD Chronic anemia 07/05/2024 External Device Data STL ABSTRACTION Provider, Abstract 07/04/2024 External Device Data STL ABSTRACTION Provider, Abstract 07/03/2024 External Device Data STL ABSTRACTION Provider, Abstract 07/03/2024 Orders Only [facility] Oncology and Hematology - [place] [address] [place] [address] Desean De MD 06/26/2024 Orders Only [facility] Oncology and Hematology - [place] [address] [place] [address] Desean De MD 06/25/2024 Orders Only [facility] Oncology and Hematology - [place] [address] [place] [address] Desean De MD Chronic anemia from Last 3 Months Family History Medical [...] on file 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 Gender Identity Not on file Sexual Orientation [...] Description 11/09/2024 11:45 AM CDT Office Visit [facility] Oncology and Hematology - [place] [address] [facility] [address] [place] [address] Desean eD MD [address] [facility] [address] [place] [address] Health Maintenance Due Date Last Done Comments DIABETES ANNUAL FOOT EXAM 1960 DIABETES ANNUAL RETINAL EXAM 1960 DIABETES HBA1C Q 6 MONTHS 1960 DIABETES MICROALBUMIN ANNUAL SCREEN 1960 LDL CHOLESTEROL ANNUAL 1960 DTAP/TDAP/TD VACCINES (1 - Tdap) 1961 ZOSTER VACCINE (1 of 2) 1992 RSV VACCINE (60+ or ) (1 - 1-dose 75+ series) 2017 PNEUMOCOCCAL VACCINE 50+ YEA RS (2 of 2 - PPSV23, PCV20, or PCV21) 12/10/2017 10/15/2017 INFLUENZA VACCINE (#1) 2024 11/20/2020 Procedures Procedure Name Priority Date/Time Associated Diagnosis Comments CBC WITH DIFFERENTIAL Routine 08/10/2024 5:43 PM CDT BASIC METABOLIC PANEL Routine 08/01/2024 5:05 PM CDT BASIC METABOLIC PANEL Routine 08/01/2024 4:57 PM CDT CBC WITH DIFFERENTIAL Routine 08/01/2024 4:55 PM CDT CBC WITH DIFFERENTIAL Routine 08/01/2024 4:54 PM CDT CBC WITH DIFFERENTIAL Routine 07/27/2024 2:14 PM CDT CBC WITH DIFFERENTIAL Routine 07/13/2024 11:52 AM CDT CBC WITH DIFFERENTIAL Routine 06/29/2024 12:15 PM CDT CBC WITH AUTODIFFERENTIAL Routine 2024 2:40 PM CDT from Last 3 Months Results * CBC WITH DIFFERENTIAL (08/10/2024 5:43 PM CDT) Only the most recent of6 resultswithin the time period is included. Blood us Desean De MD HEMATOLOGY ORDERABLES Final Res ult * BASIC METABOLIC PANEL (08/01/2024 5:05 PM CDT) Only the most recent of2 resultswithin the time period is included. Blood Desean De MD CHEMISTRY ORDERABLES Final Resu lt * CBC WITH AUTODIFFERENTIAL (06/15/2024 2:40 PM CDT) Blood Desean De MD HEMATOLOGY ORDERABLES Final Res ult from Last [address] [place] [address] MEDICARE PART A AND B
--- OUTSIDE RECORDS SUMMARY | 2024-09-11 07:19 | XMS_ITS | Clinical Summary ---
Author Organization [facility]a utibryon Address [address] [place] [address] Phone Care Team Providers Care Physical Integration Practitioner Name Role Phone Kermit Otero MD Primary Care Provider [phone] Allergies No known active allergies Medications cilostazol [...] and Medium Risk (2 of 3 - PCV20 or PCV21) 10/15/2018 10/15/2017 Influenza Vaccine (#1) 2024 11/20/2020 Insurance MEDICARE [facility] INSURANCE Care Teams Physical Integration Practitioner Relationship Specialty Start Date End Date Kermit Otero MD [address] [place] [address] PCP - General Internal Medicine 06/10/20
--- OUTSIDE RECORDS SUMMARY | 2024-09-11 07:19 | XMS_ITS | Clinical Summary ---
Author Organization [facility] Address [facility] [place] [address] Care Team Providers Care Care Connector Name Role Phone Unavailable Primary Care Provider [...] Td Vaccines ( 1 - Tdap) 1961 Pneumococcal Vaccine: 50+ Ye ars (1 of 1 - PCV) 1992 Zoster Vaccines (1 of 2) 1992 Annual Medicare Wellness Visit 08/19/2007 RSV Immunization or 60+ Years (1 [...] age to complete this topic Insurance MEDICARE [facility]
--- OUTSIDE RECORDS SUMMARY | 2024-09-11 07:20 | XMS_ITS | Patient Health Record ---
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 Problem Chronic kidney disease due to hypertension (318127940070280) Hypertensive chronic kidney disease with stage 1 through stage 4 chronic kidney disease, or unspecified chronic kidney disease (I12.9) Active confirmed Problem Atherosclerotic heart disease of ute coronary artery without angina pectoris (984480737939559) 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 Problem Chronic kidney disease stage 4 (078138337) Chronic kidney disease, stage 4 (severe) (N18.4) Active confirmed Problem Essential hypertension (27653743) Essential hypertension (I10) Active confirmed Plan Of Treatment No Information Insurance Providers Payer Name Payer Address Payer Phone Subscriber Number Group Number Insured Name Patient Relationship to Insured Coverage Start Date Coverage End Date Medicare [address] [place] [phone] [id number] Zach Kasper Self - patient is the insured [facility] Insurance Pr [address] [place] [id number] Zach Kasper Self - patient is the insured Medical (General) History Medical History History ICD Code Hypertension Hypercholesterolemia COPD Surgical History Surgery Date(Month/Year) cholecystectomy Knee surgery
[2024-09-11 07:29] LABS: Hematocrit 33.3 % (37.0-46.0); Hemoglobin 10.0 g/dL (12.4-15.3); Mean Corpuscular HGB Conc 30.0 g/dL (32-36); Mean Corpuscular Hemoglobin 30.6 pg (27.0-31.0); Mean Corpuscular Volume 101.8 fL (78.0-102.0); Platelet Count Result 162 K/mm3 (150-420); Red Blood Count 3.27 M/mm3 (4.70-6.10); White Blood Count 4.5 K/mm3 (4.8-10.8)
[2024-09-11 07:39] LABS: Total Protein Urine Random 120 mg/dL; Ur Ttl Prot Creatinine Ratio 1.44 mg/mg (0-0.20)
[2024-09-11 08:18] LABS: Albumin Level 3.6 g/dL (3.5-5.1); Anion Gap 5 mmol/L (4-12); Blood Urea Nitrogen 99 mg/dL (9-20); Calcium 8.9 mg/dL (8.4-10.2); Carbon Dioxide 19 mmol/L (22-30); Chloride 119 mmol/L (98-107); Estimated Glomerular Filt Rate 12; Glucose 79 mg/dL (65-110); Osmolality Calculated 325 mOsm/kg (285-295); Potassium 5.9 mmol/L (3.4-5.0); Sodium 143 mmol/L (137-145)
== END 2024-09-11 07:15 | disposition home or self-care (01) ==
LOC: CHSLAB 07:16
PROVIDERS: PCP Internal Medicine; Visit Provider Internal Medicine Nephrology
DX: N18.4 Chronic kidney disease, stage 4 (severe) (principal)
CPT/HCPCS: 36415; 80069; 82570; 83970; 84156; 85027

== ENCOUNTER 2024-09-11 21:45 | Emergency (ER) | payer MEDICARE, SELFPAY ==
[2024-09-11] VITALS (20 sets, daily range): BP systolic 152–171; BP diastolic 51–67; PULSE 59–87; RESP 13–18; TEMP 37.2–37.3; O2SAT 93–96
--- NOTE | ~2024-09-11 | XR_ITS ---
EXAMINATION: XR chest 1V portable Exam Date/Time: 09/11/2024 21:55 CDT HISTORY: Chest pain Comparison: 07/20/2021. RESULT: Lines, tubes, and devices: None. Lungs and pleura: Left basilar scar/atelectasis, otherwise clear. Cardiomediastinal silhouette: Stable. Other: No acute osseous or upper abdominal finding. IMPRESSION: No acute cardiopulmonary process. Reviewed, dictated and finalized at location K.
--- NOTE | 2024-09-11 21:47 | ECG_ITS ---
Test Date: 2024-09-11 21:56:25 Measurements Intervals Alexis Rate: 80 P: 69 WV: 193 QRS: -46 QRSD: 118 T: 80 QT: 349 QTc: 404 Interpretive Statements SINUS RHYTHM INCOMPLETE RIGHT BUNDLE BRANCH BLOCK [90+ ms QRS DURATION, TERMINAL R IN V1/V2, 40+ ms S IN I/aVL/V4/V5/V6] LOW QRS VOLTAGE LEFT AXIS DEVIATION ABNORMAL ECG No previous ECG available for comparison Electronically Signed On 09-12-2024 08:22:28 CDT by Azam Chase M.D.
--- OUTSIDE RECORDS SUMMARY | 2024-09-11 21:47 | XMS_ITS | Clinical Summary ---
Author Organization [facility] Chris carlson Rosalinda Address [address] [place] [address] Care Team Providers Care Marketing Production Manager Name Role Phone Unavailable Primary Care Provider [...] Encounters Date Type Department Care Team Description 09/11/2024 Orders Only [facility] Oncology and Hematology - [place] [address] [place] [address] Desean De MD 09/03/2024 Orders Only [facility] Oncology and Hematology - [place] [address] [place] [address] Desean De MD Chronic anemia 08/29/2024 External Device Data STL ABSTRACTION Provider, Abstract 08/28/2024 External Device Data STL ABSTRACTION Provider, Abstract 08/20/2024 Orders Only [facility] Oncology and Hematology - [place] [address] [place] [address] Desean De MD Chronic anemia 08/14/2024 Orders Only [facility] Oncology and Hematology - [place] [address] [place] [address] Desean De MD 08/07/2024 Orders Only [facility] Oncology and Hematology - [place] [address] [place] [address] Desean De MD 08/06/2024 Orders Only [facility] Oncology and Hematology - [place] [address] [place] [address] Desean De MD Chronic anemia 07/31/2024 External Device Data STL ABSTRACTION Provider, Abstract 07/30/2024 Orders Only [facility] Oncology and Hematology - [place] [address] [place] [phone] Desean De MD 07/23/2024 Orders Only [facility] Oncology and Hematology - [place] [address] [place] [address] Desean De MD Chronic anemia 07/20/2024 Orders Only [facility] Oncology and Hematology - [place] [address] [place] [address] Desean De MD 07/09/2024 Orders Only [facility] Oncology and Hematology - [place] [address] [place] [address] Desean De MD Chronic anemia 07/05/2024 External Device Data STL ABSTRACTION Provider, Abstract 07/04/2024 External Device Data STL ABSTRACTION Provider, Abstract 07/03/2024 External Device Data STL ABSTRACTION Provider, Abstract 07/03/2024 Orders Only [facility] Oncology and Hematology - [place] [address] [place] [address] Desean De MD 06/26/2024 Orders Only [facility] Oncology and Hematology - [place] [address] [place] [address] Desean De MD 06/25/2024 Orders Only [facility] Oncology and Hematology - [place] [address] [place] [address] Desean De MD Chronic anemia from Last [...] on file 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 [address] [place] [address] Health Maintenance Due Date Last [...] Associated Diagnosis Comments CBC WITH DIFFERENTIAL Routine 09/07/2024 2:16 PM CDT CBC WITH DIFFERENTIAL Routine 08/10/2024 5:43 PM [...] 3 Months Results * CBC WITH DIFFERENTIAL (09/07/2024 2:16 PM CDT) Only the most recent of7 resultswithin the time period is included. Blood us Desean De MD HEMATOLOGY ORDERABLES Final Res ult * BASIC METABOLIC PANEL (08/01/2024 5:05 PM CDT) Only the most recent of2 resultswithin the time period is included. Blood us Desean De MD CHEMISTRY ORDERABLES Final Resu lt * CBC WITH AUTODIFFERENTIAL (06/15/2024 2:40 PM CDT) Blood us Desean De MD HEMATOLOGY ORDERABLES Final Res ult from Last [address] [place] [address] [place] [address] MEDICARE PART A AND B
--- OUTSIDE RECORDS SUMMARY | 2024-09-11 21:48 | XMS_ITS | Encounter Summary ---
Author Organization [facility] EDUARDO Mcclain [facility] Address [address] [place] [address] Care Team Providers Care Top Distribution Executive Name Role Phone Unavailable Primary Care Provider Unavailabl e Encounter Details Date Type Department Care Team (Late st Contact Info) Description 09/11/2024 Orders Only [facility] Oncology [facility] Hematology [place] [address] [address] [place] [address] Desean De MD [address] [facility] [employer] [employer] [address] [place] [address] Social History Tobacco Use Types Packs/Day Years Used Date Smoking Tobacco: Never Smokeless Tobacco: Never Alcohol Use Standard Drinks/Week Comments Yes 0 (1 standard drink = 0.6 oz pur e alcohol) Occasionally Sex and Gender Information Value Date Recorded Sex Assigned at Not on file 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 Gender Identity Not on file Sexual Orientation Not on file documented as of this encounter Plan of Treatment Upcoming Encounters Date Type Department Care Team (Late st Contact Info) Description 11/09/2024 11:45 AM CDT Office Visit [facility] Oncology and Hematology [place] [place] [address] Desean De MD [address] [place] [address] documented as of this encounter Procedures Procedure Name Priority Date/Time Associated Diagnosis Comments CBC WITH DIFFERENTIAL Routine 09/07/2024 2:16 PM CDT documented in this encounter Results * CBC WITH DIFFERENTIAL (09/07/2024 2:16 PM CDT) Blood us Desean De MD HEMATOLOGY ORDERABLES Final Res ult documented in this encounter Visit Diagnoses Not on filedocumented in this encounter
--- OUTSIDE RECORDS SUMMARY | 2024-09-11 21:48 | XMS_ITS | Clinical Summary ---
Author Organization [facility] Address [address] [place] [address] Phone Care Team Providers Care Cooler Conveyor Loader Name Role Phone Kermit Otero MD Primary Care Provider [phone] Allergies No known active allergies Medications cilostazol [...] Influenza Vaccine (#1) 2024 11/20/2020 Insurance MEDICARE [facility] INSURANCE Care Teams Cooler Conveyor Loader Relationship Specialty Start Date End Date Kermit Otero MD [address] [place] [address] PCP - General Internal Medicine 06/10/20
--- OUTSIDE RECORDS SUMMARY | 2024-09-11 21:48 | XMS_ITS | Clinical Summary ---
Author Organization [facility] Address [facility] [place] [address] Care Team Providers Care Core Finisher Name Role Phone Unavailable Primary Care Provider [...] age to complete this topic Insurance [facility]ICARE [facility]
--- NOTE | 2024-09-11 21:52 | ED_ITS ---
HPI - Chest Pain General Chief Complaint: Chest Pain Stated Complaint: Chest Pain/Back Pain Time Seen by Provider: 09/11/24 21:51 Source: patient Mode of arrival: ambulatory Limitations: no limitations History of Present Illness HPI narrative: 84 years old white male presents to the ED complaining of sudden onset of pain at the right lower extremity within 20 minutes started having severe pain across upper back, both shoulders, radiating to the front of the chest burning sensation and tightness. History of diabetes, hypertension, hyperlipidemia currently on baby aspirin once a day. Patient does not smoke or use drugs, drinks occasionally. Strong family history of coronary artery disease. Patient report that started having dull aching pain at the lateral side of the right thigh and the right lower leg gradually improving. The ED chest pain is improving but still there MD complaint: chest pain and chest discomfort Onset (ago): minute(s) Timing of current episode: still present Prior episodes: No Onset: during rest Pain location: parasternal Pain radiation: left shoulder and right shoulder Severity: moderate Quality: burning Relieving factors: nothing Exacerbating factors: other ( unknown) Treatment prior to arrival: none Risk Factors Coronary artery disease risk factors: diabetes, hyperlipidemia, hypertension and family history of CAD before age 50 Thoracic aortic dissection risk factors: none Related Data Home Medications ?Medication ?Instructions ?Recorded ?Confirmed ?Last Taken ?Type finasteride 5 mg tablet 5 mg PO DAILY 05/21/19 08/20/24 07/17/21 History tamsulosin 0.4 mg capsule 0.8 mg PO DAILY 05/21/19 08/20/24 07/17/21 History albuterol sulfate 90 mcg/actuation 2 puff inhalation Q4-6H PRN Dyspnea 05/30/20 08/20/24 07/16/21 History aerosol inhaler aspirin 81 mg tablet,delayed 81 mg PO DAILY 05/30/20 08/20/24 07/17/21 History release ferrous sulfate 325 mg (65 mg 650 mg PO DAILY 05/30/20 08/20/24 07/17/21 History iron) capsule,extended release multivitamin 1 tablet PO DAILY 05/30/20 08/20/24 07/17/21 History furosemide 20 mg tablet 20 mg PO DAILY 05/25/21 08/20/24 07/17/21 History losartan 100 mg tablet 100 mg PO DAILY 09/07/22 08/20/24 Unknown History insulin glargine 100 unit/mL (3 20 unit subcut QAM 07/13/24 08/20/24 Unknown History mL) subcutaneous pen (Basaglar KwikPen U-100 Insulin) Allergies Allergy/AdvReac Type Severity Reaction Status Date / Time No Known Allergies Allergy Unknown Verified 09/11/24 21:49 Review of Systems 2 Review of Systems: All systems reviewed & are unremarkable except as noted in HPI and below PMFSH Past Medical History Medical History Chronic kidney disease Arthritis Prostate CA COPD (chronic obstructive pulmonary disease) Dyslipidemia Obesity Edema of both legs COSME (dyspnea on exertion) Essential hypertension Hypersomnia VINCENT on CPAP PAD (peripheral artery disease) 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, with halfway current use of insulin pump Venous insufficiency of right lower extremity Ventricular ectopic beats Surgical History Surgical History History of cholecystectomy History of cataract extraction Family History Family History Father Family history of coronary artery disease Mother Family history of coronary artery disease Coronary artery disease Social History Social History Smoking packs per day: 3 Smoking cigarettes per day: 60.0 Years smoked: 25 Smoking pack-years: 75.00 Smoking status: Former smoker Smoking end date: 02/14/87 Alcohol intake: former Drinks per week: 1 Substance use: former Do You Feel Safe in your Home?: Yes Lack of Transportation: No Lack of Food: Never True Current Housing: I Have Housing Concerned About Future Housing: No Difficulty Paying Gas/Electric Bills: No Difficulty Paying for Meds: No Currently Unemployed: No Education: High School Diploma/GED Living arrangements: with family Additional living arrangements comments: Occupation/Education: retired Gender identity (if verbalized by the patient): Male Spiritual care concerns: No Exam 2 Narrative: General appearance: Well-developed, well-nourished Skin: Normal color Head: Normocephalic, nontraumatic Eyes: Clear conjunctiva ENT: Oropharynx normal, ears normal, nose normal Neck: Supple, nontender Chest and respiratory: Airway patent, no respiratory distress, no accessory muscle use Heart: Regular rate/rhythm Abdomen: Soft, nontender, no organomegaly, quiet bowel sounds Vascular: Normal peripheral pulses, normal capillary refill. Musculoskeletal: right lower leg showed no bruises, no localized tenderness, calf muscle is soft, lower leg is larger than the left 1, chronic, because of hardware, Neurologic: Alert and oriented ?3, HONING MACHINE SET UP OPERATOR is normal as tested, no gross motor deficit Course Vital Signs Vital signs: Vital Signs Temperature 37.2 C 09/11/24 21:47 Pulse Rate 82 09/11/24 21:47 Respiratory Rate 16 09/11/24 21:47 Blood Pressure 169/63 H 09/11/24 21:47 Pulse Oximetry 96 09/11/24 21:47 Oxygen Delivery Room Air 09/11/24 21:47 Temperature 37.3 C 09/11/24 23:46 Pulse Rate 80 09/11/24 23:46 Respiratory Rate 18 09/11/24 23:46 Blood Pressure 169/67 H 09/11/24 23:46 Pulse Oximetry 94 09/11/24 23:46 Oxygen Delivery Room Air 09/11/24 22:36 MDM - Chest Pain MDM Narrative Medical decision making narrative: patient presents with sudden onset of chest pain, back pain shoulder pain bilaterally at rest Vital signs showing blood pressure 169/63 otherwise within normal limit Physical examination showing slightly restless patient right lower leg is bigger than the left 1, chronic no localized tenderness Differential diagnosis coronary syndrome, gastritis, esophagitis, musculoskeletal, anxiety like symptoms Blood workup today includes CBC, CMP, proBNP, troponin, lipase, coags showed WBC 11.2, hemoglobin 10.7, potassium 5.7, BUN 97, creatinine 4.4 glucose 168, proBNP 1100 EKG showed normal sinus rhythm, poor R-wave progression, septal myocardial infarction of indeterminate age, Chest x-ray Showed no acute abnormality Currently patient is pain-free, in the ED patient received aspirin, nitroglycerin sublingual, nitro paste, Lopressor 5 mg once with significant improvement. Transferred to [facility] Differential Diagnosis Differential diagnosis: Likely pneumothorax, stable angina, atypical chest pain, costochondritis and chest pain Medical Records Data Attestation: I reviewed the patient's medical records. Lab Data Attestation: I reviewed the patient's lab results. 09/11/24 21:55 09/11/24 21:55 Labs: Lab Results 09/11/24 09/11/24 Range/Units 21:55 22:17 WBC 11.2 H (4.8-10.8) K/mm3 RBC 3.46 L (4.70-6.10) M/mm3 Hgb 10.7 L (12.4-15.3) g/dL Hct 36.6 L (37.0-46.0) % MCV 105.8 H (78.0-102.0) fL MCH 30.9 (27.0-31.0) pg MCHC 29.2 L (32-36) g/dL RDW 15.0 H (11.6-14.4) % Plt Count 168 (150-420) K/mm3 MPV 10.7 (8.7-11.0) fl Immature Gran % (Auto) 0.6 H (0.0-0.0) % Neut % (Auto) 83.9 H (50.0-70.0) % Lymph % (Auto) 6.9 L (18.0-42.0) % [place] % (Auto) 7.1 (2.0-11.0) % Eos % (Auto) 1.1 (1.0-6.0) % Baso % (Auto) 0.4 (0.0-1.0) % Lymph # (Auto) 0.77 L (1.10-4.50) K/mm3 [place] # (Auto) 0.79 (0.10-0.90) K/mm3 Eos # (Auto) 0.12 (0.02-0.50) K/mm3 Baso # (Auto) 0.04 (0.00-0.10) K/mm3 Abs Immat Gran (auto) 0.07 H (0.00-0.00) K/mm3 Absolute Neuts (auto) 9.40 H (1.70-7.20) K/mm3 Absolute Nucleated RBC 0.00 (0.00-0.00) K/mm3 Nucleated RBC % 0.0 (0-0.0) % PT 10.9 (9.50-12.1) Seconds INR 1.0 APTT 28.2 (23.9-30.70) Sec Sodium 142 (137-145) mmol/L Potassium 5.7 H (3.4-5.0) mmol/L Chloride 122 H (98-107) mmol/L Carbon Dioxide 11 L (22-30) mmol/L Anion Gap 9 (4-12) mmol/L BUN 97 H (9-20) mg/dL Creatinine 4.40 H (0.7-1.3) mg/dL Estim Creat Clear Calc 14 ml/min Estimated GFR 13 L (59 - ) Glucose 168 H (65-110) mg/dL Calculated Osmolality 328 H (285-295) mOsm/kg Calcium 8.9 (8.4-10.2) mg/dL Total Bilirubin 0.4 (0.2-1.3) mg/dL AST 20 (17-59) U/L ALT 12 (6-50) U/L Alkaline Phosphatase 80 (38-126) U/L Troponin I 0.015 (0.000-0.034) ng/mL NT-Pro-B Natriuret Pep 1100 H (19.9-100) pg/mL Total Protein 6.7 (6.3-8.2) g/dL Albumin 3.8 (3.5-5.1) g/dL Lipase 67 (23-300) U/L Imaging Data Radiologist's impression: Impressions Chest X-Ray 09/11/24 22:39 IMPRESSION: No acute cardiopulmonary process. ECG Data EKG #1: Attestation: I personally reviewed and interpreted this ECG as follows: ECG completion date: 09/11/24 Interpretation: normal sinus rhythm at 80 beats per minute, incomplete right bundle-branch block, poor R-wave progression, septal myocardial infarction of indeterminate age, abnormal EKG unable to get a copy of the L2 EKG for comparison Critical Care Time Critical Care Time Critical Care Time: No Discharge Plan Discharge Clinical Impression: Chest pain Patient Disposition: Acute Care Hospital [facility] Condition: Improved Patient Language: Macedonian Prescriptions: No Action furosemide 20 mg tablet 20 mg PO DAILY insulin glargine [Basaglar KwikPen U-100 Insulin] 100 unit/mL (3 mL) insulin pen 20 unit SUBCUT QAM finasteride 5 mg tablet 5 mg PO DAILY tamsulosin 0.4 mg capsule 0.8 mg PO DAILY Patient Comments: . losartan 100 mg tablet 100 mg PO DAILY albuterol sulfate 90 mcg/actuation HFA aerosol inhaler 2 puff INHALATION Q4-6H PRN (Reason: Dyspnea) Patient Comments: .. aspirin 81 mg Tablet,Delayed Release (Dr/Ec) 81 mg PO DAILY multivitamin Tablet 1 tablet PO DAILY ferrous sulfate 325 mg (65 mg iron) Capsule, Extended Release 650 mg PO DAILY hydrochlorothiazide 25 mg Tablet 50 mg PO QAM 90 Days Qty: 180 0RF pravastatin 40 mg tablet See Rx Instructions .ROUTE .COMPLEX Qty: 90 2RF Dose Instruction: TAKE 1 TABLET BY MOUTH EVERY DAY Rx Instructions: TAKE 1 TABLET BY MOUTH EVERY DAY amlodipine 10 mg tablet See Rx Instructions .ROUTE .COMPLEX Qty: 90 2RF Dose Instruction: TAKE 1 TABLET BY MOUTH EVERY DAY Rx Instructions: TAKE 1 TABLET BY MOUTH EVERY DAY hydralazine 100 mg tablet 100 mg PO Q8H Qty: 270 3RF carvedilol 6.25 mg tablet See Rx Instructions .ROUTE .COMPLEX Qty: 180 3RF Dose Instruction: TAKE 1 TABLET BY MOUTH EVERY 12 HOURS WITH FOOD Rx Instructions: TAKE 1 TABLET BY MOUTH EVERY 12 HOURS WITH FOOD Follow-up/Referrals: Kermit Otero MD [Primary Care Provider] - Quality HEART score for chest pain patients History: highly suspicioius ECG: non specific repolarization disturbance/LBTB/PM Age: > or = to 65 years Risk factors: > or = to 3 risk factors of atherosclerotic disease Troponin: < or = to 1x normal limit Heart score: 7
[2024-09-11 22:12] LABS: Hematocrit 36.6 % (37.0-46.0); Hemoglobin 10.7 g/dL (12.4-15.3); Immature Granulocyte Percent A 0.6 % (0.0-0.0); Lymphocytes Absolute Auto 0.77 K/mm3 (1.10-4.50); Mean Corpuscular HGB Conc 29.2 g/dL (32-36); Mean Corpuscular Hemoglobin 30.9 pg (27.0-31.0); Mean Corpuscular Volume 105.8 fL (78.0-102.0); Nucleated Red Blood Cells Absolute Auto 0.00 K/mm3 (0.00-0.00); Nucleated Red Blood Cells Perc 0.0 % (0-0.0); Platelet Count Result 168 K/mm3 (150-420); Red Blood Count 3.46 M/mm3 (4.70-6.10); White Blood Count 11.2 K/mm3 (4.8-10.8)
[2024-09-11 22:15] LABS: Alanine Aminotransferase 12 U/L (6-50); Albumin Level 3.8 g/dL (3.5-5.1); Alkaline Phosphatase 80 U/L (38-126); Anion Gap 9 mmol/L (4-12); Aspartate Amino Transferase 20 U/L (17-59); Bilirubin,Total 0.4 mg/dL (0.2-1.3); Blood Urea Nitrogen 97 mg/dL (9-20); Calcium 8.9 mg/dL (8.4-10.2); Carbon Dioxide 11 mmol/L (22-30); Chloride 122 mmol/L (98-107); Estimated CRCL calculation 14 ml/min; Estimated Glomerular Filt Rate 13; Glucose 168 mg/dL (65-110); Osmolality Calculated 328 mOsm/kg (285-295); Potassium 5.7 mmol/L (3.4-5.0); Sodium 142 mmol/L (137-145); Total Protein 6.7 g/dL (6.3-8.2)
[2024-09-11] MEDS: NITROGLYCERIN SL 0.4 MG TABLET SUBLINGUAL ×2 (22:16→23:05)
--- OUTSIDE RECORDS SUMMARY | 2024-09-11 22:16 | XMS_ITS | Clinical Summary ---
Author Organization [facility] Min[facility]a utibryon Address [address] [place] [phone] Phone Care Team Providers Care Correctional Officer Captain Name Role Phone Kermit Otero MD Primary Care Provider [phone] Allergies No known active allergies Medications cilostazol [...] Influenza Vaccine (#1) 2024 11/20/2020 Insurance MEDICARE [facility] INSURANCE Care Teams Correctional Officer Captain Relationship Specialty Start Date End Date Kermit Otero MD [address] [place] [address] PCP - General Internal Medicine 06/10/20
--- OUTSIDE RECORDS SUMMARY | 2024-09-11 22:16 | XMS_ITS | Clinical Summary ---
Author Organization [facility] Chris carlson Rosalinda Address [address] [place] [address] Care Team Providers Care Ceo & Board Director Name Role Phone Unavailable Primary Care Provider [...] Department Care Team Description 09/11/2024 Orders Only [facility] Oncology and Hematology - [place] [address] [place] [address] Desean De MD 09/03/2024 Orders Only [facility] Oncology and Hematology - [place] [address] [place] [phone] Desean De MD Chronic anemia 08/29/2024 External Device Data STL ABSTRACTION Provider, Abstract 08/28/2024 External Device Data STL ABSTRACTION Provider, Abstract 08/20/2024 Orders Only [facility] Oncology and Hematology - [place] [address] [place] [phone] Desean De MD Chronic anemia 08/14/2024 Orders Only [facility] Oncology and Hematology - [place] [address] [place] [phone] Desean De MD 08/07/2024 Orders Only [facility] Oncology and Hematology - [place] [address] [place] [phone] Desean De MD 08/06/2024 Orders Only [facility] Oncology and Hematology - [place] [address] [place] [phone] Desean De MD Chronic anemia 07/31/2024 External Device Data STL ABSTRACTION Provider, Abstract 07/30/2024 Orders Only [facility] Oncology and Hematology - [place] [address] [place] [phone] Desean De MD 07/23/2024 Orders Only [facility] Oncology and Hematology - [place] [address] [place] [phone] Desean De MD Chronic anemia 07/20/2024 Orders Only [facility] Oncology and Hematology - [place] [address] [place] [phone] Desean De MD 07/09/2024 Orders Only [facility] Oncology and Hematology - [place] [address] [place] [address] Desean De MD Chronic anemia 07/05/2024 External Device Data STL ABSTRACTION Provider, Abstract 07/04/2024 External Device Data STL ABSTRACTION Provider, Abstract 07/03/2024 External Device Data STL ABSTRACTION Provider, Abstract 07/03/2024 Orders Only [facility] Oncology and Hematology - [place] [address] [place] [address] Desean De MD 06/26/2024 Orders Only [facility] Oncology and Hematology - [place] [address] [place] [address] Desean De MD 06/25/2024 Orders Only [facility] Oncology and Hematology - [place] [address] [place] [address] Desean De MD Chronic anemia from Last [...] on file 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 [address] [place] [address] Desean De MD [address] [facility] [address] [place] [address] Health Maintenance Due Date Last [...] from Last [address] [place] [address] [place] [id number] MEDICARE PART A AND B
--- OUTSIDE RECORDS SUMMARY | 2024-09-11 22:16 | XMS_ITS | Encounter Summary ---
Author Organization [facility] EDUARDO Mcclain [facility] Address [address] [place] [address] Care Team Providers Care Bridge Maintenance Worker Name Role Phone Unavailable Primary Care Provider Unavailabl e Encounter Details Date Type Department Care Team (Late st Contact Info) Description 09/11/2024 Orders Only [facility] Oncology [facility] Hematology [place] [address] [address] [place] [address] Desean De MD [address] [facility] [employer] [address] [place] [address] Social History Tobacco Use Types Packs/Day Years Used Date Smoking Tobacco: Never Smokeless Tobacco: Never Alcohol Use Standard Drinks/Week Comments Yes 0 (1 standard drink = 0.6 oz pur e alcohol) Occasionally Sex and Gender Information Value Date Recorded Sex Assigned at Not on file 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
--- OUTSIDE RECORDS SUMMARY | 2024-09-11 22:16 | XMS_ITS | Clinical Summary ---
Author Organization [facility] Address [facility] [place] [address] Care Team Providers Care Teacher Selection Specialist Name Role Phone Unavailable Primary Care Provider [...] age to complete this topic Insurance MEDICARE [facility]
[2024-09-11] MEDS: ASPIRIN 81 MG CHEWABLE TABLET 324 MG PO (22:17)
[2024-09-11] MEDS: METOPROLOL TARTRATE INJ 5 MG/5 ML VIAL IV PUSH (22:25)
[2024-09-11 22:27] LABS: NT Pro B Type Natriuretic Pept 1100 pg/mL (19.9-100); Troponin I 0.015 ng/mL (0.000-0.034)
[2024-09-11 22:30] LABS: Lipase 67 U/L (23-300)
--- NOTE | 2024-09-11 22:30 | PC.NURSE ---
Pt reports pain is down to 2 out of 10 and only present in his back. ERP aware of HR at 59 and states to hold further doses of Lopressor at this time.
[2024-09-11 22:39] LABS: INR 1.0; Partial Thromboplastin Time 28.2 Sec (23.9-30.70); Prothrombin Time 10.9 Seconds (9.50-12.1)
[2024-09-11] MEDS: NITROGLYCERIN OINTMENT 1 INCH DOSE TRANSDERM (23:14)
[2024-09-12] VITALS (15 sets, daily range): BP systolic 149–177; BP diastolic 56–65; PULSE 66–86; RESP 13–19; TEMP 37.3; O2SAT 90–96
--- NOTE | 2024-09-12 00:21 | ECG_ITS ---
Test Date: 2024-09-12 00:21:35 Measurements Intervals [place] Rate: 78 P: 66 VA: 201 QRS: -53 QRSD: 117 T: 87 QT: 351 QTc: 402 Interpretive Statements SINUS RHYTHM INCOMPLETE RIGHT BUNDLE BRANCH BLOCK [90+ ms QRS DURATION, TERMINAL R IN V1/V2, 40+ ms S IN I/aVL/V4/V5/V6] LEFT AXIS DEVIATION LOW QRS VOLTAGE ABNORMAL ECG Compared to ECG 09/11/2024 21:56:25 No significant changes Electronically Signed On 09-12-2024 08:22:52 CDT by Azam Chase M.D.
[2024-09-12] MEDS: ONDANSETRON INJ 4 MG/2 ML VIAL IV PUSH (00:27)
[2024-09-12] MEDS: MORPHINE SULFATE (*CRX) 4 MG/ML INJ IV PUSH (00:28)
--- NOTE | 2024-09-12 00:46 | PC.NURSE ---
Pt awakened from sleep and rates pain 1/10 only in his jaw denies chest or back pain at this time. While asleep pt SpO2 noted to be 87% on room air. Pt placed on 2L O2 per NC and SpO2 improves to 94%. No distress noted. Spouse at bedside awaiting bed assignment from [facility] Access Line. Side rails up x 2. Call light in reach. bed in low and locked position.
[2024-09-12 01:38] LABS: Troponin I 0.073 ng/mL (0.000-0.034)
--- NOTE | 2024-09-12 01:44 | PC.NURSE ---
Made contact with SLY Lawson at receiving hospital and critical troponin level given to SLY Lawson with read-back.
== END 2024-09-12 01:36 | disposition short-term general hospital (02) ==
PROVIDERS: Emergency Provider Emergency Medicine; PCP Internal Medicine
DX: R07.9 Chest pain, unspecified (principal); E78.5 Hyperlipidemia, unspecified; E11.22 Type 2 diabetes mellitus with diabetic chronic kidney disease; I12.9 Hypertensive chronic kidney disease with stage 1 through stage 4 chronic kidney disease, or unspecified chronic kidney disease; N18.9 Chronic kidney disease, unspecified; Z79.01 Long term (current) use of anticoagulants; J44.9 Chronic obstructive pulmonary disease, unspecified; Z87.891 Personal history of nicotine dependence; Z79.4 Long term (current) use of insulin
CPT/HCPCS: 36415; 71045; 80053; 83690; 83880; 84484; 85025; 85610; 85730; 93005; 96374; 96375; 99285; A9270; J0616; J2270; J2405

== ENCOUNTER 2024-09-24 07:52 | Outpatient (CLI) | payer MEDICARE, SELFPAY ==
--- OUTSIDE RECORDS SUMMARY | 2024-09-24 07:57 | XMS_ITS | Clinical Summary ---
Author Organization [facility] Chris carlson Rosalinda Address [address] [place] [address] Care Team Providers Care Jordan Worker Name Role Phone Unavailable Primary Care [...] Encounters Date Type Department Care Team Description 09/17/2024 Orders Only [facility] Oncology and Hematology - [place] [address] [place] [phone] Desean De MD Chronic anemia 09/11/2024 Orders Only [facility] Oncology and Hematology - [place] [address] [place] [address] Desean De MD 09/03/2024 Orders Only [facility] Oncology and Hematology - [place] [address] [place] [phone] Desean De MD Chronic anemia 08/29/2024 External Device Data STL ABSTRACTION Provider, Abstract 08/28/2024 External Device Data STL ABSTRACTION Provider, Abstract 08/20/2024 Orders Only [facility] Oncology and Hematology - [place] [address] [place] [phone] Desean De MD Chronic anemia 08/14/2024 Orders Only [facility] Oncology and Hematology - [place] [address] [place] [phone] Desean De MD 08/07/2024 Orders Only [facility] Oncology and Hematology - [place] [address] [place] [phone] Desean De MD 08/06/2024 Orders Only [facility] Oncology and Hematology - [place] [address] [place] [phone] Desean De MD Chronic anemia 07/31/2024 External Device Data STL ABSTRACTION Provider, Abstract 07/30/2024 Orders Only [facility] Oncology and Hematology - [place] [address] [place] [phone] Desean De MD 07/23/2024 Orders Only [facility] Oncology and Hematology - [place] [address] [place] [address] Desean De MD Chronic anemia 07/20/2024 Orders Only [facility] Oncology and Hematology - [place] [address] [place] [address] Desean De MD 07/09/2024 Orders Only [facility] Oncology and Hematology - [place] [address] [place] [address] Desean De MD Chronic anemia 07/05/2024 External Device Data STL ABSTRACTION Provider, Abstract 07/04/2024 External Device Data STL ABSTRACTION Provider, Abstract 07/03/2024 External Device Data STL ABSTRACTION Provider, Abstract 07/03/2024 Orders Only [facility] Oncology and Hematology - [place] [address] [place] [address] Desean De MD 06/26/2024 Orders Only [facility] Oncology and Hematology - [place] [address] [place] [address] Desean De MD 06/25/2024 Orders Only [facility] Oncology and Hematology - [place] [address] [place] [address] Desean De MD Chronic anemia from Last [...] on file 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 Gender Identity Not on file Sexual Orientation [...] Description 11/09/2024 11:45 AM CDT Office Visit [facility] Oncology and Hematology [facility] [address] [facility] [address] [place] [address] Desean De MD [address] [facility] [address] [place] [address] Health Maintenance Due Date Last Done Comments DIABETES ANNUAL FOOT EXAM 1960 DIABETES MICROALBUMIN ANNUAL SCREEN 1960 LDL CHOLESTEROL ANNUAL 1960 DTAP/TDAP/TD VACCINES (1 - Tdap) 1961 Traditional Medicare (ACO) A nnual Wellness Visit 1961 ZOSTER VACCINE (1 of 2) 1992 RSV VACCINE (60+ or ) (1 - 1-dose 75+ series) 2017 PNEUMOCOCCAL VACCINE 50+ YEA RS (2 of 2 - PPSV23, PCV20, or PCV21) 12/10/2017 10/15/2017 INFLUENZA VACCINE (#1) 2024 11/20/2020 DIABETES HBA1C Q 6 MONTHS 01/12/20252024, 12/15/2023, 09/14/2023, Additional history exists DIABETES ANNUAL RETINAL EXAM 06/07/2025, 06/07/2024, 04/12/2024, Additional history exists Procedures Procedure Name Priority Date/Time Associated Diagnosis [...] WITH DIFFERENTIAL Routine 06/29/2024 12:15 PM CDT from Last 3 Months Results * CBC WITH DIFFERENTIAL (09/07/2024 2:16 PM CDT) Only the most recent of7 resultswithin the time period is included. Blood Desean De MD HEMATOLOGY ORDERABLES Final Res ult * BASIC METABOLIC PANEL (08/01/2024 5:05 PM CDT) Only the most recent of2 resultswithin the time period is included. Blood Desean De MD CHEMISTRY ORDERABLES Final Resu lt from Last 3 [place] [id number] MEDICARE PART A AND B
--- OUTSIDE RECORDS SUMMARY | 2024-09-24 07:58 | XMS_ITS | Clinical Summary ---
Author Organization [facility] utibryon Address [address] [place] [phone] Phone Care Team Providers Care Chiropractor Sole Practitioner Name Role Phone Kermit Otero MD Primary Care Provider Allergies No known active allergies Medications cilostazol [...] Influenza Vaccine (#1) 2024 11/20/2020 Insurance MEDICARE [facility] INSURANCE Care Teams Chiropractor Sole Practitioner Relationship Specialty Start Date End Date Kermit Otero MD [address] [place] [address] PCP - General Internal Medicine 06/10/20
--- OUTSIDE RECORDS SUMMARY | 2024-09-24 07:58 | XMS_ITS | Clinical Summary ---
Author Organization [facility] Address [facility] [place] [address] Care Team Providers Care Orthotic Technician Name Role Phone Unavailable Primary Care Provider [...] age to complete this topic Insurance MEDICARE [facility]
[2024-09-24 08:43] LABS: Anion Gap 13 mmol/L (4-12); Calcium 10.1 mg/dL (8.4-10.2); Carbon Dioxide 24 mmol/L (22-30); Chloride 105 mmol/L (98-107); Estimated Glomerular Filt Rate 13; Glucose 94 mg/dL (65-110); Osmolality Calculated 332 mOsm/kg (285-295); Potassium 4.3 mmol/L (3.4-5.0); Sodium 142 mmol/L (137-145)
[2024-09-24 08:49] LABS: Blood Urea Nitrogen > 120 mg/dL (9-20)
== END 2024-09-24 07:53 ==
LOC: CHSLAB 07:54
PROVIDERS: PCP Internal Medicine; Visit Provider Internal Medicine Nephrology
DX: N18.4 Chronic kidney disease, stage 4 (severe) (principal)
CPT/HCPCS: 36415; 80048

== ENCOUNTER 2024-09-28 07:29 | Outpatient (CLI) | payer MEDICARE, SELFPAY ==
--- OUTSIDE RECORDS SUMMARY | 2024-09-28 07:35 | XMS_ITS | Encounter Summary ---
Author Organization [facility] EDUARDO Mcclain [facility] Address [address] [place] [address] Care Team Providers Care Phonograph Needle Tip Maker Name Role Phone Unavailable Primary Care Provider Unavailabl e Encounter Details Date Type Department Care Team (Late st Contact Info) Description 09/25/2024 Orders Only [facility] Oncology [facility] Hematology [place] [address] [address] [place] [address] Desean De MD [address] [facility] [employer] [address] [place] [address] Social History Tobacco Use Types Packs/Day Years Used Date Smoking Tobacco: Never Smokeless Tobacco: Never Alcohol Use Standard Drinks/Week Comments Yes 0 (1 standard drink = 0.6 oz pur e alcohol) Occasionally Sex and Gender Information Value Date Recorded Sex Assigned at Not on file 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 Gender Identity Not on file Sexual Orientation Not on file documented as of this encounter Plan of Treatment Upcoming Encounters Date Type Department Care Team (Late st Contact Info) Description 11/09/2024 11:45 AM CDT Office Visit [facility] Oncology and Hematology [place] [address] [place] [address] Desean De MD [address] [place] [address] documented as of this encounter Procedures Procedure Name Priority Date/Time Associated Diagnosis Comments CBC WITH AUTODIFFERENTIAL Routine 2024 10:34 AM CDT documented in this encounter Results * CBC WITH AUTODIFFERENTIAL (09/21/2024 10:34 AM CDT) Blood us Desean De MD HEMATOLOGY ORDERABLES Final Res ult documented in this encounter Visit Diagnoses Not on filedocumented in this encounter
--- OUTSIDE RECORDS SUMMARY | 2024-09-28 07:35 | XMS_ITS | Clinical Summary ---
Author Organization [facility] Address [facility] [place] [address] Care Team Providers Care Upper Shaper Name Role Phone Unavailable Primary Care Provider [...] age to complete this topic Insurance MEDICARE [facility]
--- OUTSIDE RECORDS SUMMARY | 2024-09-28 07:35 | XMS_ITS | Patient Health Record ---
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 Problem Chronic kidney disease due to hypertension (131322431794266) Hypertensive chronic kidney disease with stage 1 through stage 4 chronic kidney disease, or unspecified chronic kidney disease (I12.9) Active confirmed 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 (263144149096948) Atherosclerotic heart disease of [place] coronary artery without angina pectoris (I25.10) Active confirmed Problem Chronic kidney disease stage 4 (558967087) Chronic kidney disease, stage 4 (severe) (N18.4) Active confirmed Problem Essential hypertension (59395549) Essential hypertension (I10) Active confirmed Plan Of Treatment No Information Insurance Providers Payer Name Payer Address Payer Phone Subscriber Number Group Number Insured Name Patient Relationship to Insured Coverage Start Date Coverage End Date Medicare [address] [place] [phone] [id number] Zach Kasper Self - patient is the insured [facility] Insurance [place] [address] [place] [id number] Zach Kasper Self - patient is the insured Medical (General) History Medical History History ICD Code Hypertension Hypercholesterolemia COPD Surgical History Surgery Date(Month/Year) cholecystectomy Knee surgery
--- OUTSIDE RECORDS SUMMARY | 2024-09-28 07:35 | XMS_ITS | Clinical Summary ---
Author Organization [facility] Chris carlson Rosalinda Address [address] [place] [address] Care Team Providers Care Band Sawing Machine Operator Name Role Phone Unavailable Primary Care Provider [...] Encounters Date Type Department Care Team Description 09/25/2024 Orders Only [facility] Oncology and Hematology - [place] [address] [place] [address] Desean De MD 09/17/2024 Orders Only [facility] Oncology and Hematology - [place] [address] [place] [address] Desean De MD Chronic anemia 09/11/2024 Orders Only [facility] Oncology and Hematology - [place] [address] [place] [address] Desean De MD 09/03/2024 Orders Only [facility] Oncology and Hematology - [place] [address] [place] [address] Desean De MD Chronic anemia 08/29/2024 External Device Data STL ABSTRACTION Provider, Abstract 08/28/2024 External Device Data STL ABSTRACTION Provider, Abstract 08/20/2024 Orders Only [facility] Oncology and Hematology - [place] [address] [place] [address] Desean De MD Chronic anemia 08/14/2024 Orders Only [facility] Oncology and Hematology - [place] [address] [place] [address] Desean De MD 08/07/2024 Orders Only [facility] Oncology and Hematology - [place] [address] [place] [address] Desean De MD 08/06/2024 Orders Only [facility] Oncology and Hematology - [place] [address] [place] [address] Desean De MD Chronic anemia 07/31/2024 External Device Data STL ABSTRACTION Provider, Abstract 07/30/2024 Orders Only [facility] Oncology and Hematology - [place] [address] [place] [address] Desean De MD 07/23/2024 Orders Only [facility] Oncology and Hematology - [place] [address] [place] [address] Desean De MD Chronic anemia 07/20/2024 Orders Only [facility] Oncology and Hematology - [place] [address] [place] [address] Desean De MD 07/09/2024 Orders Only [facility] Oncology and Hematology - [place] [address] [place] [address] Desean De MD Chronic anemia 07/05/2024 External Device Data STL ABSTRACTION Provider, Abstract 07/04/2024 External Device Data STL ABSTRACTION Provider, Abstract 07/03/2024 External Device Data STL ABSTRACTION Provider, Abstract 07/03/2024 Orders Only [facility] Oncology and Hematology - [place] [address] [place] [address] Desean De MD from Last 3 Months Family History Medical [...] on file 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 Gender Identity Not on file Sexual Orientation [...] 11/09/2024 11:45 AM CDT Office Visit [facility] Oncology and Hematology - [place] [address] [facility] [address] [place] [address] Desean De MD [address] [facility] [address] [place] [address] Health Maintenance Due Date Last [...] WITH AUTODIFFERENTIAL Routine 2024 10:34 AM CDT CBC WITH DIFFERENTIAL Routine 09/07/2024 2:16 PM [...] Last 3 Months Results * CBC WITH AUTODIFFERENTIAL (09/21/2024 10:34 AM CDT) Blood us Desean De MD HEMATOLOGY ORDERABLES Final Res ult * CBC WITH DIFFERENTIAL (09/07/2024 2:16 PM [...] lt from Last [address] [place] [address] MEDICARE PART A AND B
--- OUTSIDE RECORDS SUMMARY | 2024-09-28 07:35 | XMS_ITS | Clinical Summary ---
Author Organization [facility] Minerva utibryon Address [address] [place] [address] Phone Care Team Providers Care Operations Lieutenant Name Role Phone Kermit Otero MD Primary Care Provider [phone] Allergies No known active allergies Medications cilostazol [...] Influenza Vaccine (#1) 2024 11/20/2020 Insurance MEDICARE [facility] INSURANCE Care Teams Operations Lieutenant Relationship Specialty Start Date End Date Kermit Otero MD [address] [place] [address] PCP - General Internal Medicine 06/10/20
[2024-09-28 07:40] LABS: Hematocrit 35.2 % (37.0-46.0); Hemoglobin 11.1 g/dL (12.4-15.3); Mean Corpuscular HGB Conc 31.5 g/dL (32-36); Mean Corpuscular Hemoglobin 30.7 pg (27.0-31.0); Mean Corpuscular Volume 97.2 fL (78.0-102.0); Platelet Count Result 203 K/mm3 (150-420); Red Blood Count 3.62 M/mm3 (4.70-6.10); White Blood Count 6.5 K/mm3 (4.8-10.8)
[2024-09-28 08:26] LABS: Anion Gap 11 mmol/L (4-12); Calcium 10.1 mg/dL (8.4-10.2); Carbon Dioxide 24 mmol/L (22-30); Chloride 109 mmol/L (98-107); Estimated Glomerular Filt Rate 14; Glucose 88 mg/dL (65-110); Osmolality Calculated 335 mOsm/kg (285-295); Potassium 4.5 mmol/L (3.4-5.0); Sodium 144 mmol/L (137-145)
[2024-09-28 08:34] LABS: Blood Urea Nitrogen > 120 mg/dL (9-20)
== END 2024-09-28 07:30 | disposition home or self-care (01) ==
LOC: CHSLAB 07:30
PROVIDERS: PCP Internal Medicine; Visit Provider Internal Medicine Nephrology
DX: N18.5 Chronic kidney disease, stage 5 (principal)
CPT/HCPCS: 36415; 80048; 85027

== ENCOUNTER 2024-10-03 07:49 | Outpatient (CLI) | payer MEDICARE, SELFPAY ==
--- OUTSIDE RECORDS SUMMARY | 2024-10-03 07:55 | XMS_ITS | Patient Health Record ---
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 Problem Chronic kidney disease due to hypertension (239397396528938) Hypertensive chronic kidney disease with stage 1 through stage 4 chronic kidney disease, or unspecified chronic kidney disease (I12.9) Active confirmed Problem Atherosclerotic heart disease of [place] coronary artery without angina pectoris (425179017650739) Atherosclerotic heart disease of [place] coronary artery without angina pectoris (I25.10) Active confirmed Problem Chronic kidney disease stage 4 (212130018) Chronic kidney disease, stage 4 (severe) (N18.4) Active confirmed Problem Essential hypertension (33196243) Essential hypertension (I10) Active confirmed Plan Of Treatment No Information Insurance Providers Payer Name Payer Address Payer Phone Subscriber Number Group Number Insured Name Patient Relationship to Insured Coverage Start Date Coverage End Date Medicare [address] [place] [phone] [id number] Zach Kasper Self - patient is the insured [facility] Insurance [place] [address] [place] [id number] Zach Kasper Self - patient is the insured Medical (General) History Medical History History ICD Code Hypertension Hypercholesterolemia COPD Surgical History Surgery Date(Month/Year) cholecystectomy Knee surgery
--- OUTSIDE RECORDS SUMMARY | 2024-10-03 07:55 | XMS_ITS | Clinical Summary ---
Author Organization [facility] Minerva utibryon Address [address] [place] [address] Phone Care Team Providers Care Media Monitor Name Role Phone Kermit Otero MD Primary Care Provider [phone] Allergies No known active allergies Medications cilostazol [...] Influenza Vaccine (#1) 2024 11/20/2020 Insurance MEDICARE [facility] INSURANCE Care Teams Media Monitor Relationship Specialty Start Date End Date Kermit Otero MD [address] [place] [address] PCP - General Internal Medicine 06/10/20
--- OUTSIDE RECORDS SUMMARY | 2024-10-03 07:55 | XMS_ITS | Clinical Summary ---
Author Organization [facility] Chris carlson [facility] Address [address] [place] [address] Care Team Providers Care Web Search Evaluator Name Role Phone Unavailable Primary Care Provider [...] Encounters Date Type Department Care Team Description 10/02/2024 External Device Data STL ABSTRACTION Provider, Abstract 10/01/2024 Orders Only [facility] Oncology and Hematology - [place] [address] [place] [phone] Desean De MD Chronic anemia 09/25/2024 Orders Only [facility] On[facility] and Hematology - [place] [address] [place] [address] Desean De MD 09/17/2024 Orders Only [facility] Oncology and Hematology - [place] [address] [place] [address] Desean De MD Chronic anemia 09/11/2024 Orders Only [facility] Oncology and Hematology - [place] [address] [place] [address] Desean De MD 09/03/2024 Orders Only [facility] Oncology and Hematology - [place] [address] [place] [address] Desean De MD Chronic anemia 08/29/2024 External Device Data STL ABSTRACTION Provider, Abstract 08/28/2024 External Device Data STL ABSTRACTION Provider, Abstract 08/20/2024 Orders Only [facility] Oncology and Hematology - [place] [address] [place] [address] Desean De MD Chronic anemia 08/14/2024 Orders Only [facility] Oncology and Hematology - [place] [address] [place] [address] Desean De MD 08/07/2024 Orders Only [facility] Oncology and Hematology - [place] [address] [place] [address] Desean De MD 08/06/2024 Orders Only [facility] Oncology and Hematology - [place] [address] [place] [address] Desean De MD Chronic anemia 07/31/2024 External Device Data STL ABSTRACTION Provider, Abstract 07/30/2024 Orders Only [facility] Oncology and Hematology - [place] [address] [place] [phone] Desean De MD 07/23/2024 Orders Only [facility] Oncology and Hematology - [place] [address] [place] [address] Desean De MD Chronic anemia 07/20/2024 Orders Only [facility] Oncology and Hematology - [place] [address] [place] [address] Desean De MD 07/09/2024 Orders Only [facility] Oncology and Hematology - [place] [address] [place] [address] Desean De MD Chronic anemia 07/05/2024 External Device Data STL ABSTRACTION Provider, Abstract 07/04/2024 External Device Data STL ABSTRACTION Provider, Abstract 07/03/2024 External Device Data STL ABSTRACTION Provider, Abstract 07/03/2024 Orders Only [facility] Oncology and Hematology - [place] [address] [place] [address] Desean De MD from Last 3 Months [...] on file 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 Gender Identity Not on file Sexual Orientation [...] Description 11/09/2024 11:45 AM CDT Office Visit [facility] Oncology and Hematology - [place] [address] [facility] [address] [place] [address] Desean De MD [address] [facility] [address] [place] [address] Health Maintenance Due Date Last [...] WITH DIFFERENTIAL Routine 07/13/2024 11:52 AM CDT from Last 3 Months Results * CBC WITH AUTODIFFERENTIAL (09/21/2024 10:34 AM CDT) Blood us Desean eD MD HEMATOLOGY ORDERABLES Final Res ult * CBC WITH DIFFERENTIAL (09/07/2024 2:16 PM CDT) Only the most recent of6 resultswithin the time period is included. Blood us Desean De MD HEMATOLOGY ORDERABLES Final Res ult * BASIC METABOLIC PANEL (08/01/2024 5:05 PM CDT) Only the most recent of2 resultswithin the time period is included. Blood us Desean De MD CHEMISTRY ORDERABLES Final Resu lt from Last [address] [place] [address] MEDICARE PART A AND B
--- OUTSIDE RECORDS SUMMARY | 2024-10-03 07:55 | XMS_ITS | Encounter Summary ---
Author Organization [facility] Address [address] [place] [address] Care Team Providers Care Automated Teller Manager Name Role Phone Unavailable Primary Care Provider Unavailabl e Encounter Details Date Type Department Care Team (Late st Contact Info) Description 10/02/2024 External Device Data STL ABSTRACTION Provider, Abstract NO ADDRESS ON FILE Social History Tobacco Use Types Packs/Day Years Used Date Smoking Tobacco: Never Smokeless Tobacco: Never Alcohol Use Standard Drinks/Week Comments Yes 0 (1 standard drink = 0.6 oz pur e alcohol) Occasionally Sex and Gender Information Value Date Recorded Sex Assigned at Not on file 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
--- OUTSIDE RECORDS SUMMARY | 2024-10-03 07:55 | XMS_ITS | Encounter Summary ---
Author Organization [facility] EDUARDO Mcclain [employer] Address [address] [place] [address] Care Team Providers Care Zinc Plate Grainer Name Role Phone Unavailable Primary Care Provider Unavailabl e Encounter Details Date Type Department Care Team (Late st Contact Info) Description 10/01/2024 Orders Only [facility] Oncology and Hematology - [place] [address] [place] [address] Desean De MD [address] [employer] [address] [place] [address] Chronic anemia Social History Tobacco Use Types Packs/Day Years Used Date Smoking Tobacco: Never Smokeless Tobacco: Never Alcohol Use Standard Drinks/Week Comments Yes 0 (1 standard drink = 0.6 oz pur e alcohol) Occasionally Sex and Gender Information Value Date Recorded Sex Assigned at Not on file 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
--- OUTSIDE RECORDS SUMMARY | 2024-10-03 07:55 | XMS_ITS | Clinical Summary ---
Author Organization [facility] Address [facility] [place] [address] Care Team Providers Care Hopper Operator Name Role Phone Unavailable Primary Care [...] age to complete this topic Insurance MEDICARE [facility]
[2024-10-03 08:44] LABS: Anion Gap 10 mmol/L (4-12); Blood Urea Nitrogen 90 mg/dL (9-20); Calcium 10.5 mg/dL (8.4-10.2); Carbon Dioxide 23 mmol/L (22-30); Chloride 112 mmol/L (98-107); Estimated Glomerular Filt Rate 16; Glucose 88 mg/dL (65-110); Osmolality Calculated 326 mOsm/kg (285-295); Potassium 4.2 mmol/L (3.4-5.0); Sodium 145 mmol/L (137-145)
== END 2024-10-03 07:50 | disposition home or self-care (01) ==
LOC: CHSLAB 07:51
PROVIDERS: PCP Internal Medicine; Visit Provider Internal Medicine Nephrology
DX: N18.4 Chronic kidney disease, stage 4 (severe) (principal)
CPT/HCPCS: 36415; 80048

== ENCOUNTER 2024-10-17 07:57 | Outpatient (CLI) | payer MEDICARE, SELFPAY ==
--- OUTSIDE RECORDS SUMMARY | 2024-10-17 08:02 | XMS_ITS | Clinical Summary ---
Author Organization [facility] Address [address] [place] [address] Care Team Providers Care Line Clearance Foreman Name Role Phone Unavailable Primary Care Provider [...] Encounters Date Type Department Care Team Description 10/16/2024 External Device Data STL ABSTRACTION Provider, Abstract 10/15/2024 Orders Only [facility] Oncology and Hematology - [place] [address] [place] [phone] Desean De MD Chronic anemia 10/08/2024 Orders Only [facility] Oncology and Hematology - [place] [address] [place] [phone] Desean De MD 10/02/2024 External Device Data STL ABSTRACTION Provider, Abstract 10/02/2024 External Device Data STL ABSTRACTION Provider, Abstract 10/01/2024 Orders Only [facility] Oncology and Hematology - [place] [address] [place] [phone] Desean De MD Chronic anemia 09/25/2024 Orders Only [facility] Oncology and Hematology - [place] [address] [place] [address] Desean De MD 09/17/2024 Orders Only [facility] Oncology and Hematology - [place] [address] [place] [address] Desean De MD Chronic anemia 09/11/2024 Orders Only [facility] Oncology and Hematology - [place] [address] Desean De MD 09/03/2024 Orders Only [facility] Oncology and Hematology - [place] [address] [place] [address] Desean De MD Chronic anemia 08/29/2024 External Device Data STL ABSTRACTION Provider, Abstract 08/28/2024 External Device Data STL ABSTRACTION Provider, Abstract 08/20/2024 Orders Only [facility] Oncology and Hematology - [place] [address] [place] [phone] Desean De MD Chronic anemia 08/14/2024 Orders Only [facility] Oncology and Hematology - [place] [address] [place] [address] Desean De MD 08/07/2024 Orders Only [facility] Oncology and Hematology - [place] [address] Desean De MD 08/06/2024 Orders Only [facility] Oncology and Hematology - [place] [address] [place] [address] Desean De MD Chronic anemia 07/31/2024 External Device Data STL ABSTRACTION Provider, Abstract 07/30/2024 Orders Only [facility] Oncology and Hematology - [place] [address] [place] [address] Desean De MD 07/23/2024 Orders Only [facility] Oncology and Hematology - [place] [address] [place] [address] Desean De MD Chronic anemia 07/20/2024 Orders Only [facility] Oncology and Hematology - [place] [address] [place] [address] Desean De MD from Last 3 Months [...] on file 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 Gender Identity Not on file Sexual Orientation [...] Description 11/09/2024 11:45 AM CDT Office Visit [facility] Oncology and Hematology - [place] [address] [facility] [address] [place] [address] Desean De MD [address] [facility] [address] [place] [address] Health Maintenance Due Date Last [...] Diagnosis Comments CBC WITH AUTODIFFERENTIAL Routine 2024 12:25 PM CDT CBC WITH AUTODIFFERENTIAL Routine 2024 10:34 AM [...] WITH DIFFERENTIAL Routine 07/27/2024 2:14 PM CDT from Last 3 Months Results * CBC WITH AUTODIFFERENTIAL (10/05/2024 12:25 PM CDT) Only the most recent of2 resultswithin the time period is included. Blood us Desean De MD HEMATOLOGY ORDERABLES Final Res ult * CBC WITH DIFFERENTIAL (09/07/2024 2:16 PM CDT) Only the most recent of5 resultswithin the time period is included. Blood us Desean De MD HEMATOLOGY ORDERABLES Final Res ult * BASIC METABOLIC PANEL (08/01/2024 5:05 PM CDT) Only the most recent of2 resultswithin the time period is included. Blood us Desean De MD CHEMISTRY ORDERABLES Final Resu lt from Last [address] [place] [address] MEDICARE PART A AND B
--- OUTSIDE RECORDS SUMMARY | 2024-10-17 08:03 | XMS_ITS | Encounter Summary ---
Author Organization [facility] EDUARDO Mcclain RippleFunction Address [address] [place] [address] Care Team Providers Care Dairy Farm Worker Name Role Phone Unavailable Primary Care Provider Unavailabl e Encounter Details Date Type Department Care Team (Late st Contact Info) Description 10/15/2024 Orders Only [facility] Oncology and Hematology - Faustino Helio Munoz [address] [place] [address] [place] [address] [place], [place] [address]Social IQ (Social Influence Quotient) [address] [place] [address] Chronic anemia Social History Tobacco Use Types Packs/Day Years Used Date Smoking Tobacco: Never Smokeless Tobacco: Never Alcohol Use Standard Drinks/Week Comments Yes 0 (1 standard drink = 0.6 oz pur e alcohol) Occasionally Sex and Gender Information Value Date Recorded Sex Assigned at Not on file 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
--- OUTSIDE RECORDS SUMMARY | 2024-10-17 08:03 | XMS_ITS | Clinical Summary ---
Author Organization [facility]a ut[facility]on Address [address] [place] [address] Phone Care Team Providers Care Barrel Endshaker Adjuster Name Role Phone Kermit Otero MD Primary Care Provider [phone] Allergies No known active allergies Medications cilostazol [...] [facility] INSURANCE Care Teams Barrel Endshaker Adjuster Relationship Specialty Start Date End Date Kermit Otero MD [address] [place] [address] PCP - General Internal Medicine 06/10/20
--- OUTSIDE RECORDS SUMMARY | 2024-10-17 08:03 | XMS_ITS | Encounter Summary ---
Author Organization [facility] Address 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
--- OUTSIDE RECORDS SUMMARY | 2024-10-17 08:03 | XMS_ITS | Patient Health Record ---
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 Problem Chronic kidney disease due to hypertension (134410330551995) Hypertensive chronic kidney disease with stage 1 through stage 4 chronic kidney disease, or unspecified chronic kidney disease (I12.9) Active confirmed Problem Atherosclerotic heart disease of [place] coronary artery without angina pectoris (825424367245901) Atherosclerotic heart disease of [place] coronary artery without angina pectoris (I25.10) Active confirmed Problem Chronic kidney disease stage 4 (478669567) Chronic kidney disease, stage 4 (severe) (N18.4) Active confirmed Problem Essential hypertension (21072314) Essential hypertension (I10) Active confirmed Plan Of Treatment No Information Insurance Providers Payer Name Payer Address Payer Phone Subscriber Number Group Number Insured Name Patient Relationship to Insured Coverage Start Date Coverage End Date Medicare [address] [place] [phone] [id number] Zach Kasper Self - patient is the insured [facility] Insurance Ne [address] [place] [id number] Zach Kasper Self - patient is the insured Medical (General) History Medical History History ICD Code Hypertension Hypercholesterolemia COPD Surgical History Surgery Date(Month/Year) cholecystectomy Knee surgery
[2024-10-17 09:15] LABS: Anion Gap 10 mmol/L (4-12); Blood Urea Nitrogen 78 mg/dL (9-20); Calcium 9.9 mg/dL (8.4-10.2); Carbon Dioxide 25 mmol/L (22-30); Chloride 110 mmol/L (98-107); Estimated Glomerular Filt Rate 16; Glucose 76 mg/dL (65-110); Osmolality Calculated 322 mOsm/kg (285-295); Potassium 5.1 mmol/L (3.4-5.0); Sodium 145 mmol/L (137-145)
== END 2024-10-17 07:58 | disposition home or self-care (01) ==
LOC: CHSLAB 07:59
PROVIDERS: PCP Internal Medicine; Visit Provider Internal Medicine Nephrology
DX: N18.4 Chronic kidney disease, stage 4 (severe) (principal)
CPT/HCPCS: 36415; 80048

== ENCOUNTER 2024-11-28 07:38 | Outpatient (CLI) | payer MEDICARE, SELFPAY ==
--- OUTSIDE RECORDS SUMMARY | 2024-11-28 07:41 | XMS_ITS | Encounter Summary ---
Author Organization [facility] Address [address] [place] [address] Care Team Providers Care Data Technical Lead Name Role Phone Unavailable Primary Care Provider Unavailabl e Encounter Details Date Type Department Care Team (Late Contact Info) Description 11/26/2024 Orders Only [facility] Oncology and Hematology Faustino Helio Munoz [address] [place] [address] Desean De MD [address] [place] [address] [email or web address] [address] [place] [address] Chronic anemia Social History Tobacco Use Types Packs/Day Years Used Date Smoking Tobacco: Never Smokeless Tobacco: Never Alcohol Use Standard Drinks/Week Comments Yes 0 (1 standard drink = 0.6 oz pur e alcohol) Occasionally Sex and Gender Information Value Date Recorded Sex Assigned at Not on file 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
--- OUTSIDE RECORDS SUMMARY | 2024-11-28 07:41 | XMS_ITS | Clinical Summary ---
Author Organization [facility] Chris Alex Address [address] [place] [address] Care Team Providers Care Landscape Architect And Planner Name Role Phone Unavailable Primary Care Provider Unavailabl e Allergies No known active allergies Medications albuterol sulfate HFA 90 mcg/actuation aerosol inhaler 2 Puffs by See Admin Instructions route see administration instructions. Active amLODIPine (NORVASC) 5 mg tablet Take 10 mg by mouth daily. 09/05/19 22 Active aspirin (ECOTRIN EC) 81 mg Tablet, [...] tablet Take 20 mg by mouth daily. 02/25/19 25 Active Vit B Comp & C-Vit E-FA-Mere-Zn 0.4 mg Tablet Take by mouth daily. Active pravastatin (PRAVACHOL) 40 mg tablet Take 40 mg by mouth daily. Active tamsulosin (FLOMAX) 0.4 mg capsule Take 2 Capsules by mouth daily. 03/11/19 25 Active bumetanide (BUMEX) 2 mg tablet Take 1 Tablet by mouth 2 times daily. 09/15/19 25 Active Basaglar KwikPen U-100 Insulin 100 unit/mL (3 mL) pen syringe INJECT 50 UNITS BY SUBCUTANEOUS ROUTE PER INSULIN PROTOCOL EVERY EVENING WITH SUPPER 05/15/19 25 Active hydroCHLOROthi azide 25 mg tablet Take 25 mg by mouth daily. 07/21/19 22 09/26/2 025 Discontinu ed(Alterna te therapy prescribed ) Active Problems No known active problems Encounters Date Type Department Care Team Description 11/26/2024 Orders Only [facility] Oncology and Hematology - Faustino Miracle Munoz [address] Desean De MD Chronic anemia 11/20/2024 External Device Data STL ABSTRACTION Provider, Abstract 11/12/2024 Orders Only [facility] Oncology and Hematology - Faustino Miracle Munoz [address] [place] [id number] Desean De MD Chronic anemia 11/09/2024 11:45 AM CDT Office Visit [facility] Oncology and Hematology - Faustino Miracle Munoz [address] Desean De MD Chronic anemia (Primary Dx); MGUS (monoclonal gammopathy of unknown significance) 11/05/2024 Orders Only [facility] Oncology and Hematology - Faustino Miracle Munoz [address] Desean De MD 10/30/2024 External Device Data STL ABSTRACTION Provider, Abstract 10/30/2024 External Device Data STL ABSTRACTION Provider, Abstract 10/29/2024 Orders Only [facility] Oncology and Hematology - Faustino Miracle Munoz [address] [place] [address] Desean De MD Chronic anemia 10/22/2024 Orders Only [facility] Oncology and Hematology - Faustino Miracle Munoz [address] [place] [address] Desean De MD 10/19/2024 Orders Only [facility] Oncology and Hematology - Faustino Miracle Munoz [address] [place] [address] Desean De MD 10/16/2024 External Device Data STL ABSTRACTION Provider, Abstract 10/15/2024 Orders Only [facility] Oncology and Hematology - Faustino Miracle Munoz [address] [place] [id number] Desean De MD Chronic anemia 10/08/2024 Orders Only [facility] Oncology and Hematology - Faustino [address] Desean De MD 10/02/2024 External Device Data STL ABSTRACTION Provider, Abstract 10/02/2024 External Device Data STL ABSTRACTION Provider, Abstract 10/01/2024 Orders Only [facility] Oncology and Hematology - Faustino [address] [place] [id number] Desean De MD Chronic anemia 09/25/2024 Orders Only [facility] Oncology and Hematology - Faustino [address] Desean De MD 09/17/2024 Orders Only [facility] Oncology and Hematology - Faustino [address] [place] [phone] Desean De MD Chronic anemia 09/11/2024 Orders Only [facility] Oncology and Hematology - Faustino [address] Munoz [address] Desean De MD 09/03/2024 Orders Only [facility] Oncology and Hematology - Faustino [address] Mun[address] [place] [id number] Desean De MD Chronic anemia 08/29/2024 External [...] on file 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 Gender Identity Not on file Sexual Orientation Not on file Last Filed Vital Signs Vital Sign Reading Time Taken Comments Blood Pressure 152/66 11/09/2024 11:31 AM CDT Pulse 60 11/09/2024 11:27 AM CDT Temperature 36.4 C (97.6 F) 11/09/2024 11:27 AM CDT Respiratory Rate 16 11/09/2024 11:27 AM CDT Oxygen Saturation 97% 11/09/2024 11:27 AM CDT Inhaled Oxygen Concentration - - Weight 89.6 kg (197 lb 9.6 oz) 11/09/2024 11:27 AM CDT Height 188 cm (6' 2) 04/30/2024 10:46 AM CDT Body Mass Index 25.37 04/30/2024 10:46 AM CDT Plan of Treatment Upcoming Encounters Date Type Department Care Team (Late st Contact Info) Description 03/15/2025 11:15 AM BOND WRITER Office Visit [facility] Oncology and Hematology - Faustino [address] [facility] [address] [place] [address] Desean De MD [address] [facility] [address] [place] [address] Health Maintenance Due Date Last [...] Procedure Name Priority Date/Time Associated Diagnosis Comments BASIC METABOLIC PANEL Routine 11/02/2024 2:49 PM CDT CBC WITH AUTODIFFERENTIAL Routine 2024 1:00 PM CDT IRON, TIBC, AND PERCENT SATURATION Routine 10/19/2024 12:48 PM CDT CBC WITH AUTODIFFERENTIAL Routine 2024 12:35 PM CDT CBC WITH AUTODIFFERENTIAL Routine 2024 12:25 PM CDT CBC WITH AUTODIFFERENTIAL Routine 2024 10:34 AM CDT CBC WITH DIFFERENTIAL Routine 09/07/2024 2:16 PM CDT from Last 3 Months Results * BASIC METABOLIC PANEL (11/02/2024 2:49 PM CDT) Blood us Desean De MD CHEMISTRY ORDERABLES Final Resu lt * CBC WITH AUTODIFFERENTIAL (11/02/2024 1:00 PM CDT) Only the most recent of4 resultswithin the time period is included. Blood us Desean De MD HEMATOLOGY ORDERABLES Final Res ult * IRON, TIBC, AND PERCENT SATURATION (10/19/2024 12:48 PM CDT) Blood us Desean De MD CHEMISTRY ORDERABLES Final Resu lt * CBC WITH DIFFERENTIAL (09/07/2024 2:16 PM CDT) Blood us Desean De MD HEMATOLOGY ORDERABLES Final Res ult from Last [address] [place] [address] [place] [address] MEDICARE PART A AND B
--- OUTSIDE RECORDS SUMMARY | 2024-11-28 07:41 | XMS_ITS | Clinical Summary ---
Author Organization [facility] Address [facility] [place] [address] Care Team Providers Care Accounting Specialist Name Role Phone Unavailable Primary Care [...] COVID-19 Vaccine ( - 2023-2 5 season) 2024 Influenza Adult (#1) 2024 Meningococcal B Vaccine Aged Out No l onger eligible based on patient's age to complete this topic Meningococcal Vaccine Aged Out No rosa hank eligible based on patient's age to complete this topic RSV Immunizations Under 20 Months Aged Out No longer eligible based on patient's age to complete this topic Insurance MEDICARE [facility]
--- OUTSIDE RECORDS SUMMARY | 2024-11-28 07:41 | XMS_ITS | Clinical Summary ---
Author Organization [facility] Address [address] [place] [address] Phone Care Team Providers Care Public Address System Operator Name Role Phone Kermit Otero MD Primary Care Provider [phone] Allergies No known active allergies Medications cilostazol [...] MEDICARE [facility] INSURANCE Care Teams Public Address System Operator Relationship Specialty Start Date End Date Kermit Otero MD [address] [place] [address] PCP - General Internal Medicine 06/10/20
--- OUTSIDE RECORDS SUMMARY | 2024-11-28 07:42 | XMS_ITS | Patient Health Record ---
Author Organization [facility] Address [address] [place], [place] [address] Care Team Providers Care Investment Director Name Role Phone Cristi Beth Primary Care Provider Unavailab ISAIAS Chew Unavailable [phone] Allergies No Known Allergies Reason For Referral No Information Medications Medication SIG (Take, Route, Frequency, Duration) Notes Start Date End Date Status predniSONE 20 MG Tablet 1 tablet Orally Once a day Active Albuterol Sulfate HFA 108 (90 Base) MCG/ACT Aerosol Solution 1 puff as needed Inhalation every 4 hrs Active Torsemide 20 MG Tablet as directed Orally Active amLODIPine Besylate 10 MG Tablet 1 tablet Orally Once a day A ctive hydrALAZINE HCl 100 MG Tablet 1 tablet with food Orally Twice a day Active Levemir FlexPen 100 UNIT/ML Solution Pen-injector as directed Subcutaneous Act adan Fluticasone Furoate-Vilanterol 100-25 MCG/INH Aerosol Powder Breath Activated 1 puff Inhalation Once a day Active Finasteride 5 MG Tablet 1 tablet Orally Once a day Active Amoxicillin-Pot Clavulanate 875-125 MG Tablet 1 tablet Orally every 12 hrs Active Multivitamin - Tablet 1 tablet Orally Once a day Active Folic Acid-Vit B6-Vit B12 0.8-50-0.1 MG Tablet as directed Orally A ctive Aspirin 81 81 MG Tablet Delayed Release 1 tablet Orally Once a day Active Ferrous Sulfate 325 MG Capsule as directed Orally Active Carvedilol 6.25 MG Tablet 1 tablet with food Orally Twice a day Active Immunizations Vaccine Route Administration Date Status Comme nts Fluad HD syringe/medicare Unknown 03/01/2023 Refused Social History Tobacco Use: Social History Observation Description Date Details (start date - stop date) Never Smoker NA - NA Social History Social History Social Info Question Answer Notes Tobacco use: Are you a: never smoker Additional Details Category Social Info Options Details Social History Alcohol use: no Place of Residence: live w/family Recreational drug use: no Problems Problem Type SNOMED Code ICD Code Onset Dates Problem Status W/U Status Risk Notes Problem Anemia in chronic kidney disease (276046421) 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) Active confirmed Problem Diabetic renal disease (590449799) 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 Problem Chronic kidney disease due to hypertension (250762511317389) Hypertensive chronic kidney disease with stage 1 through stage 4 chronic kidney disease, or unspecified chronic kidney disease (I12.9) Active confirmed Problem Atherosclerotic heart disease of [place] coronary artery without angina pectoris (502082500512228) Atherosclerotic heart disease of [place] coronary artery without angina pectoris (I25.10) Active confirmed Problem Chronic kidney disease stage 4 (099678133) Chronic kidney disease, stage 4 (severe) (N18.4) Active confirmed Problem Essential hypertension (91531282) Essential hypertension (I10) Active confirmed Plan Of Treatment No Information Insurance Providers Payer Name Payer Address Payer Phone Subscriber Number Group Number Insured Name Patient Relationship to Insured Coverage Start Date Coverage End Date Medicare [address] [place] [phone] [id number] Faye Kasper Self - patient is the insured [facility] Insurance Ne [address] [place] [id number] Faye Kasper Self - patient is the insured Medical (General) History Medical History History ICD Code Hypertension Hypercholesterolemia COPD Surgical History Surgery Date(Month/Year) cholecystectomy Knee surgery
[2024-11-28 08:21] LABS: Anion Gap 8 mmol/L (4-12); Blood Urea Nitrogen 85 mg/dL (9-20); Calcium 9.8 mg/dL (8.4-10.2); Carbon Dioxide 28 mmol/L (22-30); Chloride 109 mmol/L (98-107); Estimated Glomerular Filt Rate 16; Glucose 76 mg/dL (65-110); Osmolality Calculated 324 mOsm/kg (285-295); Potassium 4.3 mmol/L (3.4-5.0); Sodium 145 mmol/L (137-145)
== END 2024-11-28 07:39 | disposition home or self-care (01) ==
LOC: CHSLAB 07:39
PROVIDERS: PCP Internal Medicine; Visit Provider Internal Medicine Nephrology
DX: N18.4 Chronic kidney disease, stage 4 (severe) (principal)
CPT/HCPCS: 36415; 80048